=== PATIENT | male | born 1960 | race Caucasian/White ===

== ENCOUNTER 2017-11-29 18:41 | Emergency (ER) | payer MEDICARE ==
[2017-11-29] MEDS ORDERED: NS 0.9% 1000 ML* 1,000 ML IV ONE (19:18)
[2017-11-29] MEDS ORDERED: Morphine INJ* 4 MG/ML 1 ML CARPUJECT IV ONE (19:19)
[2017-11-29] MEDS ORDERED: Morphine INJ* 4 MG/ML 1 ML SYRINGE (NEW SYRINGE VERSION) IV ONE (19:19)
[2017-11-29 19:50] LABS: ABS Basophils 0 10^3/ul (0-0.2); ABS Eosinophils 0 10^3/ul (0-0.6); ABS Lymphocytes 1.4 10^3/ul (1.0-4.8); ABS Monocytes 0.6 10^3/ul (0-0.8); ABS Neutrophils 4.6 10^3/ul (1.5-7.7); ABS Nucleated RBC 0 10^3/ul; Eosinophil % 0.6 % (0-6); Hematocrit 37 % (42-52); Lymphocyte % 20.6 % (25-47); Mean Corpuscular HGB Conc 35 g/dl (31-36); Mean Corpuscular Hemoglobin 30 pg (27-31); Mean Corpuscular Volume 87 fL (80-94); Mean Platelet Volume 8 um3 (7.4-10.4); Nucleated Red Blood Cells % 0; Platelet Count 317 10^3/ul (150-450); Red Blood Count 4.32 10^6/ul (4.0-5.4); Red Cell Distribution Width 13 % (10.5-15); White Blood Count 6.7 10^3/ul (3.5-10.8)
[2017-11-29 20:05] LABS: EGFR Non-African American 68.5 (>60)
[2017-11-29] MEDS ORDERED: Iodixanol* (CONTRAST) 320 MG/ML 100 ML SDV IV ONE (20:12)
--- NOTE | 2017-11-29 20:47 | RAD ---
INDICATION: Chest and abdominal pain . History of DVT. Currently anticoagulated. COMPARISON: None TECHNIQUE: Axial source images were obtained from the thoracic inlet to the symphysis pubis following administration of intravenous contrast. CT angiography was utilized for the chest portion of the examination. 92 mL of Visipaque 320 was utilized. Lack of oral contrast decreases the ability to detect lymphadenopathy and limits evaluation of the bowel Coronal and sagittal reconstructed images were acquired. CHEST FINDINGS: Neck/thyroid: The visualized neck to include the thyroid appear normal. Chest wall: There are no acute abnormalities of the bony thorax or chest wall. There is no supraclavicular, infraclavicular, or axillary lymphadenopathy. Lungs : There are no pulmonary parenchymal masses or infiltrates. The pulmonary interstitium appears normal. There are no endobronchial lesions. Cardiomediastinal structures: The heart is normal in size. There is no pericardial effusion. There is no evidence of aortic aneurysm or dissection. The pulmonary vessels appear normal. There is no CT evidence of acute pulmonary embolic disease There is no mediastinal or hilar adenopathy. The esophagus appears normal. Pleura : There are no pleural-based masses or effusions. ABDOMINAL/PELVIC FINDINGS: Liver: The liver is normal in size. There are no worrisome masses. There is a 4 mm left hepatic lobe hypodensity which is likely an incidental cyst. There is no ductal dilatation. Gallbladder: There are no calcified gallstones. There is no evidence of wall thickening or pericholecystic fluid. Spleen: The spleen is normal in size. There are no masses. Pancreas: There is no evidence of pancreatic mass or ductal dilatation. Adrenal glands: There is no evidence of adrenal mass. Kidneys: The kidneys are normal in size and position. There are prompt nephrograms and there is prompt excretion bilaterally. There are no renal parenchymal masses. There is no evidence of nephrolithiasis. Adenopathy: There is no evidence of adenopathy by size criteria. Fluid collections: There are no free or localized fluid collections. Vessels:The aorta and IVC appear normal GI tract: There are no specific CT abnormalities the upper lower GI tract on noncontrast evaluation.. Pelvic organs: The prostate and seminal vesicles appear normal Bladder: There are no bladder masses. Abdominal and pelvic soft tissues: The extraperitoneal abdominal and pelvic soft tissues appear normal.. Osseous structures: There are no acute osseous findings. IMPRESSION: 1. No CT evidence of acute pulmonary embolic disease. Lungs clear. 2. No mass or inflammatory change in the abdomen or pelvis
[2017-11-29 21:06] LABS: Urine Appearance Clear; Urine Blood Negative (Negative); Urine Color Yellow; Urine Ketones Negative (Negative); Urine Protein Negative (Negative); Urine Specific Gravity 1.026 (1.010-1.030); Urine Urobilinogen Negative (Negative)
[2017-11-29 21:27] VITALS: BP 139/67
--- NOTE | 2017-11-30 03:56 | ED ---
Lane Griggs Jennifer, scribed for Daron Cuadra MD on 11/29/17 at 1916 . Syncope/Near Syncope - HPI Summary HPI Summary: The patient is a 57 year old male who presents to the ED with an episode of syncope tonight. The patient describes that he took one Trazadone before going to [facility] because he was feeling depressed. He reports that he began feeling shortness of breath before fainting. The patient additionally complains of throbbing pain in both legs rated at an 8/10 due to his history of DVT. He reports that he has experienced stomach pain for the last two months. The patient denies shortness of breath and chest pain in the ED. He explains that he was in [facility] for mental health one week ago due to his history of depression. He also requests an HIV test tonight. - History Of Current Complaint Chief Complaint: EDSyncope Time Seen by Provider: 11/29/17 19:05 Hx Obtained From: Patient Onset/Duration: Sudden Onset, Still Present Timing: Constant Activity At Onset: Other - Playing binCompany Associated Head Trauma: No Aggravating Factor(s): Nothing Alleviating Factor(s): Nothing Associated Signs And Symptoms: Other - shortness of breath, depression, leg pain , abdominal pain. NEGATIVE: chest pain - Allergies/Home Medications Allergies/Adverse Reactions: Allergies Allergy/AdvReac Type Severity Reaction Status Date / Time No Known Allergies Allergy Verified 02/21/15 04:27 Home Medications: Home Medications Apixaban* [Eliquis*] 5 mg PO BID 11/29/17 [History Confirmed 11/29/17] PMH/Surg Hx/FS Hx/Imm Hx Endocrine/Hematology History: Reports: Hx Anticoagulant Therapy, Hx Diabetes Cardiovascular History: Reports: Hx Deep Vein Thrombosis - 2010, 2011, and 2012 , Hx Embolism - 2010 Respiratory History: Reports: Hx Pulmonary Edema, Hx Pulmonary Embolism Sensory History: Reports: Hx Contacts or Glasses, Hx Hearing Problem - Inner ear tube placement Opthamlomology History: Reports: Hx Contacts or Glasses Psychiatric History: Reports: Hx Depression Denies: Hx Eating Disorder, Hx of Violent Episodes Against Others - Surgical History Surgery Procedure, Year, and Place: Hx Appendectomy and Inner Ear Tube Placement Infectious Disease History: No Infectious Disease History: Denies: Traveled Outside the [place] in Last 30 Days - Family History Known Family History: Positive: Diabetes - Father - Social History Alcohol Use: Occasionally Substance Use Type: Reports: None Smoking Status (MU): Never Smoked Tobacco Review of Systems Negative: Chest Pain Positive: Shortness Of Breath Positive: Abdominal Pain Positive: Myalgia - Leg pain Positive: Depressed All Other Systems Reviewed And Are Negative: Yes Physical Exam - Summary Physical Exam Summary: Appearance: Well appearing, no pain distress Skin: warm, dry, reflects adequate perfusion Head/face: normal Eyes: EOMI, HERMANN ENT: normal Neck: supple, non-tender Respiratory: CTA, breath sounds present Cardiovascular: RRR, pulses symmetrical Abdomen: non-tender, soft Bowel: present Musculoskeletal: normal, strength/ROM intact. Lower extremities 1-2 + bilateral non-pitting edema. No tenderness in legs. Neuro: normal, sensory motor intact, A&Ox3 Psych: Normal. Triage Information Reviewed: Yes Vital Signs On Initial Exam: Initial Vitals Temp Pulse Resp BP Pulse Ox 97.6 F 93 19 122/80 100 11/29/17 18:45 11/29/17 18:45 11/29/17 18:45 11/29/17 18:45 11/29/17 18:45 Vital Signs Reviewed: Yes Diagnostics - Vital Signs Vital Signs Temp Pulse Resp BP Pulse Ox 11/29/17 18:45 97.6 F 93 19 122/80 100 - Laboratory Lab Results: Lab Results 11/29/17 11/29/17 11/29/17 Range/Units 19:30 19:30 19:30 WBC 6.7 (3.5-10.8) 10^3/ul RBC 4.32 (4.0-5.4) 10^6/ul Hgb 13.0 L (14.0-18.0) g/dl Hct 37 L (42-52) % MCV 87 (80-94) fL MCH 30 (27-31) pg MCHC 35 (31-36) g/dl RDW 13 (10.5-15) % Plt Count 317 (150-450) 10^3/ul MPV 8 (7.4-10.4) um3 Neut % (Auto) 69.0 (38-83) % Lymph % (Auto) 20.6 L (25-47) % [place] % (Auto) 9.4 H (1-9) % Eos % (Auto) 0.6 (0-6) % Baso % (Auto) 0.4 (0-2) % Absolute Neuts (auto) 4.6 (1.5-7.7) 10^3/ul Absolute Lymphs (auto) 1.4 (1.0-4.8) 10^3/ul Absolute Monos (auto) 0.6 (0-0.8) 10^3/ul Absolute Eos (auto) 0 (0-0.6) 10^3/ul Absolute Basos (auto) 0 (0-0.2) 10^3/ul Absolute Nucleated RBC 0 10^3/ul Nucleated RBC % 0 Sodium 132 L (133-145) mmol/L Potassium 4.2 (3.5-5.0) mmol/L Chloride 98 L (101-111) mmol/L Carbon Dioxide 28 (22-32) mmol/L Anion Gap 6 (2-11) mmol/L BUN 26 H (6-24) mg/dL Creatinine 1.11 (0.67-1.17) mg/dL Est GFR ( Amer) 88.1 (>60) Est GFR (Non-Af Amer) 68.5 (>60) BUN/Creatinine Ratio 23.4 H (8-20) Glucose 323 H (70-100) mg/dL POC Glucose (mg/dL) (70-100) mg/dL Lactic Acid 1.5 (0.5-2.0) mmol/L Calcium 8.9 (8.6-10.3) mg/dL Magnesium 1.4 L (1.9-2.7) mg/dL Total Bilirubin 0.50 (0.2-1.0) mg/dL AST 8 L (13-39) U/L ALT 7 (7-52) U/L Alkaline Phosphatase 46 (34-104) U/L Troponin I 0.00 (<0.04) ng/mL Total Protein 6.8 (6.4-8.9) g/dL Albumin 3.6 (3.2-5.2) g/dL Globulin 3.2 (2-4) g/dL Albumin/Globulin Ratio 1.1 (1-3) TSH 6.58 H (0.34-5.60) mcIU/mL Urine Color Urine Appearance Urine pH (5-9) Ur Specific [place] (1.010-1.030) Urine Protein (Negative) Urine Ketones (Negative) Urine Blood (Negative) Urine Nitrate (Negative) Urine Bilirubin (Negative) Urine Urobilinogen (Negative) Ur Leukocyte Esterase (Negative) Urine Glucose (Negative) 11/29/17 11/29/17 Range/Units 20:50 21:16 WBC (3.5-10.8) 10^3/ul RBC (4.0-5.4) 10^6/ul Hgb (14.0-18.0) g/dl Hct (42-52) % MCV (80-94) fL MCH (27-31) pg MCHC (31-36) g/dl RDW (10.5-15) % Plt Count (150-450) 10^3/ul MPV (7.4-10.4) um3 Neut % (Auto) (38-83) % Lymph % (Auto) (25-47) % [place] % (Auto) (1-9) % Eos % (Auto) (0-6) % Baso % (Auto) (0-2) % Absolute Neuts (auto) (1.5-7.7) 10^3/ul Absolute Lymphs (auto) (1.0-4.8) 10^3/ul Absolute Monos (auto) (0-0.8) 10^3/ul Absolute Eos (auto) (0-0.6) 10^3/ul Absolute Basos (auto) (0-0.2) 10^3/ul Absolute Nucleated RBC 10^3/ul Nucleated RBC % Sodium (133-145) mmol/L Potassium (3.5-5.0) mmol/L Chloride (101-111) mmol/L Carbon Dioxide (22-32) mmol/L Anion Gap (2-11) mmol/L BUN (6-24) mg/dL Creatinine (0.67-1.17) mg/dL Est GFR ( Amer) (>60) Est GFR (Non-Af Amer) (>60) BUN/Creatinine Ratio (8-20) Glucose (70-100) mg/dL POC Glucose (mg/dL) 324 H (70-100) mg/dL Lactic Acid (0.5-2.0) mmol/L Calcium (8.6-10.3) mg/dL Magnesium (1.9-2.7) mg/dL Total Bilirubin (0.2-1.0) mg/dL AST (13-39) U/L ALT (7-52) U/L Alkaline Phosphatase (34-104) U/L Troponin I (<0.04) ng/mL Total Protein (6.4-8.9) g/dL Albumin (3.2-5.2) g/dL Globulin (2-4) g/dL Albumin/Globulin Ratio (1-3) TSH (0.34-5.60) mcIU/mL Urine Color Yellow Urine Appearance Clear Urine pH 5.0 (5-9) Ur Specific [place] 1.026 (1.010-1.030) Urine Protein Negative (Negative) Urine Ketones Negative (Negative) Urine Blood Negative (Negative) Urine Nitrate Negative (Negative) Urine Bilirubin Negative (Negative) Urine Urobilinogen Negative (Negative) Ur Leukocyte Esterase Negative (Negative) Urine Glucose 3+(>=500 mg/dl) H (Negative) Result Diagrams: 11/29/17 19:30 11/29/17 19:30 Lab Statement: Any lab studies that have been ordered have been reviewed, and results considered in the medical decision making process. - CT Chest/Abd/Pel CTA CT Interpretation: No Acute Changes - 1. No CT evidence of acute pulmonary embolic disease. Lungs clear. 2. No mass or inflammatory change in the abdomen or pelvis. Dr. Cuadra has reviewed this report. CT Interpretation Completed By: Radiologist - EKG 19:26 Cardiac Rate: NL EKG Rhythm: Sinus Rhythm - [address] Segment: Normal EKG Interpretation: Normal axis, Poor R wave progression Course/Dx Course Of Treatment: Pt with extensive hx to include DVT now and PE in the past. On NOAC. Took trazadone prior to sx. CTA chest/abd all neg. Pt stablized here. Up and walking without sx. Had been concerned for wt loss. TSH actually high, his doctor to adjust. No cause found for wt loss. Syncope appears related to vagal event after trying to stay awake after med. - Diagnoses Provider Diagnoses: Vasovagal syncope, Medication side effect, Diabetes mellitus with hyperglycemia , Hypothyroidism Discharge - Discharge Plan Condition: Good Disposition: HOME Patient Education Materials: Syncope (ED), Diabetic Hyperglycemia (ED) Referrals: Niyah Tidwell MD [Medical Doctor] - Additional Instructions: Call your doctor first thing in the morning for follow up. Have them look at changes in your diabetic management, evaluation and treatment of your thyroid. Do not take your sleeping medication and then try to stay up. This can make you feel poorly. Stay well hydrated. Return if worse, new symptoms or other concerns as discussed. The documentation as recorded by the Lane crawford Jennifer accurately reflects the service I personally performed and the decisions made by me, Daron Cuadra MD.
== END 2017-11-29 21:41 | disposition home or self-care (01) ==
LOC: ED 18:41
DX: T43.215A Adverse effect of selective serotonin and norepinephrine reuptake inhibitors, initial encounter (principal); E11.65 Type 2 diabetes mellitus with hyperglycemia; E03.9 Hypothyroidism, unspecified; R06.02 Shortness of breath; R10.9 Unspecified abdominal pain; R55 Syncope and collapse; Y92.9 Unspecified place or not applicable
CPT/HCPCS: 36415; 71275; 74177; 80053; 81003; 83605; 83735; 84443; 84484; 85025; 86703; 93005; 96374; 96375; 99283; J2270; Q9967

== ENCOUNTER → 2018-03-30 21:01 | Emergency (ER) | payer MEDICARE ==
[2018-03-30 21:17] VITALS: BP 124/78
== END | disposition left against medical advice (07) ==
LOC: ED 21:01
DX: R10.9 Unspecified abdominal pain (principal); Z53.21 Procedure and treatment not carried out due to patient leaving prior to being seen by health care provider

== ENCOUNTER 2018-03-31 19:29 | Emergency (ER) | payer MEDICARE ==
[2018-03-31] MEDS ORDERED: Ketorolac INJ* 60 MG/2 ML VIAL IM ONE (20:25)
[2018-03-31 20:38] LABS: Urine Appearance Clear; Urine Blood Negative (Negative); Urine Color Yellow; Urine Ketones Negative (Negative); Urine Protein Negative (Negative); Urine Specific Gravity 1.016 (1.010-1.030); Urine Urobilinogen Negative (Negative)
[2018-03-31 20:43] LABS: ABS Basophils 0 10^3/ul (0-0.2); ABS Eosinophils 0.1 10^3/ul (0-0.6); ABS Lymphocytes 1.5 10^3/ul (1.0-4.8); ABS Monocytes 0.5 10^3/ul (0-0.8); ABS Neutrophils 2.9 10^3/ul (1.5-7.7); ABS Nucleated RBC 0 10^3/ul; Eosinophil % 1.7 % (0-6); Hematocrit 29 % (42-52); Hemoglobin 10.3 g/dl (14.0-18.0); Lymphocyte % 29.6 % (25-47); Mean Corpuscular HGB Conc 35 g/dl (31-36); Mean Corpuscular Hemoglobin 31 pg (27-31); Mean Corpuscular Volume 88 fL (80-94); Mean Platelet Volume 7.1 um3 (7.4-10.4); Nucleated Red Blood Cells % 0; Platelet Count 284 10^3/ul (150-450); Red Blood Count 3.31 10^6/ul (4.00-5.40); Red Cell Distribution Width 13 % (10.5-15)
--- NOTE | 2018-03-31 21:15 | RAD ---
INDICATION: Right upper quadrant pain. COMPARISON: None TECHNIQUE: Longitudinal and transverse scans of the right upper quadrant were obtained. Doppler interrogation of the hepatic and portal venous system was performed. FINDINGS: Liver: The liver is mildly generous in size measuring 18.9 cm. The echogenicity is normal. There are no focal masses. Vessels: There is normal hepatic and portal venous flow. Bile ducts: There is no evidence of intrahepatic or extrahepatic ductal dilatation. The common duct is not seen due to bowel gas. Gallbladder: There are several small gallstones and there are additional gallbladder polyps. There is no evidence of cholelithiasis, thickening of the gallbladder wall, or pericholecystic fluid. Pancreas: The visualized pancreas is not seen due to interfering bowel gas Right kidney: The right kidney is normal in size and echogenicity. There are no masses or calculi. There is no evidence of hydronephrosis. The right kidney measures 10.6 x 5.4 x 5.9 cm. IVC and aorta: The aorta and superior vena cava appear normal. Fluid: There is no ascites. Other: None. IMPRESSION: SMALL GALLSTONES WITHOUT THICKENED GALLBLADDER WALL OR PERICHOLECYSTIC FLUID. INCIDENTAL GALLBLADDER POLYPS.
[2018-03-31 22:43] VITALS: BP 127/67
--- NOTE | 2018-04-01 03:25 | ED ---
Yee Griggs SooYoung, scribed for Monserrat Gutierrez MD on 03/31/18 at 1949 . Abdominal Pain/Male - HPI Summary HPI Summary: A 57 y/o M presents to ED with c/o acute RUQ pain onset [employer]ER. Pain is described as aching and sharp, and is rated 10 out of 10. Associated sx: nausea, vomiting for one week. Pt states he has a known gallstone. He was seen at [facility] approximately two weeks ago, imaging showed gallstones. Pt was admitted for MHE at [facility] for gambling addiction. PMHx: bipolar , manic depression -- states he is medication compliant. Denies HI. Pt states he came to [facility] last night but was not seen by a provider because he left. Non- smoker. Denies drug use. NKA. - History of Current Complaint Chief Complaint: EDAbdPain Stated Complaint: ABD PAIN Time Seen by Provider: 03/31/18 19:41 Hx Obtained From: Patient Onset/Duration: Still Present Severity Currently: Severe - Pt lying comfortably in stretcher Pain Intensity: 10 Pain Scale Used: 0-10 Numeric Location: Umbilical Character: Sharp, Other: - Aching Associated Signs And Symptoms: Positive: Nausea, Vomiting, Other - syncope due to pain - Allergies/Home Medications Allergies/Adverse Reactions: Allergies Allergy/AdvReac Type Severity Reaction Status Date / Time No Known Allergies Allergy Verified 03/31/18 19:40 PMH/Surg Hx/FS Hx/Imm Hx Previously Healthy: No Endocrine/Hematology History: Reports: Hx Anticoagulant Therapy, Hx Diabetes Cardiovascular History: Reports: Hx Deep Vein Thrombosis - 2010, 2011, and 2012 , Hx Embolism - 2010 Respiratory History: Reports: Hx Pulmonary Edema, Hx Pulmonary Embolism Sensory History: Reports: Hx Contacts or Glasses, Hx Hearing Problem - Inner ear tube placement Opthamlomology History: Reports: Hx Contacts or Glasses Psychiatric History: Reports: Hx Depression Denies: Hx Eating Disorder, Hx of Violent Episodes Against Others - Surgical History Surgery Procedure, Year, and Place: Hx Appendectomy and Inner Ear Tube Placement Infectious Disease History: No Infectious Disease History: Denies: Traveled Outside the [place] in Last 30 Days - Family History Known Family History: Positive: Diabetes - Father - Social History Occupation: Disabled Lives: With Family - girlfriend Alcohol Use: Occasionally Hx Substance Use: No Substance Use Type: Reports: None Hx Tobacco Use: No Smoking Status (MU): Never Smoked Tobacco Review of Systems Positive: Abdominal Pain, Vomiting, Nausea Positive: Syncope - due to pain Positive: Other - neg: HI All Other Systems Reviewed And Are Negative: Yes Physical Exam - Summary Physical Exam Summary: GENERAL: Patient is a well-developed and nourished M who is lying comfortable in the stretcher. Patient is not in any acute respiratory distress. HEAD AND FACE: Normocephalic EYES: PERRLA, EOMI x 2. EARS: Hearing grossly intact. MOUTH: Oropharynx within normal limits. NECK: Supple, trachea is midline, no adenopathy, no JVD, no carotid bruit. CHEST: Symmetric, no tenderness at palpation LUNGS: Clear to auscultation bilaterally. No wheezing or crackles. CVS: Regular rate and rhythm, S1 and S2 present, no murmurs or gallops appreciated. ABDOMEN: Soft. Bowel sounds are normal. No abdominal abnormal pulsations. Tender to palpation of RUQ EXTREMITIES: Full ROM in all major joints, no edema, no cyanosis or clubbing. NEURO: Alert and oriented x 3. No acute neurological deficits. Speech is normal and follows commands. SKIN: Dry and warm Triage Information Reviewed: Yes Vital Signs On Initial Exam: Initial Vitals Temp Pulse Resp BP Pulse Ox 98.3 F 81 16 167/94 98 03/31/18 19:37 03/31/18 19:37 03/31/18 19:37 03/31/18 19:37 03/31/18 19:37 Vital Signs Reviewed: Yes Diagnostics - Vital Signs Vital Signs Temp Pulse Resp BP Pulse Ox 03/31/18 19:37 98.3 F 81 16 167/94 98 - Laboratory Lab Results: Lab Results 03/31/18 03/31/18 03/31/18 Range/Units 20:28 20:28 20:28 WBC 5.0 (3.5-10.8) 10^3/ul RBC 3.31 L (4.00-5.40) 10^6/ul Hgb 10.3 L (14.0-18.0) g/dl Hct 29 L (42-52) % MCV 88 (80-94) fL MCH 31 (27-31) pg MCHC 35 (31-36) g/dl RDW 13 (10.5-15) % Plt Count 284 (150-450) 10^3/ul MPV 7.1 L (7.4-10.4) um3 Neut % (Auto) 58.5 (38-83) % Lymph % (Auto) 29.6 (25-47) % [place] % (Auto) 9.6 H (0-7) % Eos % (Auto) 1.7 (0-6) % Baso % (Auto) 0.6 (0-2) % Absolute Neuts (auto) 2.9 (1.5-7.7) 10^3/ul Absolute Lymphs (auto) 1.5 (1.0-4.8) 10^3/ul Absolute Monos (auto) 0.5 (0-0.8) 10^3/ul Absolute Eos (auto) 0.1 (0-0.6) 10^3/ul Absolute Basos (auto) 0 (0-0.2) 10^3/ul Absolute Nucleated RBC 0 10^3/ul Nucleated RBC % 0 Sodium 135 (135-145) mmol/L Potassium 4.0 (3.5-5.0) mmol/L Chloride 102 (101-111) mmol/L Carbon Dioxide 28 (22-32) mmol/L Anion Gap 5 (2-11) mmol/L BUN 22 (6-24) mg/dL Creatinine 0.94 (0.67-1.17) mg/dL Est GFR ( Amer) 100.5 (>60) Est GFR (Non-Af Amer) 83.0 (>60) BUN/Creatinine Ratio 23.4 H (8-20) Glucose 205 H (70-100) mg/dL Lactic Acid (0.5-2.0) mmol/L Calcium 8.7 (8.6-10.3) mg/dL Total Bilirubin 0.30 (0.2-1.0) mg/dL AST 8 L (13-39) U/L ALT 6 L (7-52) U/L Alkaline Phosphatase 32 L (34-104) U/L Ammonia (16-53) mcmol/L C-Reactive Protein 1.37 (<8.01) mg/L Total Protein 5.9 L (6.4-8.9) g/dL Albumin 3.2 (3.2-5.2) g/dL Globulin 2.7 (2-4) g/dL Albumin/Globulin Ratio 1.2 (1-3) Lipase 30 (11.0-82.0) U/L Urine Color Yellow Urine Appearance Clear Urine pH 6.0 (5-9) Ur Specific [place] 1.016 (1.010-1.030) Urine Protein Negative (Negative) Urine Ketones Negative (Negative) Urine Blood Negative (Negative) Urine Nitrate Negative (Negative) Urine Bilirubin Negative (Negative) Urine Urobilinogen Negative (Negative) Ur Leukocyte Esterase Negative (Negative) Urine Glucose 3+(>=500 mg/dl) A (Negative) 03/31/18 03/31/18 Range/Units 20:28 20:28 WBC (3.5-10.8) 10^3/ul RBC (4.00-5.40) 10^6/ul Hgb (14.0-18.0) g/dl Hct (42-52) % MCV (80-94) fL MCH (27-31) pg MCHC (31-36) g/dl RDW (10.5-15) % Plt Count (150-450) 10^3/ul MPV (7.4-10.4) um3 Neut % (Auto) (38-83) % Lymph % (Auto) (25-47) % [place] % (Auto) (0-7) % Eos % (Auto) (0-6) % Baso % (Auto) (0-2) % Absolute Neuts (auto) (1.5-7.7) 10^3/ul Absolute Lymphs (auto) (1.0-4.8) 10^3/ul Absolute Monos (auto) (0-0.8) 10^3/ul Absolute Eos (auto) (0-0.6) 10^3/ul Absolute Basos (auto) (0-0.2) 10^3/ul Absolute Nucleated RBC 10^3/ul Nucleated RBC % Sodium (135-145) mmol/L Potassium (3.5-5.0) mmol/L Chloride (101-111) mmol/L Carbon Dioxide (22-32) mmol/L Anion Gap (2-11) mmol/L BUN (6-24) mg/dL Creatinine (0.67-1.17) mg/dL Est GFR ( Amer) (>60) Est GFR (Non-Af Amer) (>60) BUN/Creatinine Ratio (8-20) Glucose (70-100) mg/dL Lactic Acid 0.9 (0.5-2.0) mmol/L Calcium (8.6-10.3) mg/dL Total Bilirubin (0.2-1.0) mg/dL AST (13-39) U/L ALT (7-52) U/L Alkaline Phosphatase (34-104) U/L Ammonia 39 (16-53) mcmol/L C-Reactive Protein (<8.01) mg/L Total Protein (6.4-8.9) g/dL Albumin (3.2-5.2) g/dL Globulin (2-4) g/dL Albumin/Globulin Ratio (1-3) Lipase (11.0-82.0) U/L Urine Color Urine Appearance Urine pH (5-9) Ur Specific [place] (1.010-1.030) Urine Protein (Negative) Urine Ketones (Negative) Urine Blood (Negative) Urine Nitrate (Negative) Urine Bilirubin (Negative) Urine Urobilinogen (Negative) Ur Leukocyte Esterase (Negative) Urine Glucose (Negative) Result Diagrams: 03/31/18 20:28 03/31/18 20:28 Lab Statement: Any lab studies that have been ordered have been reviewed, and results considered in the medical decision making process. - Ultrasound No standard instances Ultrasound Interpretation: Positive (See Comments) - GALLBLADDER U/S: IMPRESSION : SMALL GALLSTONES WITHOUT THICKENED GALLBLADDER WALL OR PERICHOLECYSTIC FLUID. INCIDENTAL GALLBLADDER POLYPS. ED Physician has reviewed this report and agrees. Ultrasound Interpretation Completed By: Radiologist Re-Evaluation - Re-Evaluation 1 Re-Evaluation Time: 22:17 Change: Improved Comment: Discussing results with pt. Pt states feeling better, would like to go home. Abdominal Pain Fem Course/Dx - Course Course Of Treatment: A 57 y/o M presents to ED with c/o acute RUQ pain onset [employer]. Pain is described as aching and sharp, and is rated 10 out of 10. Associated sx: nausea, vomiting for one week. Pt states he has a known gallstone. He was seen at [facility] approximately two weeks ago, imaging showed gallstones. Pt was admitted for MHE at [facility] for gambling addiction. PMHx: bipolar, manic depression -- states he is medication compliant. Denies HI. Pt states he came to [facility] last night but was not seen by a provider because he left. Non-smoker. Denies drug use. NKA. Workup is unremarkable, hemoglobin 10.3. U/S confirms gallstones without any evidence of acute cholecystitis. Discussed results with pt in great detail, believe pain is secondary to biliary colic. Pt reports improvement, is hemodynamically stable, and safe for discharge. Return precautions given. Otherwise pt will follow up with general surgery. - Diagnoses Provider Diagnoses: Biliary colic Discharge - Sign-Out/Discharge Documenting (check all that apply): Discharge/Admit/Transfer - discharge - Discharge Plan Condition: Stable Disposition: HOME Patient Education Materials: Biliary Colic (ED) Referrals: Brian Abdi MD [Medical Doctor] - As Soon As Possible Additional Instructions: Follow up with Dr. Abdi, surgery, as soon as possible. Please return to the ED if you experience new or worsening symptoms. - Billing Disposition and Condition Condition: STABLE Disposition: Home The documentation as recorded by the Yee crawford SooYoung accurately reflects the service I personally performed and the decisions made by me, Monserrat Gutierrez MD.
== END 2018-03-31 22:43 | disposition home or self-care (01) ==
LOC: ED 19:29
DX: K80.50 Calculus of bile duct without cholangitis or cholecystitis without obstruction (principal); R11.2 Nausea with vomiting, unspecified; R55 Syncope and collapse; E11.9 Type 2 diabetes mellitus without complications; Z86.718 Personal history of other venous thrombosis and embolism; Z86.711 Personal history of pulmonary embolism; Z79.01 Long term (current) use of anticoagulants; F32.9 Major depressive disorder, single episode, unspecified; Z83.3 Family history of diabetes mellitus
CPT/HCPCS: 36415; 76705; 80053; 81003; 82140; 83605; 83690; 85025; 86140; 96372; 99283; J1885

== ENCOUNTER 2018-04-08 18:11 | Emergency (ER) | payer MEDICARE ==
[2018-04-08] MEDS ORDERED: Famotidine TAB* 20 MG PO ONE (18:22)
[2018-04-08 18:45] LABS: ABS Basophils 0 10^3/ul (0-0.2); ABS Eosinophils 0.1 10^3/ul (0-0.6); ABS Lymphocytes 1.3 10^3/ul (1.0-4.8); ABS Monocytes 0.5 10^3/ul (0-0.8); ABS Neutrophils 3.5 10^3/ul (1.5-7.7); ABS Nucleated RBC 0 10^3/ul; Eosinophil % 1.6 % (0-6); Hematocrit 34 % (42-52); Hemoglobin 11.5 g/dl (14.0-18.0); Lymphocyte % 23.5 % (25-47); Mean Corpuscular HGB Conc 34 g/dl (31-36); Mean Corpuscular Hemoglobin 30 pg (27-31); Mean Corpuscular Volume 89 fL (80-94); Mean Platelet Volume 6.9 um3 (7.4-10.4); Nucleated Red Blood Cells % 0; Platelet Count 324 10^3/ul (150-450); Red Blood Count 3.79 10^6/ul (4.00-5.40); Red Cell Distribution Width 13 % (10.5-15); White Blood Count 5.4 10^3/ul (3.5-10.8)
[2018-04-08 18:52] LABS: INR 1.09 (0.77-1.02)
[2018-04-08 18:56] LABS: Urine Appearance Clear; Urine Blood Negative (Negative); Urine Color Straw; Urine Ketones Negative (Negative); Urine Protein Negative (Negative); Urine Specific Gravity 1.005 (1.010-1.030); Urine Urobilinogen Negative (Negative)
--- NOTE | 2018-04-08 21:44 | ED ---
Keshawn Griggs Natalie, scribed for Daron Cuadra MD on 04/08/18 at 1834 . Psychiatric Complaint - HPI Summary HPI Summary: The patient is a 57 y/o M presenting to [facility] c/o abd pain from hx of gallbladder issues starting a month ago. He currently rates the intermittent pain as 8/10 in severity. He additionally c/o diarrhea and blurred vision. He was brought in by EMS for SI with a plan to cut his wrists and overdose on Coumadin because he "can't take the pain anymore." He also reports that the SI is worsened by his gambling addition. 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 He has been to [facility] before for mental health. He last drank EToH three years ago. - History Of Current Complaint Chief Complaint: EDMentalHealth Time Seen by Provider: 04/08/18 18:13 Hx Obtained From: Patient Onset/Duration: Gradual Onset, Lasting Days, Still Present Timing: Days Severity Initially: Mild Severity Currently: Moderate Character: Depressed Aggravating Factor(s): Other - increasing health problems, gambling addiction Alleviating Factor(s): Nothing Related History: Positive For: Prior Psychiatric Issues Has Suicidal: Reports: Thoughts, With A Plan - cut wrists and overdose on medication - Allergies/Home Medications Allergies/Adverse Reactions: Allergies Allergy/AdvReac Type Severity Reaction Status Date / Time No Known Allergies Allergy Verified 03/31/18 19:40 Home Medications: Home Medications Escitalopram Oxalate [Lexapro 10 mg] 10 mg PO DAILY 04/08/18 [History Confirmed 04/08/18] PMH/Surg Hx/FS Hx/Imm Hx Endocrine/Hematology History: Reports: Hx Anticoagulant Therapy, Hx Diabetes Cardiovascular History: Reports: Hx Deep Vein Thrombosis - 2010, 2011, and 2012 , Hx Embolism - 2010 Respiratory History: Reports: Hx Pulmonary Edema, Hx Pulmonary Embolism Sensory History: Reports: Hx Contacts or Glasses, Hx Hearing Problem - Inner ear tube placement Opthamlomology History: Reports: Hx Contacts or Glasses Psychiatric History: Reports: Hx Depression Denies: Hx Eating Disorder, Hx of Violent Episodes Against Others - Surgical History Surgery Procedure, Year, and Place: Hx Appendectomy and Inner Ear Tube Placement Infectious Disease History: No Infectious Disease History: Denies: Traveled Outside the [place] in Last 30 Days - Family History Known Family History: Positive: Diabetes - Father - Social History Alcohol Use: None Hx Substance Use: No Substance Use Type: Reports: None Hx Tobacco Use: No Smoking Status (MU): Never Smoked Tobacco Review of Systems Positive: Blurred Vision Positive: Abdominal Pain, Diarrhea Psychological: Other - SI All Other Systems Reviewed And Are Negative: Yes Physical Exam - Summary Physical Exam Summary: Appearance: Well appearing, no pain distress Skin: warm, dry, reflects adequate perfusion Head/face: normal Eyes: EOMI, HERMANN ENT: normal Neck: supple, non-tender Respiratory: CTA, breath sounds present Cardiovascular: RRR, pulses symmetrical Abdomen: non-tender, soft Bowel Sounds: present Musculoskeletal: normal, strength/ROM intact Neuro: normal, sensory motor intact, A&Ox3 Pysch: suicidal ideation Triage Information Reviewed: Yes Vital Signs On Initial Exam: Initial Vitals Temp Pulse Resp BP Pulse Ox 98.4 F 75 18 166/90 98 04/08/18 18:11 04/08/18 18:11 04/08/18 18:11 04/08/18 18:11 04/08/18 18:11 Vital Signs Reviewed: Yes Diagnostics - Vital Signs Vital Signs Temp Pulse Resp BP Pulse Ox 04/08/18 18:11 98.4 F 75 18 166/90 98 - Laboratory Lab Results: Lab Results 04/08/18 04/08/18 04/08/18 Range/Units 18:36 18:36 18:36 WBC 5.4 (3.5-10.8) 10^3/ul RBC 3.79 L (4.00-5.40) 10^6/ul Hgb 11.5 L (14.0-18.0) g/dl Hct 34 L (42-52) % MCV 89 (80-94) fL MCH 30 (27-31) pg MCHC 34 (31-36) g/dl RDW 13 (10.5-15) % Plt Count 324 (150-450) 10^3/ul MPV 6.9 L (7.4-10.4) um3 Neut % (Auto) 64.0 (38-83) % Lymph % (Auto) 23.5 L (25-47) % Burke % (Auto) 10.1 H (0-7) % Eos % (Auto) 1.6 (0-6) % Baso % (Auto) 0.8 (0-2) % Absolute Neuts (auto) 3.5 (1.5-7.7) 10^3/ul Absolute Lymphs (auto) 1.3 (1.0-4.8) 10^3/ul Absolute Monos (auto) 0.5 (0-0.8) 10^3/ul Absolute Eos (auto) 0.1 (0-0.6) 10^3/ul Absolute Basos (auto) 0 (0-0.2) 10^3/ul Absolute Nucleated RBC 0 10^3/ul Nucleated RBC % 0 INR (Anticoag Therapy) 1.09 H (0.77-1.02) Sodium 133 L (135-145) mmol/L Potassium 4.2 (3.5-5.0) mmol/L Chloride 99 L (101-111) mmol/L Carbon Dioxide 28 (22-32) mmol/L Anion Gap 6 (2-11) mmol/L BUN 15 (6-24) mg/dL Creatinine 0.94 (0.67-1.17) mg/dL Est GFR ( Amer) 100.5 (>60) Est GFR (Non-Af Amer) 83.0 (>60) BUN/Creatinine Ratio 16.0 (8-20) Glucose 202 H (70-100) mg/dL Calcium 8.8 (8.6-10.3) mg/dL Total Bilirubin 0.50 (0.2-1.0) mg/dL AST 8 L (13-39) U/L ALT 8 (7-52) U/L Alkaline Phosphatase 31 L (34-104) U/L Total Protein 6.3 L (6.4-8.9) g/dL Albumin 3.5 (3.2-5.2) g/dL Globulin 2.8 (2-4) g/dL Albumin/Globulin Ratio 1.3 (1-3) Lipase 18 (11.0-82.0) U/L TSH 4.95 (0.34-5.60) mcIU/mL Urine Color Urine Appearance Urine pH (5-9) Ur Specific [place] (1.010-1.030) Urine Protein (Negative) Urine Ketones (Negative) Urine Blood (Negative) Urine Nitrate (Negative) Urine Bilirubin (Negative) Urine Urobilinogen (Negative) Ur Leukocyte Esterase (Negative) Urine Glucose (Negative) Salicylates < 2.50 (<30) mg/dL Urine Opiates Screen (None Detect) Acetaminophen < 15 mcg/mL Ur Barbiturates Screen (None Detect) Ur Phencyclidine Scrn (None Detect) Ur Amphetamines Screen (None Detect) U Benzodiazepines Scrn (None Detect) Urine Cocaine Screen (None Detect) U Cannabinoids Screen (None Detect) Serum Alcohol < 10 (<10) mg/dL 04/08/18 04/08/18 Range/Units 18:42 18:42 WBC (3.5-10.8) 10^3/ul RBC (4.00-5.40) 10^6/ul Hgb (14.0-18.0) g/dl Hct (42-52) % MCV (80-94) fL MCH (27-31) pg MCHC (31-36) g/dl RDW (10.5-15) % Plt Count (150-450) 10^3/ul MPV (7.4-10.4) um3 Neut % (Auto) (38-83) % Lymph % (Auto) (25-47) % Burke % (Auto) (0-7) % Eos % (Auto) (0-6) % Baso % (Auto) (0-2) % Absolute Neuts (auto) (1.5-7.7) 10^3/ul Absolute Lymphs (auto) (1.0-4.8) 10^3/ul Absolute Monos (auto) (0-0.8) 10^3/ul Absolute Eos (auto) (0-0.6) 10^3/ul Absolute Basos (auto) (0-0.2) 10^3/ul Absolute Nucleated RBC 10^3/ul Nucleated RBC % INR (Anticoag Therapy) (0.77-1.02) Sodium (135-145) mmol/L Potassium (3.5-5.0) mmol/L Chloride (101-111) mmol/L Carbon Dioxide (22-32) mmol/L Anion Gap (2-11) mmol/L BUN (6-24) mg/dL Creatinine (0.67-1.17) mg/dL Est GFR ( Amer) (>60) Est GFR (Non-Af Amer) (>60) BUN/Creatinine Ratio (8-20) Glucose (70-100) mg/dL Calcium (8.6-10.3) mg/dL Total Bilirubin (0.2-1.0) mg/dL AST (13-39) U/L ALT (7-52) U/L Alkaline Phosphatase (34-104) U/L Total Protein (6.4-8.9) g/dL Albumin (3.2-5.2) g/dL Globulin (2-4) g/dL Albumin/Globulin Ratio (1-3) Lipase (11.0-82.0) U/L TSH (0.34-5.60) mcIU/mL Urine Color Straw Urine Appearance Clear Urine pH 7.0 (5-9) Ur Specific [place] 1.005 L (1.010-1.030) Urine Protein Negative (Negative) Urine Ketones Negative (Negative) Urine Blood Negative (Negative) Urine Nitrate Negative (Negative) Urine Bilirubin Negative (Negative) Urine Urobilinogen Negative (Negative) Ur Leukocyte Esterase Negative (Negative) Urine Glucose 1+(50 mg/dl) A (Negative) Salicylates (<30) mg/dL Urine Opiates Screen None detected (None Detect) Acetaminophen mcg/mL Ur Barbiturates Screen None detected (None Detect) Ur Phencyclidine Scrn None detected (None Detect) Ur Amphetamines Screen None detected (None Detect) U Benzodiazepines Scrn None detected (None Detect) Urine Cocaine Screen None detected (None Detect) U Cannabinoids Screen None detected (None Detect) Serum Alcohol (<10) mg/dL Result Diagrams: 04/08/18 18:36 04/08/18 18:36 Lab Statement: Any lab studies that have been ordered have been reviewed, and results considered in the medical decision making process. - EKG 18:28 Cardiac Rate: NL - 72 BPM EKG Rhythm: Sinus Rhythm EKG Interpretation: Nml axis. Nml interval. No ST changes. Course/Dx - Course Course Of Treatment: Patient with no abdominal tenderness here. Recent ultrasound shows gallstones only. No pain in the right upper quadrant now. His complaint really is for more epigastric discomfort. LFTs, lipase normal. Mental health evaluation performed here. He is currently undergoing this crisis evaluation will be signed out to the oncoming provider pending disposition. - Differential Dx/Clinical Impression Provider Diagnosis: Gastric pain, Mood disorder Discharge - Sign-Out/Discharge Documenting (check all that apply): Sign-Out Patient Signing out patient TO: Samir Foster - The pt will be a sign-out to Dr. Foster at shift change, pending MHE. - Discharge Plan Condition: Stable Referrals: Krunal Josue MD [Primary Care Provider] - - Billing Disposition and Condition Condition: STABLE The documentation as recorded by the Keshawn crawford Natalie accurately reflects the service I personally performed and the decisions made by me, Daron Cuadra MD.
[2018-04-08] MEDS ORDERED: glipiZIDE TAB* 5 MG PO ONE (22:02)
[2018-04-08] MEDS ORDERED: metFORMIN* 500 MG TAB PO ONE (22:03)
[2018-04-08] MEDS: traZODone TAB* 50 MG TAB PO ONE ×2 (22:42→22:43)
--- NOTE | 2018-04-09 06:45 | ED ---
Deondre Griggs Gabriel, scribed for Samir Foster MD on 04/09/18 at 0626 . Progress - Progress Note Progress Note: This pt was signed out from Dr. Cuadra awaiting dispo. After MHE the barrel rib matting machine operator has decided to transfer the patient. The patient will be signed out to Dr. Holt awaiting transfer. - Consult/PCP Time Called: 19:10 Course/Dx - Diagnoses Provider Diagnoses: Mood disorder Discharge - Sign-Out/Discharge Documenting (check all that apply): Discharge/Admit/Transfer, Sign-Out Patient, Receiving Sign-Out Signing out patient TO: Eugene Holt Receiving patient FROM: Daron Cuadra - Discharge Plan Condition: Stable Disposition: PSYCHIATRIC FACILITY-OTHER Referrals: Krunal Josue MD [Primary Care Provider] - - Billing Disposition and Condition Condition: STABLE Disposition: Psychiatric Facility Other The documentation as recorded by the Deondre crawford Gabriel accurately reflects the service I personally performed and the decisions made by , Samir Foster MD.
[2018-04-09] MEDS ORDERED: Ibuprofen TAB* 400 MG PO ONE (08:22)
[2018-04-09] MEDS ORDERED: metFORMIN* 500 MG TAB PO ONE (08:30)
[2018-04-09] MEDS ORDERED: glipiZIDE TAB* 5 MG PO ONE (08:31)
[2018-04-09] MEDS ORDERED: Escitalopram (NF) 10 MG TAB PO SCH (09:00)
[2018-04-09] MEDS ORDERED: Apixaban* 5 MG TAB PO ONE (09:00)
[2018-04-09 14:42] VITALS: BP 122/68
--- NOTE | 2018-04-09 17:42 | ED ---
IKareen Tenzin, scribed for Daron Cuadra MD on 04/09/18 at 1035 . Progress - Progress Note Progress Note: Pt observed thru night by Dr Foster -- elected for transfer as no beds available here. Pt was transferred to another psych facility after full evaluation by crisis here. Stable until transfer. - Consult/PCP Time Called: 19:10 Course/Dx - Course Course Of Treatment: Patient with no abdominal tenderness here. Recent ultrasound shows gallstones only. No pain in the right upper quadrant now. His complaint really is for more epigastric discomfort. LFTs, lipase normal. Mental health evaluation performed here. He is currently undergoing this crisis evaluation will be signed out to the oncoming provider pending disposition. - Diagnoses Provider Diagnoses: Mood disorder Discharge - Sign-Out/Discharge Documenting (check all that apply): Receiving Sign-Out Receiving patient FROM: Samir Foster - Pt is a sign out from Dr. Foster. - Discharge Plan Condition: Stable Disposition: PSYCHIATRIC FACILITY-OTHER Referrals: Krunal Josue MD [Primary Care Provider] - - Billing Disposition and Condition Condition: STABLE Disposition: Psychiatric Facility Other The documentation as recorded by the Kareen crawford Tenzin accurately reflects the service I personally performed and the decisions made by , Daron Cuadra MD.
== END 2018-04-09 15:35 ==
LOC: ED 18:11
DX: F39 Unspecified mood [affective] disorder (principal); R10.11 Right upper quadrant pain; Z72.6 Gambling and betting; Z86.711 Personal history of pulmonary embolism; Z79.01 Long term (current) use of anticoagulants
CPT/HCPCS: 36415; 80053; 80307; 80320; 80329; 81003; 83690; 84443; 85025; 85610; 93005; 99285; A9270-GY; G0480

== ENCOUNTER 2019-09-22 07:27 | Inpatient (IN) | payer MEDICARE ==
[2019-09-22] MEDS ORDERED: NS 0.9% 1000 ML** 1,000 ML IV ONE ×2 (07:59→08:31)
[2019-09-22] MEDS ORDERED: cefTRIAXone(*) 1 GM in NS 0.9% 50 ML* 50 ML IVPB ONE (07:59)
[2019-09-22 08:04] LABS: ABS Basophils 0.1 10^3/ul (0-0.2); ABS Eosinophils 0.1 10^3/ul (0-0.6); ABS Lymphocytes 1.2 10^3/ul (1.0-4.8); ABS Monocytes 0.8 10^3/ul (0-0.8); ABS Neutrophils 11.5 10^3/ul (1.5-7.7); Eosinophil % 0.9 %; Hematocrit 32 % (42-52); Lymphocyte % 8.5 %; Mean Corpuscular HGB Conc 34 g/dL (31-36); Mean Corpuscular Hemoglobin 29 pg (27-31); Mean Corpuscular Volume 85 fL (80-94); Mean Platelet Volume 7.7 fL (7.4-10.4); Nucleated Red Blood Cells % 0.1; Platelet Count 473 10^3/uL (150-450); Red Blood Count 3.78 10^6 /uL (4.18-5.48); Red Cell Distribution Width 13 % (10-15); White Blood Count 13.6 10^3/uL (3.5-10.8)
[2019-09-22 08:21] LABS: Albumin 3.4 g/dL (3.2-5.2); Albumin/Globulin Ratio 0.7 (1-3); BUN/Creatinine Ratio 21.8 (8-20); Calcium 9.3 mg/dL (8.6-10.3); EGFR African American 66.8 (>60); EGFR Non-African American 55.2 (>60); Globulin 4.6 g/dL (2-4); Total Bilirubin 0.4 mg/dL (0.2-1.0)
[2019-09-22 08:24] LABS: Potassium 5.1 mmol/L (3.5-5.0)
[2019-09-22] MEDS ORDERED: Insulin REGULAR(*) 1 UNITS UNIT SUBCUT ONE (08:43)
[2019-09-22 08:58] LABS: TSH (Thyroid Stimulating Horm) 3.26 mcIU/mL (0.34-5.60)
[2019-09-22 10:29] LABS: Urine Appearance Clear; Urine Bilirubin Negative (Negative); Urine Blood Negative (Negative); Urine Color Straw; Urine Glucose 3+(>=500 mg/dL) (Negative); Urine Ketones 1+ (Negative); Urine Nitrite Negative (Negative); Urine Protein Negative (Negative); Urine Specific Gravity 1.024 (1.010-1.030); Urine Urobilinogen Negative (Negative)
[2019-09-22] MEDS ORDERED: Dextrose 50% VIAL 50 ml IV PUSH PRN (10:55)
--- NOTE | 2019-09-22 10:56 | ED ---
HPI Diabetic - HPI Summary HPI Summary: This patient is a 59yo uncontrolled diabetic presenting to the ED with multiple complaints. He states he has not been taking his diabetes medications as he doesnt care anymore. Since then, he has developed diabetic foot neuropathy with ulcers to the dorsum of the feet with yellowish discharge. States this has been present x 2 weeks and worsening. Also, has not been taking his insulin , metformin or blood thinners. He was told to stop taking his blood thinners by surgery to have a cholecystectomy but d/t his health; he is unable to have the surgery at this time. Continues to c/o RUQ pain. Eating and drinking OK. Denies any urinary symptoms or back pain. Denies any fevers, but endorsing sweats and chills. Endorses SOB, but this is his baseline. Denies CP. Does have a history of bilateral DVTs , depressive disorder, type 2 diabetes and dyspnea. He does not have a primary care, however did f/u briefly with Dr. Brothers d/t his diabetes. States he did not return. He has no medications stating he is out. Never followed up and states not sure why. Originally stating he was suicidal, but denies this currently. States he has a blood clot to the L leg as he has not been taking his blood thinners. However, there is a large abscess to the L lateral portion of the leg just below the knee. No other evidence of DVT. No CP, SOB. No AARON. No fevers. - History Of Current Complaint Chief Complaint: EDGeneral Time Seen by Provider: 09/22/19 07:37 Hx Obtained From: Patient Onset/Duration: Sudden Onset Timing: Constant Severity Initially: Moderate Severity Currently: Moderate Aggravating: Medication Change - non compliant Alleviating: Nothing Related History: DM II, Other - unconctorlled - Risk Factors Cardiac Risk Factors: Diabetes CVA Risk Factor: Diabetes - Allergies/Home Medications Allergies/Adverse Reactions: Allergies Allergy/AdvReac Type Severity Reaction Status Date / Time No Known Allergies Allergy Verified 09/22/19 07:34 Home Medications: Home Medications Insulin NPH Hum/Reg Insulin Hm [Novolin 70-30 Flexpen] 15 units SUBCUT QPM 09/22 [History Confirmed 09/22/19] Insulin NPH Hum/Reg Insulin Hm [Novolin 70-30 Flexpen] 20 units SUBCUT QAM 09/22 [History Confirmed 09/22/19] Metformin ER (NF) [Glucophage ER 750 MG TAB (NF)] 1,500 mg PO BEDTIME 09/22/19 [ History Confirmed 09/22/19] PMH/Surg Hx/FS Hx/Imm Hx Previously Healthy: No Endocrine/Hematology History: Reports: Hx Anticoagulant Therapy, Hx Diabetes Cardiovascular History: Reports: Hx Deep Vein Thrombosis - 2010, 2011, and 2012 , Hx Embolism - 2010 Respiratory History: Reports: Hx Pulmonary Edema, Hx Pulmonary Embolism Sensory History: Reports: Hx Contacts or Glasses, Hx Hearing Problem - Inner ear tube placement Opthamlomology History: Reports: Hx Contacts or Glasses Psychiatric History: Reports: Hx Depression Denies: Hx Eating Disorder, Hx of Violent Episodes Against Others - Surgical History Surgery Procedure, Year, and Place: Hx Appendectomy and Inner Ear Tube Placement - Immunization History Hx Pertussis Vaccination: No Immunizations Up to Date: Yes Infectious Disease History: No Infectious Disease History: Denies: Traveled Outside the [place] in Last 30 Days - Family History Known Family History: Positive: Diabetes - Father - Social History Occupation: Unemployed Lives: Alone Alcohol Use: None Hx Substance Use: No Substance Use Type: Reports: None Hx Tobacco Use: No Smoking Status (MU): Never Smoked Tobacco Review of Systems Negative: Fever, Chills, Fatigue, Skin Diaphoresis Negative: Palpitations, Chest Pain Negative: Shortness Of Breath, Cough Negative: Abdominal Pain, Vomiting, Diarrhea, Nausea Genitourinary: Negative Positive: no symptoms reported, see HPI. Negative: dysuria, discharge, incontinence, pain, urgency Negative: Arthralgia, Myalgia Positive: Other - diabetic wound ulcers to the dorsum of the bilateral feet - L 3cm abscess to the L leg - just BTK Neurological: Negative All Other Systems Reviewed And Are Negative: Yes Physical Exam Triage Information Reviewed: Yes Vital Signs On Initial Exam: Initial Vitals Temp Pulse Resp BP Pulse Ox 98.0 F 90 16 143/98 99 09/22/19 07:29 09/22/19 07:29 09/22/19 07:29 09/22/19 07:29 09/22/19 07:29 Vital Signs Reviewed: Yes Appearance: Positive: No Pain Distress Skin: Positive: Other - 3cm - l lower ext abscess BTK - lateral side. dorsal feet erythema and weeping wounds Head/Face: Positive: Normal Head/Face Inspection Eyes: Positive: EOMI, Conjunctiva Clear Neck: Positive: Supple, No Lymphadenopathy Respiratory/Lung Sounds: Positive: Clear to Auscultation, Breath Sounds Present Cardiovascular: Positive: RRR, Pulses are Symmetrical in both Upper and Lower Extremities Musculoskeletal: Positive: Strength/ROM Intact Neurological: Positive: Speech Normal Psychiatric: Positive: Affect/Mood Appropriate - denies SI/HI at this time AVPU Assessment: Verbal (Reponds To) Diagnostics - Vital Signs Vital Signs Temp Pulse Resp BP Pulse Ox 09/22/19 09:26 89 15 164/92 97 09/22/19 09:00 89 20 96 09/22/19 08:56 91 12 178/141 99 09/22/19 08:26 88 14 175/94 96 09/22/19 08:00 86 17 98 09/22/19 07:56 89 12 155/87 99 09/22/19 07:51 87 97 09/22/19 07:29 98.0 F 90 16 143/98 99 - Laboratory Lab Results: Lab Results 09/22/19 09/22/19 09/22/19 Range/Units 07:45 07:49 07:49 WBC 13.6 H (3.5-10.8) 10^3/uL RBC 3.78 L (4.18-5.48) 10^6 /uL Hgb 11.0 L (14.0-18.0) g/dL Hct 32 L (42-52) % MCV 85 (80-94) fL MCH 29 (27-31) pg MCHC 34 (31-36) g/dL RDW 13 (10-15) % Plt Count 473 H (150-450) 10^3/uL MPV 7.7 (7.4-10.4) fL Neut % (Auto) 84.2 % Lymph % (Auto) 8.5 % [place] % (Auto) 6.0 % Eos % (Auto) 0.9 % Baso % (Auto) 0.4 % Absolute Neuts (auto) 11.5 H (1.5-7.7) 10^3/ul Absolute Lymphs (auto) 1.2 (1.0-4.8) 10^3/ul Absolute Monos (auto) 0.8 (0-0.8) 10^3/ul Absolute Eos (auto) 0.1 (0-0.6) 10^3/ul Absolute Basos (auto) 0.1 (0-0.2) 10^3/ul Absolute Nucleated RBC 0.0 10^3/ul Nucleated RBC % 0.1 Sodium 127 L (135-145) mmol/L Potassium 5.1 H (3.5-5.0) mmol/L Chloride 89 L (101-111) mmol/L Carbon Dioxide 28 (22-32) mmol/L Anion Gap 10 (2-11) mmol/L BUN 29 H (6-24) mg/dL Creatinine 1.33 H (0.67-1.17) mg/dL Est GFR ( Amer) 66.8 (>60) Est GFR (Non-Af Amer) 55.2 (>60) BUN/Creatinine Ratio 21.8 H (8-20) Glucose 657 H* (70-100) mg/dL Lactic Acid 1.0 (0.5-2.0) mmol/L Calcium 9.3 (8.6-10.3) mg/dL Total Bilirubin 0.40 (0.2-1.0) mg/dL AST 7 L (13-39) U/L ALT 5 L (7-52) U/L Alkaline Phosphatase 115 H (34-104) U/L Total Protein 8.0 (6.4-8.9) g/dL Albumin 3.4 (3.2-5.2) g/dL Globulin 4.6 H (2-4) g/dL Albumin/Globulin Ratio 0.7 L (1-3) Lipase 55 (11.0-82.0) U/L TSH 3.26 (0.34-5.60) mcIU/mL Urine Color Urine Appearance Urine pH (5-9) Ur Specific [place] (1.010-1.030) Urine Protein (Negative) Urine Ketones (Negative) Urine Blood (Negative) Urine Nitrate (Negative) Urine Bilirubin (Negative) Urine Urobilinogen (Negative) Ur Leukocyte Esterase (Negative) Urine Glucose (Negative) 09/22/19 Range/Units 10:02 WBC (3.5-10.8) 10^3/uL RBC (4.18-5.48) 10^6 /uL Hgb (14.0-18.0) g/dL Hct (42-52) % MCV (80-94) fL MCH (27-31) pg MCHC (31-36) g/dL RDW (10-15) % Plt Count (150-450) 10^3/uL MPV (7.4-10.4) fL Neut % (Auto) % Lymph % (Auto) % [place] % (Auto) % Eos % (Auto) % Baso % (Auto) % Absolute Neuts (auto) (1.5-7.7) 10^3/ul Absolute Lymphs (auto) (1.0-4.8) 10^3/ul Absolute Monos (auto) (0-0.8) 10^3/ul Absolute Eos (auto) (0-0.6) 10^3/ul Absolute Basos (auto) (0-0.2) 10^3/ul Absolute Nucleated RBC 10^3/ul Nucleated RBC % Sodium (135-145) mmol/L Potassium (3.5-5.0) mmol/L Chloride (101-111) mmol/L Carbon Dioxide (22-32) mmol/L Anion Gap (2-11) mmol/L BUN (6-24) mg/dL Creatinine (0.67-1.17) mg/dL Est GFR ( Amer) (>60) Est GFR (Non-Af Amer) (>60) BUN/Creatinine Ratio (8-20) Glucose (70-100) mg/dL Lactic Acid (0.5-2.0) mmol/L Calcium (8.6-10.3) mg/dL Total Bilirubin (0.2-1.0) mg/dL AST (13-39) U/L ALT (7-52) U/L Alkaline Phosphatase (34-104) U/L Total Protein (6.4-8.9) g/dL Albumin (3.2-5.2) g/dL Globulin (2-4) g/dL Albumin/Globulin Ratio (1-3) Lipase (11.0-82.0) U/L TSH (0.34-5.60) mcIU/mL Urine Color Straw Urine Appearance Clear Urine pH 7.0 (5-9) Ur Specific [place] 1.024 (1.010-1.030) Urine Protein Negative (Negative) Urine Ketones 1+ A (Negative) Urine Blood Negative (Negative) Urine Nitrate Negative (Negative) Urine Bilirubin Negative (Negative) Urine Urobilinogen Negative (Negative) Ur Leukocyte Esterase Negative (Negative) Urine Glucose 3+(>=500 mg/dl) A (Negative) Result Diagrams: 09/22/19 07:49 09/22/19 07:49 Lab Statement: Any lab studies that have been ordered have been reviewed, and results considered in the medical decision making process. Diabetic Course/Dx - Course Course Of Treatment: On physical examination, patient has diabetic foot ulcers to the dorsum of the feet with yellowish purulent malodorous drainage. Probing between the great and second toe reveals shallow depth with little evidence of osteomyelitis. Bilateral foot x-rays obtained which showed no evidence of osteomyelitis versus late osteo. Patient appears confused on his past medical history and his medications. He is unsure of what he has been taking, but is adamant he has not taken his medications for over 2 weeks. This is when his symptoms began. He does endorse some shortness of breath, however states this is at his baseline hitting denies any recent shortness of breath over the past 2 weeks. Denies history of PE, but patient does have a history of bilateral DVTs spontaneously. Blood cultures obtained. Labs obtained which show hyponatremia with hyperkalemia. Elevated white count of 13,000, glucose 657, urinalysis shows 3+ urine glucose. Left leg abscess I and D culture sent. 1ml lidocaine without epi used as a local anesthetic. Simple linear incision with a #11 scalpel blade made to most superior portion of the abscess. Copious amounts of purulent drainage from the area. Using a hemostat, the abscess cavity was probed to break up any loculations and ensure proper drainage. Irrigated abscess copiously with isotonic saline using jet irrigation with filter straw. No evidence of purulent material left in cavity. No indication for suture closure. Packing with iododorm dressing - 1.5cm. Pt will need repeat wound check and dressing changed within 2 days. Likely MRSA based on growth x 24 hours - awaiting culture results. Bandage applied. Insulin regular 10 units and 2L NS given IV. Patient will be admitted to hospitalist service for diabetic wound ulcers and management of diabetes mellitus complications. - Diagnoses Differential Dx: Hyperglycemia, Hyperosmolar State, Other - osteomyelitis, cellulitis, abscess, complications of diabetes Provider Diagnoses: Multiple complications of type 2 diabetes mellitus - Physician Notifications Discussed Care Of Patient With: Estrella Rosen Admit/Transition Orders Completed By ED Provider: No Discharge ED - Sign-Out/Discharge Documenting (check all that apply): Patient Departure - Discharge Plan Condition: Fair Disposition: ADMITTED TO [facility] - Billing Disposition and Condition Condition: FAIR Disposition: Admitted to [facility] - Attestation Statements Provider Attestation: I was available for consult. This patient was seen by the [facility]. The patient was not presented to, seen by, or examined by me. Jamir Melton MD
[2019-09-22] MEDS ORDERED: Vancomycin per Pharmacy* NOTE FOLLOW UP SCH (11:00)
[2019-09-22] MEDS ORDERED: Vancomycin(*) 1,250 MG in NS 0.9% 250 ML* 250 ML IVPB ONE ×2 (11:00→14:30)
[2019-09-22] MEDS ORDERED: NS 0.9% 1000 ML** 1,000 ML IV SCH (11:00)
[2019-09-22 11:03] LABS: Urine Benzodiazepine Screen None Detected (None Detect); Urine Opiates Screen None Detected (None Detect)
[2019-09-22] MEDS ORDERED: Ondansetron ODT TAB* 4 MG SL PRN (11:04)
[2019-09-22] MEDS ORDERED: NS 0.9% 250 ML* 250 ML ONE (11:38)
[2019-09-22] MEDS: Insulin LISPRO* 1 UNITS UNIT SUBCUT SCH ×2 (11:42→17:20)
[2019-09-22] MEDS: metroNIDAZOLE IV 500 MG/100ML* 500 MG/100 ML BAG IVPB SCH ×2 (12:50→21:53)
--- NOTE | 2019-09-22 13:12 | HP ---
CC: Dr. Brothers; Dr. Mcdermott; Dr. Armin Mcnair * HOSPITAL MEDICINE HISTORY AND PHYSICAL: DATE OF ADMISSION: 09/22/19 PRIMARY CARE PHYSICIAN: Dr. Brothers. SURGEON: Dr. Mcdermott. TRAILER SECTIONS ASSEMBLER: Dr. Armin Mcnair. ATTENDING PHYSICIAN: Dr. Estrella Bond * (dictation provided by Yareli Brown NP ). CHIEF COMPLAINT: Left upper leg bulging. HISTORY OF PRESENT ILLNESS: Mr. Perez is a 59-year-old male with a past medical history of uncontrolled type 2 diabetes, hx of DVT on eliquis, complaint of right upper quadrant pain with concern for cholelithiasis and consideration of surgery by Dr Mcdermott as well as bipolar disorder and multiple suicide attempts who presents today to the hospital with concern for bulging in his left upper thigh. Mr. Perez states that he had been following with a provider at [facility], but was discharged from the practice as he was not returning for visits and followups. He therefore started following with Dr. Nick Brothers in the summer of this year. The patient has been noted to have uncontrolled type 2 diabetes. Mr. Perez has had diabetes since 2014, but was only recently started on insulin. His hemoglobin A1c on 04/25/19 was 17.7%. He has been following with Dr. Armin Mcnair for this and is now on a Novolin 70/30 FlexPen. Mr. Perez has been unable to tolerate multiple other medication regimens and has been described as having very brittle diabetes that has been difficult to manage. In the setting of this, the patient has been complaining of right upper quadrant pain and has been evaluated by Dr. Brothers and Dr. Mcdermott with consideration for possible biliary colic/chronic cholecystitis and possible surgery; however, his uncontrolled diabetes has not made any surgical intervention possible. The patient seems to have understood that Dr. Mcdermott wanted him to discontinue Eliquis in preparation for surgery; however, Dr. Mcdermott has not scheduled the surgery and Mr. Perez does agree that that has not happened and it appears that there was some confusion about the medication plan. He also has stopped insulin. It appears from Mr. Perez's description that he believed that perhaps the insulin was causing him troubles including causing him bilateral foot wounds. Mr. Perez describes oozing from bilateral feet for over a month. He endorses decreased sensation in bilateral feet, has no recent trauma to the feet. In the setting of this, a few days ago, he developed left posterior thigh swelling and bulging which he thought was perhaps related to DVT, which he does have a history of in the past. Mr. Perez denies any other complaints. He has had no chest pain, shortness of breath, nausea, vomiting, diarrhea, abdominal pain. In the emergency room, Mr. Perez had labs, which showed that his blood sugar was uncontrolled at 600. IHe also has hyponatremia with a sodium of 127 and potassium of 5.1. His BUN and creatinine are slightly elevated at 29 and 1.33, respectively. He has a slight leukocytosis with a white blood cell count of 13.6. He is afebrile. His vitals are stable. His blood pressure has been running 140s to 160 systolically. He had a foot x-ray, which showed no abnormality. The provider in the ED did perform an I & D to his left thigh due to presence of swelling, fluctuance, and erythema. ED provider described purulent drainage. PAST MEDICAL HISTORY: 1. History of DVT and PE, on Eliquis. 2. History of uncontrolled diabetes with hemoglobin A1c 17.7%, followed by Dr. Armin Mcnair, newly on insulin regimen. 3. Bipolar disorder with multiple suicide attempts in the past. 4. Chronic right upper quadrant pain with consideration of symptomatic biliary colic. MEDICATIONS: Review of [facility] and Dr. Mcnair's notes as well as Dr. Brothers's note indicate that the patient is on: 1. Metformin ER 1500 mg p.o. at bedtime. 2. Novolin insulin 20 units in the morning, 15 units in p.m. 3. Apixaban 5 mg p.o. b.i.d. ALLERGIES: No known drug allergies. FAMILY HISTORY: The patient reports his father is alive and has diabetes. His mother in a car crash. SOCIAL HISTORY: The patient states he is a never smoker. He drinks 1 beer occasionally. No report of drug use. He lives alone in [place]. He states that his sister, Mikaela, will be the healthcare proxy. REVIEW OF SYSTEMS: A 14-point review of systems was completed with Mr. Perez and all those not mentioned above were negative. PHYSICAL EXAMINATION GENERAL: Mr. Perez is sitting up in the bed. He is in no acute distress. VITAL SIGNS: Temperature 98.0, pulse rate 91, respiratory rate 12, O2 saturation 99% on room air, blood pressure 178/141. LUNGS: Clear to auscultation bilaterally with no accessory muscle use and good aeration. HEART: S1, S2. No murmur, rub, or gallop and regular. ABDOMEN: Soft and nontender with bowel sounds positive x4. EXTREMITIES: The patient has shallow-based ulcerations to bilateral feet, right greater than left. He has poor sensation to bilateral great toes and the anterior portion of both feet. There is no drainage. No significant erythema. No tracking. He also has a left posterior thigh near the popliteal region abscess that was drained per the ED physician and is now covered with a dressing that is clean, dry, and intact. There is no lower extremity swelling. There is no calf redness or swelling. No pain with palpation. NEURO: He is alert. He is oriented x3. He moves all extremities equally. There is no facial asymmetry or focal weakness. Extraocular movements are intact. DIAGNOSTIC STUDIES/LAB DATA: Data: Sodium 127, potassium 5.1, chloride 89, serum bicarbonate 28, BUN 29, creatinine 1.33, glucose 657. WBC 13.6, hemoglobin 11.0, hematocrit 32, platelet count 473. Urine shows no evidence of infection. Foot x-ray is as follows: "Osteoarthritis, peripheral arterial disease. No appreciable erosion or periosteal reaction. Plain radiograph findings of osteomyelitis are relatively late findings. If there is persistent clinical concern for osteomyelitis, recommend correlation with followup imaging, three- phase bone scanning, white blood cell scan and/or MRI of the affected region." ASSESSMENT AND PLAN: Mr. Perez is a 59-year-old male who presents today to the hospital with concern for left thigh bulging, found to have a left thigh abscess, multiple bilateral likely diabetic foot ulcers in the setting of peripheral vascular disease, uncontrolled diabetes. Our plans are for inpatient admission as I expect his length of stay to be greater than 2 days for the followin. Left thigh abscess. Based on the description of abscess with pus, I suspect he has methicillin-resistant Staphylococcus aureus and we will treat with vancomycin. He will have local wound care. 2. Bilateral foot ulcerations. I suspect this is due to his uncontrolled type 2 diabetes and his peripheral vascular disease. Plan for local wound care now. He will have a wound care consult and he will have antibiotic coverage with vancomycin, ceftriaxone, and Flagyl. There is not any overt evidence of osteomyelitis and at least at this point the wounds appear to be superficial. We can follow up with additional imaging beyond the foot x-ray that was obtained in the ED as needed. The patient has no evidence of sepsis. Blood cultures have been sent. 3. Uncontrolled type 2 diabetes. Plan to initiate Novolin 15 units b.i.d. with lispro sliding scale. We will watch closely and adjust that regimen as needed. He will have a consistent carbohydrate diet. He will need to follow up closely with Dr. Armin Mcnair again at discharge. 4. History of right upper quadrant pain with question of biliary colic. Recommend that any consideration for surgery be placed on hold until the patient 's blood sugar can be adequately controlled. 5. History of deep venous thrombosis. Plan to resume Eliquis. 6. History of bipolar disorder. There was some suspicion for possible suicidal ideation in the ED, but the patient has clearly denied that he has suicidal ideation. Certainly, given his history, I would recommend that the patient would be able to follow up with outpatient therapy and counseling. 7. Hyponatremia. The patient has some mild hyponatremia. I suspect this is due to dehydration. He will receive intravenous fluids and we will recheck in the a.m. 8. Hyperkalemia. Again, I suspect this is due to his elevated blood sugar and dehydration and we will monitor closely. Plan to treat with IV fluids. 9. DVT prophylaxis. With Eliquis. 10. Code status. Full code. 11. Disposition. To the medical floor. TIME SPENT: Approximately 60 minutes were spent on the admission of this patient, more than half the time was spent with the patient at the bedside reviewing the events leading up to this hospitalization, performing the physical examination, and reviewing my plan of care. YARELI BROWN NP [id number]/CPS #: [id number] CD
[2019-09-22] MEDS: Nystatin TOP POWDER* 15 GM BTL TOPICAL SCH ×2 (15:11→23:33)
[2019-09-22] MEDS: Insulin ISOPH/REG 70/30 (*) 1 UNITS UNIT SUBCUT SCH (17:20)
[2019-09-22] MEDS: Apixaban* 5 MG TAB PO SCH (21:54)
[2019-09-22] MEDS ORDERED: Benzonatate CAP* 100 MG PO PRN (22:08)
[2019-09-23] MEDS: Vancomycin(*) 1,250 MG in NS 0.9% 250 ML* 250 ML IVPB SCH ×2 (02:41→15:04)
[2019-09-23] MEDS: metroNIDAZOLE IV 500 MG/100ML* 500 MG/100 ML BAG IVPB SCH (05:07)
[2019-09-23] MEDS: Acetaminophen TAB* 325 MG PO PRN ×2 (05:10→20:17)
[2019-09-23 07:02] LABS: ABS Basophils 0.1 10^3/ul (0-0.2); ABS Eosinophils 0.2 10^3/ul (0-0.6); ABS Lymphocytes 1.7 10^3/ul (1.0-4.8); ABS Monocytes 0.8 10^3/ul (0-0.8); ABS Neutrophils 8.6 10^3/ul (1.5-7.7); Eosinophil % 1.8 %; Hematocrit 25 % (42-52); Hemoglobin 8.2 g/dL (14.0-18.0); Lymphocyte % 15.2 %; Mean Corpuscular HGB Conc 34 g/dL (31-36); Mean Corpuscular Hemoglobin 28 pg (27-31); Mean Corpuscular Volume 85 fL (80-94); Mean Platelet Volume 6.9 fL (7.4-10.4); Platelet Count 390 10^3/uL (150-450); Red Cell Distribution Width 13 % (10-15); White Blood Count 11.4 10^3/uL (3.5-10.8)
[2019-09-23 07:17] LABS: Anion Gap 6 mmol/L (2-11); BUN/Creatinine Ratio 20.4 (8-20); Blood Urea Nitrogen 19 mg/dL (6-24); CO2 Carbon Dioxide 25 mmol/L (22-32); Calcium 7.9 mg/dL (8.6-10.3); Chloride 103 mmol/L (101-111); EGFR Non-African American 83.5 (>60); Glucose 229 mg/dL (70-100); Potassium 3.9 mmol/L (3.5-5.0); Sodium 134 mmol/L (135-145)
[2019-09-23] MEDS ORDERED: cefTRIAXone(*) 1 GM in NS 0.9% 50 ML* 50 ML IVPB SCH (08:00)
[2019-09-23] MEDS: Insulin ISOPH/REG 70/30 (*) 1 UNITS UNIT SUBCUT SCH ×2 (08:22→17:40)
[2019-09-23] MEDS: Insulin LISPRO* 1 UNITS UNIT SUBCUT SCH ×3 (08:22→17:40)
[2019-09-23] MEDS: Apixaban* 5 MG TAB PO SCH ×2 (08:22→20:16)
[2019-09-23] MEDS: Nystatin TOP POWDER* 15 GM BTL TOPICAL SCH ×2 (08:22→21:00)
[2019-09-23 08:52] LABS: % Iron Saturation 13 % (15-55); Iron 21 ug/dL (50-212); Total Iron Binding Capacity 157 mcg/dL (250-450); Transferrin 112 mg/dL (203-362)
--- NOTE | 2019-09-23 12:21 | PN ---
Subjective Date of Service: 09/23/19 Interval History: Patient asks why he developed the wound on his leg, discussed. Patient states he overall feels well. He is looking forward to future home visits from [facility] Diabetic Nurse. He denies pains at site of LE wounds and notes his neuropathy up to about mid-shins bilaterally. Denies fever/chills, chest pain, difficulty breathing. He reports his chronic RUQ pain today which is unchanged from baseline. Denies nausea. Objective Active Medications: Acetaminophen (Tylenol Tab*) 650 mg PO Q6H PRN PRN Reason: PAIN - MILD Last Admin: 09/23/19 05:10 Dose: 650 mg Apixaban (Eliquis*) 5 mg PO BID [facility] Last Admin: 09/23/19 08:22 Dose: 5 mg Benzonatate (Tessalon Cap*) 200 mg PO TID PRN PRN Reason: COUGH Last Admin: 09/22/19 23:02 Dose: 200 mg Collagenase (Santyl 250 Units/Gm Oint*) 1 applic TOPICAL DAILY [facility] Dextrose (Dextrose 50% Vial 50 Ml*) 25 ml IV PUSH .FOR FS < 60 - SS PRN PRN Reason: FS < 60 Metronidazole/Sodium Chloride (Flagyl 500 Mg Ivpb*) 500 mg in 100 mls @ 100 mls /hr IVPB Q8H [facility] Last Admin: 09/23/19 05:07 Dose: 100 mls/hr Ceftriaxone Sodium 1 gm/ (Sodium Chloride) 50 mls @ 100 mls/hr IVPB Q24H [facility] Last Admin: 09/23/19 08:22 Dose: 100 mls/hr Vancomycin HCl 1,250 mg/ (Sodium Chloride) 250 mls @ 166.667 mls/hr IVPB Q12H [facility] Last Admin: 09/23/19 02:41 Dose: 166.667 mls/hr Insulin Human Isoph/Insulin Regular (Humulin 70/30 (*)) 15 units SUBCUT 0800, 1700 [facility] Last Admin: 09/23/19 08:22 Dose: 15 units Insulin Human Lispro (Humalog*) 0 units SUBCUT AC [facility]; Protocol Last Admin: 09/23/19 08:22 Dose: 6 unit Nystatin (Nystatin Top Powder*) 1 applic TOPICAL BID [facility] Last Admin: 09/23/19 08:22 Dose: 1 applic Ondansetron HCl (Zofran Odt Tab*) 4 mg SL Q6H PRN PRN Reason: NAUSEA/VOMITING Pharmacy Consult (Vancomycin Per Pharmacy*) 1 note FOLLOW UP .VANC PER PHARMACY DANIEL; Protocol Pharmacy Profile Note (Vancomycin Trough Check) 1 note FOLLOW UP .ENTER TIME AND DATE ONE Stop: 09/24/19 14:31 Vital Signs - 8 hr 09/23/19 09/23/19 09/23/19 08:00 08:15 11:25 Temperature 97.6 F 97.5 F Pulse Rate 76 84 Respiratory 17 15 14 Rate Blood Pressure 151/69 154/86 (mmHg) O2 Sat by Pulse 100 100 Oximetry Oxygen Devices in Use Now: None Appearance: Thin, white male, laying upright in hospital bed, appearing comfortable and in NAD Eyes: No Scleral Icterus, - - PERRL Ears/Nose/Mouth/Throat: Mucous Membranes Moist Neck: Trachea Midline Respiratory: Symmetrical Chest Expansion and Respiratory Effort, Clear to Auscultation Cardiovascular: NL Sounds; No Murmurs; No JVD, RRR Abdominal: NL Sounds; No Tenderness; No Distention Extremities: No Edema, No Clubbing, Cyanosis Skin: - - telfa bandage soaked with serosanguinous fluid on left thigh wound, with packing intact but no purulent drainage; multiple coalesced patches of wounds on dorsal aspect of right foot with clean base; two 1-2 cm diameter wounds to toes on both feet that are malodorous, there is what appears to be discharge but is also consistent with Santyl ointment which was applied Neurological: Alert and Oriented x 3, NL Muscle Strength and Tone Result Diagrams: 09/23/19 06:49 09/23/19 06:48 Additional Lab and Data: Lab Results 09/22/19 09/22/19 09/22/19 Range/Units 07:45 07:49 07:49 WBC 13.6 H (3.5-10.8) 10^3/uL RBC 3.78 L (4.18-5.48) 10^6 /uL Hgb 11.0 L (14.0-18.0) g/dL Hct 32 L (42-52) % MCV 85 (80-94) fL MCH 29 (27-31) pg MCHC 34 (31-36) g/dL RDW 13 (10-15) % Plt Count 473 H (150-450) 10^3/uL MPV 7.7 (7.4-10.4) fL Neut % (Auto) 84.2 % Lymph % (Auto) 8.5 % [place] % (Auto) 6.0 % Eos % (Auto) 0.9 % Baso % (Auto) 0.4 % Absolute Neuts (auto) 11.5 H (1.5-7.7) 10^3/ul Absolute Lymphs (auto) 1.2 (1.0-4.8) 10^3/ul Absolute Monos (auto) 0.8 (0-0.8) 10^3/ul Absolute Eos (auto) 0.1 (0-0.6) 10^3/ul Absolute Basos (auto) 0.1 (0-0.2) 10^3/ul Absolute Nucleated RBC 0.0 10^3/ul Nucleated RBC % 0.1 Sodium 127 L (135-145) mmol/L Potassium 5.1 H (3.5-5.0) mmol/L Chloride 89 L (101-111) mmol/L Carbon Dioxide 28 (22-32) mmol/L Anion Gap 10 (2-11) mmol/L BUN 29 H (6-24) mg/dL Creatinine 1.33 H (0.67-1.17) mg/dL Est GFR ( Amer) 66.8 (>60) Est GFR (Non-Af Amer) 55.2 (>60) BUN/Creatinine Ratio 21.8 H (8-20) Glucose 657 H* (70-100) mg/dL Lactic Acid 1.0 (0.5-2.0) mmol/L Calcium 9.3 (8.6-10.3) mg/dL Total Bilirubin 0.40 (0.2-1.0) mg/dL AST 7 L (13-39) U/L ALT 5 L (7-52) U/L Alkaline Phosphatase 115 H (34-104) U/L Total Protein 8.0 (6.4-8.9) g/dL Albumin 3.4 (3.2-5.2) g/dL Globulin 4.6 H (2-4) g/dL Albumin/Globulin Ratio 0.7 L (1-3) Lipase 55 (11.0-82.0) U/L TSH 3.26 (0.34-5.60) mcIU/mL Urine Color Urine Appearance Urine pH (5-9) Ur Specific [place] (1.010-1.030) Urine Protein (Negative) Urine Ketones (Negative) Urine Blood (Negative) Urine Nitrate (Negative) Urine Bilirubin (Negative) Urine Urobilinogen (Negative) Ur Leukocyte Esterase (Negative) Urine Glucose (Negative) 09/22/19 Range/Units 10:02 WBC (3.5-10.8) 10^3/uL RBC (4.18-5.48) 10^6 /uL Hgb (14.0-18.0) g/dL Hct (42-52) % MCV (80-94) fL MCH (27-31) pg MCHC (31-36) g/dL RDW (10-15) % Plt Count (150-450) 10^3/uL MPV (7.4-10.4) fL Neut % (Auto) % Lymph % (Auto) % [place] % (Auto) % Eos % (Auto) % Baso % (Auto) % Absolute Neuts (auto) (1.5-7.7) 10^3/ul Absolute Lymphs (auto) (1.0-4.8) 10^3/ul Absolute Monos (auto) (0-0.8) 10^3/ul Absolute Eos (auto) (0-0.6) 10^3/ul Absolute Basos (auto) (0-0.2) 10^3/ul Absolute Nucleated RBC 10^3/ul Nucleated RBC % Sodium (135-145) mmol/L Potassium (3.5-5.0) mmol/L Chloride (101-111) mmol/L Carbon Dioxide (22-32) mmol/L Anion Gap (2-11) mmol/L BUN (6-24) mg/dL Creatinine (0.67-1.17) mg/dL Est GFR ( Amer) (>60) Est GFR (Non-Af Amer) (>60) BUN/Creatinine Ratio (8-20) Glucose (70-100) mg/dL Lactic Acid (0.5-2.0) mmol/L Calcium (8.6-10.3) mg/dL Total Bilirubin (0.2-1.0) mg/dL AST (13-39) U/L ALT (7-52) U/L Alkaline Phosphatase (34-104) U/L Total Protein (6.4-8.9) g/dL Albumin (3.2-5.2) g/dL Globulin (2-4) g/dL Albumin/Globulin Ratio (1-3) Lipase (11.0-82.0) U/L TSH (0.34-5.60) mcIU/mL Urine Color Straw Urine Appearance Clear Urine pH 7.0 (5-9) Ur Specific [place] 1.024 (1.010-1.030) Urine Protein Negative (Negative) Urine Ketones 1+ A (Negative) Urine Blood Negative (Negative) Urine Nitrate Negative (Negative) Urine Bilirubin Negative (Negative) Urine Urobilinogen Negative (Negative) Ur Leukocyte Esterase Negative (Negative) Urine Glucose 3+(>=500 mg/dl) A (Negative) Microbiology and Other Data: Microbiology 09/22/19 13:05 Skin and Soft Tissue MRSA/MSSA (PCR - Final Foot Right Mrsa Positive S.aureus Positive Gram Stain - Final Wound Culture - Preliminary Staphylococcus Aureus Strep Agalactiae - (Group B) 09/22/19 13:05 Skin and Soft Tissue MRSA/MSSA (PCR - Final Leg Left Mrsa Positive S.aureus Positive Gram Stain - Final Wound Culture - Preliminary Staphylococcus Aureus 09/22/19 08:05 Aerobic Blood Culture - Preliminary Blood Venous No Growth Day 1 Anaerobic Blood Culture - Preliminary No Growth Day 1 09/22/19 07:55 Aerobic Blood Culture - Preliminary Blood Venous No Growth Day 1 Anaerobic Blood Culture - Preliminary No Growth Day 1 Assess/Plan/Problems-Billing Assessment: 59 yo male with PMHx uncontrolled DMT2, hx of DVT (on AC), bipolar disorder, and chronic abdominal pain presents with left thigh abscess. - Patient Problems (1) Abscess of lower extremity Current Visit: Yes Status: Acute Code(s): L02.419 - CUTANEOUS ABSCESS OF LIMB, UNSPECIFIED SNOMED Code(s): 575899853 Comment: -left thigh abscess I&D performed in the ED prior to admission, culture growing MRSA -continue vancomycin -awaiting sensitivities -packing and dressing changes daily -Wound consult much appreciated, patient will be seen by team tomorrow; will need outpatient wound clinic follow up and pt needs initial wound care instructions before discharge (2) Diabetic ulcer of lower extremity Current Visit: Yes Status: Acute Code(s): E11.622 - TYPE 2 DIABETES MELLITUS WITH OTHER SKIN ULCER; L97.909 - NON-PRS CHRONIC ULC UNSP PRT OF UNSP LOW LEG W UNSP SEVERITY SNOMED Code(s): 428374059 Comment: -though not overtly infected-appearing at admission, wound culture is demonstrating MRS and GBS. Today it is questionable if there is purulent discharge vs Santyl in wound bases. Given that the wounds were dry yesterday I do not believe these wounds are infected, though they are malodorous -vancomycin given for abscess as above and covers GBS, will d/c flagyl and ceftriaxone -wound on right foot dorsum concerning for arterial ulcer, ordering ABIs (3) Diabetes mellitus type 2 in nonobese Current Visit: Yes Status: Acute Code(s): E11.9 - TYPE 2 DIABETES MELLITUS WITHOUT COMPLICATIONS SNOMED Code(s): 982519331 Comment: -patient discontinued his insulin at home without medical advice -A1c = 14% -seen by [facility] diabetic nurse and she will follow patient outpatient; should f/u with endocrinology as well -continue humulin and lispro, adjust as needed -diabetic diet discussed, declines equip maint eng consult (4) Anemia Current Visit: Yes Status: Acute Code(s): D64.9 - ANEMIA, UNSPECIFIED SNOMED Code(s): 508720944 Comment: -iron deficiency anemia confirmed with low transferrin. Starting ferrous sulfate -likely also has a component of anemia of chronic disease due to poorly controlled DMT2 (5) Hx of deep venous thrombosis Current Visit: No Status: Chronic Priority: Low Code(s): Z86.718 - PERSONAL HISTORY OF OTHER VENOUS THROMBOSIS AND EMBOLISM SNOMED Code(s): 919554687 Comment: -on Eliquis, continue (6) Bipolar disorder Current Visit: Yes Status: Acute Code(s): F31.9 - BIPOLAR DISORDER, UNSPECIFIED SNOMED Code(s): 58501425 Comment: -does not appear to be on a mood stablizer -was prescribed depakote in 2014 on discharge from [facility] -should have outpatient psych follow up (7) DVT prophylaxis Current Visit: Yes Status: Acute Code(s): Z29.9 - ENCOUNTER FOR PROPHYLACTIC MEASURES, UNSPECIFIED SNOMED Code(s): 389446197 Comment: -Eliquis (8) Full code status Current Visit: Yes Status: Acute Code(s): Z78.9 - OTHER SPECIFIED HEALTH STATUS SNOMED Code(s): 243598562 Status and Disposition: anticipate d/c home when medically stable
[2019-09-23] MEDS: Ferrous Sulfate TAB* 325 MG PO SCH ×2 (14:00→20:17)
[2019-09-23] MEDS: Collagenase 250 UNITS/GM OINT* 1 APPLIC OINT TOPICAL SCH (15:04)
[2019-09-24] MEDS: Vancomycin(*) 1,250 MG in NS 0.9% 250 ML* 250 ML IVPB SCH ×2 (02:21→15:28)
[2019-09-24] MEDS: Acetaminophen TAB* 325 MG PO PRN (05:28)
[2019-09-24 06:56] LABS: ABS Basophils 0.1 10^3/ul (0-0.2); ABS Eosinophils 0.3 10^3/ul (0-0.6); ABS Monocytes 0.7 10^3/ul (0-0.8); ABS Neutrophils 4.7 10^3/ul (1.5-7.7); Eosinophil % 4.1 %; Hematocrit 25 % (42-52); Hemoglobin 8.8 g/dL (14.0-18.0); Lymphocyte % 25.5 %; Mean Corpuscular HGB Conc 35 g/dL (31-36); Mean Corpuscular Hemoglobin 30 pg (27-31); Mean Corpuscular Volume 85 fL (80-94); Mean Platelet Volume 7.3 fL (7.4-10.4); Platelet Count 395 10^3/uL (150-450); Red Blood Count 2.99 10^6 /uL (4.18-5.48); Red Cell Distribution Width 13 % (10-15); White Blood Count 7.8 10^3/uL (3.5-10.8)
[2019-09-24] MEDS: Insulin LISPRO* 1 UNITS UNIT SUBCUT SCH ×3 (09:12→16:52)
[2019-09-24] MEDS: Insulin ISOPH/REG 70/30 (*) 1 UNITS UNIT SUBCUT SCH ×2 (09:15→16:51)
[2019-09-24] MEDS: Ferrous Sulfate TAB* 325 MG PO SCH ×3 (09:16→19:24)
[2019-09-24] MEDS: Collagenase 250 UNITS/GM OINT* 1 APPLIC OINT TOPICAL SCH ×2 (09:16→22:28)
[2019-09-24] MEDS: Apixaban* 5 MG TAB PO SCH ×2 (09:16→19:24)
[2019-09-24] MEDS: Nystatin TOP POWDER* 15 GM BTL TOPICAL SCH ×2 (09:17→19:27)
--- NOTE | 2019-09-24 09:26 | PN ---
Subjective Date of Service: 09/24/19 Interval History: Patient tells me he has diminished left eye vision due to diabetic retinopathy. He is expressing understanding how if his diabetes continues to be poorly controlled, he could have worsened health systemically. His chronic abdominal pain is at baseline today. He has no LE pain due to neuropathy. Denies fever/ chills, chest pain, difficulty breathing, nausea. Past Medical History: Findings - diabetic retinopathy Objective Active Medications: Acetaminophen (Tylenol Tab*) 650 mg PO Q6H PRN PRN Reason: PAIN - MILD Last Admin: 09/24/19 05:28 Dose: 650 mg Apixaban (Eliquis*) 5 mg PO BID [facility] Last Admin: 09/24/19 09:16 Dose: 5 mg Benzonatate (Tessalon Cap*) 200 mg PO TID PRN PRN Reason: COUGH Last Admin: 09/22/19 23:02 Dose: 200 mg Collagenase (Santyl 250 Units/Gm Oint*) 1 applic TOPICAL DAILY [facility] Last Admin: 09/24/19 09:16 Dose: 1 applic Dextrose (Dextrose 50% Vial 50 Ml*) 25 ml IV PUSH .FOR FS < 60 - SS PRN PRN Reason: FS < 60 Ferrous Sulfate (Ferrous Sulfate Tab*) 325 mg PO TID [facility] Last Admin: 09/24/19 09:16 Dose: 325 mg Vancomycin HCl 1,250 mg/ (Sodium Chloride) 250 mls @ 166.667 mls/hr IVPB Q12H [facility] Last Admin: 09/24/19 02:21 Dose: 166.667 mls/hr Insulin Human Isoph/Insulin Regular (Humulin 70/30 (*)) 15 units SUBCUT 0800, 1700 [facility] Last Admin: 09/24/19 09:15 Dose: 15 units Insulin Human Lispro (Humalog*) 0 units SUBCUT AC [facility]; Protocol Last Admin: 09/24/19 09:12 Dose: Not Given Nystatin (Nystatin Top Powder*) 1 applic TOPICAL BID [facility] Last Admin: 09/24/19 09:17 Dose: 1 applic Ondansetron HCl (Zofran Odt Tab*) 4 mg SL Q6H PRN PRN Reason: NAUSEA/VOMITING Pharmacy Consult (Vancomycin Per Pharmacy*) 1 note FOLLOW UP .VANC PER PHARMACY [facility]; Protocol Pharmacy Profile Note (Vancomycin Trough Check) 1 note FOLLOW UP .ENTER TIME AND DATE ONE Stop: 09/24/19 14:31 Vital Signs - 8 hr 09/24/19 09/24/19 09/24/19 02:59 07:15 08:00 Temperature 97.9 F 97.9 F Pulse Rate 78 75 Respiratory 16 16 16 Rate Blood Pressure 137/76 151/68 (mmHg) O2 Sat by Pulse 100 100 Oximetry Oxygen Devices in Use Now: None Appearance: Thin, white male, laying upright in bed, in NAD Eyes: No Scleral Icterus, - - PERRL Ears/Nose/Mouth/Throat: Mucous Membranes Moist Neck: Trachea Midline Respiratory: Symmetrical Chest Expansion and Respiratory Effort, Clear to Auscultation Cardiovascular: NL Sounds; No Murmurs; No JVD, RRR, - - thready PT pulses bilaterally; 4/4 DP pulse on left, unable to palpate DP pulse on right Abdominal: - - abd soft, nontender, nondistended Extremities: No Edema, No Clubbing, Cyanosis Skin: - - dressing soaked in serosanguinous fluid on right thigh at site of drained abscess; L toe wounds with surrounding blanchable erythema; RLE wounds with clean/dry/intact dressings Neurological: Alert and Oriented x 3, NL Muscle Strength and Tone Result Diagrams: 09/24/19 06:38 09/23/19 06:48 Additional Lab and Data: Lab Results 09/22/19 09/22/19 09/22/19 Range/Units 07:45 07:49 07:49 WBC 13.6 H (3.5-10.8) 10^3/uL RBC 3.78 L (4.18-5.48) 10^6 /uL Hgb 11.0 L (14.0-18.0) g/dL Hct 32 L (42-52) % MCV 85 (80-94) fL MCH 29 (27-31) pg MCHC 34 (31-36) g/dL RDW 13 (10-15) % Plt Count 473 H (150-450) 10^3/uL MPV 7.7 (7.4-10.4) fL Neut % (Auto) 84.2 % Lymph % (Auto) 8.5 % O'Brien % (Auto) 6.0 % Eos % (Auto) 0.9 % Baso % (Auto) 0.4 % Absolute Neuts (auto) 11.5 H (1.5-7.7) 10^3/ul Absolute Lymphs (auto) 1.2 (1.0-4.8) 10^3/ul Absolute Monos (auto) 0.8 (0-0.8) 10^3/ul Absolute Eos (auto) 0.1 (0-0.6) 10^3/ul Absolute Basos (auto) 0.1 (0-0.2) 10^3/ul Absolute Nucleated RBC 0.0 10^3/ul Nucleated RBC % 0.1 Sodium 127 L (135-145) mmol/L Potassium 5.1 H (3.5-5.0) mmol/L Chloride 89 L (101-111) mmol/L Carbon Dioxide 28 (22-32) mmol/L Anion Gap 10 (2-11) mmol/L BUN 29 H (6-24) mg/dL Creatinine 1.33 H (0.67-1.17) mg/dL Est GFR ( Amer) 66.8 (>60) Est GFR (Non-Af Amer) 55.2 (>60) BUN/Creatinine Ratio 21.8 H (8-20) Glucose 657 H* (70-100) mg/dL Lactic Acid 1.0 (0.5-2.0) mmol/L Calcium 9.3 (8.6-10.3) mg/dL Total Bilirubin 0.40 (0.2-1.0) mg/dL AST 7 L (13-39) U/L ALT 5 L (7-52) U/L Alkaline Phosphatase 115 H (34-104) U/L Total Protein 8.0 (6.4-8.9) g/dL Albumin 3.4 (3.2-5.2) g/dL Globulin 4.6 H (2-4) g/dL Albumin/Globulin Ratio 0.7 L (1-3) Lipase 55 (11.0-82.0) U/L TSH 3.26 (0.34-5.60) mcIU/mL Urine Color Urine Appearance Urine pH (5-9) Ur Specific [place] (1.010-1.030) Urine Protein (Negative) Urine Ketones (Negative) Urine Blood (Negative) Urine Nitrate (Negative) Urine Bilirubin (Negative) Urine Urobilinogen (Negative) Ur Leukocyte Esterase (Negative) Urine Glucose (Negative) 09/22/19 Range/Units 10:02 WBC (3.5-10.8) 10^3/uL RBC (4.18-5.48) 10^6 /uL Hgb (14.0-18.0) g/dL Hct (42-52) % MCV (80-94) fL MCH (27-31) pg MCHC (31-36) g/dL RDW (10-15) % Plt Count (150-450) 10^3/uL MPV (7.4-10.4) fL Neut % (Auto) % Lymph % (Auto) % O'Brien % (Auto) % Eos % (Auto) % Baso % (Auto) % Absolute Neuts (auto) (1.5-7.7) 10^3/ul Absolute Lymphs (auto) (1.0-4.8) 10^3/ul Absolute Monos (auto) (0-0.8) 10^3/ul Absolute Eos (auto) (0-0.6) 10^3/ul Absolute Basos (auto) (0-0.2) 10^3/ul Absolute Nucleated RBC 10^3/ul Nucleated RBC % Sodium (135-145) mmol/L Potassium (3.5-5.0) mmol/L Chloride (101-111) mmol/L Carbon Dioxide (22-32) mmol/L Anion Gap (2-11) mmol/L BUN (6-24) mg/dL Creatinine (0.67-1.17) mg/dL Est GFR ( Amer) (>60) Est GFR (Non-Af Amer) (>60) BUN/Creatinine Ratio (8-20) Glucose (70-100) mg/dL Lactic Acid (0.5-2.0) mmol/L Calcium (8.6-10.3) mg/dL Total Bilirubin (0.2-1.0) mg/dL AST (13-39) U/L ALT (7-52) U/L Alkaline Phosphatase (34-104) U/L Total Protein (6.4-8.9) g/dL Albumin (3.2-5.2) g/dL Globulin (2-4) g/dL Albumin/Globulin Ratio (1-3) Lipase (11.0-82.0) U/L TSH (0.34-5.60) mcIU/mL Urine Color Straw Urine Appearance Clear Urine pH 7.0 (5-9) Ur Specific [place] 1.024 (1.010-1.030) Urine Protein Negative (Negative) Urine Ketones 1+ A (Negative) Urine Blood Negative (Negative) Urine Nitrate Negative (Negative) Urine Bilirubin Negative (Negative) Urine Urobilinogen Negative (Negative) Ur Leukocyte Esterase Negative (Negative) Urine Glucose 3+(>=500 mg/dl) A (Negative) Microbiology and Other Data: Microbiology 09/22/19 13:05 Skin and Soft Tissue MRSA/MSSA (PCR - Final Foot Right Mrsa Positive S.aureus Positive Gram Stain - Final Wound Culture - Preliminary Staphylococcus Aureus Strep Agalactiae - (Group B) 09/22/19 13:05 Skin and Soft Tissue MRSA/MSSA (PCR - Final Leg Left Mrsa Positive S.aureus Positive Gram Stain - Final Wound Culture - Preliminary Staphylococcus Aureus 09/22/19 08:05 Aerobic Blood Culture - Preliminary Blood Venous No Growth Day 1 Anaerobic Blood Culture - Preliminary No Growth Day 1 09/22/19 07:55 Aerobic Blood Culture - Preliminary Blood Venous No Growth Day 1 Anaerobic Blood Culture - Preliminary No Growth Day 1 Assess/Plan/Problems-Billing Assessment: 59 yo male with PMHx uncontrolled DMT2, hx of DVT (on AC), bipolar disorder, and chronic abdominal pain presents with left thigh abscess. - Patient Problems (1) Abscess of lower extremity Current Visit: Yes Status: Acute Code(s): L02.419 - CUTANEOUS ABSCESS OF LIMB, UNSPECIFIED SNOMED Code(s): 033722211 Comment: -left thigh abscess I&D performed in the ED prior to admission, culture growing MRSA -continue vancomycin -awaiting sensitivities -blood cultures no growth to date -packing and dressing changes daily -Wound consult much appreciated; will need outpatient wound clinic follow up and pt needs initial wound care instructions before discharge (2) Diabetic ulcer of lower extremity Current Visit: Yes Status: Acute Code(s): E11.622 - TYPE 2 DIABETES MELLITUS WITH OTHER SKIN ULCER; L97.909 - NON-PRS CHRONIC ULC UNSP PRT OF UNSP LOW LEG W UNSP SEVERITY SNOMED Code(s): 312135277 Comment: -wound culture is demonstrating MRS and GBS. I do have concern for surrounding cellulitis around left toe wounds -vancomycin given for abscess as above and covers GBS, will continue -wound on right foot dorsum concerning for arterial ulcer. ABIs are noncompressible, concerning for advanced PAD. Consulting Dr. Torres (3) Diabetes mellitus type 2 in nonobese Current Visit: Yes Status: Acute Code(s): E11.9 - TYPE 2 DIABETES MELLITUS WITHOUT COMPLICATIONS SNOMED Code(s): 608268826 Comment: -patient discontinued his insulin at home without medical advice -A1c = 14% -seen by [facility] diabetic nurse and she will follow patient outpatient; should f/u with endocrinology as well -continue humulin and lispro, adjust as needed -diabetic diet discussed, declines boat driver consult -BGs good range (4) Anemia Current Visit: Yes Status: Acute Code(s): D64.9 - ANEMIA, UNSPECIFIED SNOMED Code(s): 158453668 Comment: -iron deficiency anemia confirmed with low transferrin. Starting ferrous sulfate -likely also has a component of anemia of chronic disease due to poorly controlled DMT2 (5) Hx of deep venous thrombosis Current Visit: No Status: Chronic Priority: Low Code(s): Z86.718 - PERSONAL HISTORY OF OTHER VENOUS THROMBOSIS AND EMBOLISM SNOMED Code(s): 104209463 Comment: -on Eliquis, continue (6) Bipolar disorder Current Visit: Yes Status: Acute Code(s): F31.9 - BIPOLAR DISORDER, UNSPECIFIED SNOMED Code(s): 54048621 Comment: -does not appear to be on a mood stablizer -was prescribed depakote in 2015 on discharge from [facility] -should have outpatient psych follow up (7) DVT prophylaxis Current Visit: Yes Status: Acute Code(s): Z29.9 - ENCOUNTER FOR PROPHYLACTIC MEASURES, UNSPECIFIED SNOMED Code(s): 603601267 Comment: -Eliquis (8) Full code status Current Visit: Yes Status: Acute Code(s): Z78.9 - OTHER SPECIFIED HEALTH STATUS SNOMED Code(s): 310465513 Status and Disposition: anticipate d/c home when medically stable
[2019-09-24] MEDS ORDERED: Vancomycin Trough Check NOTE FOLLOW UP ONE (14:30)
--- NOTE | 2019-09-24 15:45 | CONSULT ---
Consult Consult: Date of Service: 09/24/19 Reason for Consultation: Nonhealing bialteral foot wounds in a diabetic. Consulting Service: Hospitalist (Trisha HAYES) DATE OF ADMISSION: 09/22/19 PRIMARY CARE PHYSICIAN: Dr. Brothers DIRECTOR INFORMATICS: Dr. Armin Mcnair (Focused) HISTORY OF PRESENT ILLNESS: Mr. Perez is a 59-year-old male with a past medical history of type 2 diabetes, hx of DVT on eliquis and recent complaint of right upper quadrant pain with concern for cholelithiasis. Mr. Perez reports difficulty managing his DM2 and most recently has been under the care of Dr. Mcnair. His hemoglobin A1c on 04/25/19 was 17.7%. Mr. Perez has been unable to tolerate multiple other medication regimens and has been described as having very brittle diabetes that has been difficult to manage. Mr. Perez reports that he believed that perhaps the insulin was causing him troubles including causing him bilateral foot wounds. Mr. Perez describes oozing from bilateral feet for over a month. He endorses decreased sensation in bilateral feet, has no recent trauma to the feet. More recently, he developed left posterior thigh swelling and bulging which he thought was perhaps related to DVT, which he does have a history of in the past. For about one month the patient reports painless wounds in his feet with "oozing ". He denies trauma. Prior to this he reports claudication like pain after walking <2 blocks in both of his calves and ankles. He denies night time rest pain. Overall he states his left leg hurts more. Mr. Perez denies any other complaints. He has had no chest pain, shortness of breath, nausea, vomiting, diarrhea, abdominal pain. PAST MEDICAL HISTORY: 1. History of DVT and PE, on Eliquis. 2. History of uncontrolled diabetes with hemoglobin A1c 17.7%, followed by Dr. Armin Mcnair, newly on insulin regimen. 3. Bipolar disorder with multiple suicide attempts in the past. 4. Chronic right upper quadrant pain with consideration of symptomatic biliary colic. MEDICATIONS: (At the time of admission) 1. Metformin ER 1500 mg p.o. at bedtime. 2. Novolin insulin 20 units in the morning, 15 units in p.m. 3. Apixaban 5 mg p.o. b.i.d. ALLERGIES: No known drug allergies FAMILY HISTORY: The patient reports his father is alive and has diabetes. His mother in a car crash. SOCIAL HISTORY: The patient states he is a never smoker. He drinks 1 beer occasionally. No report of drug use. He lives alone in [place]. He states that his sister, Mikaela, will be the healthcare proxy. REVIEW OF SYSTEMS: A 14-point review of systems was completed with Mr. Perez and all those not mentioned above were negative. PHYSICAL EXAMINATION Selected Entries 09/24/19 11:51 Temperature 97.9 F Temperature Oral Source Pulse Rate 75 Respiratory 16 Rate Blood Pressure 141/69 (mmHg) Blood Pressure 93 Mean O2 Sat by Pulse 96 Oximetry Patient on Room Yes Air NAD, AAO x 3 RRR CTAB Abd is soft, nontender 2+ pulses at the BL radial and brachial arteries 2+ pulsews at the BL [employer] 1+ pulse at right popliteal Left popliteal artery and bilateral pedal arteries are not palpable Left lateral distal thigh wound and erythema Feet are wrapped in sterile gauze RELEVANT IMAGING: Patient Name: COTY PEREZ Medical Record#: [id number] Ordering Physician: ABIGAIL Howard Acct.#: [id number] : 1960 Age: 59 Sex: M Location: [address] [place] [address] - MEDICAL Exam Date: 09/24/191401 ADM Status: ADM IN Order Information: VL ANK/ BRACHIAL INDICES Accession Number: [id number] CPT: 92742 INDICATION: Bilateral feet wounds in a diabetic patient with a history of claudication. COMPARISON: CTA chest abdomen pelvis that demonstrates calcified atherosclerosis of the distal iliac and visualized proximal femoral arteries. TECHNIQUE: Ankle-brachial indices and Doppler tracings were obtained of the lower extremities bilaterally. Volume pulse recordings were acquired at the bilateral ankles. REPORT: Ankle-brachial indices: Right: Value (SBP) Index Brachial: 167 Posterior tibialis: Noncompressible Dorsalis pedis: Noncompressible Left: Value (SBP) Index Brachial: 167 Posterior tibialis: Noncompressible Dorsalis pedis: Noncompressible Doppler waveforms (acquired at rest): In the interrogated lower extremity arteries, Doppler waveforms are triphasic in all distributions. Volume pulse recordings (acquired at rest): Volume pulse recordings, measured at the bilateral ankles, are symmetric. IMPRESSION: Noncompressibility of the bilateral pedal arteries is consistent with advanced calcified atherosclerosis preventing acquisition of reliable ABIs. According to the patient's clinical history and in the presence of bilateral feet wounds further vascular imaging is likely appropriate. <Electronically signed by Petros Torres MD in OV> 09/24/19 0900 Dictated By: Petros Torres MD Dictated Date/Time: 09/24/19 0855 RELEVANT LABS: Laboratory Tests 09/22/19 09/23/19 09/23/19 07:49 06:48 06:49 WBC 13.6 H 11.4 H Hgb 11.0 L 8.2 L Hct 32 L 25 L Plt Count BUN 19 Creatinine 0.93 Est GFR ( Amer) 101.0 Est GFR (Non-Af Amer) 83.5 09/24/19 06:38 WBC 7.8 Hgb 8.8 L Hct 25 L Plt Count 395 BUN Creatinine Est GFR ( Amer) Est GFR (Non-Af Amer) SUMMARY: 59 year old inadequately controlled diabetic male with calcified vasculopathy, claudication symptoms and 1 month of poorly healing feet wounds. Patient also has history of DVT & PE raising suspicion for "mixed vessel" disease exacerbating his wounds and leg pain. RECOMMENDATIONS / PLAN: 1. CTA aorta w/ runoff to include venous phase imaging to evaluate both the arterial and venous system. 2. Possible catheter arteriography to better characterize infrapopliteal arteries (heavy calcification limits CTA imaging utility in small vessels) and for revascularization if indicated. 3. Continue antibiotic therapy and wound care. 4. Do not stop Eliquis from endovascular IR perspective.
[2019-09-24] MEDS: Vancomycin(*) 1,000 MG in NS 0.9% 250 ML* 250 ML IVPB SCH (15:52)
[2019-09-24] MEDS ORDERED: Iodixanol* (CONTRAST) 320 MG/ML 100 ML SDV IV ONE (17:44)
--- NOTE | 2019-09-24 19:23 | CONSULT ---
Subjective Date of Service: 09/24/19 Interval History: Mr. Perez is a 59 yo male with PMH significant for DM2, hx of DVT on eliquis , bipolar disorder, and recent complaint of right upper quadrant pain with concern for cholelithiasis; who presented to the hospital with complaints of left thigh swelling and was found to have a left thigh abscess. He was admitted for left thigh abscess, bilateral foot ulcers, and uncontrolled diabetes. He states that about a month ago, he developed sudden onset of wounds to bilateral feet. With drainage from both feet. He has decreased sensation in both feet. Denies any recent trauma to the feet. Recently, he developed left posterior thigh swelling and bulging which he thought was perhaps related to a DVT, which he has a history of in the past. He also reports claudication like pain after walking <2 blocks in both of his calves and ankles. Patient was seen and examined at bedside. Verbal consent was obtained for wound evaluation and photographs. Family History: Unchanged from Admission Social History: Unchanged from Admission Past Medical History: Unchanged from Admission Review of Systems - Measurements Intake and Output: Intake and Output Last 24 Hours 09/22/19 09/23/19 09/24/19 09/25/19 06:59 06:59 06:59 06:59 Intake Total 2558 1895 1100 Output Total 2 610 Balance 2558 1893 490 Weight 163 lb 163 lb Intake: IV Fluids 1408 145 ABX - VANCOMYCIN 85 NS (0.9%) 273 145 IVPB 910 630 ABX - CEFTRIAXONE 55 ABX - FLAGYL 105 ABX - VANCOMYCIN 805 575 Oral 240 1120 1100 Output: Urine 2 610 Other: Estimated Void Medium Medium Date of Last Bowel t 09/24/19 Movement # Bowel Movements 1 0 1 Estimated Stool Amount Medium Medium Medium # Voids 1 - Review of Systems Constitutional Symptoms: Negative: Fever, Other - Chills Dermatology: Positive: Other - Wounds to bilateral feet Endocrinology: Positive: Diabetes Mellitus - Reports glucose 140-300's Objective Active Medications: Acetaminophen (Tylenol Tab*) 650 mg PO Q6H PRN Reason: PAIN - MILD Apixaban (Eliquis*) 5 mg PO BID [facility] Benzonatate (Tessalon Cap*) 200 mg PO TID PRN Reason: COUGH Collagenase (Santyl 250 Units/Gm Oint*) 1 applic TOPICAL DAILY [facility] Dextrose (Dextrose 50% Vial 50 Ml*) 25 ml IV PUSH PRN Reason: FS < 60 Ferrous Sulfate (Ferrous Sulfate Tab*) 325 mg PO TID [facility] Vancomycin HCl 1,000 mg/ (Sodium Chloride) 250 mls @ 166.667 mls/hr IVPB Q12HR@ 0400,1600 [facility] Insulin Human Isoph/Insulin Regular (Humulin 70/30 (*)) 15 units SUBCUT 0800, 1700 [facility] Insulin Human Lispro (Humalog*) 0 units SUBCUT AC [facility]; Protocol Nystatin (Nystatin Top Powder*) 1 applic TOPICAL BID [facility] Ondansetron HCl (Zofran Odt Tab*) 4 mg SL Q6H PRN Reason: NAUSEA/VOMITING Pharmacy Consult (Vancomycin Per Pharmacy*) 1 note FOLLOW UP .VANC PER PHARMACY [facility]; Protocol Pharmacy Profile Note (Vancomycin Trough Check) 1 note FOLLOW UP ONCE ONE Stop: 09/26/19 03:31 Vital Signs - 8 hr 09/24/19 09/24/19 11:51 15:15 Temperature 97.9 F 97.0 F Pulse Rate 75 81 Respiratory 16 16 Rate Blood Pressure 141/69 161/73 (mmHg) O2 Sat by Pulse 96 100 Oximetry Oxygen Devices in Use Now: None Appearance: NAD, laying in bed Ears/Nose/Mouth/Throat: Mucous Membranes Moist Respiratory: Symmetrical Chest Expansion and Respiratory Effort Extremities: - - Trace bilateral LE edema. Unable to palpate right DP or PT pulses. Left DP pulse 2+. Skin: - - See skin note below Neurological: Alert and Oriented x 3 Nutrition: Taking PO's Result Diagrams: 09/24/19 06:38 09/23/19 06:48 Microbiology and Other Data: Microbiology 09/22/19 13:05 Skin and Soft Tissue MRSA/MSSA (PCR - Final Foot Right Mrsa Positive S.aureus Positive Gram Stain - Final Wound Culture - Preliminary Staphylococcus Aureus Strep Agalactiae - (Group B) 09/22/19 13:05 Skin and Soft Tissue MRSA/MSSA (PCR - Final Leg Left Mrsa Positive S.aureus Positive Gram Stain - Final Wound Culture - Preliminary Staphylococcus Aureus 09/22/19 08:05 Aerobic Blood Culture - Preliminary Blood Venous No Growth Day 1 Anaerobic Blood Culture - Preliminary No Growth Day 1 09/22/19 07:55 Aerobic Blood Culture - Preliminary Blood Venous No Growth Day 1 Anaerobic Blood Culture - Preliminary No Growth Day 1 Diagnostic Imagin. Exam Date: 09/24/19 1402 - VL ANK/BRACHIAL INDICES Right: Value (SBP) Index Brachial: 167 Posterior tibialis: Noncompressible Dorsalis pedis: Noncompressible Left: Value (SBP) Index Brachial: 167 Posterior tibialis: Noncompressible Dorsalis pedis: Noncompressible Doppler waveforms (acquired at rest): In the interrogated lower extremity arteries, Doppler waveforms are triphasic in all distributions. Volume pulse recordings (acquired at rest): Volume pulse recordings, measured at the bilateral ankles, are symmetric. IMPRESSION: Noncompressibility of the bilateral pedal arteries is consistent with advanced calcified atherosclerosis preventing acquisition of reliable ABIs. According to the patient's clinical history and in the presence of bilateral feet wounds further vascular imaging is likely appropriate. 2. 09/22/19 0753 - FEET BILATERAL IMPRESSION: OSTEOARTHRITIS. PERIPHERAL ARTERIAL DISEASE. NO APPRECIABLE EROSION OR PERIOSTEAL REACTION. PLAIN RADIOGRAPH FINDINGS OF OSTEOMYELITIS ARE RELATIVELY LATE FINDINGS. IF THERE IS PERSISTENT CLINICAL CONCERN FOR OSTEOMYELITIS, RECOMMEND CORRELATION WITH FOLLOWUP IMAGING, THREE-PHASE BONE SCANNING, WHITE BLOOD CELL SCAN, AND/OR MRI OF THE AFFECTED REGION. Skin Deviation Note - Skin Deviation Findings Right dorsal foot - There are multiple superficial open areas to the dorsal aspect of the foot. The total area of wounds measures 17 cm x 11 cm x 0.1 cm. The wound bases are 60% red granulation tissue and 40% dry eschar. There is scant drainage. The surrounding skin is a dark erythema. There is no odor. Left dorsal foot - There are superficial open areas to the toes. The area on the 1st toe measures 5 cm x 5.5 cm x 0.1 cm. The wound base is 90% dry red epithelial tissue and 10 % dry eschar. The 2nd toe area measures 3.5 cm x 1 cm x 0.1 cm. The wound base is 100% dark dry necrotic tissue. The 3rd toe area measures 4.5 cm x 1.2 cm x 0.1 cm. The wound base is 90% dry red epithelial tissue and 10% dry dark eschar . The surrounding skin is intact. There is no drainage. There is no odor. Wound Problem/Plan Assessment: Mr. Perez is a 59 yo male with PMH significant for DM2, hx of DVT on eliquis , bipolar disorder, and recent complaint of right upper quadrant pain with concern for cholelithiasis; who presented to the hospital with complaints of left thigh swelling and was found to have a left thigh abscess. He was admitted for a left thigh abscess, bilateral foot wounds, and uncontrolled diabetes. He presented to the hospital with wounds to bilateral feet. 1. Bilateral LE wounds, suspect this represent arterial wounds. There may also be a component of diabetic ulcers. ABIs with noncompressable vessels in the legs. Dr. Torres consult pending at this time. Wound cultures with MRSA on the left and MRSA and group B strep on the right. He is currently receiving IV Vancomycin. Recommend washing the wounds with soap and water. Apply Santyl to the areas of slough, followed by telfa, and rolled gauze; change daily or as needed for drainage. 2. DM2 with peripheral neuropathy and retinopathy. HgA1C was on 04/25/19 was 17.7%. Maintain good glycemic control to allow for wound healing. 3. Left thigh abscess. S/P I+D in the ED. (This was not evaluated today). Recommend gently packing the wound with packing daily, cover with ABD pad and change as needed for drainage. 4. Diet. Consistent Carbohydrate diet. 5. Code Status. Full Code Status. 6. Disposition. Inpatient, disposition per primary medicine team. TIME SPENT: Time for this wound consultation was 25 minutes and 15 minutes was spent with the patient discussing past medical history; assessing, measuring, and photographing the wounds. Is Patient a Wound Clinic Patient: No Attending: Crista Petty
[2019-09-25] MEDS: Acetaminophen TAB* 325 MG PO PRN (02:58)
[2019-09-25] MEDS: Vancomycin(*) 1,000 MG in NS 0.9% 250 ML* 250 ML IVPB SCH ×2 (04:50→18:08)
[2019-09-25] MEDS: Insulin LISPRO* 1 UNITS UNIT SUBCUT SCH ×3 (09:02→18:09)
[2019-09-25] MEDS: Nystatin TOP POWDER* 15 GM BTL TOPICAL SCH ×2 (09:02→20:22)
[2019-09-25] MEDS: Apixaban* 5 MG TAB PO SCH ×2 (09:10→20:22)
[2019-09-25] MEDS: Insulin ISOPH/REG 70/30 (*) 1 UNITS UNIT SUBCUT SCH ×2 (09:10→18:16)
[2019-09-25] MEDS: Ferrous Sulfate TAB* 325 MG PO SCH ×3 (09:12→20:22)
[2019-09-25] MEDS ORDERED: LORazepam TAB(*) 1 MG ONE (14:02)
[2019-09-25] MEDS ORDERED: Lidocaine 1% INJ* 10 MG/ML 30 ML SDV ONE (14:27)
[2019-09-25] MEDS ORDERED: Iodixanol 320 (CONTRAST) 100 ML SDV ONE (14:27)
[2019-09-25] MEDS ORDERED: Iohexol 350 (CONTRAST) 200 ML MDV IV ONE (14:27)
[2019-09-25] MEDS ORDERED: Heparin 2 UNITS/ML IVPREMIX* 2,000 ML IV ONE (14:28)
[2019-09-25] MEDS ORDERED: fentaNYL* 50 MCG/ML 5 ML VIAL (250 MCG VIAL) ONE (14:32)
[2019-09-25] MEDS ORDERED: Heparin(*) 1000 UNIT/ML 10 ML VIAL CATH LAB IV ONE (14:33)
[2019-09-25] MEDS ORDERED: Midazolam* 1 MG/ML 5 ML VIAL (5 MG) ONE (14:33)
--- NOTE | 2019-09-25 18:44 | PN ---
Subjective Date of Service: 09/25/19 Interval History: Patient evaluated on the floor after returning from OR with Dr. Torres. Patient has no complaints. He is feeling optimistic. He denies fever/chills, abd pain, chest pain, difficulty breathing, or pain in his extremities. Family History: Unchanged from Admission Social History: Unchanged from Admission Past Medical History: Unchanged from Admission Objective Active Medications: Acetaminophen (Tylenol Tab*) 650 mg PO Q6H PRN PRN Reason: PAIN - MILD Last Admin: 09/25/19 02:58 Dose: 650 mg Apixaban (Eliquis*) 5 mg PO BID [facility] Last Admin: 09/25/19 09:10 Dose: 5 mg Benzonatate (Tessalon Cap*) 200 mg PO TID PRN PRN Reason: COUGH Last Admin: 09/22/19 23:02 Dose: 200 mg Collagenase (Santyl 250 Units/Gm Oint*) 1 applic TOPICAL 2100 [facility] Last Admin: 09/24/19 22:28 Dose: Not Given Dextrose (Dextrose 50% Vial 50 Ml*) 25 ml IV PUSH .FOR FS < 60 - SS PRN PRN Reason: FS < 60 Ferrous Sulfate (Ferrous Sulfate Tab*) 325 mg PO TID [facility] Last Admin: 09/25/19 12:23 Dose: Not Given Vancomycin HCl 1,000 mg/ (Sodium Chloride) 250 mls @ 166.667 mls/hr IVPB Q12HR@ 0400,1600 [facility] Last Admin: 09/25/19 18:08 Dose: 166.667 mls/hr Insulin Human Isoph/Insulin Regular (Humulin 70/30 (*)) 17 units SUBCUT 0800, 1700 [facility] Last Admin: 09/25/19 18:16 Dose: 17 units Insulin Human Lispro (Humalog*) 0 units SUBCUT AC [facility]; Protocol Last Admin: 09/25/19 18:09 Dose: Not Given Nystatin (Nystatin Top Powder*) 1 applic TOPICAL BID [facility] Last Admin: 09/25/19 09:02 Dose: 1 applic Ondansetron HCl (Zofran Odt Tab*) 4 mg SL Q6H PRN PRN Reason: NAUSEA/VOMITING Pharmacy Consult (Vancomycin Per Pharmacy*) 1 note FOLLOW UP .VANC PER PHARMACY [facility]; Protocol Pharmacy Profile Note (Vancomycin Trough Check) 1 note FOLLOW UP ONCE ONE Stop: 09/26/19 03:31 Vital Signs - 8 hr 09/25/19 09/25/19 09/25/19 11:15 12:26 12:27 Temperature 98.4 F Pulse Rate 75 77 Respiratory 16 13 12 Rate Blood Pressure 132/61 134/87 (mmHg) O2 Sat by Pulse 99 100 Oximetry 09/25/19 09/25/19 09/25/19 16:34 16:35 16:45 Temperature Pulse Rate 77 Respiratory 14 12 21 Rate Blood Pressure 142/92 160/87 162/89 (mmHg) O2 Sat by Pulse 99 Oximetry 09/25/19 09/25/19 09/25/19 17:00 17:15 17:30 Temperature Pulse Rate 74 75 76 Respiratory 8 15 15 Rate Blood Pressure 150/88 162/88 159/85 (mmHg) O2 Sat by Pulse 97 98 98 Oximetry 09/25/19 09/25/19 17:45 18:05 Temperature 98.2 F Pulse Rate 79 68 Respiratory 34 16 Rate Blood Pressure 162/78 129/62 (mmHg) O2 Sat by Pulse 99 97 Oximetry Oxygen Devices in Use Now: None Appearance: Thin, white male, laying in bed, appearing comfortable and in NAD Eyes: No Scleral Icterus, - - PERRL Ears/Nose/Mouth/Throat: Mucous Membranes Moist Neck: Trachea Midline Respiratory: Symmetrical Chest Expansion and Respiratory Effort, Clear to Auscultation Cardiovascular: NL Sounds; No Murmurs; No JVD, RRR Abdominal: - - abd soft, nontender, nondistended Extremities: - - dressings on bilateral LEs are clean/dry/intact; left thigh I& D site without purulent drainage, fluctuance, or surrounding erythema Skin: No Rash or Ulcers Neurological: Alert and Oriented x 3, NL Muscle Strength and Tone Result Diagrams: 09/24/19 06:38 09/23/19 06:48 Additional Lab and Data: Lab Results 09/22/19 09/22/19 09/22/19 Range/Units 07:45 07:49 07:49 WBC 13.6 H (3.5-10.8) 10^3/uL RBC 3.78 L (4.18-5.48) 10^6 /uL Hgb 11.0 L (14.0-18.0) g/dL Hct 32 L (42-52) % MCV 85 (80-94) fL MCH 29 (27-31) pg MCHC 34 (31-36) g/dL RDW 13 (10-15) % Plt Count 473 H (150-450) 10^3/uL MPV 7.7 (7.4-10.4) fL Neut % (Auto) 84.2 % Lymph % (Auto) 8.5 % Lares % (Auto) 6.0 % Eos % (Auto) 0.9 % Baso % (Auto) 0.4 % Absolute Neuts (auto) 11.5 H (1.5-7.7) 10^3/ul Absolute Lymphs (auto) 1.2 (1.0-4.8) 10^3/ul Absolute Monos (auto) 0.8 (0-0.8) 10^3/ul Absolute Eos (auto) 0.1 (0-0.6) 10^3/ul Absolute Basos (auto) 0.1 (0-0.2) 10^3/ul Absolute Nucleated RBC 0.0 10^3/ul Nucleated RBC % 0.1 Sodium 127 L (135-145) mmol/L Potassium 5.1 H (3.5-5.0) mmol/L Chloride 89 L (101-111) mmol/L Carbon Dioxide 28 (22-32) mmol/L Anion Gap 10 (2-11) mmol/L BUN 29 H (6-24) mg/dL Creatinine 1.33 H (0.67-1.17) mg/dL Est GFR ( Amer) 66.8 (>60) Est GFR (Non-Af Amer) 55.2 (>60) BUN/Creatinine Ratio 21.8 H (8-20) Glucose 657 H* (70-100) mg/dL Lactic Acid 1.0 (0.5-2.0) mmol/L Calcium 9.3 (8.6-10.3) mg/dL Total Bilirubin 0.40 (0.2-1.0) mg/dL AST 7 L (13-39) U/L ALT 5 L (7-52) U/L Alkaline Phosphatase 115 H (34-104) U/L Total Protein 8.0 (6.4-8.9) g/dL Albumin 3.4 (3.2-5.2) g/dL Globulin 4.6 H (2-4) g/dL Albumin/Globulin Ratio 0.7 L (1-3) Lipase 55 (11.0-82.0) U/L TSH 3.26 (0.34-5.60) mcIU/mL Urine Color Urine Appearance Urine pH (5-9) Ur Specific Central (1.010-1.030) Urine Protein (Negative) Urine Ketones (Negative) Urine Blood (Negative) Urine Nitrate (Negative) Urine Bilirubin (Negative) Urine Urobilinogen (Negative) Ur Leukocyte Esterase (Negative) Urine Glucose (Negative) 09/22/19 Range/Units 10:02 WBC (3.5-10.8) 10^3/uL RBC (4.18-5.48) 10^6 /uL Hgb (14.0-18.0) g/dL Hct (42-52) % MCV (80-94) fL MCH (27-31) pg MCHC (31-36) g/dL RDW (10-15) % Plt Count (150-450) 10^3/uL MPV (7.4-10.4) fL Neut % (Auto) % Lymph % (Auto) % Lares % (Auto) % Eos % (Auto) % Baso % (Auto) % Absolute Neuts (auto) (1.5-7.7) 10^3/ul Absolute Lymphs (auto) (1.0-4.8) 10^3/ul Absolute Monos (auto) (0-0.8) 10^3/ul Absolute Eos (auto) (0-0.6) 10^3/ul Absolute Basos (auto) (0-0.2) 10^3/ul Absolute Nucleated RBC 10^3/ul Nucleated RBC % Sodium (135-145) mmol/L Potassium (3.5-5.0) mmol/L Chloride (101-111) mmol/L Carbon Dioxide (22-32) mmol/L Anion Gap (2-11) mmol/L BUN (6-24) mg/dL Creatinine (0.67-1.17) mg/dL Est GFR ( Amer) (>60) Est GFR (Non-Af Amer) (>60) BUN/Creatinine Ratio (8-20) Glucose (70-100) mg/dL Lactic Acid (0.5-2.0) mmol/L Calcium (8.6-10.3) mg/dL Total Bilirubin (0.2-1.0) mg/dL AST (13-39) U/L ALT (7-52) U/L Alkaline Phosphatase (34-104) U/L Total Protein (6.4-8.9) g/dL Albumin (3.2-5.2) g/dL Globulin (2-4) g/dL Albumin/Globulin Ratio (1-3) Lipase (11.0-82.0) U/L TSH (0.34-5.60) mcIU/mL Urine Color Straw Urine Appearance Clear Urine pH 7.0 (5-9) Ur Specific Central 1.024 (1.010-1.030) Urine Protein Negative (Negative) Urine Ketones 1+ A (Negative) Urine Blood Negative (Negative) Urine Nitrate Negative (Negative) Urine Bilirubin Negative (Negative) Urine Urobilinogen Negative (Negative) Ur Leukocyte Esterase Negative (Negative) Urine Glucose 3+(>=500 mg/dl) A (Negative) Microbiology and Other Data: Microbiology 09/22/19 13:05 Skin and Soft Tissue MRSA/MSSA (PCR - Final Foot Right Mrsa Positive S.aureus Positive Gram Stain - Final Wound Culture - Preliminary Staphylococcus Aureus Strep Agalactiae - (Group B) 09/22/19 13:05 Skin and Soft Tissue MRSA/MSSA (PCR - Final Leg Left Mrsa Positive S.aureus Positive Gram Stain - Final Wound Culture - Preliminary Staphylococcus Aureus 09/22/19 08:05 Aerobic Blood Culture - Preliminary Blood Venous No Growth Day 1 Anaerobic Blood Culture - Preliminary No Growth Day 1 09/22/19 07:55 Aerobic Blood Culture - Preliminary Blood Venous No Growth Day 1 Anaerobic Blood Culture - Preliminary No Growth Day 1 Diagnostic Imaging: Exam Date: 09/24/19 1402 - VL ANK/BRACHIAL INDICES Right: Value (SBP) Index Brachial: 167 Posterior tibialis: Noncompressible Dorsalis pedis: Noncompressible Left: Value (SBP) Index Brachial: 167 Posterior tibialis: Noncompressible Dorsalis pedis: Noncompressible Doppler waveforms (acquired at rest): In the interrogated lower extremity arteries, Doppler waveforms are triphasic in all distributions. Volume pulse recordings (acquired at rest): Volume pulse recordings, measured at the bilateral ankles, are symmetric. IMPRESSION: Noncompressibility of the bilateral pedal arteries is consistent with advanced calcified atherosclerosis preventing acquisition of reliable ABIs. According to the patient's clinical history and in the presence of bilateral feet wounds further vascular imaging is likely appropriate. Assess/Plan/Problems-Billing Assessment: 59 yo male with PMHx uncontrolled DMT2, hx of DVT (on AC), bipolar disorder, and chronic abdominal pain presents with left thigh abscess. - Patient Problems (1) Abscess of lower extremity Current Visit: Yes Status: Acute Code(s): L02.419 - CUTANEOUS ABSCESS OF LIMB, UNSPECIFIED SNOMED Code(s): 223003410 Comment: -left thigh abscess I&D performed in the ED prior to admission, culture growing MRSA -switching vancomycin to doxycycline -blood cultures no growth to date -packing and dressing changes daily -Wound consult much appreciated; will need outpatient wound clinic follow up at d/c (2) Diabetic ulcer of lower extremity Current Visit: Yes Status: Acute Code(s): E11.622 - TYPE 2 DIABETES MELLITUS WITH OTHER SKIN ULCER; L97.909 - NON-PRS CHRONIC ULC UNSP PRT OF UNSP LOW LEG W UNSP SEVERITY SNOMED Code(s): 477182366 Comment: -wound culture is demonstrating MRS and GBS. I do have concern for surrounding cellulitis around left toe wounds -changing to doxy, also covers GBS -wound on right foot dorsum concerning for arterial ulcer. ABIs were noncompressible and Dr. Torres performed angioplasty today, report and further recommendations are pending (3) Diabetes mellitus type 2 in nonobese Current Visit: Yes Status: Acute Code(s): E11.9 - TYPE 2 DIABETES MELLITUS WITHOUT COMPLICATIONS SNOMED Code(s): 894459055 Comment: -patient discontinued his insulin at home without medical advice -A1c = 14% -seen by [facility] diabetic nurse and she will follow patient outpatient; should f/u with endocrinology as well -continue lispro SS -increased humulin -diabetic diet discussed, declines dural mechanic consult -BGs good range (4) Peripheral arterial disease Current Visit: Yes Status: Acute Code(s): I73.9 - PERIPHERAL VASCULAR DISEASE, UNSPECIFIED SNOMED Code(s): 573966734 Comment: -CTA aorta runoff demonstrates diminished flow in bilateral peroneal arteries -s/p angioplasty with Dr. Torres today as previously mentioned, awaiting further recommendations (5) Anemia Current Visit: Yes Status: Acute Code(s): D64.9 - ANEMIA, UNSPECIFIED SNOMED Code(s): 963429472 Comment: -iron deficiency anemia confirmed with low transferrin. Starting ferrous sulfate -likely also has a component of anemia of chronic disease due to poorly controlled DMT2 (6) Hx of deep venous thrombosis Current Visit: No Status: Chronic Priority: Low Code(s): Z86.718 - PERSONAL HISTORY OF OTHER VENOUS THROMBOSIS AND EMBOLISM SNOMED Code(s): 307708236 Comment: -on Eliquis, continue (7) Bipolar disorder Current Visit: Yes Status: Acute Code(s): F31.9 - BIPOLAR DISORDER, UNSPECIFIED SNOMED Code(s): 99350514 Comment: -does not appear to be on a mood stablizer -was prescribed depakote in 2014 on discharge from [facility] -should have outpatient psych follow up (8) DVT prophylaxis Current Visit: Yes Status: Acute Code(s): Z29.9 - ENCOUNTER FOR PROPHYLACTIC MEASURES, UNSPECIFIED SNOMED Code(s): 449176816 Comment: -Eliquis (9) Full code status Current Visit: Yes Status: Acute Code(s): Z78.9 - OTHER SPECIFIED HEALTH STATUS SNOMED Code(s): 011913616 Status and Disposition: anticipate d/c home when medically stable
[2019-09-25] MEDS: NS 0.9% 1000 ML** 1,000 ML IV SCH (19:00)
[2019-09-25] MEDS: Collagenase 250 UNITS/GM OINT* 1 APPLIC OINT TOPICAL SCH (20:24)
[2019-09-25] MEDS: DOXYcycline CAP(*) 100 MG PO SCH (22:30)
[2019-09-26] MEDS ORDERED: Vancomycin Trough Check NOTE FOLLOW UP ONE (03:30)
[2019-09-26] MEDS: NS 0.9% 1000 ML** 1,000 ML IV SCH (03:33)
[2019-09-26] MEDS: Acetaminophen TAB* 325 MG PO PRN (06:06)
[2019-09-26] MEDS: Apixaban* 5 MG TAB PO SCH (08:58)
[2019-09-26] MEDS: Ferrous Sulfate TAB* 325 MG PO SCH ×2 (08:59→12:35)
[2019-09-26] MEDS: Insulin LISPRO* 1 UNITS UNIT SUBCUT SCH ×2 (09:00→12:35)
[2019-09-26] MEDS: Insulin ISOPH/REG 70/30 (*) 1 UNITS UNIT SUBCUT SCH (09:00)
[2019-09-26] MEDS: DOXYcycline CAP(*) 100 MG PO SCH (12:35)
[2019-09-26] MEDS: Nystatin TOP POWDER* 15 GM BTL TOPICAL SCH (12:36)
[2019-09-26 14:29] VITALS: BP 167/77
--- NOTE | 2019-09-26 21:38 | DS ---
CC: Dr. Brothers; Dr. Mcdermott; Dr. Armin Mcnair; Dr. Trores; Beckie Doe NP * DISCHARGE SUMMARY: DATE OF ADMISSION: 09/22/19 DATE OF DISCHARGE: 09/26/19 PRIMARY CARE PROVIDER: Dr. Brothers. DISCHARGE DIAGNOSES: 1. Left posterior thigh abscess, methicillin-resistant Staphylococcus aureus positive, status post incision and drainage in the emergency department. 2. Bilateral lower extremity superficial wounds, methicillin-resistant Staphylococcus aureus positive. 3. Markedly uncontrolled diabetes due to medical noncompliance. 4. Iron-deficiency anemia with no evidence of acute bleeding. 5. Peripheral arterial disease, status post angioplasty performed by Dr. Torres on 09/25/19 of the left superficial femoral artery and popliteal artery. SECONDARY DIAGNOSES: 1. Diabetes type 2, insulin dependent. 2. History of deep venous thrombosis and pulmonary embolism, on Eliquis. 3. History of bipolar disease. 4. History of chronic right upper quadrant pain, question symptomatic biliary colic. MEDICATIONS AT DISCHARGE: Include: 1. Apixaban 5 mg b.i.d. 2. Insulin Novolin 70/30, 20 units q.a.m., 15 units q.p.m. 3. Glucophage ER 1500 mg at bedtime. 4. Santyl ointment apply to bilateral foot wounds, change daily, cover with non - adhesive dressing and bandages. 5. Doxycycline 100 mg b.i.d. for a total of 7 days. 6. Ferrous sulfate 325 mg b.i.d. LABORATORY DATA AND STUDIES PERFORMED DURING THE HOSPITAL STAY: Included on : sodium 134, potassium 3.9, chloride 103, carbon dioxide 25, BUN 19, creatinine 0.93. Liver function tests were obtained at admission and were unremarkable apart from slight elevation of alkaline phosphatase of 115. TSH at admission was 3.26. The patient's iron studies obtained on 09/23/19 showed iron 21, TIBC 157, percent iron saturation 13, transferrin 112. Microbiology tests showed MRSA and Strep agalactiae group B positive on the right foot and MRSA positive on the left foot. Blood cultures were negative growth. CT angiogram of the aorta with runoff obtained on 09/24/19, impression: "The aortoiliac arteries appeared to be widely patent with in line flow to the proximal superficial femoral arteries bilaterally. On the right, there is a mid 33-degree narrowing of the superficial femoral artery as it passes through the Caleb's canal. More distally, there is at least 50% stenosis of the right popliteal artery due to mostly noncalcified atheroma. On the left, there is more severe stenosis measuring at least 66% at the distal most left superficial femoral artery extending to the P1 segment of the popliteal artery. Bilaterally , the peroneal arteries do not exhibit any filling beyond the proximal one- third of the lower legs and bilaterally there is incomplete filling of the distal posterior tibial arteries with what appears to be discontinuous flow to the plantar arteries. The anterior tibial arteries bilaterally appeared to provide single-vessel runoff to the foot and as anticipated also provide retrograde collateralized filling of the plantar arteries. Due to the calcified atherosclerosis of the infrapopliteal arteries, the CTA images are of limited diagnostic utility. Catheter-directed arteriography is necessary for more precise evaluation. Bilaterally, there are lower leg varicose veins and perforators at the medial lower legs bilaterally. Superior characterization of the superficial vein can be made with venous reflux sonography if clinically indicated. Subcutaneous infiltration and thickening of the dermis corresponding to the superficial wound on the posterolateral left thigh." CONSULTATIONS DURING THE HOSPITAL STAY: Included Beckie Doe NP, for wound care and Dr. Torres, Interventional Radiology. PROCEDURE PERFORMED: Included angioplasty of the left superficial femoral artery and popliteal artery performed by Dr. Torres on 09/25/19. HOSPITALIZATION COURSE: Mr. Perez is a 59-year-old male with history of insulin- dependent diabetes, who presented to the hospital complaining of vague abdominal concerns, which had been ongoing chronic issues due to his gallbladder colic. His LFTs were not markedly abnormal at this point, but the attention was brought to his left thigh when the patient was noted to have an area of an abscess that was I and D'd in the ED. Cultures of the abscess were positive for MRSA. The patient also was noted to have unkempt bilateral feet wounds that also needed attention. The patient was admitted to our hospital, treated initially with vancomycin and then when cultures came back switched to doxycycline p.o. His left posterior thigh ulcer stopped draining by the time of discharge and appears to be slowly resolving. Due to the patient's peripheral wounds, a CTA of the aorta with runoff was obtained and Dr. Torres was involved in the patient's care. Dr. Torres noted that the patient has vascular compromise in the left leg that would not be amenable for intervention. On 09/25/19, an arteriography was performed and balloon angioplasty to the left SFA as well as popliteal artery with good results. Postoperatively, the patient felt well. When the patient presented to the hospital, his glucose level was 600. The patient admitted to medical noncompliance and not to take his insulin prior to the admission. He also was noted to have pseudohyponatremia due to the marked glucose elevation. From the review of medical records, the patient received at least 7 L of intravenous hydration during his hospital stay. He also had acute kidney injury with creatinine of 1.33 that resolved during his hospital stay. After the initial hydration of nearly 7 L of intravenous fluids, the patient's hemoglobin dropped from 11 to 8.2, but it continued to be stable and actually increased a day later. The patient's iron studies showed iron-deficiency anemia. The patient denied any bright red blood per rectum or melena. He is on Eliquis chronically and it would be worthwhile in the future to have it investigated further, although during his hospital stay, it did not appear to be an acute problem. It appears that the patient's anemia was mostly dilutional after receiving very generous intravenous hydration at admission. The patient was started on iron supplement and is recommended to follow up with his primary care provider. For his MRSA positive wounds and left thigh abscess, the patient is going to be provided with additional 7 days of doxycycline p.o. For his wound care, the patient is suggested as above to continue collagenase dressings to be changed daily. The patient is set up with visiting nurse association as well as wound care center for further followup. In regards to followup, the patient is also recommended to follow up with his primary care provider, Dr. Brothers, in approximately 4 to 7 days. PHYSICAL EXAMINATION: At the time of discharge, blood pressure of 150/68, heart rate of 87 and regular, respiratory rate 16, oxygen saturation 100% on room air, temperature 98.1. General: The patient is a very pleasant 59-year- old male, who is in no acute distress. Alert, awake, and oriented x3. HEENT: Head: Atraumatic, normocephalic. Eyes: Pupils are equal, reactive to light and accommodation. Oropharynx is clear. Mucosa moist. Neck: Supple. No JVD. No bruits bilaterally. Cardiovascular: Regular rate and rhythm. No murmur. Respiratory: Clear to auscultation bilaterally. Abdomen: Soft, nontender. Bowel sounds are present in all 4 quadrants. Extremities: There is bilateral trace ankle edema. Pulses are +1 bilaterally. There is no clubbing or cyanosis. On evaluation of the patient's skin, the patient's left posterior thigh abscess is currently not actively draining. The area of the orifice is approximately 1 cm in diameter. The palpable area of induration is approximately 4 cm of the soft tissue that can be palpated. There is no evidence of cellulitis. On evaluation of bilateral feet, the patient has chronic bilateral dorsum of the feet wounds that are present distally over the areas of the patient's toes and distal metatarsal area. They are superficial covered with slough. There is no cellulitis noted. The areas of the wounds of both feet, each of them is approximately 10 cm x 3 cm. On neuro evaluation, cranial nerves II through XII grossly intact. Motor strength is 5/5 bilaterally. DISCHARGE INSTRUCTIONS: At discharge, the patient is recommended to follow up with Dr. Brothers as mentioned above. The patient is also being set up by our case therapist to follow up with wound care center. For the time being, he is also going to be utilizing visiting nurse services for wound dressing changes. DISPOSITION AT DISCHARGE: Home. CONDITION ON DISCHARGE: Stable. Please note that this is a short summary of the patient's hospital stay. Please refer to further medical records for details. TIME SPENT: Approximately 40 minutes was spent on the patient's discharge. [id number]/[facility] #: [id number] DC
[2019-09-28] MEDS ORDERED: Clopidogrel TAB* 75 MG PO SCH (09:00)
== END 2019-09-26 17:30 | disposition home health service (06) | DRG 253 ==
LOC: ED 07:27 → MED 10:53
PROVIDERS: ADMIT Internal Medicine; ATTEND Internal Medicine
PROC: 0Y9D0ZZ Drainage of Left Upper Leg, Open Approach (ICD-10-PCS; 2019-09-22)
PROC: 047N3ZZ Dilation of Left Popliteal Artery, Percutaneous Approach (ICD-10-PCS; 2019-09-25)
PROC: B41G1ZZ Fluoroscopy of Left Lower Extremity Arteries using Low Osmolar Contrast (ICD-10-PCS; 2019-09-25)
PROC: 047L3ZZ Dilation of Left Femoral Artery, Percutaneous Approach (ICD-10-PCS; principal; 2019-09-25 13:00)
DX: E11.51 Type 2 diabetes mellitus with diabetic peripheral angiopathy without gangrene (principal); E87.1 Hypo-osmolality and hyponatremia; L02.416 Cutaneous abscess of left lower limb; N17.9 Acute kidney failure, unspecified; E11.621 Type 2 diabetes mellitus with foot ulcer; E87.5 Hyperkalemia; L97.519 Non-pressure chronic ulcer of other part of right foot with unspecified severity; L97.529 Non-pressure chronic ulcer of other part of left foot with unspecified severity; E11.42 Type 2 diabetes mellitus with diabetic polyneuropathy; E11.319 Type 2 diabetes mellitus with unspecified diabetic retinopathy without macular edema; G89.29 Other chronic pain; H91.90 Unspecified hearing loss, unspecified ear; B95.1 Streptococcus, group B, as the cause of diseases classified elsewhere; D50.9 Iron deficiency anemia, unspecified; K80.50 Calculus of bile duct without cholangitis or cholecystitis without obstruction; I70.212 Atherosclerosis of native arteries of extremities with intermittent claudication, left leg; B95.62 Methicillin resistant Staphylococcus aureus infection as the cause of diseases classified elsewhere; F31.9 Bipolar disorder, unspecified; E11.65 Type 2 diabetes mellitus with hyperglycemia; Z91.14 Patient's other noncompliance with medication regimen; Z86.718 Personal history of other venous thrombosis and embolism; Z86.711 Personal history of pulmonary embolism; Z91.5 Personal history of self-harm; Z79.01 Long term (current) use of anticoagulants; Z79.4 Long term (current) use of insulin
CPT/HCPCS: 36415; 75635; 76937; 80048; 80053; 80202; 80307; 81003; 82728; 83036; 83540; 83550; 83605; 83690; 84443; 85025; 85347; 87040; 87070; 87077; 87184; 87186; 87205; 87640; 87641; 93005; 93922; 96361; 96374; 99156; 99157; 99284; A9270-GY; C1725; C1760; C1769; C1887; C1894; J0696; J1644; J2250; J3010; J3370; Q9967

== ENCOUNTER 2019-12-24 18:50 | Inpatient (IN) | payer MEDICARE ==
--- NOTE | 2019-12-24 19:14 | ED ---
GI/ HPI - HPI Summary HPI Summary: 59 year old M presenting to [facility] via EMS with a chief complaint of nausea, vomiting, and "gallbladder" problems since 2 months ago, worse since today. The patient rates the pain 0/10 in severity. Symptoms aggravated by nothing. Symptoms alleviated by nothing. Patient reports a history of infections. Patient denies any hematochezia or having any alcohol today. Medication list reviewed. Allergy list reviewed. Home Medications Medication Instructions Recorded Confirmed Type Apixaban* [Eliquis*] 5 mg PO BID 11/29/17 09/22/19 History Insulin NPH Hum/Reg Insulin Hm 15 units SUBCUT QPM 09/22/19 09/22/19 History [Novolin 70-30 Flexpen 3 ml x 5 Pens] Insulin NPH Hum/Reg Insulin Hm 20 units SUBCUT QAM 09/22/19 09/22/19 History [Novolin 70-30 Flexpen 3 ml x 5 Pens] Metformin ER (NF) [Glucophage ER 1,500 mg PO BEDTIME 09/22/19 09/22/19 History 750 MG TAB (NF)] Collagenase 250 UNITS/GM OINT* 1 applic TOPICAL 2100 #1 tube 09/26/19 Rx [Santyl 250 UNITS/GM Oint*] DOXYcycline CAP(*) [DOXYcycline 100 mg PO BID@1100,2300 #14 cap 09/26/19 Rx 100MG CAP(*)] Ferrous Sulfate TAB* 325 mg PO BID #60 tab 09/26/19 Rx - History of Current Complaint Time Seen by Provider: 12/24/19 19:07 Stated Complaint: GENERAL ILLNESS PER EMS Hx Obtained From: Patient Onset/Duration: Started Weeks Ago Timing: Constant Current Severity: None Pain Intensity: 0 Associated Signs and Symptoms: Positive: Negative - Hematochezia, Nausea, Vomiting - Additional Pertinent History Primary Care Physician: JAYSHREE - Allergy/Home Medications Allergies/Adverse Reactions: Allergies Allergy/AdvReac Type Severity Reaction Status Date / Time No Known Allergies Allergy Verified 09/22/19 07:34 Home Medications: Home Medications Metformin ER (NF) [Glucophage ER 750 MG TAB (NF)] 1,500 mg PO BEDTIME 09/22/19 [ History Confirmed 12/24/19] Ferrous Sulfate TAB* 325 mg PO DAILY 12/24/19 [History Confirmed 12/24/19] glipiZIDE TAB* [Glucotrol TAB*] 10 mg PO DAILY 12/24/19 [History Confirmed 12/23] PMH/Surg Hx/FS Hx/Imm Hx Endocrine/Hematology History: Reports: Hx Anticoagulant Therapy, Hx Diabetes - Reports glucose 140-300's Cardiovascular History: Reports: Hx Deep Vein Thrombosis - 2010, 2011, and 2012 , Hx Embolism - 2010, Hx Peripheral Vascular Disease - arterial Denies: Hx Hypertension Respiratory History: Reports: Hx Pulmonary Edema, Hx Pulmonary Embolism Denies: Hx Asthma History: Denies: Hx Renal Disease Musculoskeletal History: Reports: Other Musculoskeletal History - DM neuropathy Sensory History: Reports: Hx Contacts or Glasses, Hx Hearing Problem - Inner ear tube placement Denies: Hx Hearing Aid Opthamlomology History: Reports: Hx Contacts or Glasses Psychiatric History: Reports: Hx Depression, Hx Bipolar Disorder, Hx Suicide Attempt Denies: Hx Eating Disorder, Hx of Violent Episodes Against Others - Surgical History Surgery Procedure, Year, and Place: Hx Appendectomy and Inner Ear Tube Placement Infectious Disease History: Reports: Hx 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 (-) Distressed Skin: Warm, Dry HENT: Normocephalic; Atraumatic Eyes: Conjunctiva normal Neck: Musculoskeletal ROM normal neck. (-) JVD, (-) Stridor, (-) Tracheal deviation Cardio: Rhythm regular, rate normal, Heart sounds normal; Intact distal pulses; Radial pulses are 2+ and symmetric. (-) Murmur Pulmonary/Chest wall: Effort normal. (-) Respiratory distress, (-) Wheezes, (-) Rales Abd: Soft, (-) tenderness, (-) Distension, (-) Guarding, (-) Rebound, coffee ground-looking emesis on his shoulder. Musculoskeletal: (-) Edema Lymph: (-) Cervical adenopathy Neuro: Alert, patient is alert to place but not time. Psych: Mood and affect Normal Triage Information Reviewed: Yes Vital Signs Reviewed: Yes Procedures - Sedation Patient Received Moderate/Deep Sedation with Procedure: No Diagnostics - Laboratory Result Diagrams: 12/24/19 19:41 12/24/19 19:41 Lab Statement: Any lab studies that have been ordered have been reviewed, and results considered in the medical decision making process. - EKG 19:49 Cardiac Rate: Tachycardia - 100 BPM EKG Rhythm: Sinus Tachycardia Summary of EKG Findings: Lots of baseline artifact, no obvious peaked T-Waves, QTC does look prolonged. ED physician has reviewed and interpreted this EKG. GIGU Course/Dx - Course Course Of Treatment: Patient is here with hyperglycemia, altered mental status, and coffee-ground emesis. Patient is a known poorly controlled diabetic and does not take his medications. Patient had coffee-ground emesis on his shirt. Patient was given Protonix and Rocephin empirically. Patient had a glucose in the 800s. Patient was found to be in DKA and started on an insulin drip. The patient received 2 L of IV fluids. Patient was admitted to the hospital - Diagnoses Provider Diagnoses: DKA (diabetic ketoacidoses), Anemia, Coffee ground emesis, Encephalopathy - Physician Notifications Discussed Care Of Patient With: Maria Victoria Penn Time Discussed With Above Provider: 21:09 Instructed by Provider To: Other - Discussed with Dr. Penn who will admit the patient to the ICU. - Critical Care Time Critical Care Time: 30-74 min - 60 minutes Discharge ED - Sign-Out/Discharge Documenting (check all that apply): Patient Departure - Discharge Plan Condition: Stable Disposition: ADMITTED TO [facility] Referrals: Nick Brothers MD [Primary Care Provider] - - Billing Disposition and Condition Condition: STABLE Disposition: Admitted to [facility] - Attestation Statements Document Initiated by Scribe: Yes Documenting Scribe: Yu Trejo Provider For Whom Scribe is Documenting (Include Credential): Jamir Melton MD Scribe Attestation: Yu Griggs, kevined for Jamir Melton MD on 12/24/19 at 2137. Scribe Documentation Reviewed: Yes Provider Attestation: The documentation as recorded by the Yu crawford accurately reflects the service I personally performed and the decisions made by me, Jamir Melton MD Status of Scribe Document: Viewed
[2019-12-24] MEDS ORDERED: Famotidine IV* 10 MG/ML 2 ML (20 mg) IV SLOW PU ONE (19:15)
[2019-12-24] MEDS ORDERED: NS 0.9% 1000 ML** 1,000 ML IV ONE ×4 (19:15→22:00)
[2019-12-24] MEDS ORDERED: cefTRIAXone(*) 1 GM in NS 0.9% 50 ML* 50 ML IVPB ONE (19:17)
[2019-12-24] MEDS ORDERED: Pantoprazole IV* 40 MG IV ONE (19:17)
[2019-12-24 19:51] LABS: Hematocrit 31 % (42-52); Hemoglobin 9.8 g/dL (14.0-18.0); Mean Corpuscular HGB Conc 31 g/dL (31-36); Mean Corpuscular Hemoglobin 29 pg (27-31); Mean Corpuscular Volume 91 fL (80-94); Mean Platelet Volume 8.1 fL (7.4-10.4); Platelet Count 525 10^3/uL (150-450); Red Blood Count 3.44 10^6 /uL (4.18-5.48); Red Cell Distribution Width 15 % (10-15); White Blood Count 30.7 10^3/uL (3.5-10.8)
[2019-12-24 19:55] LABS: ABS Basophils 0.4 10^3/ul (0-0.2); ABS Lymphocytes 0.8 10^3/ul (1.0-4.8); ABS Monocytes 1.6 10^3/ul (0-0.8); ABS Neutrophils 27.9 10^3/ul (1.5-7.7); Lymphocyte % 2.6 %
[2019-12-24 19:57] LABS: INR 1.03 (0.82-1.09)
[2019-12-24 20:10] LABS: ALT 5 U/L (7-52); AST 5 U/L (13-39); Albumin 2.8 g/dL (3.2-5.2); Albumin/Globulin Ratio 0.6 (1-3); Alkaline Phosphatase 134 U/L (34-104); BUN/Creatinine Ratio 30.3 (8-20); Blood Urea Nitrogen 56 mg/dL (6-24); Chloride 84 mmol/L (101-111); EGFR African American 45.7 (>60); EGFR Non-African American 37.7 (>60); Globulin 4.5 g/dL (2-4); Sodium 127 mmol/L (135-145); Total Protein 7.3 g/dL (6.4-8.9)
[2019-12-24 20:13] LABS: Potassium 5.8 mmol/L (3.5-5.0)
[2019-12-24 20:15] LABS: Troponin I 0.03 ng/mL (<0.03)
[2019-12-24 20:16] LABS: Acetaminophen < 15 mcg/mL; Alcohol < 10 mg/dL (<10); Salicylate < 2.50 mg/dL (<30)
[2019-12-24 20:20] LABS: CO2 Carbon Dioxide < 7 mmol/L (22-32)
[2019-12-24 20:32] LABS: TSH (Thyroid Stimulating Horm) 2.83 mcIU/mL (0.34-5.60)
[2019-12-24 20:34] LABS: Free T4 0.91 ng/dL (0.61-1.12)
[2019-12-24 20:40] LABS: Glucose 857 mg/dL (70-100)
[2019-12-24] MEDS ORDERED: Insulin Infusion 100unit/100mL 100 UNIT/100 ML BAG IV ONE (21:00)
[2019-12-24 21:07] LABS: Urine Appearance Clear; Urine Bilirubin Negative (Negative); Urine Blood 2+ (Negative); Urine Color Straw; Urine Glucose 3+(>=500 mg/dL) (Negative); Urine Ketones 2+ (Negative); Urine Nitrite Negative (Negative); Urine Protein Negative (Negative); Urine Specific Gravity 1.021 (1.010-1.030); Urine Urobilinogen Negative (Negative)
[2019-12-24 21:10] LABS: Urine Bacteria Absent (Absent); Urine Red Blood Cell 1+(3-5/hpf) (Absent); Urine White Blood Cell Trace(0-5/hpf) (Absent)
[2019-12-24] MEDS ORDERED: Metoclopramide IV* 5 MG/ML 2 ML VIAL IV ONE (21:31)
[2019-12-24] MEDS ORDERED: Metoclopramide IV* 5 MG/ML 2 ML VIAL ONE (21:33)
[2019-12-24] MEDS ORDERED: Insulin Infusion 100unit/100mL 100 UNIT/100 ML BAG IV SCH (22:00)
[2019-12-24] MEDS ORDERED: Acetaminophen TAB* 325 MG PO PRN (22:00)
[2019-12-24] MEDS ORDERED: Vancomycin per Pharmacy* NOTE FOLLOW UP SCH (22:00)
[2019-12-24] MEDS ORDERED: Heparin DRIP 25,000 UNITS(*) 25,000 UNITS/500 ML BAG IV SCH (22:00)
[2019-12-24] MEDS ORDERED: NS 0.9% 1000 ML** 1,000 ML IV SCH (22:00)
[2019-12-24] MEDS ORDERED: Ondansetron INJ* 2 MG/ML VIAL IV PRN (22:00)
[2019-12-24] MEDS ORDERED: Vancomycin(*) 1,000 MG in NS 0.9% 250 ML* 250 ML IVPB ONE (22:00)
[2019-12-24 22:29] LABS: C Reactive Protein 317.75 mg/L (<8.01); Magnesium 2.3 mg/dL (1.9-2.7)
[2019-12-24 22:49] LABS: Troponin I 0.01 ng/mL (<0.03)
[2019-12-24] MEDS ORDERED: Vancomycin(*) 1,500 MG in NS 0.9% 250 ML* 250 ML IVPB ONE (23:00)
[2019-12-24] MEDS: Pantoprazole* 80 mg IN NS 80 MG/250 ML BAG IV SCH (23:08)
--- NOTE | 2019-12-24 23:12 | HP ---
HISTORY AND PHYSICAL: ADDENDUM: ASSESSMENT AND PLAN: Elevated white count, elements of sepsis. My suspect is that he may have an underlying infection in the feet from the diabetic foot ulcers. I have ordered cefepime and vancomycin. Blood cultures were sent and lactic was stable. He is receiving fluids. Blood pressure is stable and we will continue antibiotics and await blood cultures and continue to follow. PIO GRECO, MERARI [id number]/[facility] #: [id number] ELMIRA PSYCHIATRIC CENTERIgnacio
[2019-12-24 23:20] LABS: Erythrocyte Sed Rate > 120 mm/Hr (0-19)
[2019-12-24] MEDS: Cefepime 2 GM in Dextrose(*) 2 GM/50 ML BAG IV SCH (23:28)
[2019-12-24 23:45] LABS: Urine Creatinine Concentration 20.61 mg/dL; Urine Sodium Concentration < 18 mmol/L
[2019-12-25 00:34] LABS: Hematocrit 25 % (42-52); Hemoglobin 7.8 g/dL (14.0-18.0)
[2019-12-25 01:15] LABS: BUN/Creatinine Ratio 31.9 (8-20); Calcium 7.7 mg/dL (8.6-10.3); EGFR Non-African American 44.6 (>60)
[2019-12-25] MEDS ORDERED: D5W NS 0.9% 20Meq KCL 1000 ML* 1,000 ML IV SCH (04:00)
[2019-12-25 04:23] LABS: Hematocrit 24 % (42-52)
--- NOTE | 2019-12-25 04:30 | HP ---
CC: Dr. Brothers* HISTORY AND PHYSICAL: DATE OF ADMISSION: 12/24/19 PRIMARY CARE PROVIDER: Dr. Brothers. ATTENDING PHYSICIAN WHILE IN THE HOSPITAL: Dr. Maria Victoria Penn* (report being dictated by Ramon Duvall NP). CHIEF COMPLAINTS: 1. Not feeling well. 2. Vomiting. 3. Weakness. HISTORY OF PRESENT ILLNESS: Mr. Perez is a 59-year-old male patient [facility] complaints of elevated blood sugar and wounds to his feet. He says that he has not been taking his medicines including his Eliquis, which he takes for DVT and also has not been taking his diabetic medications for about a month because he was feeling depressed. He states that he has been feeling fatigued, has been feeling tired, weak. He was concerned because he was having wounds in his lower extremities to the feet that were just not getting any better. He denies any abdominal discomfort. He says his feet just starts burning. He was concerned and he has a history of noncompliance in the past with his diabetic medications. He came in. It was found that he clearly appeared to be in diabetic ketoacidosis. His bicarb was less than 7, his glucose was 857. He again was tachypneic. He appeared to have bilateral lower extremity wounds, and because of this, we were asked to evaluate. He did admit to having some chills and fever. He did admit to having some vomiting, but no abdominal discomfort, he says it just aches all over. Because of these findings, we were asked to evaluate for admission. He says that he has also been having nausea and vomiting. In addition to this, it was noted in the ER he was having some coffee ground type emesis. He was started on an insulin drip and given fluids. PAST MEDICAL HISTORY: Significant for: 1. DVT and history of PE 2. Diabetes, last A1c was 17.7. 3. Bipolar. 4. Chronic right upper quadrant pain. 5. History of left thigh abscess, status post I and D in September 2019. 6. Peripheral arterial disease, status post angioplasty to the left lower extremity in September 2019. PAST SURGICAL HISTORY: He has had an angioplasty of the left lower extremity. HOME MEDICATIONS: 1. He was to be taking Eliquis 1 tab twice a day, but he has not taken that. 2. He is on glipizide 10 mg daily. 3. He is on metformin, he is taking extended release 1500 mg at bedtime. 4. He was to be taking insulin, it looks like he was on Novolin N 12 units twice a day, but he has not taken that in well over a month. ALLERGIES TO MEDICATIONS: No known drug allergies. FAMILY HISTORY: Mother in a car crash. Father is diabetic. SOCIAL HISTORY: He does not smoke. He does drink, he says, 1 beer occasionally. Denies recreational drug abuse. Surrogate decision maker is his sister Isacc. REVIEW OF SYSTEMS: There is no documented fever. He did admit to having chills. No significant weight change. No double vision. No ear discharge. He denies having any rhinorrhea. No sore throat. No thyroid enlargement. Denies having any chest pain. There is no orthopnea and there is no nocturnal dyspnea. There is no abdominal pain. There is nausea and vomiting. No dysuria , no frequency, no seizure, no loss of consciousness, no pruritus, and there are skin ulcers to his lower feet. Review of 14 systems completed, all others negative. PHYSICAL EXAMINATION GENERAL: At this time, Mr. Perez is a 59-year-old male patient. He is chronically ill appearing. He appears to be older than stated age. VITAL SIGNS: Blood pressure 129/69, pulse of 100, respirations noted to be 26, O2 sat 100%, temperature 98.6. HEENT: Head: Atraumatic and normocephalic. Eyes: EOMs intact. Sclerae anicteric, not pale. Throat: Oral mucosa appeared to be dry. No oropharyngeal erythema. NECK: Supple. LUNGS: Clear. No wheezes, rales, or rhonchi. HEART: Heart sounds S1, S2. He is tachycardic. No murmurs, rubs, or gallops. ABDOMEN: Soft, flat, nontender. Bowel sounds present. EXTREMITIES: Pulses were 2+. I did use the Doppler, he had dopplerable pedal pulses bilaterally. He had 5/5 strength throughout. NEUROLOGIC: He is drowsy, but he will awaken to his name. He is alert to person, time, and place, but is drowsy. No gross focal deficits. He is moving all 4 extremities. Tongue is midline. No facial drooping was noted. SKIN: He has several wounds to bilateral feet and area of necrosis noted to the right great toe. LABORATORY DATA: Labs today are revealing a WBC of 30.7, RBC of 3.44, hemoglobin of 9.8, hematocrit of 31, platelet count of 525. His INR 1.03. Blood gas, which is VBG, pH 7.17, pCO2 of 18, bicarb 8.9. Sodium was 127, potassium 5.8, chloride of 89, his bicarb was less than 7. BUN 56. Creatinine 1.86, his baseline is actually right around 1. Glucose 857, lactic 0.9, calcium 9, total bili 0.2, AST 5, ALT 5, alk phos 134, ammonia 40, troponin 0.03 , albumin 2.8. TSH 2.83, free T4 of 0.91. Urine showed 2+ ketones, 2+ blood, 1 + rbc, 3+ glucose. Toxicology screen negative. Chest x-ray today, I did review this, it appears that he may have a developing infiltrate in the right lower lobe, but no effusions were noted, no pulmonary edema, normal cardiac silhouette. He had an EKG obtained today as well, which showed sinus tachycardia, rate of 100, no ST elevations or T wave inversions. We reviewed his previous EKG, appeared to be similar. Old medical records reviewed. ASSESSMENT AND PLAN: Mr. Perez is a 59-year-old male patient with multiple medical problems and history of medical noncompliance, coming into the ED today with complaints of nausea, vomiting, elevated blood sugar, and bilateral wounds. He will be admitted under inpatient status to ICU for: 1. Diabetic ketoacidosis. At this point, I am getting an ABG. I am going to give him a fourth liter of saline and normal saline at 150 an hour. He will be n.p.o. He will be placed on an insulin drip. I will check BMPs every 4 hours. His corrected sodium is 140. His potassium I do know is 5.8, but he has been started on insulin drip. I am hopeful that this will trend down with the drip, will continue to follow this closely. He had no peak T waves. I will check this in 1 hour from now and see where it is headed. We will again hydrate him aggressively. Once his sugars fall below 250, we will do D5 half normal with 20 of K depending on his potassium and we will continue the drip until his gap closes. He will be placed in the ICU. 2. Bilateral foot ulcers. These do appear to be infected. He has an area of necrosis. They appear to be dry gangrene. He has dopplerable pulses to the pedal area bilaterally. We will get a wound care consult. We will continue to follow. 3. Bipolar. Continue meds as prescribed. 4. History of peripheral arterial disease. Continue his current medical regimen. 5. History of deep vein thrombosis and pulmonary embolism. He has been off his Eliquis, but he was Hemoccult positive, so I am not going to start him on any blood thinners at this point. 6. Coffee ground emesis. Again, at this point, we will certainly get in touch with GI. I will go ahead and put him on a PPI drip. I will check serial H and H's. We will have 2 peripheral IVs. I will also get a type and screen and I will continue to monitor this. 7. DVT prophylaxis: He will be placed on SCDs. 8. Code status: Full code. 9. Fluids, electrolytes and nutrition: NPO. TIME SPENT: Time spent on the admission, which is critical care time, 60 minutes. Greater than half the time was spent [id number] with the patient, the other half time was spent going over the plan of care with the patient. I discussed the plan of care with my attending, Dr. Penn; she is in agreement. ADDENDUM TO HISTORY AND PHYSICAL: ASSESSMENT AND PLAN: Elevated white count, elements of sepsis. I suspect is that he may have an underlying infection in the feet from the diabetic foot ulcers. I have ordered cefepime and vancomycin. Blood cultures were sent and lactic was stable. He is receiving fluids. Blood pressure is stable and we will continue antibiotics and await blood cultures and continue to follow. RAMON DUVALL NP [id number]/[facility] #: [id number]/[facility] #: [id number] [facility]
[2019-12-25 04:42] LABS: BUN/Creatinine Ratio 32.9 (8-20); Calcium 7.3 mg/dL (8.6-10.3); EGFR African American 61.5 (>60); EGFR Non-African American 50.8 (>60)
[2019-12-25] MEDS ORDERED: Dextrose 50% Syringe 50 ML* 25 GM/50 ML SYRINGE IV PUSH PRN ×2 (06:59→13:04)
[2019-12-25] MEDS ORDERED: Thiamine INJ* 100 MG/ML 2 ML VIAL IM ONE (08:21)
[2019-12-25] MEDS ORDERED: chlordiazePOXIDE CAP* 5 MG PO SCH (09:00)
[2019-12-25] MEDS ORDERED: LORazepam INJ* 2 MG/ML 1 ML VIAL IV PUSH SCH (09:00)
[2019-12-25 09:17] LABS: BUN/Creatinine Ratio 34.4 (8-20); Calcium 7.4 mg/dL (8.6-10.3); EGFR Non-African American 56.2 (>60); Magnesium 1.7 mg/dL (1.9-2.7); Phosphorus 2.2 mg/dL (2.5-5.0); Potassium 3.9 mmol/L (3.5-5.0)
[2019-12-25] MEDS: Pantoprazole* 80 mg IN NS 80 MG/250 ML BAG IV SCH ×2 (09:19→20:29)
[2019-12-25] MEDS: Thiamine TAB* 100 MG TAB PO SCH (10:41)
[2019-12-25] MEDS: Multivitamins/Minerals TAB PO SCH (10:41)
[2019-12-25] MEDS: Cefepime 2 GM in Dextrose(*) 2 GM/50 ML BAG IV SCH ×2 (10:42→22:17)
[2019-12-25] MEDS ORDERED: Thiamine INJ* 100 MG/ML 2 ML VIAL IV ONE (10:48)
[2019-12-25] MEDS ORDERED: Thiamine IV 100 MG in NS 0.9% 50 ML Q24H IV ONE (11:00)
[2019-12-25] MEDS ORDERED: D5W 1/2 NS KCl 20 Meq 1000 ML* 1,000 ML IV SCH ×2 (11:00→13:54)
[2019-12-25] MEDS ORDERED: Magnesium Sulf 4 GM/100 ML IV* 4,000 MG/100 ML BAG IVPB ONE (11:00)
[2019-12-25] MEDS ORDERED: Potassium Phosphate IV* 10 MMOLE in NS 0.9% 250 ML* 250 ML IVPB ONE (12:00)
[2019-12-25 12:35] LABS: Hematocrit 26 % (42-52); Mean Corpuscular HGB Conc 34 g/dL (31-36); Mean Corpuscular Hemoglobin 29 pg (27-31); Mean Corpuscular Volume 86 fL (80-94); Mean Platelet Volume 6.7 fL (7.4-10.4); Platelet Count 469 10^3/uL (150-450); Red Blood Count 3.06 10^6 /uL (4.18-5.48); Red Cell Distribution Width 14 % (10-15); White Blood Count 23.2 10^3/uL (3.5-10.8)
[2019-12-25 12:38] LABS: INR 0.98 (0.82-1.09)
[2019-12-25 12:52] LABS: BUN/Creatinine Ratio 31.6 (8-20); EGFR African American 65.1 (>60); EGFR Non-African American 53.8 (>60); Potassium 4.1 mmol/L (3.5-5.0)
[2019-12-25 13:02] LABS: ABS Basophils 0.1 10^3/ul (0-0.2); ABS Lymphocytes 1.1 10^3/ul (1.0-4.8); ABS Monocytes 1.4 10^3/ul (0-0.8); ABS Neutrophils 20.6 10^3/ul (1.5-7.7); Lymphocyte % 4.8 %
--- NOTE | 2019-12-25 13:03 | PN ---
<Thelma Barragan - Last Filed: 12/25/19 14:08> Date of Service: 12/25/19 Critical Care Services: 24 hours event, Overnight, patient was doing okie, total 4L IV NS, as well as a slow D5NS running . Gap closed at 1200. Glucose down to 115 this morning 1200 Patient was inconsistent in providing history. He said he was not taking medication for 4 months as he felt depressed. He was drinking 1 bottle of liquor at home usually. He admitted suicidal ideation, and stated he tried to jump in front of cars to kill himself weeks ago. But he stated he didn't want to kill himself in the hospital. He stated persistent right abdominal pain for long time, and was supposed to take gallbladder out. Vital Signs: Temp Pulse Resp BP SpO2 FiO2 98.6 F 93 19 158/75 100 12/25/19 11:27 12/25/19 11:00 12/25/19 12:00 12/25/19 11:00 12/25/19 11:00 Physical Exam: Constitutional: drowsy, but able to answer questions appropriately, not in distress Head: normocephalic, atraumatic Eyes: no pallor, no icterus ENT: moist mucous membranes Neck: soft, supple, no jvd, no stridor CVS: normal rate, regular, no murmur Chest/Resp: clear on auscultation, no rales, no wheeze, no rhonchi, no acc muscle use Abdomen/GI: soft, nontender, nondistended, BS+ Ext/Msk: Bilateral foot wounds with excoriations, right big toe dry gangrene, pulse not palpable, but was dopplerable according to aviation survival technician yesterday Skin: intact, warm Neuro: awake, alert, orientedx 3, moving all extremities, no gross focal deficit Psych: normal affect Fluid Balance (Past 24 Hours): I= 2425 O= 275 Net= 2150 Intake & Output 12/23/19 12/24/19 12/25/19 12/26/19 06:59 06:59 06:59 06:59 Intake Total 2425 Output Total 275 50 Balance 2150 -50 Weight 69.989 kg Intake: IV Fluids 2033 [id number] 331 NS 1529 Protonix 173 IVPB 336 ABX 336 Medicated IV 56 Insulin 56 Output: Urine 275 50 Labs: Laboratory Results - last 24 hr 12/24/19 12/24/19 12/24/19 19:40 19:40 19:41 WBC 30.7 H RBC 3.44 L Hgb 9.8 L Hct 31 L MCV 91 MCH 29 MCHC 31 RDW 15 Plt Count 525 H MPV 8.1 Neut % (Auto) 91.0 Lymph % (Auto) 2.6 [place] % (Auto) 5.1 Eos % (Auto) 0.0 Baso % (Auto) 1.3 Absolute Neuts (auto) 27.9 H Absolute Lymphs (auto) 0.8 L Absolute Monos (auto) 1.6 H Absolute Eos (auto) 0.0 Absolute Basos (auto) 0.4 H Absolute Nucleated RBC 0.0 Immature Gran % 6.0 Neutrophils % 88.0 Band Neutrophils % 5.0 Lymphocytes % 1.0 Monocytes % 5.0 Myelocytes % 1.0 Nucleated RBC % 0.0 Normal RBC Morphology Normal ESR > 120 H INR (Anticoag Therapy) ABG pH ABG pCO2 ABG pO2 ABG HCO3 ABG O2 Saturation ABG Base Excess VBG pH VBG pCO2 VBG pO2 VBG HCO3 VBG O2 Saturation VBG Base Excess Sodium Potassium Chloride Carbon Dioxide Anion Gap BUN Creatinine Est GFR ( Amer) Est GFR (Non-Af Amer) BUN/Creatinine Ratio Glucose POC Glucose (mg/dL) Glucose Meter Confirm Hemoglobin A1c Lactic Acid 0.9 Calcium Phosphorus Magnesium Total Bilirubin AST ALT Alkaline Phosphatase Ammonia Troponin I C-Reactive Protein Total Protein Albumin Globulin Albumin/Globulin Ratio TSH Free T4 Urine Color Urine Appearance Urine pH Ur Specific [place] Urine Protein Urine Ketones Urine Blood Urine Nitrate Urine Bilirubin Urine Urobilinogen Ur Leukocyte Esterase Urine WBC (Auto) Urine RBC (Auto) Urine Bacteria Ur Creatinine Concen U Sodium Concentration Urine Glucose Salicylates Acetaminophen Serum Alcohol Blood Type B Positive Antibody Screen Negative 12/24/19 12/24/19 12/24/19 19:41 19:41 19:41 WBC RBC Hgb Hct MCV MCH MCHC RDW Plt Count MPV Neut % (Auto) Lymph % (Auto) [place] % (Auto) Eos % (Auto) Baso % (Auto) Absolute Neuts (auto) Absolute Lymphs (auto) Absolute Monos (auto) Absolute Eos (auto) Absolute Basos (auto) Absolute Nucleated RBC Immature Gran % Neutrophils % Band Neutrophils % Lymphocytes % Monocytes % Myelocytes % Nucleated RBC % Normal RBC Morphology ESR INR (Anticoag Therapy) ABG pH ABG pCO2 ABG pO2 ABG HCO3 ABG O2 Saturation ABG Base Excess VBG pH 7.17 L VBG pCO2 18 L VBG pO2 48.0 H VBG HCO3 8.9 L VBG O2 Saturation 79.2 VBG Base Excess -19.8 L Sodium 127 L Potassium 5.8 H Chloride 84 L Carbon Dioxide < 7 L* Anion Gap Not Reportable BUN 56 H Creatinine 1.85 H Est GFR ( Amer) 45.7 Est GFR (Non-Af Amer) 37.7 BUN/Creatinine Ratio 30.3 H Glucose 857 H* POC Glucose (mg/dL) Glucose Meter Confirm Hemoglobin A1c Lactic Acid Calcium 9.0 Phosphorus Magnesium 2.3 Total Bilirubin 0.20 AST 5 L ALT 5 L Alkaline Phosphatase 134 H Ammonia 40 Troponin I 0.03 H* C-Reactive Protein 317.75 H Total Protein 7.3 Albumin 2.8 L Globulin 4.5 H Albumin/Globulin Ratio 0.6 L TSH 2.83 Free T4 0.91 Urine Color Urine Appearance Urine pH Ur Specific [place] Urine Protein Urine Ketones Urine Blood Urine Nitrate Urine Bilirubin Urine Urobilinogen Ur Leukocyte Esterase Urine WBC (Auto) Urine RBC (Auto) Urine Bacteria Ur Creatinine Concen U Sodium Concentration Urine Glucose Salicylates < 2.50 Acetaminophen < 15 Serum Alcohol < 10 Blood Type Antibody Screen 12/24/19 12/24/19 12/24/19 19:41 20:55 22:19 WBC RBC Hgb Hct MCV MCH MCHC RDW Plt Count MPV Neut % (Auto) Lymph % (Auto) [place] % (Auto) Eos % (Auto) Baso % (Auto) Absolute Neuts (auto) Absolute Lymphs (auto) Absolute Monos (auto) Absolute Eos (auto) Absolute Basos (auto) Absolute Nucleated RBC Immature Gran % Neutrophils % Band Neutrophils % Lymphocytes % Monocytes % Myelocytes % Nucleated RBC % Normal RBC Morphology ESR INR (Anticoag Therapy) 1.03 ABG pH ABG pCO2 ABG pO2 ABG HCO3 ABG O2 Saturation ABG Base Excess VBG pH VBG pCO2 VBG pO2 VBG HCO3 VBG O2 Saturation VBG Base Excess Sodium Potassium Chloride Carbon Dioxide Anion Gap BUN Creatinine Est GFR ( Amer) Est GFR (Non-Af Amer) BUN/Creatinine Ratio Glucose POC Glucose (mg/dL) Glucose Meter Confirm 725 H* Hemoglobin A1c Lactic Acid Calcium Phosphorus Magnesium Total Bilirubin AST ALT Alkaline Phosphatase Ammonia Troponin I 0.01 C-Reactive Protein Total Protein Albumin Globulin Albumin/Globulin Ratio TSH Free T4 Urine Color Straw Urine Appearance Clear Urine pH 5.0 Ur Specific [place] 1.021 Urine Protein Negative Urine Ketones 2+ A Urine Blood 2+ A Urine Nitrate Negative Urine Bilirubin Negative Urine Urobilinogen Negative Ur Leukocyte Esterase Negative Urine WBC (Auto) Trace(0-5/hpf) Urine RBC (Auto) 1+(3-5/hpf) A Urine Bacteria Absent Ur Creatinine Concen U Sodium Concentration Urine Glucose 3+(>=500 mg/dl) A Salicylates Acetaminophen Serum Alcohol Blood Type Antibody Screen 12/24/19 12/24/19 12/24/19 22:36 23:00 23:17 WBC RBC Hgb Hct MCV MCH MCHC RDW Plt Count MPV Neut % (Auto) Lymph % (Auto) [place] % (Auto) Eos % (Auto) Baso % (Auto) Absolute Neuts (auto) Absolute Lymphs (auto) Absolute Monos (auto) Absolute Eos (auto) Absolute Basos (auto) Absolute Nucleated RBC Immature Gran % Neutrophils % Band Neutrophils % Lymphocytes % Monocytes % Myelocytes % Nucleated RBC % Normal RBC Morphology ESR INR (Anticoag Therapy) ABG pH 7.21 L ABG pCO2 12 L* ABG pO2 149 H ABG HCO3 9.0 L* ABG O2 Saturation 99.4 H ABG Base Excess -20.4 L VBG pH VBG pCO2 VBG pO2 VBG HCO3 VBG O2 Saturation VBG Base Excess Sodium Potassium Chloride Carbon Dioxide Anion Gap BUN Creatinine Est GFR ( Amer) Est GFR (Non-Af Amer) BUN/Creatinine Ratio Glucose POC Glucose (mg/dL) Glucose Meter Confirm 644 H* Hemoglobin A1c Lactic Acid Calcium Phosphorus Magnesium Total Bilirubin AST ALT Alkaline Phosphatase Ammonia Troponin I C-Reactive Protein Total Protein Albumin Globulin Albumin/Globulin Ratio TSH Free T4 Urine Color Urine Appearance Urine pH Ur Specific [place] Urine Protein Urine Ketones Urine Blood Urine Nitrate Urine Bilirubin Urine Urobilinogen Ur Leukocyte Esterase Urine WBC (Auto) Urine RBC (Auto) Urine Bacteria Ur Creatinine Concen 20.61 U Sodium Concentration < 18 Urine Glucose Salicylates Acetaminophen Serum Alcohol Blood Type Antibody Screen 12/25/19 12/25/19 12/25/19 00:20 00:20 00:20 WBC RBC Hgb 7.8 L Hct 25 L MCV MCH MCHC RDW Plt Count MPV Neut % (Auto) Lymph % (Auto) [place] % (Auto) Eos % (Auto) Baso % (Auto) Absolute Neuts (auto) Absolute Lymphs (auto) Absolute Monos (auto) Absolute Eos (auto) Absolute Basos (auto) Absolute Nucleated RBC Immature Gran % Neutrophils % Band Neutrophils % Lymphocytes % Monocytes % Myelocytes % Nucleated RBC % Normal RBC Morphology ESR INR (Anticoag Therapy) ABG pH ABG pCO2 ABG pO2 ABG HCO3 ABG O2 Saturation ABG Base Excess VBG pH VBG pCO2 VBG pO2 VBG HCO3 VBG O2 Saturation VBG Base Excess Sodium 136 D Potassium 4.0 D Chloride 101 Carbon Dioxide 9 L* Anion Gap 26 H BUN 51 H Creatinine 1.60 H Est GFR ( Amer) 54.0 Est GFR (Non-Af Amer) 44.6 BUN/Creatinine Ratio 31.9 H Glucose 465 H POC Glucose (mg/dL) Glucose Meter Confirm Hemoglobin A1c 17.8 H Lactic Acid Calcium 7.7 L Phosphorus Magnesium Total Bilirubin AST ALT Alkaline Phosphatase Ammonia Troponin I C-Reactive Protein Total Protein Albumin Globulin Albumin/Globulin Ratio TSH Free T4 Urine Color Urine Appearance Urine pH Ur Specific [place] Urine Protein Urine Ketones Urine Blood Urine Nitrate Urine Bilirubin Urine Urobilinogen Ur Leukocyte Esterase Urine WBC (Auto) Urine RBC (Auto) Urine Bacteria Ur Creatinine Concen U Sodium Concentration Urine Glucose Salicylates Acetaminophen Serum Alcohol Blood Type Antibody Screen 12/25/19 12/25/19 12/25/19 01:10 01:57 02:59 WBC RBC Hgb Hct MCV MCH MCHC RDW Plt Count MPV Neut % (Auto) Lymph % (Auto) [place] % (Auto) Eos % (Auto) Baso % (Auto) Absolute Neuts (auto) Absolute Lymphs (auto) Absolute Monos (auto) Absolute Eos (auto) Absolute Basos (auto) Absolute Nucleated RBC Immature Gran % Neutrophils % Band Neutrophils % Lymphocytes % Monocytes % Myelocytes % Nucleated RBC % Normal RBC Morphology ESR INR (Anticoag Therapy) ABG pH ABG pCO2 ABG pO2 ABG HCO3 ABG O2 Saturation ABG Base Excess VBG pH VBG pCO2 VBG pO2 VBG HCO3 VBG O2 Saturation VBG Base Excess Sodium Potassium Chloride Carbon Dioxide Anion Gap BUN Creatinine Est GFR ( Amer) Est GFR (Non-Af Amer) BUN/Creatinine Ratio Glucose POC Glucose (mg/dL) 342 H 234 H Glucose Meter Confirm 300 H Hemoglobin A1c Lactic Acid Calcium Phosphorus Magnesium Total Bilirubin AST ALT Alkaline Phosphatase Ammonia Troponin I C-Reactive Protein Total Protein Albumin Globulin Albumin/Globulin Ratio TSH Free T4 Urine Color Urine Appearance Urine pH Ur Specific [place] Urine Protein Urine Ketones Urine Blood Urine Nitrate Urine Bilirubin Urine Urobilinogen Ur Leukocyte Esterase Urine WBC (Auto) Urine RBC (Auto) Urine Bacteria Ur Creatinine Concen U Sodium Concentration Urine Glucose Salicylates Acetaminophen Serum Alcohol Blood Type Antibody Screen 12/25/19 12/25/19 12/25/19 04:00 04:00 04:09 WBC RBC Hgb 8.0 L Hct 24 L MCV MCH MCHC RDW Plt Count MPV Neut % (Auto) Lymph % (Auto) [place] % (Auto) Eos % (Auto) Baso % (Auto) Absolute Neuts (auto) Absolute Lymphs (auto) Absolute Monos (auto) Absolute Eos (auto) Absolute Basos (auto) Absolute Nucleated RBC Immature Gran % Neutrophils % Band Neutrophils % Lymphocytes % Monocytes % Myelocytes % Nucleated RBC % Normal RBC Morphology ESR INR (Anticoag Therapy) ABG pH ABG pCO2 ABG pO2 ABG HCO3 ABG O2 Saturation ABG Base Excess VBG pH VBG pCO2 VBG pO2 VBG HCO3 VBG O2 Saturation VBG Base Excess Sodium 140 Potassium 5.0 Chloride 109 Carbon Dioxide 15 L Anion Gap 16 H BUN 47 H Creatinine 1.43 H Est GFR ( Amer) 61.5 Est GFR (Non-Af Amer) 50.8 BUN/Creatinine Ratio 32.9 H Glucose 393 H POC Glucose (mg/dL) 433 H* Glucose Meter Confirm Hemoglobin A1c Lactic Acid Calcium 7.3 L Phosphorus Magnesium Total Bilirubin AST ALT Alkaline Phosphatase Ammonia Troponin I C-Reactive Protein Total Protein Albumin Globulin Albumin/Globulin Ratio TSH Free T4 Urine Color Urine Appearance Urine pH Ur Specific [place] Urine Protein Urine Ketones Urine Blood Urine Nitrate Urine Bilirubin Urine Urobilinogen Ur Leukocyte Esterase Urine WBC (Auto) Urine RBC (Auto) Urine Bacteria Ur Creatinine Concen U Sodium Concentration Urine Glucose Salicylates Acetaminophen Serum Alcohol Blood Type Antibody Screen 12/25/19 12/25/19 12/25/19 05:06 06:08 06:55 WBC RBC Hgb Hct MCV MCH MCHC RDW Plt Count MPV Neut % (Auto) Lymph % (Auto) [place] % (Auto) Eos % (Auto) Baso % (Auto) Absolute Neuts (auto) Absolute Lymphs (auto) Absolute Monos (auto) Absolute Eos (auto) Absolute Basos (auto) Absolute Nucleated RBC Immature Gran % Neutrophils % Band Neutrophils % Lymphocytes % Monocytes % Myelocytes % Nucleated RBC % Normal RBC Morphology ESR INR (Anticoag Therapy) ABG pH ABG pCO2 ABG pO2 ABG HCO3 ABG O2 Saturation ABG Base Excess VBG pH VBG pCO2 VBG pO2 VBG HCO3 VBG O2 Saturation VBG Base Excess Sodium Potassium Chloride Carbon Dioxide Anion Gap BUN Creatinine Est GFR ( Amer) Est GFR (Non-Af Amer) BUN/Creatinine Ratio Glucose POC Glucose (mg/dL) 107 H 93 97 Glucose Meter Confirm Hemoglobin A1c Lactic Acid Calcium Phosphorus Magnesium Total Bilirubin AST ALT Alkaline Phosphatase Ammonia Troponin I C-Reactive Protein Total Protein Albumin Globulin Albumin/Globulin Ratio TSH Free T4 Urine Color Urine Appearance Urine pH Ur Specific [place] Urine Protein Urine Ketones Urine Blood Urine Nitrate Urine Bilirubin Urine Urobilinogen Ur Leukocyte Esterase Urine WBC (Auto) Urine RBC (Auto) Urine Bacteria Ur Creatinine Concen U Sodium Concentration Urine Glucose Salicylates Acetaminophen Serum Alcohol Blood Type Antibody Screen 12/25/19 12/25/19 12/25/19 07:59 08:45 08:49 WBC RBC Hgb Hct MCV MCH MCHC RDW Plt Count MPV Neut % (Auto) Lymph % (Auto) [place] % (Auto) Eos % (Auto) Baso % (Auto) Absolute Neuts (auto) Absolute Lymphs (auto) Absolute Monos (auto) Absolute Eos (auto) Absolute Basos (auto) Absolute Nucleated RBC Immature Gran % Neutrophils % Band Neutrophils % Lymphocytes % Monocytes % Myelocytes % Nucleated RBC % Normal RBC Morphology ESR INR (Anticoag Therapy) ABG pH ABG pCO2 ABG pO2 ABG HCO3 ABG O2 Saturation ABG Base Excess VBG pH VBG pCO2 VBG pO2 VBG HCO3 VBG O2 Saturation VBG Base Excess Sodium 139 Potassium 3.9 Chloride 107 Carbon Dioxide 13 L* Anion Gap 19 H BUN 45 H Creatinine 1.31 H Est GFR ( Amer) 68.0 Est GFR (Non-Af Amer) 56.2 BUN/Creatinine Ratio 34.4 H Glucose 155 H POC Glucose (mg/dL) 163 H 178 H Glucose Meter Confirm Hemoglobin A1c Lactic Acid Calcium 7.4 L Phosphorus 2.2 L Magnesium 1.7 L Total Bilirubin AST ALT Alkaline Phosphatase Ammonia Troponin I C-Reactive Protein Total Protein Albumin Globulin Albumin/Globulin Ratio TSH Free T4 Urine Color Urine Appearance Urine pH Ur Specific [place] Urine Protein Urine Ketones Urine Blood Urine Nitrate Urine Bilirubin Urine Urobilinogen Ur Leukocyte Esterase Urine WBC (Auto) Urine RBC (Auto) Urine Bacteria Ur Creatinine Concen U Sodium Concentration Urine Glucose Salicylates Acetaminophen Serum Alcohol Blood Type Antibody Screen 12/25/19 12/25/19 12/25/19 10:08 10:54 12:18 WBC 23.2 H RBC 3.06 L Hgb 9.0 L Hct 26 L MCV 86 MCH 29 MCHC 34 RDW 14 Plt Count 469 H D MPV 6.7 L Neut % (Auto) Lymph % (Auto) [place] % (Auto) Eos % (Auto) Baso % (Auto) Absolute Neuts (auto) Absolute Lymphs (auto) Absolute Monos (auto) Absolute Eos (auto) Absolute Basos (auto) Absolute Nucleated RBC Immature Gran % Neutrophils % Band Neutrophils % Lymphocytes % Monocytes % Myelocytes % Nucleated RBC % Normal RBC Morphology ESR INR (Anticoag Therapy) ABG pH ABG pCO2 ABG pO2 ABG HCO3 ABG O2 Saturation ABG Base Excess VBG pH VBG pCO2 VBG pO2 VBG HCO3 VBG O2 Saturation VBG Base Excess Sodium Potassium Chloride Carbon Dioxide Anion Gap BUN Creatinine Est GFR ( Amer) Est GFR (Non-Af Amer) BUN/Creatinine Ratio Glucose POC Glucose (mg/dL) 196 H 167 H Glucose Meter Confirm Hemoglobin A1c Lactic Acid Calcium Phosphorus Magnesium Total Bilirubin AST ALT Alkaline Phosphatase Ammonia Troponin I C-Reactive Protein Total Protein Albumin Globulin Albumin/Globulin Ratio TSH Free T4 Urine Color Urine Appearance Urine pH Ur Specific [place] Urine Protein Urine Ketones Urine Blood Urine Nitrate Urine Bilirubin Urine Urobilinogen Ur Leukocyte Esterase Urine WBC (Auto) Urine RBC (Auto) Urine Bacteria Ur Creatinine Concen U Sodium Concentration Urine Glucose Salicylates Acetaminophen Serum Alcohol Blood Type Antibody Screen 12/25/19 12/25/19 12:18 12:18 WBC RBC Hgb Hct MCV MCH MCHC RDW Plt Count MPV Neut % (Auto) Lymph % (Auto) [place] % (Auto) Eos % (Auto) Baso % (Auto) Absolute Neuts (auto) Absolute Lymphs (auto) Absolute Monos (auto) Absolute Eos (auto) Absolute Basos (auto) Absolute Nucleated RBC Immature Gran % Neutrophils % Band Neutrophils % Lymphocytes % Monocytes % Myelocytes % Nucleated RBC % Normal RBC Morphology ESR INR (Anticoag Therapy) 0.98 ABG pH ABG pCO2 ABG pO2 ABG HCO3 ABG O2 Saturation ABG Base Excess VBG pH VBG pCO2 VBG pO2 VBG HCO3 VBG O2 Saturation VBG Base Excess Sodium 140 Potassium 4.1 Chloride 107 Carbon Dioxide 22 Anion Gap 11 BUN 43 H Creatinine 1.36 H Est GFR ( Amer) 65.1 Est GFR (Non-Af Amer) 53.8 BUN/Creatinine Ratio 31.6 H Glucose 115 H POC Glucose (mg/dL) Glucose Meter Confirm Hemoglobin A1c Lactic Acid Calcium 8.0 L Phosphorus Magnesium Total Bilirubin AST ALT Alkaline Phosphatase Ammonia Troponin I C-Reactive Protein Total Protein Albumin Globulin Albumin/Globulin Ratio TSH Free T4 Urine Color Urine Appearance Urine pH Ur Specific [place] Urine Protein Urine Ketones Urine Blood Urine Nitrate Urine Bilirubin Urine Urobilinogen Ur Leukocyte Esterase Urine WBC (Auto) Urine RBC (Auto) Urine Bacteria Ur Creatinine Concen U Sodium Concentration Urine Glucose Salicylates Acetaminophen Serum Alcohol Blood Type Antibody Screen Nutrition: Open diet once gap closes and patient is able to tolerate diet Impression: 59 y/o male with history of DVT, PE on eliquis, DM, Bipolar, PAD s/p angioplasty , presented with nausea, vomiting with coffee ground emesis after not taking medication for 4 months, found to have DKA with glucose 800+ and A1c 17.7%, Anemia with positive stool OB, bilateral foot infection with right toe gangrene. 1. DKA due to medication noncompliance in the setting of depression 2. DM foot infection with right toe gangrene 3. Anemia with positive stool ob- UBGIT likely, ? castelan christiano tear ?PUD 4. Suicidal ideation- no suicidal plan for now 5. Bipolar, depression mainly, poorly controlled 6. DVT, PE history on Eliquis Plan: Neuro- Put on WA protocol, start Librium for DT prophylaxis - currently score 0, oriented, but drowsy and depressed - iv thiamine -Delirium prec; avoid BDZ CVS-no active issues Resp- -CXR no acute illness, no active issues ID-bilateral DM foot infection with right toe gangrene - continue iv cefepime and vancomycin - orthopedic consult today, wound care GI- -Nutrition: open diet after gap closes, consistent carbonhydrate diet -GI bleeding: Hb drop with positive stool OB, will continue IV PPI -currently no overt bleeding, will recheck Hb noon time. Renal- BMP every 4 hours -strict I/O, replete to keep K>4, Mg>2 - replace Mg and P Heme- continue to trend Hb - history of DVT, PE, will start sc lovenox therapeutic does while off anticoag Endo- - BMP every 4 hours today - D51/2NS drip for DKA - off insulin, start sc insulin lispro - add on sc lantus tomorrow - Maintain BG<200, insulin protocol as needed Musculsk- pressure ulcer prophylaxis. Bedrest. Wounds- bilateral foot wound, ortho will followup Nutrition- Open diet when his gap closely Psy- patient had suicidal ideation, but no plan to kill himself in hospital. Thus he doesn't need 1 on 1 monitoring for suicidal precaution. He needs further manaement for his bipolar, psy consult will be needed when patient is improving and more alert. DVT prophylaxis: sc lovenox GI prophylaxis: iv ppi continuously Central Line: no Arterial Line: no Alexis Catheter:no Disposition: Patient requires Critical Care/ICU for DKA, possible GI bleeding Patient clinical status: Improving Code Status: Full code Total Critical Care time is 45minutes, excluding procedures/teaching <Imani Hernandez - Last Filed: 12/25/19 16:53> Plan: This service has been performed by a resident under the direction of a teaching physician. I, Imani Hernandez, performed the service, or was physically present during the critical, or levine portions of the service, furnished by the resident. I participated in the management of the patient. 59M admitted with DKA and diabetic foot wounds after stopping all his medications. DKA, h/o type 2 DM Bilateral necrotic foot wounds likely due to diabetes PAD H/o DVT and PE Upper GI bleed Bipolar disorder Patient complains of right upper quadrant abdominal pain which is chronic. He does not have sensation in his feet. He thinks the foot wounds have been there for a couple of months. On exam, he is oriented to person, place, time. However , he seems to perseverate on certain topics. The right great toe is cold and appears necrotic. There are necrotic wounds of the left great toe. Mild surrounding erythema but no fluctuance. Patient reported that he has been a heavy drinker in the past, although not clear how long ago or how much. Will order WAM protocol. The patient has had suicidal ideation in the past and suggested that he stopped taking medications in order to cause self-harm. I asked the patient multiple times about current suicidal ideation and he denied each time that he is thinking about self-harm during this hospitalization. Patient will stay on insulin gtt until anion gap closes. Once anion gap is normal, will switch to Lantus 14 units (likely will need to titrate up) and sliding scale lispro ACHS. Will change diet to consistent carb after he is off the gtt, but will keep NPO after midnight for possible foot debridement and/or great toe amputation tomorrow. Continue D5-1/2NS-K while NPO. BMP q4h until insulin gtt off. Sepsis due to diabetic foot wounds. Ortho consulted for debridement and/or toe amputation. Possible procedure tomorrow, MRI and ABIs pending. No further episodes of coffee ground emesis and hgb has been stable during the day. Will continue protonix gtt. Plan to switch to Protonix BID tomorrow. If there is evidence of continued upper GI bleeding, will consult GI. SCDs only for DVT ppx. After procedure tomorrow, plan to restart anticoagulation for h/o DVT/PE (home Eliquis vs Lovenox) Imani Hernandez MD
[2019-12-25] MEDS: Vancomycin(*) 750 MG in NS 0.9% 250 ML* 250 ML IVPB SCH ×2 (14:40→23:57)
[2019-12-25 16:10] LABS: C Reactive Protein 256.09 mg/L (<8.01)
[2019-12-25] MEDS: Insulin LISPRO* 1 UNITS UNIT SUBCUT SCH ×5 (16:18→22:18)
[2019-12-25 16:30] LABS: BUN/Creatinine Ratio 31.2 (8-20); Calcium 7.8 mg/dL (8.6-10.3); EGFR African American 71.8 (>60); EGFR Non-African American 59.3 (>60); Potassium 4.1 mmol/L (3.5-5.0)
--- NOTE | 2019-12-25 16:44 | CONS ---
CONSULTATION REPORT: DATE OF CONSULT: 12/25/19 PRIMARY CARE PROVIDER: Dr. Brothers. ATTENDING ORTHOPEDIC PROVIDER: Dr. Clyde Lemons. CHIEF COMPLAINT: Bilateral foot wounds. HISTORY OF PRESENT ILLNESS: The patient is a 59-year-old male who presented to [facility] Emergency Room with a chief complaint of elevated blood sugar and wounds to his feet. He has not been taking his diabetic medication nor the remainder of his medications for that matter for at least a month because he was feeling depressed. He is being treated for diabetic ketoacidosis in the ICU, which is improving, though he still remains on an insulin drip. He has no pain in bilateral feet, though he densely neuropathic from the knee down. He is unsure how long wounds have been present, though potentially for up to a month on both feet. He is not sure how he obtained these wounds, he is concerned that they are not getting better. He does have a history of angioplasty in the left lower extremity in September [address] Petros Torres. He has had no vascular work done on the right side. PAST MEDICAL HISTORY: Significant for DVT and PE, the patient is prescribed Eliquis, though he has not been taking this for at least a month; diabetes, last A1c on 12/25/19 is 17.8; bipolar; chronic right upper quadrant pain; history of thigh abscess, status post I and D in September 2019; peripheral arterial disease, status post angioplasty to the left lower extremity in September 2019. PAST SURGICAL HISTORY: Angioplasty, left lower extremity, tolerated anesthesia well. ALLERGIES TO MEDICATIONS: No known drug allergies. FAMILY HISTORY: Mother in a car accident. Father is diabetic. SOCIAL HISTORY: The patient does not smoke. He drinks 1 beer occasionally. Denies recreational drug use. Surrogate decision maker is his sister, Isacc. REVIEW OF SYSTEMS: No documented or subjective fever. He did admit to having chills. HEENT: No headache. No vision change. Cardiac: No chest pain. No history of heart attack. Respiratory: No shortness of breath. GI: No abdominal pain, nausea, vomiting, diarrhea. : No dysuria. Musculoskeletal: Positive for bilateral lower extremity wounds without any pain. Neuro: Densely neuropathic from knees distally. Hematology: Positive for history of DVT bilateral lower extremities and PE. The patient is prescribed Eliquis, but he is not taking it. PHYSICAL EXAM: Vital Signs: Temperature 99 and he has been afebrile since admission, heart rate 94, respiratory rate 26, oxygen saturation 100%, blood pressure 140/69. HEENT: Normocephalic, atraumatic. Extraocular movements are intact. Lungs: Normal rate and effort of breathing. Abdomen: Soft, nondistended, nontender. Extremities: Bilateral upper extremities with skin envelope intact. Nontender to palpation. Able to flex and extend all joints without pain. Lower extremities: Right lower extremity: There is superficial abrasion to the distal rebollar measuring roughly 7 x 4 as well as several similar abrasions throughout the foot. The right great toe is edematous, erythematous. The distal tip is necrotic. There is purulence at the webspace as well as at the medial aspect of the MTP. The toe itself is fluctuant. There is purulence draining from the medial MTP. Left lower extremity: There is again a superficial abrasion over the dorsum of the left great toe. He no longer has a nail. There is no exposure of deep structures. This is a dry wound without any significant surrounding erythema. There is no discharge. He is able to flex and extend all joints without pain. Able to flex and extend at the ankle without pain. Bilateral lower extremities: DP pulse is 2+. Neuro: Densely neuropathic from the knees down. The patient carries on appropriate conversion, though he is a very poor historian. LABORATORY DATA: White blood cell count 23.2, hemoglobin 9.0, hematocrit 26, platelet count 469. INR 0.98. Sodium 140, potassium 4.1, creatinine 1.36. A1c 17.8 on 12/25/19. Blood cultures were ordered, results not yet available. ASSESSMENT: The patient has bilateral lower extremity abrasions. There is infection of the right great toe. PLAN: The patient should remain on IV antibiotics. He is currently on vanco and cefepime, which is appropriate. All open lesions should be covered with a dry sterile dressing. Any areas that have purulent drainage should be dressed with Betadine and then a dry sterile dressing. He can be heel weightbearing as tolerated on bilateral lower extremities. He needs to have ABIs bilaterally, MRI of feet bilaterally with specific focus on the right great toe which is my greatest concern. I have consulted both Infectious Disease as well as Dr. Petros Torres, Vascular. I have added the patient onto the operating room schedule for 12/26/[address] Clyde Lemons to perform a right first ray amputation. Once MRI is back and vascular studies have been completed, we will have a more definitive approach. ABIGAIL SPENCE [id number]/[facility] #: [id number] DC
[2019-12-25] MEDS ORDERED: Magnesium Oxide TAB* 400 MG PO ONE (16:56)
--- NOTE | 2019-12-25 18:53 | CONSULT ---
Consult Consult: Date of Service: 12/25/19 Reason for consultation: Right foot wounds in a known vasculopath Requesting service: Yasmin HAYES, foot and ankle orthopedic surgery PRIMARY CARE PROVIDER: Dr. Brothers. HISTORY OF PRESENT ILLNESS: The patient is a 59-year-old male who presented to [facility] Emergency Room with a chief complaint of elevated blood sugar and wounds to his feet. He has not been taking his any of his medications for at least a month because he was feeling depressed. He has been treated for diabetic ketoacidosis , which is improving, though he still remains on an insulin drip. He has no pain in bilateral feet as he is neuropathic from the knee down. He is unsure how long wounds have been present, though potentially for up to a month on both feet. He is not sure how he obtained these wounds, though he is concerned that they are not getting better. I first met Mr. Perez during inpatient consultation September 2019 and the patient subsequently underwent left leg arteriography with balloon angioplasty of the left SFA and popliteal artery on 09/25/2019. He has had no vascular work done on the right side. PAST MEDICAL HISTORY: DVT and PE diabetes, last A1c on 12/25/19 is 17.8 bipolar chronic right upper quadrant pain history of thigh abscess, status post I and D in September 2019 peripheral arterial disease PAST SURGICAL HISTORY: Angioplasty, left lower extremity, tolerated anesthesia well. ALLERGIES TO MEDICATIONS: No known drug allergies. FAMILY HISTORY: Mother in a car accident. Father is diabetic. SOCIAL HISTORY: The patient does not smoke. He drinks 1 beer occasionally. Denies recreational drug use. Surrogate decision maker is his sister, Isacc. REVIEW OF SYSTEMS: No documented or subjective fever. He did admit to having chills. HEENT: No headache. No vision change. Cardiac: No chest pain. No history of heart attack. Respiratory: No shortness of breath. GI: No abdominal pain, nausea, vomiting, diarrhea. : No dysuria. Musculoskeletal: Positive for bilateral lower extremity wounds without any pain. Neuro: Densely neuropathic from knees distally. Hematology: Positive for history of DVT bilateral lower extremities and PE. The patient is prescribed Eliquis, but he is not taking it. PHYSICAL EXAM: Selected Entries 12/25/19 12/25/19 16:10 18:00 Temperature 99.6 F Heart Rate 90 Respiratory 16 Rate Blood Pressure 141/79 (mmHg) Blood Pressure 94 Mean HEENT: Normocephalic, atraumatic. Extraocular movements are intact. Lungs: Normal rate and effort of breathing. Abdomen: Soft, nondistended, nontender. Extremities: Bilateral upper extremities with skin intact. Nontender to palpation. Able to flex and extend all joints without pain. Lower extremities: Wounds at dorasl right ankle and forefeet bilaterally. Right great toe is dusky and gangrenous. Vascular exam: 2+ pulses at [employer] WEIGHT LOSS PHYSICIAN, pop and DPA 1+ pulses t [employer] TE[employer]ER Neuro: Loss of light touch sensation at feet and ankles RELEVANT IMAGING: ADRIAN 12/25/2019 Noncompressibility is consistent with calcified atherosclerosis of the infrapopliteal arteries. Arterial waveforms are adequate and symmetric, though the ABIs at the great toes are just below the threshold for arterial insufficiency. LABORATORY DATA: Laboratory Tests 12/25/19 12/25/19 12/25/19 12:18 12:18 14:04 WBC 23.2 H RBC 3.06 L Hgb 9.0 L Hct 26 L Plt Count 469 H D INR (Anticoag Therapy) 0.98 BUN Creatinine Est GFR (Non-Af Amer) POC Glucose (mg/dL) 115 H 12/25/19 12/25/19 12/25/19 15:08 16:05 16:05 WBC RBC Hgb Hct Plt Count INR (Anticoag Therapy) BUN 39 H Creatinine 1.25 H Est GFR (Non-Af Amer) 59.3 POC Glucose (mg/dL) 153 H 200 H 12/25/19 17:37 WBC RBC Hgb Hct Plt Count INR (Anticoag Therapy) BUN Creatinine Est GFR (Non-Af Amer) POC Glucose (mg/dL) 176 H ASSESSMENT: The patient has bilateral lower extremity abrasions. There is infection of the right great toe. Vascular exam and prior vascular imaging indicate adequate arterial flow at least to the mid feet. Latest A1c is 17.8. PLAN/RECOMMENDATIONS: 1. There is no indication for arteriography or revascularization at this time. 2. Recommend diabetes control and wound care.
[2019-12-25] MEDS: Insulin GLARGINE(*) 1 UNITS UNIT SUBCUT SCH (22:17)
[2019-12-26] MEDS ORDERED: Vancomycin(*) 1,500 MG in NS 0.9% 250 ML* 250 ML IVPB SCH ×2
[2019-12-26 04:59] LABS: Hematocrit 25 % (42-52); Hemoglobin 8.1 g/dL (14.0-18.0); Mean Corpuscular HGB Conc 33 g/dL (31-36); Mean Corpuscular Hemoglobin 28 pg (27-31); Mean Corpuscular Volume 86 fL (80-94); Mean Platelet Volume 7.2 fL (7.4-10.4); Platelet Count 423 10^3/uL (150-450); Red Blood Count 2.87 10^6 /uL (4.18-5.48); Red Cell Distribution Width 14 % (10-15); White Blood Count 16.4 10^3/uL (3.5-10.8)
[2019-12-26 05:09] LABS: BUN/Creatinine Ratio 26.8 (8-20); Calcium 7.5 mg/dL (8.6-10.3); EGFR African American 81.5 (>60); EGFR Non-African American 67.3 (>60); Magnesium 2.6 mg/dL (1.9-2.7); Phosphorus 1.8 mg/dL (2.5-5.0)
[2019-12-26 05:27] LABS: ABS Lymphocytes 1.2 10^3/ul (1.0-4.8); ABS Monocytes 1.2 10^3/ul (0-0.8); ABS Neutrophils 13.9 10^3/ul (1.5-7.7); Lymphocyte % 7.6 %
[2019-12-26] MEDS: Pantoprazole* 80 mg IN NS 80 MG/250 ML BAG IV SCH (07:54)
[2019-12-26] MEDS: Insulin LISPRO* 1 UNITS UNIT SUBCUT SCH ×4 (08:38→21:23)
[2019-12-26] MEDS: Multivitamins/Minerals TAB PO SCH (08:39)
[2019-12-26] MEDS: Thiamine TAB* 100 MG TAB PO SCH (08:39)
[2019-12-26] MEDS: Cefepime 2 GM in Dextrose(*) 2 GM/50 ML BAG IV SCH ×2 (10:11→21:31)
[2019-12-26] MEDS: Pantoprazole IV* 40 MG IV SCH ×2 (10:11→21:23)
[2019-12-26] MEDS ORDERED: Vancomycin Trough Check NOTE FOLLOW UP ONE (11:30)
--- NOTE | 2019-12-26 14:52 | PN ---
<Thelma Barragan - Last Filed: 12/26/19 16:27> Date of Service: 12/26/19 Critical Care Services: Overnight events, Patient was afebrile overnight. Not scoring in WAM this morning. Feeling SOB this morning, though sat good, was put on InO2. Patient stated that "I am having pulmonary embolism again", and asked for scan. A few minutes later , he stated "I need a surgery", and "I need a whole body scan". Not sure whether this is his personality or this is part of his withdrawal symptoms. Otherwise, he denied chest pain, palpitation, no cough, tolerated diet after opening diet. Tele: NSR, HR 90 O2: InO2 2L Vital Signs: Temp Pulse Resp BP SpO2 FiO2 98.2 F 81 6 151/75 99 12/26/19 11:57 12/26/19 13:00 12/26/19 13:00 12/26/19 13:00 12/26/19 13:00 Physical Exam: Constitutional: alert, answers questions appropriately. NAD Head: normocephalic, atraumatic Eyes: no pallor, no icterus ENT: moist mucous membranes Neck: soft, supple, no jvd, no stridor CVS: normal rate, regular, no murmur Chest/Resp: clear on auscultation, no rales, no wheeze, no rhonchi, no acc muscle use Abdomen/GI: soft, nontender, nondistended, BS+ Ext/Msk: bilateral foot wrapped, distal phalanx exposed, right big toe gangrene seen. Neuro: awake, alert, oriented x 3, moving all extremities, no gross focal deficit Psych: depressed, but no suicidal ideation currently Fluid Balance (Past 24 Hours): Intake & Output 12/24/19 12/25/19 12/26/19 12/27/19 06:59 06:59 06:59 06:59 Intake Total 2425 3436.1 Output Total 275 1000 400 Balance 2150 2436.1 -400 Weight 69.989 kg 71.101 kg Intake: IV Fluids 2032 1993.1 ABX 288 [id number] 331 1312 Magnesium 58.4 NS 1529 40 Protonix 173 237 Thiamine 58.7 IVPB 336 352 ABX 336 ABX - CEFEPIME 65 ABX - VANCOMYCIN 287 Medicated IV 56 30 Insulin 56 30 Oral 1060 Output: Urine 275 1000 400 Other: Estimated Void Large # Voids 1 Labs: Laboratory Results - last 24 hr 12/24/19 12/25/19 12/25/19 22:13 12:18 15:08 WBC RBC Hgb Hct MCV MCH MCHC RDW Plt Count MPV Neut % (Auto) Lymph % (Auto) [place] % (Auto) Eos % (Auto) Baso % (Auto) Absolute Neuts (auto) Absolute Lymphs (auto) Absolute Monos (auto) Absolute Eos (auto) Absolute Basos (auto) Absolute Nucleated RBC Immature Gran % Neutrophils % Band Neutrophils % Lymphocytes % Reactive Lymphs % Monocytes % Eosinophils % Myelocytes % Nucleated RBC % Normal RBC Morphology Sodium 140 Potassium 4.1 Chloride 107 Carbon Dioxide 22 Anion Gap 11 BUN 43 H Creatinine 1.36 H Est GFR ( Amer) 65.1 Est GFR (Non-Af Amer) 53.8 BUN/Creatinine Ratio 31.6 H Glucose 115 H POC Glucose (mg/dL) > 444 H* 153 H Calcium 8.0 L Phosphorus Magnesium C-Reactive Protein 256.09 H Vancomycin Trough 12/25/19 12/25/19 12/25/19 16:05 16:05 17:37 WBC RBC Hgb Hct MCV MCH MCHC RDW Plt Count MPV Neut % (Auto) Lymph % (Auto) [place] % (Auto) Eos % (Auto) Baso % (Auto) Absolute Neuts (auto) Absolute Lymphs (auto) Absolute Monos (auto) Absolute Eos (auto) Absolute Basos (auto) Absolute Nucleated RBC Immature Gran % Neutrophils % Band Neutrophils % Lymphocytes % Reactive Lymphs % Monocytes % Eosinophils % Myelocytes % Nucleated RBC % Normal RBC Morphology Sodium 139 Potassium 4.1 Chloride 109 Carbon Dioxide 21 L Anion Gap 9 BUN 39 H Creatinine 1.25 H Est GFR ( Amer) 71.8 Est GFR (Non-Af Amer) 59.3 BUN/Creatinine Ratio 31.2 H Glucose 179 H POC Glucose (mg/dL) 200 H 176 H Calcium 7.8 L Phosphorus Magnesium C-Reactive Protein Vancomycin Trough 12/25/19 12/26/19 12/26/19 20:49 04:28 04:28 WBC 16.4 H RBC 2.87 L Hgb 8.1 L Hct 25 L MCV 86 MCH 28 MCHC 33 RDW 14 Plt Count 423 MPV 7.2 L Neut % (Auto) 84.9 Lymph % (Auto) 7.6 [place] % (Auto) 7.2 Eos % (Auto) 0.0 Baso % (Auto) 0.3 Absolute Neuts (auto) 13.9 H Absolute Lymphs (auto) 1.2 Absolute Monos (auto) 1.2 H Absolute Eos (auto) 0.0 Absolute Basos (auto) 0.0 Absolute Nucleated RBC 0.0 Immature Gran % 2.0 Neutrophils % 81.0 Band Neutrophils % 1.0 Lymphocytes % 10.0 Reactive Lymphs % 2.0 Monocytes % 4.0 Eosinophils % 1.0 Myelocytes % 1.0 Nucleated RBC % 0.0 Normal RBC Morphology Normal Sodium 136 Potassium 4.0 Chloride 107 Carbon Dioxide 17 L Anion Gap 12 H BUN 30 H Creatinine 1.12 Est GFR ( Amer) 81.5 Est GFR (Non-Af Amer) 67.3 BUN/Creatinine Ratio 26.8 H Glucose 219 H POC Glucose (mg/dL) 218 H Calcium 7.5 L Phosphorus 1.8 L Magnesium 2.6 C-Reactive Protein Vancomycin Trough 12/26/19 12/26/19 12/26/19 08:02 11:40 12:30 WBC RBC Hgb Hct MCV MCH MCHC RDW Plt Count MPV Neut % (Auto) Lymph % (Auto) [place] % (Auto) Eos % (Auto) Baso % (Auto) Absolute Neuts (auto) Absolute Lymphs (auto) Absolute Monos (auto) Absolute Eos (auto) Absolute Basos (auto) Absolute Nucleated RBC Immature Gran % Neutrophils % Band Neutrophils % Lymphocytes % Reactive Lymphs % Monocytes % Eosinophils % Myelocytes % Nucleated RBC % Normal RBC Morphology Sodium Potassium Chloride Carbon Dioxide Anion Gap BUN Creatinine Est GFR ( Amer) Est GFR (Non-Af Amer) BUN/Creatinine Ratio Glucose POC Glucose (mg/dL) 228 H 160 H Calcium Phosphorus Magnesium C-Reactive Protein Vancomycin Trough 15.2 Studies: MRI lower extremity: edema is noted in distal phalanx of the great toe and irregular bone marrow replacement consistent with osteomyelitis. Nutrition: Consistent carbohydrate diet Impression: 59 y/o male with history of DVT, PE on eliquis, DM, Bipolar, PAD s/p angioplasty , presented with nausea, vomiting with coffee ground emesis after not taking medication for 4 months, found to have DKA with glucose 800+ and A1c 17.7%, Anemia with positive stool OB, bilateral foot infection with right toe gangrene. 1. DKA due to medication noncompliance in the setting of depression 2. Diabetic foot infection with right big toe osteomyelitis, plan for ray amputation 3. Anemia with positive stool ob-, Hb baseline around 8, no active bleed ? Becker Leslie tear ?PUD 4. Suicidal ideation- no suicidal plan for now 5. Bipolar, depression mainly currently, poorly controlled 6. 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 bilateral PVD s/p angioplasty of right, currently no indication for another angioplasgty Plan: Neuro- continue WAM protocol, continue Librium for DT prophylaxis - currently score 0 - oral thiamine and multivitamin CVS-no active issues Resp-subjective SOB this morning, put on O2 for comfort -CXR no acute illness -Clinically not likely PE as normal vital signs with only subjective SOB - Eliquis was held off due to his low Hb, will need to restart post op ID-bilateral DM foot infection with right toe osteomyelitis confirmed in MRI - continue iv cefepime and vancomycin - Ray Amputation today - staph aureus UTI, not sure whether it's contamination, anyway, it's covered GI- -Nutrition: consistent carbohydrate diet -Iron def Anemia with coffee ground emesis: Hb stablized, baseline around 8, will convert to iv ppi bid -need outpatient workup for his anemia Renal- Anion Gap closes yesterday, and opens a bit after opening diet - will continue to monitor Heme- continue to trend Hb - history of recurrent DVT, PE, anticoagulation was held off due to low Hb and operation - will need to restart lovenox post op when surgical team feels comfortable Endo-continue Lantus 14, and lispro sliding scale for today due to npo for op, dose need to be uptitrated further likely - continue D51/2NS drip for now - Maintain BG<200 Musculsk- pressure ulcer prophylaxis. Bedrest. Wounds- ortho followup Nutrition- npo for now for operation, diet as per surgery post op Psy- patient had suicidal ideation, but no plan to kill himself in hospital. Thus he doesn't need 1 on 1 monitoring for suicidal precaution. He needs further manaement for his bipolar, psy consult will be needed when patient is improving and more alert. DVT prophylaxis: hold off for now, need to restart anticoagulation post op when surgeon is comfortable GI prophylaxis: iv ppi bid Central Line: no Arterial Line: no Alexis Catheter:no Disposition: Patient will be transferred to general [place] post op Patient clinical status: Improving Code Status: Full code <Imani Hernandez - Last Filed: 12/26/19 18:11> Plan: This service has been performed by a resident under the direction of a teaching physician. I, Imani Hernandez, performed the service, or was physically present during the critical, or levine portions of the service, furnished by the resident. I participated in the management of the patient. 59M admitted with DKA and diabetic foot wounds after stopping all his medications. DKA, h/o type 2 DM Bilateral necrotic foot wounds likely due to diabetes PAD H/o DVT and PE Upper GI bleed Bipolar disorder No complaints this morning except for shortness of breath. He is asking for nasal cannula although O2 sat is 99% and no increased work of breathing. On exam , breathing comfortably on room air. Mild tenderness to palpation in RUQ, no rebound or guarding. He is awake and alert. No change in necrotic wounds of both great toes. Glucose well controlled with SQ insulin and Lantus. He has been NPO today, so will not make changes to Lantus dose today. Plan for MRI today and OR this afternoon for right toe. Ortho following. Continue antibiotics for necrotic foot wounds. Switch to protonix BID. SCDs for DVT ppx. Will need to restart anticoagulation for h/o DVT/ PE Dispo: Transfer to floor Status: Fair, improving
[2019-12-26] MEDS: Vancomycin(*) 750 MG in NS 0.9% 250 ML* 250 ML IVPB SCH ×2 (15:41→23:56)
[2019-12-26] MEDS: D5W 1/2 NS KCl 20 Meq 1000 ML* 1,000 ML IV SCH (15:42)
[2019-12-26] MEDS ORDERED: Midazolam* 1 MG/ML 10 ML VIAL (10 MG) ONE (18:35)
[2019-12-26] MEDS ORDERED: KETAMINE HCL* 50 MG/ML 10 ML VIAL ONE (18:35)
[2019-12-26] MEDS ORDERED: fentaNYL* 50 MCG/ML 2 ML VIAL (100 MCG VIAL) ONE (18:35)
--- NOTE | 2019-12-26 18:50 | PN ---
Progress Note - Progress Note Date of Service: 12/26/19 Note: I saw and examined and Wlimar. Please see Yasmin Kenny's consult note for full history and physical details. He has a necrotic and infected right hallux. Dr. Torres of vascular did not feel any vascular intervention was warranted. He is a very poorly controlled diabetic with neuropathy. I did discuss treatment options with Wilmar at length. We discussed both nonoperative and operative treatment options. Given the necrotic and infected toe, I do think an amputation of the toe is warranted. I do think I will likely need to remove part of the first metatarsal as well to get soft tissue closure. His MRI does not show any osteomyelitis through the metatarsals and rest of the foot. He would like to move forward with surgery. All his questions were answered. We did review the risks of surgery at length. Plan will be for a right partial first ray amputation. Clyde Lemons MD
[2019-12-26] MEDS ORDERED: Bupivacaine 0.5%* 50 ML MDV VIAL ONE (19:27)
[2019-12-26] MEDS ORDERED: Propofol* 10 MG/ML 20 ML BTL ONE (20:10)
--- NOTE | 2019-12-26 20:22 | OP ---
Operative Report - Blank - Operative Report Date of Operation: 12/26/19 Note: PATIENT: Wilmar Perez DATE OF : 1960 DATE OF SURGERY: 12/26/2019 SURGEON: Clyde Lemons MD REVERSAL PRINT INSPECTOR: None ANESTHESIOLOGIST: Dr. Ghosh PREOPERATIVE DIAGNOSIS: Right great toe infected gangrene in the setting of poorly controlled diabetic neuropathy POSTOPERATIVE DIAGNOSIS: Right great toe infected gangrene in the setting of poorly controlled diabetic neuropathy OPERATION: Right partial first ray amputation ANESTHESIA: MAC IMPLANTS: none TOURNIQUET TIME: Less than 30 minutes with an ankle Esmarch tourniquet. SPECIMENS: Toe to pathology. Culture swabs to microbiology. ESTIMATED BLOOD LOSS: minimal COMPLICATIONS: none STATUS: Stable from the operating room to the recovery room. INDICATIONS FOR PROCEDURE: Wilmar is a very poorly controlled diabetic with dense neuropathy. He has developed a gangrenous right hallux with infection and cellulitis. Both operative and non operative treatment alternatives were reviewed. Further, the nature and risks of surgery were reviewed in careful detail. Our discussions regarding the risks of surgery included, but were not limited to, wound infection, wound problems, failure to heal, nerve injury, neuroma, RSD, persistent symptoms, blood clot, failure of the surgery, need for further amputation, and even the remote chance of catastrophic complication, including loss of limb. DESCRIPTION OF PROCEDURE: The patient was seen in the preoperative holding unit and informed written consent was obtained. The appropriate extremity was marked. The patient was then brought to the operating room and carefully positioned on the operating room table. Anesthesia was induced. All bony prominences were padded with great care. A chlorhexidine based pre-scrub was performed followed by a chloraprep prep and drape in standard sterile fashion. A surgical safety pause was then conducted in which we confirmed the appropriate patient, extremity, planned procedure, availability of equipment, indication and administration of antibiotics, and DVT prophylaxis in the form of a compression boot on the non- surgical extremity. I began with application of an ankle Esmarch tourniquet. Care was taken not to compress the toe. I then made an incision to remove the toe. I maintained as much healthy soft-tissue length as was possible. The phalanges were dissected out and the toe was amputated at the level of the MTP joint. Chris pus was encountered at the MTP joint. This was cultured and sent Abdulaziz biology. The toe was then sent to pathology. I then used an oscillating saw blade to osteotomize approximately the distal half of the first metatarsal. This was beveled so that there would be no prominence plantarly or medially. The edges were smoothed with a rongeur. I then irrigated the wound copiously. I closed with #1 Vicryl, 3-0 monocryl and then 2-0 Prolene and 3-0 nylon for the skin. I was unable to close the most distal aspect of the wound, as there was not enough soft tissue. This was covered with a Betadine wet-to-dry dressing. The patient was then awakened from anesthesia and transferred to the recovery room in stable condition. There were no complications. All needle and sponge counts were correct at the end of the case. ATTESTATION: I attest I was present and scrubbed and performed the critical portions of the procedure myself. POSTOPERATIVE PLAN: The patient may be heel weight-bearing in a post-operative shoe and will follow up will be in two weeks for a wound check, but we will likely leave the sutures in for 3-4 weeks. Antibiotics per infectious disease.
[2019-12-26] MEDS: Insulin GLARGINE(*) 1 UNITS UNIT SUBCUT SCH (21:23)
[2019-12-27] MEDS: D5W 1/2 NS KCl 20 Meq 1000 ML* 1,000 ML IV SCH (01:56)
[2019-12-27 05:53] LABS: Hematocrit 25 % (42-52); Hemoglobin 8.5 g/dL (14.0-18.0); Mean Corpuscular HGB Conc 34 g/dL (31-36); Mean Corpuscular Hemoglobin 29 pg (27-31); Mean Corpuscular Volume 85 fL (80-94); Mean Platelet Volume 6.6 fL (7.4-10.4); Platelet Count 402 10^3/uL (150-450); Red Blood Count 2.95 10^6 /uL (4.18-5.48); Red Cell Distribution Width 14 % (10-15); White Blood Count 14.8 10^3/uL (3.5-10.8)
[2019-12-27 06:12] LABS: Calcium 7.2 mg/dL (8.6-10.3); EGFR African American 106.2 (>60); EGFR Non-African American 87.8 (>60); Potassium 3.7 mmol/L (3.5-5.0)
[2019-12-27 06:51] LABS: ABS Basophils 0.1 10^3/ul (0-0.2); ABS Eosinophils 0.1 10^3/ul (0-0.6); ABS Lymphocytes 1.1 10^3/ul (1.0-4.8); ABS Monocytes 1.1 10^3/ul (0-0.8); ABS Neutrophils 12.6 10^3/ul (1.5-7.7); Eosinophil % 0.4 %; Lymphocyte % 7.1 %
[2019-12-27] MEDS: Multivitamins/Minerals TAB PO SCH (08:36)
[2019-12-27] MEDS: Pantoprazole IV* 40 MG IV SCH ×2 (08:36→21:01)
[2019-12-27] MEDS: Insulin LISPRO* 1 UNITS UNIT SUBCUT SCH ×4 (08:37→21:19)
[2019-12-27] MEDS: Thiamine TAB* 100 MG TAB PO SCH (08:37)
--- NOTE | 2019-12-27 08:44 | PN ---
Subjective Date of Service: 12/27/19 Interval History: Mr. Perez is feeling better today. He was able to talk to his sister on the phone this morning and that has helped his mood. Otherwise, just feeling hungry. Denies CP, SOB. Right LE still feeling a little numb and achy, but no significant pain. He is able to wiggle his toes. He does endorse a cough, but this is baseline for him since his PE. No concerns from nursing. Family History: Unchanged from Admission Social History: Unchanged from Admission Past Medical History: Unchanged from Admission Objective Active Medications: Acetaminophen (Tylenol Tab*) 650 mg PO Q4H PRN PAIN - MILD Dextrose (D50w Syringe 50 Ml*) 12.5 gm IV PUSH .FOR FS < 60 - SS PRN FS < 60 Cefepime HCl (Maxipime 2 Gm In Dextrose Duplex (*)) 2 gm in 50 mls @ 100 mls/ hr IV Q12H [facility] Vancomycin HCl 750 mg/ Sodium (Chloride) 250 mls @ 166.667 mls/hr IVPB Q12H [facility] Potassium Chloride/Dextrose (D5w 1/2 Ns Kcl 20 Meq 1000 Ml*) 1,000 mls @ 125 mls/hr IV PER RATE [facility] Insulin Glargine (Lantus(*)) 14 units SUBCUT Q24H [facility] Insulin Human Lispro (Humalog*) 0 units SUBCUT FS ACHS ICU [facility]; Protocol Lorazepam (Ativan Inj*) 0 - 3 mg IV PUSH .PER [facility] PROTOCOL [facility]; Protocol Multivitamins/Minerals (Theragran/Minerals Tab*) 1 tab PO DAILY [facility] Ondansetron HCl (Zofran Inj*) 4 mg IV Q6H PRN NAUSEA Pantoprazole Sodium (Protonix Iv*) 40 mg IV BID [facility] Thiamine HCl (Vitamin B-1 Tab*) 100 mg PO DAILY [facility] Vital Signs - 8 hr 12/27/19 12/27/19 12/27/19 02:00 03:09 04:12 Temperature 98.6 F 98.3 F Pulse Rate 94 96 Respiratory 16 18 17 Rate Blood Pressure 155/68 163/78 (mmHg) O2 Sat by Pulse 98 98 Oximetry 12/27/19 07:54 Temperature 98.3 F Pulse Rate 90 Respiratory 18 Rate Blood Pressure 142/62 (mmHg) O2 Sat by Pulse 98 Oximetry Oxygen Devices in Use Now: None Appearance: Middle-aged male lying in bed in NAD Ears/Nose/Mouth/Throat: Mucous Membranes Moist Neck: NL Appearance and Movements; NL JVP, Trachea Midline Respiratory: Symmetrical Chest Expansion and Respiratory Effort, Clear to Auscultation Cardiovascular: NL Sounds; No Murmurs; No JVD, RRR Abdominal: NL Sounds; No Tenderness; No Distention Extremities: - - +1 pitting RLE Skin: - - Dressings intact to bilat feet Neurological: Alert and Oriented x 3 Lines/Tubes/Other Access: Clean, Dry and Intact Peripheral IV Nutrition: Taking PO's Result Diagrams: 12/27/19 05:39 12/27/19 05:39 Assess/Plan/Problems-Billing Assessment: Mr. Perez is a 59 yo M with PMH of DVT/PE, uncontrolled DM2, bipolar, PAD, alcohol abuse; presented to the ED with c/o emesis and weakness and was found to be in DKA, have bilat foot ulcers, and anemic, requiring admission to ICU. Transferred to floor 12/26/19. - Patient Problems (1) DKA (diabetic ketoacidoses) Code(s): E11.10 - TYPE 2 DIABETES MELLITUS WITH KETOACIDOSIS WITHOUT COMA Comment: - Longstanding history of uncontrolled DM with A1c 17.8 - Patient admits to not taking medications at home d/t depression - BG improved, but remains elevated - Continue Lispro SS; increase Lantus (2) Osteomyelitis of great toe of right foot Code(s): M86.9 - OSTEOMYELITIS, UNSPECIFIED Comment: - S/p ray amputation, POD #1 - Ortho following - Appreciate ID consult; recommends 6 weeks BID vanco - Continue vanco (3) Anemia Code(s): D64.9 - ANEMIA, UNSPECIFIED Comment: - Asymptomatic - H&H remains stable - Stool occult positive, but no BRBPR or emesis - Suspect PUD - Continue pantoprazole BID (4) Diabetic ulcer of lower extremity Code(s): E11.622 - TYPE 2 DIABETES MELLITUS WITH OTHER SKIN ULCER; L97.909 - NON -PRS CHRONIC ULC UNSP PRT OF UNSP LOW LEG W UNSP SEVERITY Comment: - LLE - Continue vanco (5) Sepsis Comment: - Resolved - Present on admission with leukocytosis, tachycardia, tachypnea; source is bilat diabetic foot wounds (6) Hx pulmonary embolism Code(s): Z86.711 - PERSONAL HISTORY OF PULMONARY EMBOLISM Comment: - 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 Anticipate d/c home vs [facility] when medically stable and cleared by Ortho and ID. Will need long-term abx. Attending: Ira Foreman
[2019-12-27] MEDS ORDERED: Enoxaparin(*) 40 MG/0.4 ML SYR SUBCUT SCH (09:00)
[2019-12-27] MEDS: Cefepime 2 GM in Dextrose(*) 2 GM/50 ML BAG IV SCH (10:53)
--- NOTE | 2019-12-27 11:03 | PN ---
Progress Note - Progress Note Date of Service: 12/27/19 SOAP: Subjective: POD #1 Right 1st ray partial amputation. Pt also with left great toe wound. Doing well. Denies pain but grossly neuropathic to b/l feet. Denies CP/SOB, f/c. Objective: Vital Signs: Temp Pulse Resp BP Pulse Ox 98.3 F 90 18 142/62 98 12/27/19 07:54 12/27/19 07:54 12/27/19 07:54 12/27/19 07:54 12/27/19 07:54 Gen: A&Ox3, NAD at rest sitting in chair RLE: Dressing C/D/I. +f/e at remaining toes, brisk cap refill. No sensation to toes but at baseline. Calf soft, NT LLE: Great toe with superficial wound, measuring about 2 cm x 4 cm round. + purulent drainage and mild surrounding erythema. No deep structures exposed. Labs: Laboratory Results - last 24 hr 12/26/19 12/26/19 12/26/19 11:40 12:30 16:55 WBC RBC Hgb Hct MCV MCH MCHC RDW Plt Count MPV Neut % (Auto) Lymph % (Auto) [place] % (Auto) Eos % (Auto) Baso % (Auto) Absolute Neuts (auto) Absolute Lymphs (auto) Absolute Monos (auto) Absolute Eos (auto) Absolute Basos (auto) Absolute Nucleated RBC Nucleated RBC % Hypochromasia Sodium Potassium Chloride Carbon Dioxide Anion Gap BUN Creatinine Est GFR ( Amer) Est GFR (Non-Af Amer) BUN/Creatinine Ratio Glucose POC Glucose (mg/dL) 160 H 152 H Calcium Vancomycin Trough 15.2 12/26/19 12/27/19 12/27/19 21:07 05:39 05:39 WBC 14.8 H RBC 2.95 L Hgb 8.5 L Hct 25 L MCV 85 MCH 29 MCHC 34 RDW 14 Plt Count 402 MPV 6.6 L Neut % (Auto) 84.9 Lymph % (Auto) 7.1 [place] % (Auto) 7.2 Eos % (Auto) 0.4 Baso % (Auto) 0.4 Absolute Neuts (auto) 12.6 H Absolute Lymphs (auto) 1.1 Absolute Monos (auto) 1.1 H Absolute Eos (auto) 0.1 Absolute Basos (auto) 0.1 Absolute Nucleated RBC 0.0 Nucleated RBC % 0.0 Hypochromasia 2+ Sodium 136 Potassium 3.7 Chloride 107 Carbon Dioxide 22 Anion Gap 7 BUN 16 Creatinine 0.89 Est GFR ( Amer) 106.2 Est GFR (Non-Af Amer) 87.8 BUN/Creatinine Ratio 18.0 Glucose 226 H POC Glucose (mg/dL) 145 H Calcium 7.2 L Vancomycin Trough 12/27/19 07:17 WBC RBC Hgb Hct MCV MCH MCHC RDW Plt Count MPV Neut % (Auto) Lymph % (Auto) [place] % (Auto) Eos % (Auto) Baso % (Auto) Absolute Neuts (auto) Absolute Lymphs (auto) Absolute Monos (auto) Absolute Eos (auto) Absolute Basos (auto) Absolute Nucleated RBC Nucleated RBC % Hypochromasia Sodium Potassium Chloride Carbon Dioxide Anion Gap BUN Creatinine Est GFR ( Amer) Est GFR (Non-Af Amer) BUN/Creatinine Ratio Glucose POC Glucose (mg/dL) 243 H Calcium Vancomycin Trough Microbiology 12/26/19 19:34 Wound Anaerobic Culture - Preliminary 12/26/19 19:34 Foot Right Skin and Soft Tissue MRSA/MSSA (PCR - Final Mrsa Positive S.aureus Positive 12/26/19 19:34 Foot Right Gram Stain - Final 12/24/19 20:55 Urine Urine Culture - Final MRSA Normal Ruby 12/24/19 19:41 Blood Venous Aerobic Blood Culture - Preliminary No Growth Day 2 12/24/19 19:41 Blood Venous Anaerobic Blood Culture - Preliminary No Growth Day 2 12/24/19 19:41 Blood Venous Aerobic Blood Culture - Preliminary No Growth Day 2 12/24/19 19:41 Blood Venous Anaerobic Blood Culture - Preliminary No Growth Day 2 12/24/19 19:13 Stool Stool Occult Blood ([place]) - Final Assessment: POD #1 Right foot 1st ray partial amputation, left foot wound Plan: Betadine wet to dry dressing to left great toe, to be changed twice daily Surgical bandage intact to right foot, will leave in place Heel WBAT RLE with post op shoe, consider switching to Darco boot or cam walker if continued non-compliance Abx per ID F/u with Dr. Lemons in 1 week post op Ok to d/c when medically stable
[2019-12-27] MEDS: Vancomycin(*) 750 MG in NS 0.9% 250 ML* 250 ML IVPB SCH ×2 (12:46→23:57)
[2019-12-27] MEDS: Insulin GLARGINE(*) 1 UNITS UNIT SUBCUT SCH (21:00)
[2019-12-27] MEDS ORDERED: Benzonatate CAP* 100 MG PO ONE (21:39)
--- NOTE | 2019-12-27 22:04 | CONS ---
CONSULTATION REPORT: DATE OF CONSULTATION: 12/27/19 PRIMARY CARE PROVIDER: Dr. Nick Brothers. PROVIDER REQUESTING CONSULTATION: Vicky Wood NP CONSULTING SERVICE: Infectious Diseases. PROVIDER: Huang Wilson NP ATTENDING PROVIDER: Dr. Leno Natarajan.* (DICTATED BY HUANG WILSON NP) REASON FOR CONSULTATION: Right first toe osteomyelitis. IMPRESSION: 1. Right first toe osteomyelitis. The patient initially noted to have some superficial ulcers to the right dorsal aspect of the foot back in September. At that time, wound cultures with MRSA and group B strep. The patient now with an MRI showing edema in the distal phalanx of the great toe and a regular bone marrow replacement consistent with osteomyelitis, soft tissue edema noted. Plantar aspect of the foot revealed degenerative change of the right first metatarsophalangeal joint noted. Noted to have leukocytosis, but is improving. Additionally, significantly elevated CRP on admission, now trending down. Culture is showing methicillin-resistant Staphylococcus aureus PCR positive and group B strep. Blood cultures with no growth. He was taken to the operating room on 12/26/[address] Lemons for a right partial first ray amputation in the setting of gangrene. 2. Chronic left first toe wound. The patient again, when he presented back in September, was noted to have ulceration over the left first toe. At that time, the culture had methicillin-resistant Staphylococcus aureus. No culture of the wound on this admission. He had an MRI showing "appears to be bone marrow edema in the distal phalanx of the great toe suggestive of osteomyelitis. Plantar muscular edema and subcutaneous edema noted." 3. Diabetes mellitus type 2. Last hemoglobin A1c was 17.7. 4. Peripheral arterial disease, status post angioplasty of the left lower extremity in September 2019. RECOMMENDATIONS/PLAN: Recommend if the patient is to go home, Dalvance 1500 mg IV once followed by a repeat dose 7 days later. He is to go to a rehabilitation center, will continue vancomycin with trough goals of 15 to 20 to complete a 6- week course. Today would be day 2 of IV antibiotics. He will need weekly labs. CBC, CMP, CRP, vanco trough that he was discharged on vancomycin. He should be referred to the wound center to have a local wound care for the left first toe. Followup with ID outpatient. HISTORY OF PRESENT ILLNESS: Mr. Perez is a 59-year-old male with past medical history significant for diabetes mellitus, bilateral lower extremity wounds, peripheral vascular disease, bipolar disorder, chronic abdominal pain, history of a left thigh abscess in September 2019, status post I and D. He has had known wounds to bilateral lower extremities for 3 months. He was previously seen by Dr. Torres in September of 2019, underwent angioplasty of the left lower extremity. The patient had taken himself off of Eliquis and his diabetic medications because he was feeling depressed, he has been feeling fatigued and weak. His wounds on his lower extremities were not improving, reported burning in his feet, and was concerned about their appearance. He decided to present to the emergency room for further evaluation with complaints of not feeling well, vomiting, and weakness. . While in the emergency room, he had labs showing significant leukocytosis with a white blood cell count of 30.7, ESR greater than 120, CRP 317.75. He had blood cultures drawn. He had urinalysis showing 2+ blood, negative nitrites, negative leukocyte esterase, absent bacteria. He had a chest x-ray showing no active cardiopulmonary disease. He was referred to the hospitalist for admission. While in the hospital, the patient has been on cefepime and vanco. His leukocytosis is improving. Previous thrombocytosis has resolved. He was seen in consultation by Orthopedic Surgery, who took him to the OR for a right partial first ray amputation in the setting of right first toe osteomyelitis seen on MRI. Culture from the OR with MRSA, PCR positive, and group B strep. Additionally, his urine culture with MRSA 25 to 50,000. Blood cultures with no growth on day 2. Additionally, he had a left lower extremity MRI showing findings of possible left first toe osteomyelitis. He was seen in consultation by Dr. Torres with vascular exam and prior vascular imaging showing adequate arterial flow to at least the mid foot. Dr. Torres felt that there was no indication for arteriography or revascularization at that time and recommended diabetes control and wound care. He denies any fevers, chills, nausea, vomiting or diarrhea. He has a peripheral neuropathy in bilateral lower extremities. Denies any urinary symptoms. No joint pain, muscle pain, back pain. PAST MEDICAL HISTORY: 1. History of DVT and PE. 2. Diabetes mellitus, last hemoglobin A1c 17.7. 3. Bipolar disorder. 4. Chronic right upper quadrant abdominal pain. 5. History of left thigh abscess, September 2019. 6. Peripheral arterial disease. PAST SURGICAL HISTORY: 1. Status post left lower extremity angioplasty in September 2019. 2. Status post I and D of the left thigh abscess. HOSPITAL MEDICATIONS: 1. Acetaminophen 650 mg by mouth every 4 hours as needed for pain. 2. Dextrose 12.5 g IV for glucose less than 60 as needed. 3. Lovenox 40 mg subcutaneous daily. 4. Ferrous sulfate 325 mg by mouth daily. 5. Lantus insulin 18 units subcutaneous daily at bedtime. 6. Humalog insulin sliding scale with meals and at bedtime. 7. Ativan 0 to 3 mg IV push per [facility] protocol. 8. Multivitamin 1 tablet by mouth daily. 9. Zofran 4 mg IV every 4 hours as needed for nausea. 10. Protonix 40 mg IV twice daily. 11. Thiamine 100 mg by mouth daily. 12. Vancomycin 750 mg IV every 12 hours. ALLERGIES: No known drug allergies. FAMILY HISTORY: Denies family history of recurrent or resistant infections, heart disease or cancer. Father with a history of diabetes. Mother passed secondary to an accident. SOCIAL HISTORY: He drinks 1 beer daily. Denies alcohol or recreational drug use. REVIEW OF SYSTEMS: I performed a 10-point review of systems. All the pertinent positives and negatives are mentioned in the history of present illness. The remaining review of systems are negative. He denies any recent travels. PHYSICAL EXAM: Vital Signs: Temperature 98.3, heart rate 90, respiratory rate 18, O2 sat 98% on room air, blood pressure 142/62. General Appearance: Alert, appears to be in no acute distress. Head: Normocephalic, atraumatic. EENT: Extraocular movements are intact. No subconjunctival hemorrhage. Moist mucous membranes. Neck: Supple. No lymphadenopathy. Neurological: Alert and oriented. Cranial nerves II through are grossly intact. Moves all extremities. Cardiovascular: Regular rate and rhythm. S1 and S2 present. No murmurs, rubs or gallops heard. Respiratory: No accessory muscle use. Lungs are clear to auscultation bilaterally. Abdomen: Bowel sounds are present. Abdomen is soft, nontender, nondistended. Extremities: No lower extremity edema. Musculoskeletal: No clubbing or cyanosis noted. Exhibits good strength in all extremities. Psychological: Calm and cooperative. Skin: No rashes seen on the exposed skin. The right lower extremity is dressed in a surgical dressing. It was clean, dry, and intact. The left foot additionally has a dry dressing in place with left first toe on the dorsal aspect with ulcers that measures approximately 2 cm x 4 cm with what appears to be moist necrotic tissue and mild surrounding erythema. DIAGNOSTIC STUDIES/LAB DATA: Sodium 136, potassium 3.7, chloride 107, CO2 of 22 , BUN 16, creatinine 0.89, glucose 226. White blood cell count 14.8, hemoglobin 8.5, hematocrit 25, platelet count 402. CRP on 12/25/19 was 256. Please see impression and recommendations outlined above, recommendations have been discussed with ABIGAIL Castellanos, and Vicky Wood NP. Thank you for asking us to see Mr. Perez in consultation. The case has been discussed with my attending Dr. Leno Natarajan, who agrees with the plan of care. Reviewed by ADWOA MULLER 01/04/20 1642 [id number]/[facility] #: [id number] MTDIgnacio
[2019-12-28 05:04] LABS: Hematocrit 24 % (42-52); Hemoglobin 8.1 g/dL (14.0-18.0); Mean Corpuscular HGB Conc 34 g/dL (31-36); Mean Corpuscular Hemoglobin 29 pg (27-31); Mean Corpuscular Volume 84 fL (80-94); Mean Platelet Volume 6.5 fL (7.4-10.4); Platelet Count 352 10^3/uL (150-450); Red Blood Count 2.83 10^6 /uL (4.18-5.48); Red Cell Distribution Width 14 % (10-15); White Blood Count 11.8 10^3/uL (3.5-10.8)
[2019-12-28 05:22] LABS: BUN/Creatinine Ratio 17.8 (8-20); Calcium 7.6 mg/dL (8.6-10.3); EGFR African American 133.5 (>60); EGFR Non-African American 110.4 (>60); Potassium 3.9 mmol/L (3.5-5.0)
[2019-12-28 05:37] LABS: ABS Basophils 0.1 10^3/ul (0-0.2); ABS Eosinophils 0.1 10^3/ul (0-0.6); ABS Lymphocytes 1.6 10^3/ul (1.0-4.8); Eosinophil % 1.1 %; Lymphocyte % 13.9 %
[2019-12-28] MEDS: Insulin LISPRO* 1 UNITS UNIT SUBCUT SCH ×4 (07:37→21:13)
[2019-12-28] MEDS: Apixaban* 5 MG TAB PO SCH ×2 (08:39→21:11)
[2019-12-28] MEDS: Thiamine TAB* 100 MG TAB PO SCH (08:39)
[2019-12-28] MEDS: Ferrous Sulfate TAB* 325 MG PO SCH (08:39)
[2019-12-28] MEDS: Pantoprazole IV* 40 MG IV SCH ×2 (08:39→21:14)
[2019-12-28] MEDS: Multivitamins/Minerals TAB PO SCH (08:39)
--- NOTE | 2019-12-28 09:48 | PN ---
Subjective Date of Service: 12/28/19 Interval History: Mr. Perez is feeling better today. He offers no complaints. He was feeling SOB overnight, but that has resolved. Denies any CP or cough. He does think his LE are more edematous than usual. No concerns from nursing. Family History: Unchanged from Admission Social History: Unchanged from Admission Past Medical History: Unchanged from Admission Objective Active Medications: Acetaminophen (Tylenol Tab*) 650 mg PO Q4H PRN PAIN - MILD Apixaban (Eliquis*) 5 mg PO BID [facility] Dextrose (D50w Syringe 50 Ml*) 12.5 gm IV PUSH .FOR FS < 60 - SS PRN FS < 60 Ferrous Sulfate (Ferrous Sulfate Tab*) 325 mg PO DAILY [facility] Vancomycin HCl 750 mg/ Sodium (Chloride) 250 mls @ 166.667 mls/hr IVPB Q12H [facility] Insulin Glargine (Lantus(*)) 18 units SUBCUT BEDTIME [facility] Insulin Human Lispro (Humalog*) 0 units SUBCUT FS ACHS ICU [facility]; Protocol Lorazepam (Ativan Inj*) 0 - 3 mg IV PUSH .PER [facility] PROTOCOL [facility]; Protocol Multivitamins/Minerals (Theragran/Minerals Tab*) 1 tab PO DAILY [facility] Ondansetron HCl (Zofran Inj*) 4 mg IV Q6H PRN NAUSEA Pantoprazole Sodium (Protonix Iv*) 40 mg IV BID [facility] Thiamine HCl (Vitamin B-1 Tab*) 100 mg PO DAILY [facility] Vital Signs - 8 hr 12/28/19 12/28/19 03:45 07:44 Temperature 97.9 F 98.1 F Pulse Rate 84 84 Respiratory 17 17 Rate Blood Pressure 153/72 165/75 (mmHg) O2 Sat by Pulse 100 98 Oximetry Oxygen Devices in Use Now: None Appearance: Middle-aged male sitting in chair in NAD Ears/Nose/Mouth/Throat: Mucous Membranes Moist Neck: NL Appearance and Movements; NL JVP, Trachea Midline Respiratory: Symmetrical Chest Expansion and Respiratory Effort, Clear to Auscultation Cardiovascular: NL Sounds; No Murmurs; No JVD, RRR Abdominal: NL Sounds; No Tenderness; No Distention Extremities: - - Moderate nonpitting LLE, unable to assess LLE Skin: - - Dressings intact to BLE Neurological: Alert and Oriented x 3 Lines/Tubes/Other Access: Clean, Dry and Intact Peripheral IV Nutrition: Taking PO's Result Diagrams: 12/28/19 04:57 12/28/19 04:57 Assess/Plan/Problems-Billing Assessment: Mr. Perez is a 59 yo M with PMH of DVT/PE, uncontrolled DM2, bipolar, PAD, alcohol abuse; presented to the ED with c/o emesis and weakness and was found to be in DKA, have bilat foot ulcers, and anemic, requiring admission to ICU. Transferred to floor 12/26/19. - Patient Problems (1) Osteomyelitis of great toe of right foot Code(s): M86.9 - OSTEOMYELITIS, UNSPECIFIED Comment: - S/p ray amputation, POD #2 - Ortho following - Appreciate ID consult; recommends 6 weeks BID vanco - Needs PICC line placement - Continue vanco (day ) (2) DKA (diabetic ketoacidoses) Code(s): E11.10 - TYPE 2 DIABETES MELLITUS WITH KETOACIDOSIS WITHOUT COMA Comment: - Longstanding history of uncontrolled DM with A1c 17.8 - Patient admits to not taking medications at home d/t depression - BG improving - Continue Lispro SS, Lantus (3) Anemia Code(s): D64.9 - ANEMIA, UNSPECIFIED Comment: - Asymptomatic - Previously iron deficient; suspect also some component of AOCD - Stool occult positive, but no BRBPR or emesis; possible PUD - H&H remains stable even on DVT prophylaxis - H&H consistent with results in September 2019, so at this point the risk of significant acute blood loss seems low - Continue pantoprazole BID (4) Diabetic ulcer of lower extremity Code(s): E11.622 - TYPE 2 DIABETES MELLITUS WITH OTHER SKIN ULCER; L97.909 - NON -PRS CHRONIC ULC UNSP PRT OF UNSP LOW LEG W UNSP SEVERITY Comment: - LLE - Will need referral to [facility]ound [facility] Center at discharge - Continue vanco (5) Sepsis Comment: - Resolved - Present on admission with leukocytosis, tachycardia, tachypnea; source is bilat diabetic foot wounds (6) Hx pulmonary embolism Code(s): Z86.711 - PERSONAL HISTORY OF PULMONARY EMBOLISM Comment: - 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 - Resume Eliquis; will watch H&H closely (7) Hypertension Code(s): I10 - ESSENTIAL (PRIMARY) HYPERTENSION Comment: - Intermittent HTN - Start lisinopril (8) History of alcohol use Code(s): Z87.898 - PERSONAL HISTORY OF OTHER SPECIFIED CONDITIONS Comment: - [place] protocol (9) Peripheral arterial disease Code(s): I73.9 - PERIPHERAL VASCULAR DISEASE, UNSPECIFIED Comment: - Appreciate IR consult - No indication for revascularization or arteriography at this time (10) Bipolar disorder Code(s): F31.9 - BIPOLAR DISORDER, UNSPECIFIED Comment: - Not on a mood stablizer - Psych consult, likely Monday (11) DVT prophylaxis Code(s): Z29.9 - ENCOUNTER FOR PROPHYLACTIC MEASURES, UNSPECIFIED Comment: - Eliqius (12) Full code status Code(s): Z78.9 - OTHER SPECIFIED HEALTH STATUS Comment: Status and Disposition: Inpatient. Cleared for d/c by Ortho and ID. Anticipate d/c to [facility] on IV abx. Still awaiting PICC line placement. Attending: Johanna Simpson
[2019-12-28] MEDS: Lisinopril TAB* 5 MG PO SCH (10:27)
[2019-12-28] MEDS ORDERED: Vancomycin Trough Check NOTE FOLLOW UP ONE ×2 (11:30→23:00)
[2019-12-28] MEDS: Vancomycin(*) 750 MG in NS 0.9% 250 ML* 250 ML IVPB SCH ×2 (12:48→23:52)
--- NOTE | 2019-12-28 13:08 | PN ---
Progress Note - Progress Note Date of Service: 12/28/19 SOAP: Subjective: POD #2 Right 1st ray partial amputation. Pt also with left great toe wound. Doing well. Denies pain but grossly neuropathic to b/l feet. Denies CP/SOB, f/c. Objective: Vital Signs: Vital Signs Temp Pulse Resp BP Pulse Ox 97.9 F 79 16 169/75 96 12/28/19 11:21 12/28/19 11:21 12/28/19 11:21 12/28/19 11:21 12/28/19 11:21 Gen: A&Ox3, NAD at rest sitting in chair RLE: Dressing changed today. Incision C/D/I, distal aspect not close but no drainage/bleeding. +f/e at remaining toes, brisk cap refill. No sensation to toes but at baseline. Calf soft, NT LLE: Great toe with superficial wound, measuring about 2 cm x 4 cm round. + purulent drainage and mild surrounding erythema. No deep structures exposed. Labs: Laboratory Last Values WBC 11.8 10^3/uL (3.5-10.8) H 12/28/19 04:57 RBC 2.83 10^6 /uL (4.18-5.48) L 12/28/19 04:57 Hgb 8.1 g/dL (14.0-18.0) L 12/28/19 04:57 Hct 24 % (42-52) L 12/28/19 04:57 MCV 84 fL (80-94) 12/28/19 04:57 MCH 29 pg (27-31) 12/28/19 04:57 MCHC 34 g/dL (31-36) 12/28/19 04:57 RDW 14 % (10-15) 12/28/19 04:57 Plt Count 352 10^3/uL (150-450) 12/28/19 04:57 MPV 6.5 fL (7.4-10.4) L 12/28/19 04:57 Neut % (Auto) 76.0 % 12/28/19 04:57 Lymph % (Auto) 13.9 % 12/28/19 04:57 [place] % (Auto) 8.4 % 12/28/19 04:57 Eos % (Auto) 1.1 % 12/28/19 04:57 Baso % (Auto) 0.6 % 12/28/19 04:57 Absolute Neuts (auto) 9.0 10^3/ul (1.5-7.7) H 12/28/19 04:57 Absolute Lymphs (auto) 1.6 10^3/ul (1.0-4.8) 12/28/19 04:57 Absolute Monos (auto) 1.0 10^3/ul (0-0.8) H 12/28/19 04:57 Absolute Eos (auto) 0.1 10^3/ul (0-0.6) 12/28/19 04:57 Absolute Basos (auto) 0.1 10^3/ul (0-0.2) 12/28/19 04:57 Absolute Nucleated RBC 0.0 10^3/ul 12/28/19 04:57 Immature Gran % 2.0 % (0-9) 12/26/19 04:28 Neutrophils % 81.0 % 12/26/19 04:28 Band Neutrophils % 1.0 % (0-8) 12/26/19 04:28 Lymphocytes % 10.0 % 12/26/19 04:28 Reactive Lymphs % 2.0 % (0-6) 12/26/19 04:28 Monocytes % 4.0 % 12/26/19 04:28 Eosinophils % 1.0 % 12/26/19 04:28 Metamyelocytes % 1.0 % (0-2) 12/25/19 12:18 Myelocytes % 1.0 % (0-1) 12/26/19 04:28 Nucleated RBC % 0.0 12/28/19 04:57 Normal RBC Morphology Normal (Normal) 12/26/19 04:28 Hypochromasia 2+ 12/27/19 05:39 ESR > 120 mm/Hr (0-19) H 12/24/19 19:41 INR (Anticoag Therapy) 0.98 (0.82-1.09) 12/25/19 12:18 ABG pH 7.21 (7.35-7.45) L 12/24/19 22:36 ABG pCO2 12 mmHg (35-45) L* 12/24/19 22:36 ABG pO2 149 mmHg (80-100) H 12/24/19 22:36 ABG HCO3 9.0 mmol/L (19-31) L* 12/24/19 22:36 ABG O2 Saturation 99.4 % (94.0-98.0) H 12/24/19 22:36 ABG Base Excess -20.4 mmol/L (-2.0-2.0) L 12/24/19 22:36 VBG pH 7.17 (7.32-7.43) L 12/24/19 19:41 VBG pCO2 18 mmHg (41-51) L 12/24/19 19:41 VBG pO2 48.0 mmHg (35-45) H 12/24/19 19:41 VBG HCO3 8.9 mmol/L (24-28) L 12/24/19 19:41 VBG O2 Saturation 79.2 % (70-80) 12/24/19 19:41 VBG Base Excess -19.8 mmol/L (0.0-4.0) L 12/24/19 19:41 Sodium 134 mmol/L (135-145) L 12/28/19 04:57 Potassium 3.9 mmol/L (3.5-5.0) 12/28/19 04:57 Chloride 106 mmol/L (101-111) 12/28/19 04:57 Carbon Dioxide 24 mmol/L (22-32) 12/28/19 04:57 Anion Gap 4 mmol/L (2-11) 12/28/19 04:57 BUN 13 mg/dL (6-24) 12/28/19 04:57 Creatinine 0.73 mg/dL (0.67-1.17) 12/28/19 04:57 Est GFR ( Amer) 133.5 (>60) 12/28/19 04:57 Est GFR (Non-Af Amer) 110.4 (>60) 12/28/19 04:57 BUN/Creatinine Ratio 17.8 (8-20) 12/28/19 04:57 Glucose 86 mg/dL (70-100) 12/28/19 04:57 POC Glucose (mg/dL) 213 mg/dL (70-100) H 12/28/19 11:34 Glucose Meter Confirm 300 mg/dL (70-100) H 12/25/19 01:10 Hemoglobin A1c 17.8 % (4.0-5.6) H 12/25/19 00:20 Lactic Acid 0.9 mmol/L (0.5-2.0) 12/24/19 19:40 Calcium 7.6 mg/dL (8.6-10.3) L 12/28/19 04:57 Phosphorus 1.8 mg/dL (2.5-5.0) L 12/26/19 04:28 Magnesium 2.6 mg/dL (1.9-2.7) 12/26/19 04:28 Total Bilirubin 0.20 mg/dL (0.2-1.0) 12/24/19 19:41 AST 5 U/L (13-39) L 12/24/19 19:41 ALT 5 U/L (7-52) L 12/24/19 19:41 Alkaline Phosphatase 134 U/L (34-104) H 12/24/19 19:41 Ammonia 40 mcmol/L (16-53) 12/24/19 19:41 Troponin I 0.01 ng/mL (<0.03) 12/24/19 22:19 C-Reactive Protein 256.09 mg/L (<8.01) H 12/25/19 12:18 Total Protein 7.3 g/dL (6.4-8.9) 12/24/19 19:41 Albumin 2.8 g/dL (3.2-5.2) L 12/24/19 19:41 Globulin 4.5 g/dL (2-4) H 12/24/19 19:41 Albumin/Globulin Ratio 0.6 (1-3) L 12/24/19 19:41 TSH 2.83 mcIU/mL (0.34-5.60) 12/24/19 19:41 Free T4 0.91 ng/dL (0.61-1.12) 12/24/19 19:41 Urine Color Straw 12/24/19 20:55 Urine Appearance Clear 12/24/19 20:55 Urine pH 5.0 (5-9) 12/24/19 20:55 Ur Specific [place] 1.021 (1.010-1.030) 12/24/19 20:55 Urine Protein Negative (Negative) 12/24/19 20:55 Urine Ketones 2+ (Negative) A 12/24/19 20:55 Urine Blood 2+ (Negative) A 12/24/19 20:55 Urine Nitrate Negative (Negative) 12/24/19 20:55 Urine Bilirubin Negative (Negative) 12/24/19 20:55 Urine Urobilinogen Negative (Negative) 12/24/19 20:55 Ur Leukocyte Esterase Negative (Negative) 12/24/19 20:55 Urine WBC (Auto) Trace(0-5/hpf) (Absent) 12/24/19 20:55 Urine RBC (Auto) 1+(3-5/hpf) (Absent) A 12/24/19 20:55 Urine Bacteria Absent (Absent) 12/24/19 20:55 Ur Creatinine Concen 20.61 mg/dL 12/24/19 23:17 U Sodium Concentration < 18 mmol/L 12/24/19 23:17 Urine Glucose 3+(>=500 mg/dl) (Negative) A 12/24/19 20:55 Vancomycin Trough 18.0 mcg/mL 12/28/19 11:19 Salicylates < 2.50 mg/dL (<30) 12/24/19 19:41 Acetaminophen < 15 mcg/mL 12/24/19 19:41 Serum Alcohol < 10 mg/dL (<10) 12/24/19 19:41 Blood Type B Positive 12/24/19 19:40 Antibody Screen Negative 12/24/19 19:40 Microbiology 12/26/19 19:34 Wound Anaerobic Culture - Preliminary 12/26/19 19:34 Foot Right Skin and Soft Tissue MRSA/MSSA (PCR - Final Mrsa Positive S.aureus Positive 12/26/19 19:34 Foot Right Gram Stain - Final 12/26/19 19:34 Foot Right Wound Culture - Preliminary Strep Agalactiae - (Group B) 12/24/19 19:41 Blood Venous Aerobic Blood Culture - Preliminary No Growth Day 3 12/24/19 19:41 Blood Venous Anaerobic Blood Culture - Preliminary No Growth Day 3 12/24/19 19:41 Blood Venous Aerobic Blood Culture - Preliminary No Growth Day 3 12/24/19 19:41 Blood Venous Anaerobic Blood Culture - Preliminary No Growth Day 3 Assessment: POD #2 Right foot 1st ray partial amputation, left foot wound Plan: Betadine wet to dry dressing to left great toe, to be changed twice daily Surgical bandage intact to right foot changed today, will leave in place Heel WBAT RLE with post op shoe, consider switching to Darco boot or cam walker if continued non-compliance Abx per ID F/u with Dr. Lemons in 1 week post op Ok to d/c when medically stable
[2019-12-28] MEDS: Insulin GLARGINE(*) 1 UNITS UNIT SUBCUT SCH (21:13)
[2019-12-29 06:16] LABS: Hematocrit 21 % (42-52); Hemoglobin 7.3 g/dL (14.0-18.0); Mean Corpuscular HGB Conc 35 g/dL (31-36); Mean Corpuscular Hemoglobin 29 pg (27-31); Mean Corpuscular Volume 85 fL (80-94); Mean Platelet Volume 6.8 fL (7.4-10.4); Platelet Count 334 10^3/uL (150-450); Red Blood Count 2.47 10^6 /uL (4.18-5.48); Red Cell Distribution Width 14 % (10-15); White Blood Count 9.4 10^3/uL (3.5-10.8)
[2019-12-29 06:33] LABS: ABS Eosinophils 0.1 10^3/ul (0-0.6); ABS Lymphocytes 1.5 10^3/ul (1.0-4.8); ABS Monocytes 0.8 10^3/ul (0-0.8); ABS Neutrophils 6.9 10^3/ul (1.5-7.7); Eosinophil % 1.5 %; Lymphocyte % 15.7 %
[2019-12-29] MEDS: Insulin LISPRO* 1 UNITS UNIT SUBCUT SCH ×4 (08:31→20:48)
[2019-12-29] MEDS: Lisinopril TAB* 5 MG PO SCH (08:39)
[2019-12-29] MEDS: Multivitamins/Minerals TAB PO SCH (08:39)
[2019-12-29] MEDS: Ferrous Sulfate TAB* 325 MG PO SCH (08:39)
[2019-12-29] MEDS: Thiamine TAB* 100 MG TAB PO SCH (08:39)
[2019-12-29] MEDS: Apixaban* 5 MG TAB PO SCH (08:39)
[2019-12-29] MEDS: Pantoprazole IV* 40 MG IV SCH (08:40)
--- NOTE | 2019-12-29 10:10 | PN ---
Progress Note - Progress Note Date of Service: 12/29/19 SOAP: Subjective: POD #3 Right 1st ray partial amputation. Pt also with left great toe wound. Doing well. Denies pain but grossly neuropathic to b/l feet. Denies CP/SOB, f/c. Objective: Vital Signs: Vital Signs Temp Pulse Resp BP Pulse Ox 96.5 F 87 18 128/78 99 12/29/19 07:52 12/29/19 07:52 12/29/19 08:56 12/29/19 07:52 12/29/19 07:52 Gen: A&Ox3, NAD at rest sitting in chair RLE: Dressing changed today. Incision C/D/I, distal aspect not close but no drainage/bleeding. +f/e at remaining toes, brisk cap refill. No sensation to toes but at baseline. Calf soft, NT LLE: Great toe with superficial wound, measuring about 2 cm x 4 cm round. No purulent drainage, mild surrounding erythema. Improved from yesterday. No deep structures exposed. Labs: Laboratory Last Values WBC 9.4 10^3/uL (3.5-10.8) 12/29/19 05:54 RBC 2.47 10^6 /uL (4.18-5.48) L 12/29/19 05:54 Hgb 7.3 g/dL (14.0-18.0) L 12/29/19 05:54 Hct 21 % (42-52) L 12/29/19 05:54 MCV 85 fL (80-94) 12/29/19 05:54 MCH 29 pg (27-31) 12/29/19 05:54 MCHC 35 g/dL (31-36) 12/29/19 05:54 RDW 14 % (10-15) 12/29/19 05:54 Plt Count 334 10^3/uL (150-450) 12/29/19 05:54 MPV 6.8 fL (7.4-10.4) L 12/29/19 05:54 Neut % (Auto) 73.3 % 12/29/19 05:54 Lymph % (Auto) 15.7 % 12/29/19 05:54 [place] % (Auto) 9.0 % 12/29/19 05:54 Eos % (Auto) 1.5 % 12/29/19 05:54 Baso % (Auto) 0.5 % 12/29/19 05:54 Absolute Neuts (auto) 6.9 10^3/ul (1.5-7.7) 12/29/19 05:54 Absolute Lymphs (auto) 1.5 10^3/ul (1.0-4.8) 12/29/19 05:54 Absolute Monos (auto) 0.8 10^3/ul (0-0.8) 12/29/19 05:54 Absolute Eos (auto) 0.1 10^3/ul (0-0.6) 12/29/19 05:54 Absolute Basos (auto) 0.0 10^3/ul (0-0.2) 12/29/19 05:54 Absolute Nucleated RBC 0.0 10^3/ul 12/29/19 05:54 Immature Gran % 2.0 % (0-9) 12/26/19 04:28 Neutrophils % 81.0 % 12/26/19 04:28 Band Neutrophils % 1.0 % (0-8) 12/26/19 04:28 Lymphocytes % 10.0 % 12/26/19 04:28 Reactive Lymphs % 2.0 % (0-6) 12/26/19 04:28 Monocytes % 4.0 % 12/26/19 04:28 Eosinophils % 1.0 % 12/26/19 04:28 Metamyelocytes % 1.0 % (0-2) 12/25/19 12:18 Myelocytes % 1.0 % (0-1) 12/26/19 04:28 Nucleated RBC % 0.0 12/29/19 05:54 Normal RBC Morphology Normal (Normal) 12/26/19 04:28 Hypochromasia 2+ 12/27/19 05:39 ESR > 120 mm/Hr (0-19) H 12/24/19 19:41 INR (Anticoag Therapy) 0.98 (0.82-1.09) 12/25/19 12:18 ABG pH 7.21 (7.35-7.45) L 12/24/19 22:36 ABG pCO2 12 mmHg (35-45) L* 12/24/19 22:36 ABG pO2 149 mmHg (80-100) H 12/24/19 22:36 ABG HCO3 9.0 mmol/L (19-31) L* 12/24/19 22:36 ABG O2 Saturation 99.4 % (94.0-98.0) H 12/24/19 22:36 ABG Base Excess -20.4 mmol/L (-2.0-2.0) L 12/24/19 22:36 VBG pH 7.17 (7.32-7.43) L 12/24/19 19:41 VBG pCO2 18 mmHg (41-51) L 12/24/19 19:41 VBG pO2 48.0 mmHg (35-45) H 12/24/19 19:41 VBG HCO3 8.9 mmol/L (24-28) L 12/24/19 19:41 VBG O2 Saturation 79.2 % (70-80) 12/24/19 19:41 VBG Base Excess -19.8 mmol/L (0.0-4.0) L 12/24/19 19:41 Sodium 134 mmol/L (135-145) L 12/28/19 04:57 Potassium 3.9 mmol/L (3.5-5.0) 12/28/19 04:57 Chloride 106 mmol/L (101-111) 12/28/19 04:57 Carbon Dioxide 24 mmol/L (22-32) 12/28/19 04:57 Anion Gap 4 mmol/L (2-11) 12/28/19 04:57 BUN 13 mg/dL (6-24) 12/28/19 04:57 Creatinine 0.73 mg/dL (0.67-1.17) 12/28/19 04:57 Est GFR ( Amer) 133.5 (>60) 12/28/19 04:57 Est GFR (Non-Af Amer) 110.4 (>60) 12/28/19 04:57 BUN/Creatinine Ratio 17.8 (8-20) 12/28/19 04:57 Glucose 86 mg/dL (70-100) 12/28/19 04:57 POC Glucose (mg/dL) 251 mg/dL (70-100) H 12/28/19 20:45 Glucose Meter Confirm 300 mg/dL (70-100) H 12/25/19 01:10 Hemoglobin A1c 17.8 % (4.0-5.6) H 12/25/19 00:20 Lactic Acid 0.9 mmol/L (0.5-2.0) 12/24/19 19:40 Calcium 7.6 mg/dL (8.6-10.3) L 12/28/19 04:57 Phosphorus 1.8 mg/dL (2.5-5.0) L 12/26/19 04:28 Magnesium 2.6 mg/dL (1.9-2.7) 12/26/19 04:28 Total Bilirubin 0.20 mg/dL (0.2-1.0) 12/24/19 19:41 AST 5 U/L (13-39) L 12/24/19 19:41 ALT 5 U/L (7-52) L 12/24/19 19:41 Alkaline Phosphatase 134 U/L (34-104) H 12/24/19 19:41 Ammonia 40 mcmol/L (16-53) 12/24/19 19:41 Troponin I 0.01 ng/mL (<0.03) 12/24/19 22:19 C-Reactive Protein 256.09 mg/L (<8.01) H 12/25/19 12:18 Total Protein 7.3 g/dL (6.4-8.9) 12/24/19 19:41 Albumin 2.8 g/dL (3.2-5.2) L 12/24/19 19:41 Globulin 4.5 g/dL (2-4) H 12/24/19 19:41 Albumin/Globulin Ratio 0.6 (1-3) L 12/24/19 19:41 TSH 2.83 mcIU/mL (0.34-5.60) 12/24/19 19:41 Free T4 0.91 ng/dL (0.61-1.12) 12/24/19 19:41 Urine Color Straw 12/24/19 20:55 Urine Appearance Clear 12/24/19 20:55 Urine pH 5.0 (5-9) 12/24/19 20:55 Ur Specific [place] 1.021 (1.010-1.030) 12/24/19 20:55 Urine Protein Negative (Negative) 12/24/19 20:55 Urine Ketones 2+ (Negative) A 12/24/19 20:55 Urine Blood 2+ (Negative) A 12/24/19 20:55 Urine Nitrate Negative (Negative) 12/24/19 20:55 Urine Bilirubin Negative (Negative) 12/24/19 20:55 Urine Urobilinogen Negative (Negative) 12/24/19 20:55 Ur Leukocyte Esterase Negative (Negative) 12/24/19 20:55 Urine WBC (Auto) Trace(0-5/hpf) (Absent) 12/24/19 20:55 Urine RBC (Auto) 1+(3-5/hpf) (Absent) A 12/24/19 20:55 Urine Bacteria Absent (Absent) 12/24/19 20:55 Ur Creatinine Concen 20.61 mg/dL 12/24/19 23:17 U Sodium Concentration < 18 mmol/L 12/24/19 23:17 Urine Glucose 3+(>=500 mg/dl) (Negative) A 12/24/19 20:55 Vancomycin Trough 18.0 mcg/mL 12/28/19 11:19 Salicylates < 2.50 mg/dL (<30) 12/24/19 19:41 Acetaminophen < 15 mcg/mL 12/24/19 19:41 Serum Alcohol < 10 mg/dL (<10) 12/24/19 19:41 Blood Type B Positive 12/24/19 19:40 Antibody Screen Negative 12/24/19 19:40 Microbiology 12/24/19 19:41 Aerobic Blood Culture - Preliminary Blood Venous No Growth Day 4 Anaerobic Blood Culture - Preliminary No Growth Day 4 12/24/19 19:41 Aerobic Blood Culture - Preliminary Blood Venous No Growth Day 4 Anaerobic Blood Culture - Preliminary No Growth Day 4 12/26/19 19:34 Anaerobic Culture - Preliminary Wound 12/26/19 19:34 Skin and Soft Tissue MRSA/MSSA (PCR - Final Foot Right Mrsa Positive S.aureus Positive Gram Stain - Final Wound Culture - Preliminary Strep Agalactiae - (Group B) Assessment: POD #3 Right foot 1st ray partial amputation, left foot wound Plan: Betadine wet to dry dressing to left great toe, to be changed twice daily Surgical bandage intact to right foot, will leave in place Heel WBAT RLE with post op shoe, in Darco boot for non-compliance Abx per ID Hosp following H&H, pt currently asx F/u with Dr. Lemons in 1 week post op Ok to d/c when medically stable
[2019-12-29] MEDS: Enoxaparin(*) 40 MG/0.4 ML SYR SUBCUT SCH (12:19)
[2019-12-29] MEDS: Vancomycin(*) 750 MG in NS 0.9% 250 ML* 250 ML IVPB SCH ×2 (12:20→23:50)
--- NOTE | 2019-12-29 14:41 | PN ---
Subjective Date of Service: 12/29/19 Interval History: Mr. Perez feels well this morning. He offers no complaints. Pain has been well managed. He is interested in having more pain meds because he likes to feel "doped up" but admits he does not actually need additional pain management right now. Denies CP, SOB, dizziness, cough, N/V/D. No concerns from nursing. Family History: Unchanged from Admission Social History: Unchanged from Admission Past Medical History: Unchanged from Admission Objective Active Medications: Acetaminophen (Tylenol Tab*) 650 mg PO Q4H PRN PAIN - MILD Dextrose (D50w Syringe 50 Ml*) 12.5 gm IV PUSH .FOR FS < 60 - SS PRN FS < 60 Enoxaparin Sodium (Lovenox(*)) 40 mg SUBCUT Q24H [facility] Ferrous Sulfate (Ferrous Sulfate Tab*) 325 mg PO DAILY [facility] Vancomycin HCl 750 mg/ Sodium (Chloride) 250 mls @ 166.667 mls/hr IVPB Q12H [facility] Insulin Glargine (Lantus(*)) 18 units SUBCUT BEDTIME [facility] Insulin Human Lispro (Humalog*) 0 units SUBCUT FS ACHS ICU DANIEL; Protocol Lisinopril (Prinivil Tab*) 5 mg PO DAILY [facility] Multivitamins/Minerals (Theragran/Minerals Tab*) 1 tab PO DAILY [facility] Ondansetron HCl (Zofran Inj*) 4 mg IV Q6H PRN NAUSEA Pantoprazole Sodium (Protonix Iv*) 40 mg IV BID [facility] Thiamine HCl (Vitamin B-1 Tab*) 100 mg PO DAILY [facility] Vital Signs - 8 hr 12/29/19 12/29/19 12/29/19 07:52 08:56 11:42 Temperature 96.5 F 96.8 F Pulse Rate 87 88 Respiratory 17 18 17 Rate Blood Pressure 128/78 138/76 (mmHg) O2 Sat by Pulse 99 98 Oximetry Oxygen Devices in Use Now: None Appearance: WDWN middle-aged male sitting in bed in NAD Ears/Nose/Mouth/Throat: Mucous Membranes Moist Neck: NL Appearance and Movements; NL JVP, Trachea Midline Respiratory: Symmetrical Chest Expansion and Respiratory Effort, Clear to Auscultation Cardiovascular: NL Sounds; No Murmurs; No JVD, RRR Abdominal: NL Sounds; No Tenderness; No Distention Neurological: Alert and Oriented x 3 Lines/Tubes/Other Access: Clean, Dry and Intact Peripheral IV Nutrition: Taking PO's Result Diagrams: 12/29/19 05:54 12/28/19 04:57 Assess/Plan/Problems-Billing Assessment: Mr. Perez is a 59 yo M with PMH of DVT/PE, uncontrolled DM2, bipolar, PAD, alcohol abuse; presented to the ED with c/o emesis and weakness and was found to be in DKA, have bilat foot ulcers, and anemic, requiring admission to ICU. Transferred to floor 12/26/19. - Patient Problems (1) Osteomyelitis of great toe of right foot Code(s): M86.9 - OSTEOMYELITIS, UNSPECIFIED Comment: - S/p ray amputation, POD #3 - Ortho following - Appreciate ID consult; recommends 6 weeks BID vanco - Needs PICC line placement - Continue vanco (day ) (2) DKA (diabetic ketoacidoses) Code(s): E11.10 - TYPE 2 DIABETES MELLITUS WITH KETOACIDOSIS WITHOUT COMA Comment: - Longstanding history of uncontrolled DM with A1c 17.8 - Patient admits to not taking medications at home d/t depression - BG improving - Continue Lispro SS, Lantus (3) Anemia Code(s): D64.9 - ANEMIA, UNSPECIFIED Comment: - Asymptomatic - Previously iron deficient and H&H is consistent with results from September; suspect also some component of AOCD - Stool occult positive (x2), but no BRBPR; ? PUD - H&H was stable on DVT prophylaxis, but dropped when restarted on Eliqius, so now back down to prophylactic Lovenox - Appreciate GI consut - Will transfuse for Hgb < 7 - Continue pantoprazole BID (4) Diabetic ulcer of lower extremity Code(s): E11.622 - TYPE 2 DIABETES MELLITUS WITH OTHER SKIN ULCER; L97.909 - NON -PRS CHRONIC ULC UNSP PRT OF UNSP LOW LEG W UNSP SEVERITY Comment: - LLE - Will need referral to [facility] at discharge - Continue vanco (5) Sepsis Comment: - Resolved - Present on admission with leukocytosis, tachycardia, tachypnea; source is bilat diabetic foot wounds (6) Hx pulmonary embolism Code(s): Z86.711 - PERSONAL HISTORY OF PULMONARY EMBOLISM Comment: - Recurrent DVT/PE, on lifelong anticoagulation - H&H dropped when restarted on Eliquis, so will back down to prophylactic Lovenox though this is certainly not ideal - Continue Lovenox (7) Hypertension Code(s): I10 - ESSENTIAL (PRIMARY) HYPERTENSION Comment: - Normotensive - Continue lisinopril (8) History of alcohol use Code(s): Z87.898 - PERSONAL HISTORY OF OTHER SPECIFIED CONDITIONS Comment: - WAM d/c'd (9) Peripheral arterial disease Code(s): I73.9 - PERIPHERAL VASCULAR DISEASE, UNSPECIFIED Comment: - Appreciate IR consult; no indication for revascularization or arteriography at this time (10) Bipolar disorder Code(s): F31.9 - BIPOLAR DISORDER, UNSPECIFIED Comment: - Not on a mood stablizer, but mood has been stable - Should have outpatient follow up with Psych (11) DVT prophylaxis Code(s): Z29.9 - ENCOUNTER FOR PROPHYLACTIC MEASURES, UNSPECIFIED Comment: - Lovenox (12) Full code status Code(s): Z78.9 - OTHER SPECIFIED HEALTH STATUS Comment: Status and Disposition: Inpatient. Cleared for d/c by Ortho and ID. Anticipate d/c to [facility] on IV abx. Still awaiting PICC line placement. Attending: Johanna Simpson
[2019-12-29] MEDS: Pantoprazole TAB * 40 MG TAB PO SCH (20:31)
[2019-12-29] MEDS: Insulin GLARGINE(*) 1 UNITS UNIT SUBCUT SCH (20:48)
[2019-12-30 04:56] LABS: Hematocrit 22 % (42-52); Hemoglobin 7.8 g/dL (14.0-18.0); Mean Corpuscular HGB Conc 36 g/dL (31-36); Mean Corpuscular Hemoglobin 30 pg (27-31); Mean Corpuscular Volume 85 fL (80-94); Mean Platelet Volume 6.6 fL (7.4-10.4); Platelet Count 394 10^3/uL (150-450); Red Blood Count 2.58 10^6 /uL (4.18-5.48); Red Cell Distribution Width 14 % (10-15); White Blood Count 8.6 10^3/uL (3.5-10.8)
[2019-12-30 05:13] LABS: ABS Eosinophils 0.2 10^3/ul (0-0.6); ABS Lymphocytes 1.7 10^3/ul (1.0-4.8); ABS Monocytes 1.1 10^3/ul (0-0.8); ABS Neutrophils 5.6 10^3/ul (1.5-7.7); Eosinophil % 2.3 %; Lymphocyte % 20.2 %
[2019-12-30] MEDS: Insulin LISPRO* 1 UNITS UNIT SUBCUT SCH ×4 (08:46→20:57)
[2019-12-30] MEDS ORDERED: Furosemide IV* 10 MG/ML 2 ML VIAL (20 MG) IV SLOW PU ONE (08:53)
[2019-12-30] MEDS ORDERED: Midazolam* 1 MG/ML 10 ML VIAL (10 MG) ONE (09:42)
[2019-12-30] MEDS ORDERED: fentaNYL* 50 MCG/ML 2 ML VIAL (100 MCG VIAL) ONE (09:42)
--- NOTE | 2019-12-30 10:04 | PN ---
Progress Note - Progress Note Date of Service: 12/30/19 SOAP: Subjective: []Patient seen and examined at bedside. He feels well without CP, SOB, dizziness or nausea. Objective: []Gen: NAD RLE: Right foot dressing CDI, no erythema proximally LLE: Great toe with superficial wound, granulation tissue at the base without slough or purulence, measuring about 2 cm x 4 cm. no surrounding erythema. No deep structures exposed. Insensate, cap refill less than two seconds distally. Assessment: []POD #4 Right foot 1st ray partial amputation, left foot wound Plan: Betadine wet to dry dressing to left great toe, to be changed twice daily Surgical bandage intact to right foot, will leave in place Heel WBAT RLE with post op shoe, in Darco boot for non-compliance Abx per ID Hosp following H&H, pt currently asx F/u with Dr. Lemons in 1 week post op Ok to d/c when medically stable Vital Signs Temp 97.8 F 12/30/19 08:27 Pulse 87 12/30/19 08:27 Resp 18 12/30/19 08:27 BP 147/80 12/30/19 08:27 Pulse Ox 97 12/30/19 08:27 Intake & Output 12/29/19 12/30/19 12/30/19 18:59 06:59 18:59 Intake Total 587 1155 Output Total 300 500 380 Balance 287 655 -380 Intake: IVPB 275 ABX - VANCOMYCIN 275 Oral 587 880 Output: Urine 300 500 380 Other: # Bowel Movements 1 Estimated Stool Amount Small # Voids 2 Laboratory Last Values WBC 8.6 10^3/uL (3.5-10.8) 12/30/19 04:21 RBC 2.58 10^6 /uL (4.18-5.48) L 12/30/19 04:21 Hgb 7.8 g/dL (14.0-18.0) L 12/30/19 04:21 Hct 22 % (42-52) L 12/30/19 04:21 MCV 85 fL (80-94) 12/30/19 04:21 MCH 30 pg (27-31) 12/30/19 04:21 MCHC 36 g/dL (31-36) 12/30/19 04:21 RDW 14 % (10-15) 12/30/19 04:21 Plt Count 394 10^3/uL (150-450) 12/30/19 04:21 MPV 6.6 fL (7.4-10.4) L 12/30/19 04:21 Neut % (Auto) 64.7 % 12/30/19 04:21 Lymph % (Auto) 20.2 % 12/30/19 04:21 [place] % (Auto) 12.5 % 12/30/19 04:21 Eos % (Auto) 2.3 % 12/30/19 04:21 Baso % (Auto) 0.3 % 12/30/19 04:21 Absolute Neuts (auto) 5.6 10^3/ul (1.5-7.7) 12/30/19 04:21 Absolute Lymphs (auto) 1.7 10^3/ul (1.0-4.8) 12/30/19 04:21 Absolute Monos (auto) 1.1 10^3/ul (0-0.8) H 12/30/19 04:21 Absolute Eos (auto) 0.2 10^3/ul (0-0.6) 12/30/19 04:21 Absolute Basos (auto) 0.0 10^3/ul (0-0.2) 12/30/19 04:21 Absolute Nucleated RBC 0.0 10^3/ul 12/30/19 04:21 Immature Gran % 2.0 % (0-9) 12/26/19 04:28 Neutrophils % 81.0 % 12/26/19 04:28 Band Neutrophils % 1.0 % (0-8) 12/26/19 04:28 Lymphocytes % 10.0 % 12/26/19 04:28 Reactive Lymphs % 2.0 % (0-6) 12/26/19 04:28 Monocytes % 4.0 % 12/26/19 04:28 Eosinophils % 1.0 % 12/26/19 04:28 Metamyelocytes % 1.0 % (0-2) 12/25/19 12:18 Myelocytes % 1.0 % (0-1) 12/26/19 04:28 Nucleated RBC % 0.0 12/30/19 04:21 Normal RBC Morphology Normal (Normal) 12/26/19 04:28 Hypochromasia 2+ 12/27/19 05:39 ESR > 120 mm/Hr (0-19) H 12/24/19 19:41 INR (Anticoag Therapy) 0.98 (0.82-1.09) 12/25/19 12:18 ABG pH 7.21 (7.35-7.45) L 12/24/19 22:36 ABG pCO2 12 mmHg (35-45) L* 12/24/19 22:36 ABG pO2 149 mmHg (80-100) H 12/24/19 22:36 ABG HCO3 9.0 mmol/L (19-31) L* 12/24/19 22:36 ABG O2 Saturation 99.4 % (94.0-98.0) H 12/24/19 22:36 ABG Base Excess -20.4 mmol/L (-2.0-2.0) L 12/24/19 22:36 VBG pH 7.17 (7.32-7.43) L 12/24/19 19:41 VBG pCO2 18 mmHg (41-51) L 12/24/19 19:41 VBG pO2 48.0 mmHg (35-45) H 12/24/19 19:41 VBG HCO3 8.9 mmol/L (24-28) L 12/24/19 19:41 VBG O2 Saturation 79.2 % (70-80) 12/24/19 19:41 VBG Base Excess -19.8 mmol/L (0.0-4.0) L 12/24/19 19:41 Sodium 134 mmol/L (135-145) L 12/28/19 04:57 Potassium 3.9 mmol/L (3.5-5.0) 12/28/19 04:57 Chloride 106 mmol/L (101-111) 12/28/19 04:57 Carbon Dioxide 24 mmol/L (22-32) 12/28/19 04:57 Anion Gap 4 mmol/L (2-11) 12/28/19 04:57 BUN 13 mg/dL (6-24) 12/28/19 04:57 Creatinine 0.73 mg/dL (0.67-1.17) 12/28/19 04:57 Est GFR ( Amer) 133.5 (>60) 12/28/19 04:57 Est GFR (Non-Af Amer) 110.4 (>60) 12/28/19 04:57 BUN/Creatinine Ratio 17.8 (8-20) 12/28/19 04:57 Glucose 86 mg/dL (70-100) 12/28/19 04:57 POC Glucose (mg/dL) 148 mg/dL (70-100) H 12/30/19 08:22 Glucose Meter Confirm 300 mg/dL (70-100) H 12/25/19 01:10 Hemoglobin A1c 17.8 % (4.0-5.6) H 12/25/19 00:20 Lactic Acid 0.9 mmol/L (0.5-2.0) 12/24/19 19:40 Calcium 7.6 mg/dL (8.6-10.3) L 12/28/19 04:57 Phosphorus 1.8 mg/dL (2.5-5.0) L 12/26/19 04:28 Magnesium 2.6 mg/dL (1.9-2.7) 12/26/19 04:28 Total Bilirubin 0.20 mg/dL (0.2-1.0) 12/24/19 19:41 AST 5 U/L (13-39) L 12/24/19 19:41 ALT 5 U/L (7-52) L 12/24/19 19:41 Alkaline Phosphatase 134 U/L (34-104) H 12/24/19 19:41 Ammonia 40 mcmol/L (16-53) 12/24/19 19:41 Troponin I 0.01 ng/mL (<0.03) 12/24/19 22:19 C-Reactive Protein 256.09 mg/L (<8.01) H 12/25/19 12:18 Total Protein 7.3 g/dL (6.4-8.9) 12/24/19 19:41 Albumin 2.8 g/dL (3.2-5.2) L 12/24/19 19:41 Globulin 4.5 g/dL (2-4) H 12/24/19 19:41 Albumin/Globulin Ratio 0.6 (1-3) L 12/24/19 19:41 TSH 2.83 mcIU/mL (0.34-5.60) 03/17/20 19:41 Free T4 0.91 ng/dL (0.61-1.12) 12/24/19 19:41 Urine Color Straw 12/24/19 20:55 Urine Appearance Clear 12/24/19 20:55 Urine pH 5.0 (5-9) 12/24/19 20:55 Ur Specific [place] 1.021 (1.010-1.030) 12/24/19 20:55 Urine Protein Negative (Negative) 12/24/19 20:55 Urine Ketones 2+ (Negative) A 12/24/19 20:55 Urine Blood 2+ (Negative) A 12/24/19 20:55 Urine Nitrate Negative (Negative) 12/24/19 20:55 Urine Bilirubin Negative (Negative) 12/24/19 20:55 Urine Urobilinogen Negative (Negative) 12/24/19 20:55 Ur Leukocyte Esterase Negative (Negative) 12/24/19 20:55 Urine WBC (Auto) Trace(0-5/hpf) (Absent) 12/24/19 20:55 Urine RBC (Auto) 1+(3-5/hpf) (Absent) A 12/24/19 20:55 Urine Bacteria Absent (Absent) 12/24/19 20:55 Ur Creatinine Concen 20.61 mg/dL 12/24/19 23:17 U Sodium Concentration < 18 mmol/L 12/24/19 23:17 Urine Glucose 3+(>=500 mg/dl) (Negative) A 12/24/19 20:55 Vancomycin Trough 18.0 mcg/mL 12/28/19 11:19 Salicylates < 2.50 mg/dL (<30) 12/24/19 19:41 Acetaminophen < 15 mcg/mL 12/24/19 19:41 Serum Alcohol < 10 mg/dL (<10) 12/24/19 19:41 Blood Type B Positive 12/24/19 19:40 Antibody Screen Negative 12/24/19 19:40
--- NOTE | 2019-12-30 10:20 | CONS ---
CC: Dr. Nick Brothers DATE OF CONSULTATION: 12/30/2019. REQUESTING PROVIDER: Ramon Duvall NP. PRIMARY CARE PHYSICIAN: Dr. Nick Brothers. INDICATION: Anemia. HISTORY OF PRESENT ILLNESS: Mr. Perez is a very pleasant, 59-year-old gentleman who was admitted on the for DKA and nonhealing lower extremity wounds. The patient initially presented with a gl ucose of 857 and has been seen by Orthopedic Services for his lower extremity wounds. With regards t o his GI tract, the patient states that he has been having issues with his gallbladder for many years . He states that the issues are right upper quadrant pain. He has seen a general surgeon who has re commended surgery, but would like him to get his diabetes under better control first. The patient st ates that he also vomits at least once her week. The vomitus is black and coffee ground. He states that he did throw up a couple of days ago, there were coffee grounds. He did throw up in the emergen cy room and it appeared to be coffee grounds. He does take a large amount of ibuprofen, two tablets every day for many months. He takes this because of his "gallbladder pain." He has never had GI ble eding in the past. No family history of gastrointestinal bleeding. Currently, he states that he alaniz s have mild abdominal discomfort. His stools are not black. He is hungry. He has been NPO since night. PAST MEDICAL HISTORY: Significant for bipolar, right upper quadrant pain, diabetes, history of DVT a nd PE, was supposed to be on Eliquis, however he does not take, peripheral artery disease. MEDICATIONS AT HOME: Metformin, Glipizide, Eliquis, insulin, however there is a fair amount of nonco mpliance. ALLERGIES: None. FAMILY HISTORY: Positive for diabetes in his father. No GI malignancies in the family. REVIEW OF SYSTEMS: Twelve systems were reviewed. Other than that mentioned in the HPI were unremark able. PHYSICAL EXAM: General: Chronically ill-appearing male, sitting upright in a chair. Alert, oriente d, pleasant, fluent. Vital Signs: Temperature is 97.8, blood pressure is 147/80, heart rate 87, res piratory rate 18, O2 sat is 97 percent. HEENT: Dentition is poor. Mucus membranes are moist without lesions, ulcers, or exudate. Neck: Supple. Trachea is midline. Heart: Regular rate and rhythm. No murmurs, rubs or gallops. Lungs: Clear to auscultation bilaterally. No wheezes, rales or rhonc hi. Good air movement. Abdomen: Positive bowel sounds, soft, mild epigastric and right upper quadr ant tenderness. No rebound, no guarding, no hepatosplenomegaly or masses. Flanks are not dull. Ski n: Warm and dry. I did not look at his lower extremity wounds as they are bandaged. No evidence of spider angiomata. Psych: Normal affect. Good insight. Good judgment. Neuro: No asterixis. Goo d upper extremity handgrip strength. Musculoskeletal: No CVA or spinal tenderness to palpation. DIAGNOSTIC STUDIES/LAB DATA: Labs of note: White count of 8.6, down from 23.2. Hemoglobin has gone from 9 to 8.1 to 8.5 to 8.1 to 7.3 to 7.8. Platelets of 394. INR is 0.98. BUN when last checked on the was 13. Creatinine was normal at 0.73. RADIOLOGY DATA: He does have a lower extremity MRI which revealed distal phalanx of the great toe ed natalie and irregular bone marrow replacement consistent with osteomyelitis. ASSESSMENT AND PLAN: This is a pleasant, 59-year-old gentleman admitted with diabetic ketoacidosis a nd treatment for osteomyelitis who also was found to have anemia and hematemesis. Possible etiologie s would include erosive esophagitis, peptic ulcer disease from his nonsteroidal use, gastritis. At t his point, I have recommended an upper endoscopy. He has already been started on a PPI. He is avoid ing NSAID's. I will make arrangements for an upper endoscopy to evaluate for the above, namely pepti c ulcer disease. We will also biopsy for H. pylori. We will continue to follow along. [id number]/[facility] #: [id number]
--- NOTE | 2019-12-30 10:32 | PN ---
Progress Note - Progress Note Date of Service: 12/30/19 Note: EGD procedure note: 50mcg IV fent, 6 mg IV versed E---->no EE G--->2 small nonbleeding ulcers in cardia, hpylori bx D--->bx for celiac Gastric ulcers, likely NSAID effect PPI, avoid NSAIDS, monitor hgb will follow, advance diet Rommel Ferrari MD [facility]
--- NOTE | 2019-12-30 11:12 | PN ---
Subjective Date of Service: 12/30/19 Interval History: Mr. Perez is feeling well today. He walked with PT this morning and was feeling good about that. No significant foot pain. Denies CP, SOB, cough, N/V, abdominal pain. He admits that he was not taking his AC for a few months because he thought his doctor told him he would need some sort of procedure. No concerns from nursing. Family History: Unchanged from Admission Social History: Unchanged from Admission Past Medical History: Unchanged from Admission Objective Active Medications: Acetaminophen (Tylenol Tab*) 650 mg PO Q4H PRN PAIN - MILD Dextrose (D50w Syringe 50 Ml*) 12.5 gm IV PUSH .FOR FS < 60 - SS PRN FS < 60 Enoxaparin Sodium (Lovenox(*)) 40 mg SUBCUT Q24H [facility] Ferrous Sulfate (Ferrous Sulfate Tab*) 325 mg PO DAILY [facility] Vancomycin HCl 750 mg/ Sodium (Chloride) 250 mls @ 166.667 mls/hr IVPB Q12H [facility] Insulin Glargine (Lantus(*)) 18 units SUBCUT BEDTIME [facility] Insulin Human Lispro (Humalog*) 0 units SUBCUT FS ACHS ICU [facility]; Protocol Lisinopril (Prinivil Tab*) 5 mg PO DAILY [facility] Multivitamins/Minerals (Theragran/Minerals Tab*) 1 tab PO DAILY [facility] Ondansetron HCl (Zofran Inj*) 4 mg IV Q6H PRN NAUSEA Pantoprazole Sodium (Protonix Tab*) 40 mg PO BID [facility] Thiamine HCl (Vitamin B-1 Tab*) 100 mg PO DAILY [facility] Vital Signs - 8 hr 12/30/19 12/30/19 03:20 08:27 Temperature 98.3 F 97.8 F Pulse Rate 86 87 Respiratory 16 18 Rate Blood Pressure 145/80 147/80 (mmHg) O2 Sat by Pulse 99 97 Oximetry Oxygen Devices in Use Now: None Appearance: Middle-aged male sitting in chair in NAD Ears/Nose/Mouth/Throat: Mucous Membranes Moist Neck: NL Appearance and Movements; NL JVP, Trachea Midline Respiratory: Symmetrical Chest Expansion and Respiratory Effort, Clear to Auscultation Cardiovascular: NL Sounds; No Murmurs; No JVD, RRR Abdominal: NL Sounds; No Tenderness; No Distention Extremities: - - +2 LLE, unable to completely assess RLE Neurological: Alert and Oriented x 3 Lines/Tubes/Other Access: Clean, Dry and Intact Peripheral IV Nutrition: Taking PO's Result Diagrams: 12/31/19 05:20 12/31/19 05:39 Assess/Plan/Problems-Billing Assessment: Mr. Perez is a 59 yo M with PMH of DVT/PE, uncontrolled DM2, bipolar, PAD, alcohol abuse; presented to the ED with c/o emesis and weakness and was found to be in DKA, have bilat foot ulcers, and anemic, requiring admission to ICU. Transferred to floor 12/26/19. - Patient Problems (1) Osteomyelitis of great toe of right foot Code(s): M86.9 - OSTEOMYELITIS, UNSPECIFIED Comment: - S/p ray amputation, POD #4 - Ortho following - Appreciate ID consult; recommends 6 weeks BID vanco - Awaiting PICC line placement, hopefully today - Continue vanco (day ) (2) DKA (diabetic ketoacidoses) Code(s): E11.10 - TYPE 2 DIABETES MELLITUS WITH KETOACIDOSIS WITHOUT COMA Comment: - Longstanding history of uncontrolled DM with A1c 17.8 - Patient admits to not taking medications at home d/t depression - BG improving - Continue Lispro SS, Lantus; resume glipizide (3) Anemia Code(s): D64.9 - ANEMIA, UNSPECIFIED Comment: - Asymptomatic - Previously iron deficient and H&H is consistent with results from September; suspect also some component of AOCD - Stool occult positive (x2), but no BRBPR; ? PUD - H&H was stable on DVT prophylaxis, but dropped when restarted on Eliqius - Appreciate GI consut - EGD today showing 2 small non-bleeding ulcers - Will transfuse for Hgb < 7 - No NSAIDS - Continue pantoprazole BID; restart Eliquis tonight as there is no active bleeding (4) Diabetic ulcer of lower extremity Code(s): E11.622 - TYPE 2 DIABETES MELLITUS WITH OTHER SKIN ULCER; L97.909 - NON -PRS CHRONIC ULC UNSP PRT OF UNSP LOW LEG W UNSP SEVERITY Comment: - LLE - Will need referral to [facility] at discharge - Continue vanco (5) Sepsis Comment: - Resolved - Present on admission with leukocytosis, tachycardia, tachypnea; source is bilat diabetic foot wounds (6) Hx pulmonary embolism Code(s): Z86.711 - PERSONAL HISTORY OF PULMONARY EMBOLISM Comment: - Recurrent DVT/PE, on lifelong anticoagulation - H&H dropped when restarted on Eliquis, so will back down to prophylactic Lovenox though this is certainly not ideal - Continue Lovenox; restart Eliqius tonight as there is no active bleeding (7) Hypertension Code(s): I10 - ESSENTIAL (PRIMARY) HYPERTENSION Comment: - Normotensive - Continue lisinopril (8) History of alcohol use Code(s): Z87.898 - PERSONAL HISTORY OF OTHER SPECIFIED CONDITIONS Comment: - WAM d/c'd (9) Peripheral arterial disease Code(s): I73.9 - PERIPHERAL VASCULAR DISEASE, UNSPECIFIED Comment: - Appreciate IR consult; no indication for revascularization or arteriography at this time (10) Bipolar disorder Code(s): F31.9 - BIPOLAR DISORDER, UNSPECIFIED Comment: - Not on a mood stablizer, but mood has been stable - Should have outpatient follow up with Psych (11) DVT prophylaxis Code(s): Z29.9 - ENCOUNTER FOR PROPHYLACTIC MEASURES, UNSPECIFIED Comment: - Lovenox (12) Full code status Code(s): Z78.9 - OTHER SPECIFIED HEALTH STATUS Comment: Status and Disposition: Inpatient. Cleared for d/c by Ortho and ID. Anticipate d/c to [facility] on IV abx once Hgb is stable. Still awaiting PICC line placement. Attending: Johanna Simpson
--- NOTE | 2019-12-30 11:33 | PN ---
Progress Note - Progress Note Date of Service: 12/30/19 SOAP: Subjective: CC: Right 1st toe osteomyelitis HPI: Mr. Perez is a 59 yo male with PMH significant for bilateral LE peripheral neuropathy, hx DVT/PE, uncontrolled DM2, Bipolar disorder, chronic ABD pain, PAD; who presented to the hospital with fatigue and weakness and was found to have bilateral foot wounds. Denies fever, chills, nausea, vomiting, or diarrhea. He reports some constipation. Has pain in bilateral feet. Objective: Vital Signs - 8 hr 12/30/19 08:27 Temperature 97.8 F Pulse Rate 87 Respiratory 18 Rate Blood Pressure 147/80 (mmHg) O2 Sat by Pulse 97 Oximetry Physical Exam: General: NAD, sitting up in a chair Neurological: Alert and Oriented HEENT: Moist MM Cardiovascular: Heart rate regular Respiratory: Lung sounds clear Abdominal: Bowel sounds present; ABD soft, non tender and non distended MSK: [place]. Bilateral LEs insensate Skin: No rash. Surgical DSG to right foot. Left 1st toe with large area of granulation tissue on the dorsal aspect, scant drainage and the surrounding skin is intact Laboratory Results - last 24 hr 12/29/19 12/30/19 12/30/19 20:31 04:21 08:22 WBC 8.6 RBC 2.58 L Hgb 7.8 L Hct 22 L MCV 85 MCH 30 MCHC 36 RDW 14 Plt Count 394 MPV 6.6 L Neut % (Auto) 64.7 Lymph % (Auto) 20.2 Lyon % (Auto) 12.5 Eos % (Auto) 2.3 Baso % (Auto) 0.3 Absolute Neuts (auto) 5.6 Absolute Lymphs (auto) 1.7 Absolute Monos (auto) 1.1 H Absolute Eos (auto) 0.2 Absolute Basos (auto) 0.0 Absolute Nucleated RBC 0.0 Nucleated RBC % 0.0 POC Glucose (mg/dL) 154 H 148 H Microbiology 12/26/19 19:34 Anaerobic Culture - Final Wound 12/26/19 19:34 Skin and Soft Tissue MRSA/MSSA (PCR - Final Foot Right Mrsa Positive S.aureus Positive Gram Stain - Final Wound Culture - Preliminary Strep Agalactiae - (Group B) Staphylococcus Aureus YEAST 12/24/19 19:41 Aerobic Blood Culture - Final Blood Venous No Growth Day 5 Anaerobic Blood Culture - Final No Growth Day 5 12/24/19 19:41 Aerobic Blood Culture - Final Blood Venous No Growth Day 5 Anaerobic Blood Culture - Final No Growth Day 5 12/29/19 12:10 Stool Occult Blood ([place]) - Final Stool 12/24/19 20:55 Urine Culture - Final Urine MRSA Normal Ruby 12/24/19 19:13 Stool Occult Blood ([place]) - Final Stool Assessment: 1. Right 1st toe chronic osteomyelitis. Wound has been present since September 2019. Previous cultures with MRSA and Group B strep. MRI with edema in the distal phalanx of the 1st toe. S/P right 1st ray amputation on 12/26/19. Surgical pathology pending at this time. Blood cultures with no growth to date. Wound culture with Group B strep, MRSA, and yeast. Afebrile and no leukocytosis. 2. Chronic left 1st toe wound, suspect chronic osteomyelitis. Wound has been present since September 2019. Previous wound culture with MRSA. MRI with " appears to be bone marrow edema in the distal phalanx of the great toe, suggestive of osteomyelitis. 3. Uncontrolled DM2. 4. PAD. S/P angioplasty left LE 09/2019. Plan: Continue Vancomycin, trough goal 15-20. Day . He will need to have a PICC line placed. Weekly labs while on IV ABX: CBC, CMP, CRP and vanco trough. Followup with ID outpatient 2 weeks.
[2019-12-30] MEDS: Enoxaparin(*) 40 MG/0.4 ML SYR SUBCUT SCH (11:37)
[2019-12-30] MEDS: glipiZIDE TAB* 5 MG PO SCH (11:38)
[2019-12-30] MEDS: Multivitamins/Minerals TAB PO SCH (11:39)
[2019-12-30] MEDS: Thiamine TAB* 100 MG TAB PO SCH (11:39)
[2019-12-30] MEDS: Pantoprazole TAB * 40 MG TAB PO SCH ×2 (11:39→20:08)
[2019-12-30] MEDS: Lisinopril TAB* 5 MG PO SCH (11:39)
[2019-12-30] MEDS: Ferrous Sulfate TAB* 325 MG PO SCH (11:39)
[2019-12-30] MEDS: Vancomycin(*) 750 MG in NS 0.9% 250 ML* 250 ML IVPB SCH ×2 (12:00→23:39)
[2019-12-30] MEDS: Insulin GLARGINE(*) 1 UNITS UNIT SUBCUT SCH (20:48)
[2019-12-30] MEDS ORDERED: Apixaban* 5 MG TAB PO SCH ×2 (21:00)
[2019-12-31 05:35] LABS: Hematocrit 20 % (42-52); Hemoglobin 6.9 g/dL (14.0-18.0); Mean Corpuscular HGB Conc 34 g/dL (31-36); Mean Corpuscular Hemoglobin 29 pg (27-31); Mean Corpuscular Volume 85 fL (80-94); Mean Platelet Volume 6.2 fL (7.4-10.4); Platelet Count 420 10^3/uL (150-450); Red Blood Count 2.36 10^6 /uL (4.18-5.48); Red Cell Distribution Width 14 % (10-15); White Blood Count 8.1 10^3/uL (3.5-10.8)
[2019-12-31 06:02] LABS: EGFR African American 92.9 (>60); EGFR Non-African American 76.7 (>60)
[2019-12-31 06:20] LABS: Vancomycin Trough 25.3 mcg/mL
[2019-12-31 07:31] LABS: ABS Eosinophils 0.2 10^3/ul (0-0.6); ABS Lymphocytes 1.3 10^3/ul (1.0-4.8); ABS Monocytes 1.3 10^3/ul (0-0.8); ABS Neutrophils 5.4 10^3/ul (1.5-7.7); Eosinophil % 2.2 %; Lymphocyte % 15.6 %
[2019-12-31] MEDS: Insulin LISPRO* 1 UNITS UNIT SUBCUT SCH ×4 (08:50→21:30)
[2019-12-31] MEDS: Pantoprazole TAB * 40 MG TAB PO SCH ×2 (08:50→21:31)
[2019-12-31] MEDS: Thiamine TAB* 100 MG TAB PO SCH (08:50)
[2019-12-31] MEDS: Enoxaparin(*) 40 MG/0.4 ML SYR SUBCUT SCH (08:50)
[2019-12-31] MEDS: Ferrous Sulfate TAB* 325 MG PO SCH (08:51)
[2019-12-31] MEDS: Lisinopril TAB* 5 MG PO SCH (08:51)
[2019-12-31] MEDS: glipiZIDE TAB* 5 MG PO SCH (08:51)
[2019-12-31] MEDS: Multivitamins/Minerals TAB PO SCH (08:51)
[2019-12-31] MEDS ORDERED: Apixaban* 5 MG TAB PO SCH (09:00)
--- NOTE | 2019-12-31 09:06 | PN ---
Subjective Date of Service: 12/31/19 Interval History: Mr. Perez is feeling poor today. He is frustrated that he is still in the hospital and it is difficult to have a rational conversation with him. He denies any foot pain. No CP, SOB, cough, dizziness. He is agreeable to a transfusion today, but he is concerned that he will need to be in the hospital for another week which makes him very unhappy. No concerns from nursing. Family History: Unchanged from Admission Social History: Unchanged from Admission Past Medical History: Unchanged from Admission Objective Active Medications: Acetaminophen (Tylenol Tab*) 650 mg PO Q4H PRN PAIN - MILD Dextrose (D50w Syringe 50 Ml*) 12.5 gm IV PUSH .FOR FS < 60 - SS PRN FS < 60 Enoxaparin Sodium (Lovenox(*)) 40 mg SUBCUT Q24H [facility] Ferrous Sulfate (Ferrous Sulfate Tab*) 325 mg PO DAILY [facility] Glipizide (Glucotrol Tab*) 10 mg PO DAILY [facility] Heparin Sodium (Porcine) (Heparin Flush Picc/Ml/Cvc(*)) 1 - 3 ml FLUSH 0600, 1800 [facility]; Protocol Vancomycin HCl 750 mg/ Sodium (Chloride) 250 mls @ 166.667 mls/hr IVPB Q12H [facility] Insulin Glargine (Lantus(*)) 18 units SUBCUT BEDTIME [facility] Insulin Human Lispro (Humalog*) 0 units SUBCUT FS ACHS ICU [facility]; Protocol Lisinopril (Prinivil Tab*) 5 mg PO DAILY [facility] Multivitamins/Minerals (Theragran/Minerals Tab*) 1 tab PO DAILY [facility] Ondansetron HCl (Zofran Inj*) 4 mg IV Q6H PRN NAUSEA Pantoprazole Sodium (Protonix Tab*) 40 mg PO BID [facility] Thiamine HCl (Vitamin B-1 Tab*) 100 mg PO DAILY [facility] Vital Signs - 8 hr 12/31/19 12/31/19 04:48 07:30 Temperature 98.3 F 98.5 F Pulse Rate 97 91 Respiratory 17 18 Rate Blood Pressure 140/58 130/58 (mmHg) O2 Sat by Pulse 96 98 Oximetry Oxygen Devices in Use Now: None Appearance: Middle-aged male sitting in chair in NAD Ears/Nose/Mouth/Throat: Mucous Membranes Moist Neck: NL Appearance and Movements; NL JVP, Trachea Midline Respiratory: Symmetrical Chest Expansion and Respiratory Effort, Clear to Auscultation Cardiovascular: NL Sounds; No Murmurs; No JVD, RRR Abdominal: NL Sounds; No Tenderness; No Distention Extremities: - - +1 pitting BLE Neurological: Alert and Oriented x 3 Lines/Tubes/Other Access: Clean, Dry and Intact PICC Line Nutrition: Taking PO's Result Diagrams: 12/31/19 05:20 12/31/19 05:39 Assess/Plan/Problems-Billing Assessment: Mr. Perez is a 59 yo M with PMH of DVT/PE, uncontrolled DM2, bipolar, PAD, alcohol abuse; presented to the ED with c/o emesis and weakness and was found to be in DKA, have bilat foot ulcers, and anemic, requiring admission to ICU. Transferred to floor 12/26/19. - Patient Problems (1) Osteomyelitis of great toe of right foot Code(s): M86.9 - OSTEOMYELITIS, UNSPECIFIED Comment: - S/p ray amputation, POD #5 - Ortho following - Appreciate ID consult; recommends 6 weeks BID vanco - PICC placed yesterday - Continue vanco (day ) (2) Anemia Code(s): D64.9 - ANEMIA, UNSPECIFIED Comment: - Asymptomatic - Previously iron deficient and H&H is consistent with results from September; suspect also some component of AOCD - Patient does admit to taking at least 6 ibuprofen daily but was not taking his Eliquis for at least a couple months - Stool occult positive (x2), but no BRBPR - Appreciate GI consut - EGD 12/29 showing 2 small non-bleeding ulcers - H&H was stable on DVT prophylaxis, but dropped again this morning when restarted on Eliqius; suspect this is old blood as there was no active bleeding on EGD - No NSAIDS - Trasfuse 1 unit PRBC today and stop Eliquis; the patient should remain off Eliquis for another 1-2 weeks to ensure resolution of bleeding but he will need to remain on DVT prophylaxis during that time - Continue pantoprazole BID (3) DKA (diabetic ketoacidoses) Code(s): E11.10 - TYPE 2 DIABETES MELLITUS WITH KETOACIDOSIS WITHOUT COMA Comment: - Longstanding history of uncontrolled DM with A1c 17.8 - Patient admits to not taking medications at home d/t depression - BG improving - Continue Lispro SS, Lantus, glipizide (4) Diabetic ulcer of lower extremity Code(s): E11.622 - TYPE 2 DIABETES MELLITUS WITH OTHER SKIN ULCER; L97.909 - NON -PRS CHRONIC ULC UNSP PRT OF UNSP LOW LEG W UNSP SEVERITY Comment: - LLE - Will need referral to [facility] Center at discharge - Continue vanco (5) Sepsis Comment: - Resolved - Present on admission with leukocytosis, tachycardia, tachypnea; source is bilat diabetic foot wounds (6) Hx pulmonary embolism Code(s): Z86.711 - PERSONAL HISTORY OF PULMONARY EMBOLISM Comment: - Recurrent DVT/PE, on lifelong anticoagulation - H&H dropped when restarted on Eliquis, so will back down to prophylactic Lovenox though this is certainly not ideal - Patient should remain off Eliquis for another 1-2 weeks to ensure resolution of bleeding but he will need to remain on DVT prophylaxis during that time as he is at very high risk of VTE - Change to Lovenox (7) Hypertension Code(s): I10 - ESSENTIAL (PRIMARY) HYPERTENSION Comment: - Normotensive - Continue lisinopril (8) History of alcohol use Code(s): Z87.898 - PERSONAL HISTORY OF OTHER SPECIFIED CONDITIONS Comment: - WAM d/c'd (9) Peripheral arterial disease Code(s): I73.9 - PERIPHERAL VASCULAR DISEASE, UNSPECIFIED Comment: - Appreciate IR consult; no indication for revascularization or arteriography at this time (10) Bipolar disorder Code(s): F31.9 - BIPOLAR DISORDER, UNSPECIFIED Comment: - Not on a mood stablizer, but mood has been stable - Should have outpatient follow up with Psych (11) DVT prophylaxis Code(s): Z29.9 - ENCOUNTER FOR PROPHYLACTIC MEASURES, UNSPECIFIED Comment: - Lovenox (12) Full code status Code(s): Z78.9 - OTHER SPECIFIED HEALTH STATUS Comment: Status and Disposition: Inpatient. Cleared for d/c by Ortho and ID. Anticipate d/c to [facility] tomorrow if H&H is stable. Attending: Nick Brothers
--- NOTE | 2019-12-31 09:52 | PN ---
Progress Note - Progress Note Date of Service: 12/31/19 SOAP: Subjective: Patient seen and examined at bedside. He feels well without CP, SOB, dizziness or nausea. He does state that he is a little tired. Would like to take a "cat nap" Objective: []Gen: NAD RLE: Right foot dressing CDI, no erythema proximally. Dressing changed. Sutures are in place with small open area distally. LLE: Great toe with superficial wound, granulation tissue at the base without slough or purulence, measuring about 2 cm x 4 cm. no surrounding erythema. No deep structures exposed. Insensate, cap refill less than two seconds distally. Vital Signs Temp 98.5 F 12/31/19 07:30 Pulse 91 12/31/19 07:30 Resp 18 12/31/19 07:30 BP 130/58 12/31/19 07:30 Pulse Ox 98 12/31/19 07:30 Intake & Output 12/30/19 12/31/19 12/31/19 18:59 06:59 18:59 Intake Total 1320 275 210 Output Total 1380 925 Balance -60 -650 210 Intake: IVPB 275 ABX - VANCOMYCIN 275 Oral 1320 0 210 Output: Urine 1380 925 Other: Estimated Void Medium # Bowel Movements 1 Estimated Stool Amount Small # Voids 2 Assessment: []POD #5 Right foot 1st ray partial amputation, left foot wound Plan: Betadine wet to dry dressing to left great toe, to be changed twice daily Heel WBAT RLE with post op shoe, in Darco boot for non-compliance Abx per ID Hosp following H&H, H&H dropped, 1 unit of PRBC today. F/u with Dr. Lemons in 1 week post op Ok to d/c when medically stable
[2019-12-31] MEDS ORDERED: Vancomycin Trough Check NOTE FOLLOW UP ONE (11:30)
[2019-12-31] MEDS: Vancomycin(*) 750 MG in NS 0.9% 250 ML* 250 ML IVPB SCH (13:02)
--- NOTE | 2019-12-31 16:52 | PN ---
Progress Note - Progress Note Date of Service: 12/31/19 Note: GI Follow up Note: Patient seen and examined. Eating breakfast. Reviewed endoscopy findings. He states he has not had a bm in last day and a half but feels the raisen bran will do it for him this morning. No pain. No dyspnea or lightheadedness. VS: 139/68, P-91, R16, T-97.6 98% RA Gen: alert, nad HEENT: at/nc, perrla, eomi CVS: RRR s1s2 Resp: cta b/l Abd: soft, nt, nd, bs+ Lab: Hgb 7.8->6.9 Impression: Acute blood loss anemia Gastric ulcerations NSAID abuse Rec: BID PPI x3 months. H/H did drop today, but no BM argues against active bleeding. Continue to monitor. Transfusion per primary service, recommend >7. Will need repeat EGD in 3 months to assess for healing in the cardia. Avoid NSAIDs. H Pylori test negative. Javier Riley DO 12/31/19 [id number]
[2019-12-31 16:56] LABS: ABS Eosinophils 0.1 10^3/ul (0-0.6); ABS Lymphocytes 1.2 10^3/ul (1.0-4.8); ABS Monocytes 1.4 10^3/ul (0-0.8); ABS Neutrophils 5.2 10^3/ul (1.5-7.7); Eosinophil % 1.5 %; Hematocrit 23 % (42-52); Hemoglobin 7.7 g/dL (14.0-18.0); Lymphocyte % 15.2 %; Mean Corpuscular HGB Conc 34 g/dL (31-36); Mean Corpuscular Hemoglobin 29 pg (27-31); Mean Corpuscular Volume 85 fL (80-94); Platelet Count 436 10^3/uL (150-450); Red Blood Count 2.67 10^6 /uL (4.18-5.48); Red Cell Distribution Width 14 % (10-15)
--- NOTE | 2019-12-31 19:37 | DS ---
CC: Dr. Nick Brothers; Dr. Clyde Lemons; Beckie Doe NP* DISCHARGE SUMMARY: DATE OF ADMISSION: 12/24/19 ANTICIPATED DATE OF DISCHARGE: 01/01/20 PRIMARY CARE PROVIDER: Dr. Nick Brothers. ORTHOPEDIC SURGEON: Dr. Clyde Lemons. INFECTIOUS DISEASE: Beckie Doe NP ATTENDING PHYSICIAN: Dr. Nick Brothers* (dictated by Vicky Wood NP). PRIMARY DIAGNOSES: 1. Right great toe osteomyelitis, status post ray amputation. 2. Anemia secondary to peptic ulcer disease. 3. Diabetic ketoacidosis. 4. Left lower extremity diabetic foot ulcer. 5. Sepsis. SECONDARY DIAGNOSES: 1. History of deep venous thrombosis/pulmonary embolism. 2. Hypertension. 3. Alcohol abuse. 4. Peripheral arterial disease. 5. Bipolar disorder. STUDIES WHILE IN THE HOSPITAL: 1. EKG on 12/24/19 shows sinus tachycardia with a rate of 100. There does not appear to be any ST changes, though there is significant artifact, so it is difficult to determine. 2. Chest x-ray on 12/24/19 reads as no active cardiopulmonary disease. 3. ABIs on 12/25/19 reads as moderate bilateral lower extremity peripheral vascular disease. 4. Left lower extremity MRI on 12/26/19 reads as there appears to be bone marrow edema in the distal phalanx of the great toe suggestive of osteomyelitis. Plantar muscular edema and subcutaneous edema is noted. Motion artifact severely degrades the images. 5. Right lower extremity MRI on 12/26/19 reads as edema is noted to be in the distal phalanx of the great toe and irregular bone marrow replacement consistent with osteomyelitis. Soft tissue edema is noted in the plantar aspect of the foot. Likely degenerative changes of the first metatarsophalangeal joint are noted. CONSULTATIONS WHILE IN THE HOSPITAL: 1. ABIGAIL Burns, with Orthopedics. 2. Dr. Torres with Interventional Radiology. 3. Dr. Lemons with Orthopedics. 4. Beckie Doe NP, with Infectious Disease. 5. Dr. Ferrari with Gastroenterology. 6. Dr. Riley with Gastroenterology. PROCEDURES WHILE IN THE HOSPITAL: 1. Right partial first ray amputation on 12/26/[address] Lemons. 2. EGD on 12/30/[address] Ferrari. HISTORY OF PRESENT ILLNESS AND HOSPITAL COURSE: Mr. Perez is a 59-year-old male with past medical history of DVT and PE, uncontrolled diabetes, bipolar disorder, and peripheral arterial disease, status post angioplasty to the left lower extremity in 2019, who presented to the emergency room on 12/24/19 with complaints of malaise, vomiting, and weakness. Please see the history and physical by Ramon Duvall NP, for a complete summary of the events leading up to this hospitalization. In short, the patient reported he had not been taking any of his medications including his Eliquis because of depression and he began feeling fatigued and weak. He did note bilateral lower extremity wounds that were not improving. In the emergency room, he was found to be in diabetic ketoacidosis with bicarb less than 7 and glucose over 800. Because of these findings, he was admitted to the intensive care unit. The patient was started on an insulin drip. Orthopedics was consulted because of the lower extremity wounds, and ultimately, the decision was made to proceed with right great toe amputation. Dr. Torres was consulted for evaluation of his peripheral arterial disease, though he indicated that there was no indication for arteriography or revascularization at this time. The patient was taken to the operating room on 12/26/19 for a right partial first ray amputation. There was minimal blood loss. The patient recovered well. At that point, the patient's blood glucose had improved and anion gap had closed. He was transferred out of ICU on 12/26/19. He was noted to be anemic, though this did appear consistent with his previous H and H on record from September, though he was noted to have a positive stool occult. He was started on DVT prophylaxis and H and H did not drop, so he was transitioned back to Eliquis, which he typically takes for anticoagulation, and at that point, hemoglobin did drop 1 point, so he was taken off Eliquis and placed back on DVT prophylaxis. There was no obvious bleeding, though because of these findings, I did consult Gastroenterology. The patient did have an EGD with Dr. Ferrari on 12/30/19. At that time, the patient was found to have 2 small nonbleeding ulcers in the cardia. The patient was restarted on Eliquis, and once again, hemoglobin dropped 1 point. On 12/30/19, his hemoglobin did drop as low as 6.9 and the patient was transfused 1 unit of packed red blood cells, which increased hemoglobin appropriately to 7.7. At this point, I think it is safest for the patient to remain on DVT prophylaxis with Lovenox only, though he should restart Eliquis as soon as possible. GI does not believe there is any active bleeding, though this does remain a concern. The patient was seen by Infectious Disease, and Beckie Doe NP, did recommend a total of 42 days of vanco as the right foot wound was noted to be MRSA positive. The patient has had a PICC line placed and at this point has been cleared for discharge by Orthopedics and Infectious Disease. As of the time of this dictation on 12/31/19, again the patient's H and H did recover appropriately with 1 unit of packed red blood cells and he was restarted on DVT prophylaxis dosing of Lovenox, though I have ordered a repeat CBC for tomorrow morning. As long as the patient does not drop his H and H again tomorrow, he can likely be discharged to [facility] for subacute rehab. Please see my progress note from 12/31/19 for physical exam. DISCHARGE MEDICATIONS: New: 1. Lovenox 40 mg subcu daily. 2. Heparin flush per protocol. 3. Glargine 18 units subcu at bedtime. 4. Lisinopril 5 mg p.o. daily. 5. Multivitamin 1 tab p.o. daily. 6. Pantoprazole 40 mg p.o. b.i.d. 7. Thiamine 100 mg p.o. daily. 8. Vancomycin 750 mg IV q.12 hours. Continued: 1. Ferrous sulfate 325 mg p.o. daily. 2. Glipizide 10 mg p.o. daily. 3. Metformin ER 1500 mg p.o. at bedtime. Hold: 1. Eliquis. DISCHARGE PLAN: Mr. Perez will be discharged to subacute rehab. Activity per Orthopedics will be heel weightbearing on the right lower extremity with a postop shoe in place. Diet will be consistent carb. Medications are noted above. The patient has been started on long-acting insulin while here in the hospital, which he will need to remain on due to his A1c of 17. Oral agents are simply not enough at this point, though he can resume his oral agents along with the insulin. Again, he should remain on DVT prophylaxis at this point. I would advise resuming Eliquis as soon as possible, hopefully within 1 week and then monitoring to ensure that the patient's H and H does not drop. CBC should be checked in 2 days. Lisinopril has been added for blood pressure control and renal protection for diabetes. The patient will need to remain on a PPI for 3 months. Again, he will need to be on vanco for a total of 42 days. At this point, the patient will require 36 additional days. There is a goal trough of 15 to 20. The patient will need a weekly CBC, CMP, CRP, and vanco trough. Those results can be forwarded to Dr. Natarajan and Beckie Doe NP. He will need to follow up with Beckie in 2 weeks likely via telemedicine. The patient should not take any further NSAIDs as this was the cause of his peptic ulcer disease. He will need to follow up with GI for a repeat EGD in 3 months to ensure the ulcers have healed. He will additionally need to follow up with Dr. Lemons in 1 week. He should return to the emergency room or nearest hospital for any worsening of symptoms, shortness of breath, lightheadedness, dizziness, chest discomfort, high fevers, chills, night sweats , loss of consciousness, or any other worrisome signs or symptoms. DISCHARGE CONDITION: Stable. DISCHARGE DISPOSITION: [facility] facility, [facility]. This is a summarized report of a complex medical history and hospital stay. For further details, please see the entire medical record. TIME SPENT: Approximately 45 minutes was spent on this discharge. VICKY WOOD NP [id number]/[facility] #: [id number] DC
[2019-12-31] MEDS: Insulin GLARGINE(*) 1 UNITS UNIT SUBCUT SCH (21:29)
[2020-01-01] MEDS: Vancomycin(*) 750 MG in NS 0.9% 250 ML* 250 ML IVPB SCH ×2 (00:47→11:42)
[2020-01-01 05:31] LABS: ABS Eosinophils 0.2 10^3/ul (0-0.6); ABS Lymphocytes 1.4 10^3/ul (1.0-4.8); ABS Monocytes 1.4 10^3/ul (0-0.8); ABS Neutrophils 5.1 10^3/ul (1.5-7.7); Eosinophil % 1.9 %; Hematocrit 22 % (42-52); Hemoglobin 7.5 g/dL (14.0-18.0); Lymphocyte % 17.5 %; Mean Corpuscular HGB Conc 35 g/dL (31-36); Mean Corpuscular Hemoglobin 29 pg (27-31); Mean Corpuscular Volume 85 fL (80-94); Mean Platelet Volume 5.8 fL (7.4-10.4); Platelet Count 435 10^3/uL (150-450); Red Blood Count 2.56 10^6 /uL (4.18-5.48); Red Cell Distribution Width 14 % (10-15); White Blood Count 8.2 10^3/uL (3.5-10.8)
[2020-01-01] MEDS: Insulin LISPRO* 1 UNITS UNIT SUBCUT SCH ×2 (07:44→12:20)
[2020-01-01 07:50] VITALS: BP 146/62
[2020-01-01] MEDS ORDERED: Magnesium Hydroxide LIQ* 30 ML UDC ONE (08:49)
[2020-01-01] MEDS: Enoxaparin(*) 40 MG/0.4 ML SYR SUBCUT SCH (08:52)
[2020-01-01] MEDS: Multivitamins/Minerals TAB PO SCH (08:52)
[2020-01-01] MEDS: Ferrous Sulfate TAB* 325 MG PO SCH (08:52)
[2020-01-01] MEDS: glipiZIDE TAB* 5 MG PO SCH (08:52)
[2020-01-01] MEDS: Pantoprazole TAB * 40 MG TAB PO SCH (08:52)
[2020-01-01] MEDS: Lisinopril TAB* 5 MG PO SCH (08:52)
[2020-01-01] MEDS: Thiamine TAB* 100 MG TAB PO SCH (08:52)
--- NOTE | 2020-01-01 09:04 | PN ---
Progress Note - Progress Note Date of Service: 01/01/20 SOAP: Subjective: POD #5 Right foot 1st ray partial amputation, also with diabetic wound to left great toe. Pt is doing well, no c/o of pain. Sensation increasing to feet. Denies CP/SOB, f/c, n/v. Objective: Vital Signs: Temp Pulse Resp BP Pulse Ox 97.9 F 62 16 146/62 98 01/01/20 07:49 01/01/20 07:49 01/01/20 07:49 01/01/20 07:49 01/01/20 07:49 Gen: A&O x3, NAD at rest sitting in chair RLE: Incision clean and dry, mild dehiscence to distal aspect with sloughing of skin to plantar aspect. No purulent d/c. No erythema. Small open wound to anterior ankle, also clean and dry. Sensation decreased to extremitiy, 1+ DP pulse LLE: Wound to great toe significantly improved. Clean and dry with granulation tissue to base. No erythema. Sensation decreased to extremitiy, 1+ DP pulse Labs: Laboratory Results - last 24 hr 12/31/19 12/31/19 12/31/19 05:20 11:18 11:23 WBC RBC Hgb Hct MCV MCH MCHC RDW Plt Count MPV Neut % (Auto) Lymph % (Auto) [place] % (Auto) Eos % (Auto) Baso % (Auto) Absolute Neuts (auto) Absolute Lymphs (auto) Absolute Monos (auto) Absolute Eos (auto) Absolute Basos (auto) Absolute Nucleated RBC Nucleated RBC % POC Glucose (mg/dL) 159 H Vancomycin Trough 18.1 Blood Type B Positive Antibody Screen Negative Crossmatch See Detail 12/31/19 12/31/19 12/31/19 16:15 16:43 21:07 WBC 8.0 RBC 2.67 L Hgb 7.7 L Hct 23 L MCV 85 MCH 29 MCHC 34 RDW 14 Plt Count 436 MPV 6.0 L Neut % (Auto) 65.0 Lymph % (Auto) 15.2 [place] % (Auto) 17.9 Eos % (Auto) 1.5 Baso % (Auto) 0.4 Absolute Neuts (auto) 5.2 Absolute Lymphs (auto) 1.2 Absolute Monos (auto) 1.4 H Absolute Eos (auto) 0.1 Absolute Basos (auto) 0.0 Absolute Nucleated RBC 0.0 Nucleated RBC % 0.0 POC Glucose (mg/dL) 213 H 131 H Vancomycin Trough Blood Type Antibody Screen Crossmatch 01/01/20 05:24 WBC 8.2 RBC 2.56 L Hgb 7.5 L Hct 22 L MCV 85 MCH 29 MCHC 35 RDW 14 Plt Count 435 MPV 5.8 L Neut % (Auto) 62.7 Lymph % (Auto) 17.5 [place] % (Auto) 17.4 Eos % (Auto) 1.9 Baso % (Auto) 0.5 Absolute Neuts (auto) 5.1 Absolute Lymphs (auto) 1.4 Absolute Monos (auto) 1.4 H Absolute Eos (auto) 0.2 Absolute Basos (auto) 0.0 Absolute Nucleated RBC 0.0 Nucleated RBC % 0.0 POC Glucose (mg/dL) Vancomycin Trough Blood Type Antibody Screen Crossmatch Assessment: POD #5 Right foot 1st ray partial amputation, left great toe wound Plan: Betadine wet to dry dressing change daily to incision on right foot, xeroform dressing daily to right anterior ankle wound and left great toe wound. Heel WB to RLE F/u with Dr. Lemons in 1 week or telemedicine visit if available through [facility]. Ok for d/c when medically stable, IV abx per ID
[2020-01-01] MEDS ORDERED: Furosemide TAB* 20 MG PO ONE (09:08)
--- NOTE | 2020-01-01 10:46 | PN ---
Progress Note - Progress Note Date of Service: 01/01/20 SOAP: Subjective: CC: Right 1st toe osteomyelitis HPI: Mr. Perez is a 59 yo male with PMH significant for bilateral LE peripheral neuropathy, hx DVT/PE, uncontrolled DM2, Bipolar disorder, chronic ABD pain, PAD; who presented to the hospital with fatigue and weakness and was found to have bilateral foot wounds. Denies fever, chills, nausea, vomiting, or diarrhea. He reports constipation. Denies pain in bilateral feet, feels like the feeling in his feet is returning. Objective: Vital Signs - 8 hr 01/01/20 01/01/20 01/01/20 03:53 07:49 09:43 Temperature 97.5 F 97.9 F Pulse Rate 95 62 Respiratory 18 16 18 Rate Blood Pressure 130/61 146/62 (mmHg) O2 Sat by Pulse 96 98 Oximetry Physical Exam: General: NAD, sitting up in a chair Neurological: Alert and Oriented HEENT: Moist MM Cardiovascular: Heart rate regular Respiratory: Lung sounds clear Abdominal: Bowel sounds present; ABD soft, non tender and non distended MSK: [place]. Bilateral LEs insensate Skin: No rash. Right foot with incision, there is wound dehiscence at the distal portion on the incision line, there is scant serous drainagae. Left 1st toe with large area of granulation tissue on the dorsal aspect, scant drainage and the surrounding skin is intact Laboratory Results - last 24 hr 12/31/19 12/31/19 12/31/19 16:15 16:43 21:07 WBC 8.0 RBC 2.67 L Hgb 7.7 L Hct 23 L MCV 85 MCH 29 MCHC 34 RDW 14 Plt Count 436 MPV 6.0 L Neut % (Auto) 65.0 Lymph % (Auto) 15.2 [place] % (Auto) 17.9 Eos % (Auto) 1.5 Baso % (Auto) 0.4 Absolute Neuts (auto) 5.2 Absolute Lymphs (auto) 1.2 Absolute Monos (auto) 1.4 H Absolute Eos (auto) 0.1 Absolute Basos (auto) 0.0 Absolute Nucleated RBC 0.0 Nucleated RBC % 0.0 POC Glucose (mg/dL) 213 H 131 H 01/01/20 05:24 WBC 8.2 RBC 2.56 L Hgb 7.5 L Hct 22 L MCV 85 MCH 29 MCHC 35 RDW 14 Plt Count 435 MPV 5.8 L Neut % (Auto) 62.7 Lymph % (Auto) 17.5 [place] % (Auto) 17.4 Eos % (Auto) 1.9 Baso % (Auto) 0.5 Absolute Neuts (auto) 5.1 Absolute Lymphs (auto) 1.4 Absolute Monos (auto) 1.4 H Absolute Eos (auto) 0.2 Absolute Basos (auto) 0.0 Absolute Nucleated RBC 0.0 Nucleated RBC % 0.0 Microbiology 12/30/19 10:36 CLOtest - Final Gastric Antrum 12/26/19 19:34 Skin and Soft Tissue MRSA/MSSA (PCR - Final Foot Right Mrsa Positive S.aureus Positive Gram Stain - Final Wound Culture - Final Strep Agalactiae - (Group B) MRSA Chary Albicans 12/26/19 19:34 Anaerobic Culture - Final Wound 12/24/19 19:41 Aerobic Blood Culture - Final Blood Venous No Growth Day 5 Anaerobic Blood Culture - Final No Growth Day 5 12/24/19 19:41 Aerobic Blood Culture - Final Blood Venous No Growth Day 5 Anaerobic Blood Culture - Final No Growth Day 5 12/29/19 12:10 Stool Occult Blood ([place]) - Final Stool 12/24/19 20:55 Urine Culture - Final Urine MRSA Normal Ruby 12/24/19 19:13 Stool Occult Blood ([place]) - Final Stool Assessment: 1. Right 1st toe chronic osteomyelitis. Wound has been present since September 2019. Previous cultures with MRSA and Group B strep. MRI with edema in the distal phalanx of the 1st toe. S/P right 1st ray amputation on 12/26/19. Surgical pathology with acute/chronic osteomyelitis. Blood cultures with no growth to date. Cultures from OR with Group B strep, MRSA, and yeast. Afebrile and no leukocytosis. 2. Chronic left 1st toe wound, suspect chronic osteomyelitis. Wound has been present since September 2019. Previous wound culture with MRSA. MRI with " appears to be bone marrow edema in the distal phalanx of the great toe, suggestive of osteomyelitis. 3. Uncontrolled DM2. 4. PAD. S/P angioplasty left LE 09/2019. Plan: Continue Vancomycin, trough goal 15-20. Day . PICC line has been placed. Weekly labs while on IV ABX: CBC, CMP, CRP and vanco trough. Followup with ID outpatient 2 weeks (Telemedicine if available at the facility). 25 minutes floor time: > 50% spent with the patient discussing long course of IV ABX, followup, and when to call the office for concerns (rash, diarrhea, fever).
== END 2020-01-01 13:00 | DRG 853 ==
LOC: ED 18:50 → ICU 21:55 → SSU 12-27 01:36
PROVIDERS: ADMIT Internal Medicine; ATTEND Internal Medicine
PROC: 0DD68ZX Extraction of Stomach, Via Natural or Artificial Opening Endoscopic, Diagnostic (ICD-10-PCS; 2019-12-26)
PROC: 0Y6M0Z9 Detachment at Right Foot, Partial 1st Ray, Open Approach (ICD-10-PCS; principal; 2019-12-26 15:15)
PROC: 0DD98ZX Extraction of Duodenum, Via Natural or Artificial Opening Endoscopic, Diagnostic (ICD-10-PCS; 2019-12-30)
PROC: 05HY33Z Insertion of Infusion Device into Upper Vein, Percutaneous Approach (ICD-10-PCS; 2019-12-30)
PROC: 30233N1 Transfusion of Nonautologous Red Blood Cells into Peripheral Vein, Percutaneous Approach (ICD-10-PCS; 2019-12-31)
DX: A41.9 Sepsis, unspecified organism (principal); E11.10 Type 2 diabetes mellitus with ketoacidosis without coma; K92.0 Hematemesis; E11.52 Type 2 diabetes mellitus with diabetic peripheral angiopathy with gangrene; R45.851 Suicidal ideations; D62 Acute posthemorrhagic anemia; M86.671 Other chronic osteomyelitis, right ankle and foot; L97.529 Non-pressure chronic ulcer of other part of left foot with unspecified severity; D63.8 Anemia in other chronic diseases classified elsewhere; E11.40 Type 2 diabetes mellitus with diabetic neuropathy, unspecified; E11.69 Type 2 diabetes mellitus with other specified complication; E11.621 Type 2 diabetes mellitus with foot ulcer; E11.622 Type 2 diabetes mellitus with other skin ulcer; E11.65 Type 2 diabetes mellitus with hyperglycemia; F31.9 Bipolar disorder, unspecified; R06.82 Tachypnea, not elsewhere classified; I10 Essential (primary) hypertension; G89.29 Other chronic pain; F10.10 Alcohol abuse, uncomplicated; Y90.0 Blood alcohol level of less than 20 mg/100 ml; K59.00 Constipation, unspecified; B95.62 Methicillin resistant Staphylococcus aureus infection as the cause of diseases classified elsewhere; R10.11 Right upper quadrant pain; K25.9 Gastric ulcer, unspecified as acute or chronic, without hemorrhage or perforation; T39.315A Adverse effect of propionic acid derivatives, initial encounter; Z98.62 Peripheral vascular angioplasty status; Z86.718 Personal history of other venous thrombosis and embolism; Z91.14 Patient's other noncompliance with medication regimen; Z86.711 Personal history of pulmonary embolism; Z79.01 Long term (current) use of anticoagulants; Z79.84 Long term (current) use of oral hypoglycemic drugs; Z79.4 Long term (current) use of insulin; Z79.899 Other long term (current) drug therapy; Z83.3 Family history of diabetes mellitus; Y92.9 Unspecified place or not applicable
CPT/HCPCS: 36415; 71045; 80048; 80053; 80202; 80320; 80329; 81003; 81015; 82140; 82272; 82565; 82570; 82803; 82947; 83036; 83605; 83735; 84100; 84300; 84439; 84443; 84484; 84520; 85014; 85018; 85025; 85610; 85652; 86140; 86850; 86900; 86901; 86922; 87040; 87070; 87073; 87077; 87086; 87106; 87184; 87186; 87205; 87640; 87641; 88305; 88311; 93005; 93922; 96365; 96375; 99156; 99285; A9270-GY; G0480; J0692; J0696; J1650; J1940; J2250; J2405; J2704; J2765; J3010; J3370; J3411; J3475; J3490; P9040

== ENCOUNTER 2021-05-02 07:43 | Inpatient (IN) ==
[2021-05-02 08:38] LABS: ABS Basophils 0.1 10^3/ul (0-0.2); ABS Eosinophils 0.1 10^3/ul (0-0.6); ABS Lymphocytes 0.8 10^3/ul (1.0-4.8); ABS Monocytes 0.7 10^3/ul (0-0.8); ABS Neutrophils 6.2 10^3/ul (1.5-7.7); Eosinophil % 1.5 %; Hematocrit 24 % (42-52); Lymphocyte % 9.8 %; Mean Corpuscular HGB Conc 33 g/dL (31-36); Mean Corpuscular Hemoglobin 27 pg (27-31); Mean Corpuscular Volume 83 fL (80-94); Mean Platelet Volume 6.5 fL (7.4-10.4); Platelet Count 516 10^3/uL (150-450); Red Blood Count 2.93 10^6 /uL (4.18-5.48); Red Cell Distribution Width 17 % (10-15); White Blood Count 7.9 10^3/uL (3.5-10.8)
[2021-05-02 09:03] LABS: Troponin I 0.04 ng/mL (<0.03)
[2021-05-02] MEDS ORDERED: Furosemide 40 mg/4 ml IV VIAL IV SLOW PU ONE (09:15)
[2021-05-02 09:43] LABS: Albumin 2.5 g/dL (3.2-5.2); Albumin/Globulin Ratio 0.6 (1-3); EGFR African American 41.6 (>60); EGFR Non-African American 34.4 (>60); Globulin 4.2 g/dL (2-4); Potassium 5.2 mmol/L (3.5-5.0); Total Bilirubin 0.3 mg/dL (0.2-1.0); Total Protein 6.7 g/dL (6.4-8.9)
[2021-05-02] MEDS ORDERED: Dextrose 50% Syringe 50 ml 25 GM/50 ML SYRINGE IV PUSH PRN (10:50)
[2021-05-02 11:00] LABS: Total Iron Binding Capacity 213 mcg/dL (250-450); Transferrin 152 mg/dL (203-362)
[2021-05-02 11:01] LABS: % Iron Saturation 9 % (15-55); Iron < 20 ug/dL (50-212); Unsaturated Iron Binding < 198 ug/dL
[2021-05-02 11:02] LABS: Magnesium 1.3 mg/dL (1.9-2.7)
[2021-05-02 11:17] LABS: TSH Ultra Thyroid Stim Horm 7.73 mcIU/mL (0.34-5.60)
[2021-05-02 11:26] LABS: Folate 6.13 ng/mL (5.90-24.80)
[2021-05-02 11:28] LABS: Vitamin B12 236 pg/mL (180-914)
[2021-05-02 16:10] LABS: Troponin I 0.04 ng/mL (<0.03)
[2021-05-02] MEDS ORDERED: Magnesium Sulfate IV 3 GM in NS 0.9% 100 ml BAG 100 ML IVPB ONE (16:52)
[2021-05-02] MEDS: Furosemide 40 mg/4 ml IV VIAL IV SCH ×2 (18:16→20:06)
[2021-05-02 20:11] LABS: Troponin I 0.03 ng/mL (<0.03)
[2021-05-03 01:46] LABS: Vitamin D Total 25(OH) < 7.0 ng/mL (20-50)
[2021-05-03 04:08] LABS: Urine Appearance Clear; Urine Bilirubin Negative (Negative); Urine Blood 2+ (Negative); Urine Color Straw; Urine Glucose 1+(50 mg/dL) (Negative); Urine Ketones Negative (Negative); Urine Nitrite Negative (Negative); Urine Protein 3+(>=500 mg/dL) (Negative); Urine Specific Gravity 1.008 (1.002-1.030); Urine Urobilinogen Negative (Negative)
[2021-05-03 04:10] LABS: Urine Bacteria Absent (Absent); Urine Red Blood Cell 1+(3-5/hpf) (Absent); Urine White Blood Cell Absent (Absent)
[2021-05-03 05:52] LABS: ABS Basophils 0.1 10^3/ul (0-0.2); ABS Eosinophils 0.1 10^3/ul (0-0.6); ABS Lymphocytes 0.8 10^3/ul (1.0-4.8); ABS Monocytes 0.4 10^3/ul (0-0.8); ABS Neutrophils 3.6 10^3/ul (1.5-7.7); Eosinophil % 2.8 %; Hematocrit 22 % (42-52); Hemoglobin 7.4 g/dL (14.0-18.0); Lymphocyte % 16.2 %; Mean Corpuscular HGB Conc 33 g/dL (31-36); Mean Corpuscular Hemoglobin 27 pg (27-31); Mean Corpuscular Volume 81 fL (80-94); Mean Platelet Volume 6.6 fL (7.4-10.4); Nucleated Red Blood Cells % 0.1; Platelet Count 467 10^3/uL (150-450); Red Blood Count 2.72 10^6 /uL (4.18-5.48); Red Cell Distribution Width 18 % (10-15)
[2021-05-03 06:03] LABS: Calcium 7.8 mg/dL (8.6-10.3); EGFR African American 40.6 (>60); EGFR Non-African American 33.6 (>60); HDL Cholesterol 42.2 mg/dL; Magnesium 1.8 mg/dL (1.9-2.7); Potassium 4.9 mmol/L (3.5-5.0)
[2021-05-03] MEDS ORDERED: Magnesium Sulfate 2 gm BAG 2 GM/50 ML BAG IVPB ONE (08:26)
[2021-05-03] MEDS ORDERED: Insulin GLARGINE 100 un/ml 10 ml VIAL SUBCUT SCH (09:00)
[2021-05-03] MEDS: Insulin GLARGINE 100 un/ml 10 ml VIAL SUBCUT SCH (09:18)
[2021-05-03] MEDS: Furosemide 40 mg/4 ml IV VIAL IV SCH ×2 (09:18→21:46)
[2021-05-03 10:24] LABS: Troponin I 0.03 ng/mL (<0.03)
[2021-05-04 04:27] LABS: ABS Basophils 0.1 10^3/ul (0-0.2); ABS Eosinophils 0.3 10^3/ul (0-0.6); ABS Lymphocytes 1.2 10^3/ul (1.0-4.8); ABS Monocytes 0.5 10^3/ul (0-0.8); ABS Neutrophils 3.7 10^3/ul (1.5-7.7); Eosinophil % 5.3 %; Hematocrit 24 % (42-52); Hemoglobin 7.6 g/dL (14.0-18.0); Mean Corpuscular HGB Conc 32 g/dL (31-36); Mean Corpuscular Hemoglobin 27 pg (27-31); Mean Corpuscular Volume 83 fL (80-94); Mean Platelet Volume 6.5 fL (7.4-10.4); Nucleated Red Blood Cells % 0.1; Platelet Count 457 10^3/uL (150-450); Red Blood Count 2.83 10^6 /uL (4.18-5.48); Red Cell Distribution Width 17 % (10-15); White Blood Count 5.8 10^3/uL (3.5-10.8)
[2021-05-04 04:41] LABS: Calcium 7.5 mg/dL (8.6-10.3); EGFR African American 40.9 (>60); EGFR Non-African American 33.8 (>60); Potassium 4.8 mmol/L (3.5-5.0)
[2021-05-04] MEDS: Insulin GLARGINE 100 un/ml 10 ml VIAL SUBCUT SCH (10:41)
[2021-05-04] MEDS: Furosemide 40 mg/4 ml IV VIAL IV SCH (11:06)
[2021-05-04] MEDS ORDERED: Ferric Gluconate IV 125 MG in NS 0.9% 100 ml BAG 100 ML IVPB ONE (11:30)
[2021-05-04 16:35] LABS: Kappa Free Light Chain 13.8 mg/dL; Lambda Free Light Chain, S 11.5 mg/dL
[2021-05-04 23:45] LABS: Albumin 1.8 g/dL (3.4-4.7); Albumin/Globulin Ratio 0.45; Gamma Globulin 1.8 g/dL (0.6-1.6); Total Protein(PEP) 5.7 g/dL (6.3 - 7.9)
[2021-05-05 05:01] LABS: ABS Basophils 0.1 10^3/ul (0-0.2); ABS Eosinophils 0.3 10^3/ul (0-0.6); ABS Lymphocytes 1.2 10^3/ul (1.0-4.8); ABS Monocytes 0.6 10^3/ul (0-0.8); ABS Neutrophils 3.3 10^3/ul (1.5-7.7); Eosinophil % 5.3 %; Hematocrit 23 % (42-52); Hemoglobin 7.5 g/dL (14.0-18.0); Lymphocyte % 21.4 %; Mean Corpuscular HGB Conc 32 g/dL (31-36); Mean Corpuscular Hemoglobin 27 pg (27-31); Mean Corpuscular Volume 83 fL (80-94); Mean Platelet Volume 6.7 fL (7.4-10.4); Platelet Count 467 10^3/uL (150-450); Red Blood Count 2.78 10^6 /uL (4.18-5.48); Red Cell Distribution Width 17 % (10-15); White Blood Count 5.5 10^3/uL (3.5-10.8)
[2021-05-05 05:19] LABS: Calcium 7.6 mg/dL (8.6-10.3); EGFR African American 42.6 (>60); EGFR Non-African American 35.2 (>60); Magnesium 1.9 mg/dL (1.9-2.7); Potassium 4.5 mmol/L (3.5-5.0)
[2021-05-05] MEDS: Insulin GLARGINE 100 un/ml 10 ml VIAL SUBCUT SCH (09:49)
[2021-05-05] MEDS: Ferric Gluconate IV 125 MG in NS 0.9% 100 ml BAG 100 ML IVPB SCH (13:05)
[2021-05-06 05:00] LABS: ABS Basophils 0.1 10^3/ul (0-0.2); ABS Eosinophils 0.3 10^3/ul (0-0.6); ABS Monocytes 0.7 10^3/ul (0-0.8); ABS Neutrophils 4.9 10^3/ul (1.5-7.7); Eosinophil % 3.7 %; Hematocrit 24 % (42-52); Hemoglobin 7.8 g/dL (14.0-18.0); Lymphocyte % 14.4 %; Mean Corpuscular HGB Conc 33 g/dL (31-36); Mean Corpuscular Hemoglobin 27 pg (27-31); Mean Corpuscular Volume 83 fL (80-94); Mean Platelet Volume 6.6 fL (7.4-10.4); Platelet Count 465 10^3/uL (150-450); Red Blood Count 2.91 10^6 /uL (4.18-5.48); Red Cell Distribution Width 18 % (10-15); White Blood Count 6.9 10^3/uL (3.5-10.8)
[2021-05-06 05:21] LABS: Calcium 7.5 mg/dL (8.6-10.3); EGFR African American 42.6 (>60); EGFR Non-African American 35.2 (>60); Potassium 4.6 mmol/L (3.5-5.0)
[2021-05-06] MEDS: Insulin GLARGINE 100 un/ml 10 ml VIAL SUBCUT SCH (09:29)
[2021-05-06] MEDS: Ferric Gluconate IV 125 MG in NS 0.9% 100 ml BAG 100 ML IVPB SCH (10:58)
[2021-05-07 05:08] LABS: ABS Basophils 0.1 10^3/ul (0-0.2); ABS Eosinophils 0.2 10^3/ul (0-0.6); ABS Monocytes 0.7 10^3/ul (0-0.8); ABS Neutrophils 5.5 10^3/ul (1.5-7.7); Hematocrit 24 % (42-52); Hemoglobin 7.8 g/dL (14.0-18.0); Lymphocyte % 12.8 %; Mean Corpuscular HGB Conc 33 g/dL (31-36); Mean Corpuscular Hemoglobin 27 pg (27-31); Mean Corpuscular Volume 83 fL (80-94); Mean Platelet Volume 6.7 fL (7.4-10.4); Nucleated Red Blood Cells % 0.1; Platelet Count 457 10^3/uL (150-450); Red Blood Count 2.87 10^6 /uL (4.18-5.48); Red Cell Distribution Width 18 % (10-15); White Blood Count 7.5 10^3/uL (3.5-10.8)
[2021-05-07 05:25] LABS: Calcium 7.5 mg/dL (8.6-10.3); EGFR African American 38.3 (>60); EGFR Non-African American 31.6 (>60); Magnesium 1.7 mg/dL (1.9-2.7); Potassium 4.8 mmol/L (3.5-5.0)
[2021-05-07] MEDS: Insulin GLARGINE 100 un/ml 10 ml VIAL SUBCUT SCH (08:55)
[2021-05-07] MEDS: Ferric Gluconate IV 125 MG in NS 0.9% 100 ml BAG 100 ML IVPB SCH (10:46)
[2021-05-07] MEDS ORDERED: Magnesium Sulfate 2 gm BAG 2 GM/50 ML BAG IVPB ONE (11:36)
[2021-05-07 20:15] VITALS: BP 140/72
== END 2021-05-07 18:00 | disposition home or self-care (01) | DRG 291 ==
LOC: ED 07:43 → MEDTELE 12:43
PROVIDERS: ADMIT Hospitalist; ATTEND Internal Medicine

== ENCOUNTER 2021-05-17 10:02 | Inpatient (IN) ==
[2021-05-17] MEDS ORDERED: Lidocaine PATCH 5% PATCH TRANSDERM ONE (10:27)
[2021-05-17 12:29] LABS: ABS Basophils 0.2 10^3/ul (0-0.2); ABS Lymphocytes 0.3 10^3/ul (1.0-4.8); ABS Monocytes 0.8 10^3/ul (0-0.8); ABS Neutrophils 16.4 10^3/ul (1.5-7.7); Eosinophil % 0.1 %; Hematocrit 34 % (42-52); Hemoglobin 10.5 g/dL (14.0-18.0); Lymphocyte % 1.7 %; Mean Corpuscular HGB Conc 31 g/dL (31-36); Mean Corpuscular Hemoglobin 26 pg (27-31); Mean Corpuscular Volume 84 fL (80-94); Mean Platelet Volume 7.2 fL (7.4-10.4); Platelet Count 530 10^3/uL (150-450); Red Blood Count 4.04 10^6 /uL (4.18-5.48); Red Cell Distribution Width 19 % (10-15); White Blood Count 17.7 10^3/uL (3.5-10.8)
[2021-05-17 12:35] LABS: Albumin 2.3 g/dL (3.2-5.2); Albumin/Globulin Ratio 0.6 (1-3); C Reactive Protein 247.1 mg/L (<8.01); Calcium 7.8 mg/dL (8.6-10.3); EGFR African American 35.4 (>60); EGFR Non-African American 29.2 (>60); Globulin 3.7 g/dL (2-4); Total Bilirubin 0.3 mg/dL (0.2-1.0)
[2021-05-17 12:36] LABS: Troponin I 0.02 ng/mL (<0.03)
[2021-05-17 12:38] LABS: Potassium 5.1 mmol/L (3.5-5.0)
[2021-05-17] MEDS ORDERED: NS 0.9% 1000 ml BAG 1,000 ML IV ONE ×2 (12:39→12:57)
[2021-05-17] MEDS ORDERED: Furosemide 40 mg/4 ml IV VIAL IV ONE (13:52)
[2021-05-17] MEDS ORDERED: Dextrose 50% Syringe 50 ml 25 GM/50 ML SYRINGE IV PUSH PRN (15:02)
[2021-05-17] MEDS ORDERED: Gadoteridol (CONTRAST) 279.3 MG/ML 10 ML IV ONE (15:32)
[2021-05-17 20:35] LABS: Urine Appearance Cloudy; Urine Bilirubin Negative (Negative); Urine Blood 2+ (Negative); Urine Color Yellow; Urine Glucose 3+(>=500 mg/dL) (Negative); Urine Ketones Negative (Negative); Urine Nitrite Negative (Negative); Urine Protein 3+(>=500 mg/dL) (Negative); Urine Specific Gravity 1.016 (1.002-1.030); Urine Urobilinogen Negative (Negative)
[2021-05-17 20:48] LABS: Urine Bacteria Absent (Absent); Urine Red Blood Cell 3+(>10/hpf) (Absent); Urine Squamous Epithelial Cell Present (Absent); Urine White Blood Cell Trace(0-5/hpf) (Absent)
[2021-05-17] MEDS: Lidocaine Patch REMOVE PATCH PATCH OFF SCH (22:52)
[2021-05-18] MEDS ORDERED: Morphine 2 MG/ML SYRINGE IV PRN (00:26)
[2021-05-18] MEDS ORDERED: Vancomycin per Pharmacy 1 EA NOTE FOLLOW UP PRN (06:30)
[2021-05-18] MEDS ORDERED: Vancomycin 1,500 MG in NS 0.9% 250 ml 250 ML IVPB ONE (06:30)
[2021-05-18] MEDS: Insulin GLARGINE 100 un/ml 10 ml VIAL SUBCUT SCH (08:49)
[2021-05-18 08:56] LABS: ABS Basophils 0.1 10^3/ul (0-0.2); ABS Lymphocytes 0.4 10^3/ul (1.0-4.8); ABS Monocytes 0.9 10^3/ul (0-0.8); ABS Neutrophils 12.9 10^3/ul (1.5-7.7); Eosinophil % 0.2 %; Hematocrit 31 % (42-52); Hemoglobin 9.8 g/dL (14.0-18.0); Mean Corpuscular HGB Conc 32 g/dL (31-36); Mean Corpuscular Hemoglobin 26 pg (27-31); Mean Corpuscular Volume 83 fL (80-94); Mean Platelet Volume 6.9 fL (7.4-10.4); Platelet Count 517 10^3/uL (150-450); Red Blood Count 3.71 10^6 /uL (4.18-5.48); Red Cell Distribution Width 18 % (10-15); White Blood Count 14.3 10^3/uL (3.5-10.8)
[2021-05-18 09:13] LABS: Calcium 7.2 mg/dL (8.6-10.3); EGFR Non-African American 26.4 (>60); Magnesium 1.5 mg/dL (1.9-2.7)
[2021-05-18 10:44] LABS: Potassium 5.1 mmol/L (3.5-5.0)
[2021-05-18] MEDS ORDERED: Magnesium Sulfate IV 3 GM in NS 0.9% 100 ml BAG 100 ML IVPB ONE (11:53)
[2021-05-18 12:54] LABS: Urine Appearance Cloudy; Urine Bilirubin Negative (Negative); Urine Blood 1+ (Negative); Urine Color Yellow; Urine Glucose 1+(50 mg/dL) (Negative); Urine Ketones Negative (Negative); Urine Nitrite Negative (Negative); Urine Protein 3+(>=500 mg/dL) (Negative); Urine Urobilinogen Negative (Negative)
[2021-05-18 12:57] LABS: Urine Bacteria Absent (Absent); Urine Red Blood Cell 1+(3-5/hpf) (Absent); Urine White Blood Cell Absent (Absent)
[2021-05-18] MEDS: Lidocaine Patch REMOVE PATCH PATCH OFF SCH (20:22)
[2021-05-19 07:50] LABS: ABS Basophils 0.1 10^3/ul (0-0.2); ABS Eosinophils 0.1 10^3/ul (0-0.6); ABS Monocytes 1.1 10^3/ul (0-0.8); ABS Neutrophils 9.9 10^3/ul (1.5-7.7); Eosinophil % 0.5 %; Hematocrit 28 % (42-52); Hemoglobin 9.1 g/dL (14.0-18.0); Lymphocyte % 7.9 %; Mean Corpuscular HGB Conc 32 g/dL (31-36); Mean Corpuscular Hemoglobin 27 pg (27-31); Mean Corpuscular Volume 82 fL (80-94); Mean Platelet Volume 6.8 fL (7.4-10.4); Platelet Count 540 10^3/uL (150-450); Red Blood Count 3.44 10^6 /uL (4.18-5.48); Red Cell Distribution Width 19 % (10-15)
[2021-05-19 08:16] LABS: Calcium 7.4 mg/dL (8.6-10.3); EGFR African American 31.7 (>60); EGFR Non-African American 26.2 (>60); Magnesium 2.2 mg/dL (1.9-2.7); Potassium 4.9 mmol/L (3.5-5.0)
[2021-05-19] MEDS ORDERED: Naloxone 0.4 mg VIAL 0.4 mg/ml 1 ml VIAL ONE (08:16)
[2021-05-19] MEDS ORDERED: Flumazenil 0.5 mg/5 ml 0.1 MG/ML 5 ml VIAL ONE (08:16)
[2021-05-19] MEDS ORDERED: fentaNYL 100 mcg/2 ml 50 MCG/ML VIAL ONE (08:16)
[2021-05-19] MEDS ORDERED: Midazolam 5 mg/5 ml VIAL 1 mg/ml 5 ml VIAL (5 mg) ONE (08:16)
[2021-05-19] MEDS: ceFAZolin VIAL 2 GM in NS 0.9% 100 ml BAG 100 ML IVPB SCH ×2 (10:36→21:12)
[2021-05-19] MEDS: Insulin GLARGINE 100 un/ml 10 ml VIAL SUBCUT SCH (10:37)
[2021-05-19] MEDS: Lidocaine Patch REMOVE PATCH PATCH OFF SCH (22:57)
[2021-05-20] MEDS: Morphine 2 MG/ML SYRINGE IV PRN ×2 (05:07→20:54)
[2021-05-20 06:46] LABS: ABS Eosinophils 0.1 10^3/ul (0-0.6); ABS Lymphocytes 0.9 10^3/ul (1.0-4.8); ABS Monocytes 0.9 10^3/ul (0-0.8); ABS Neutrophils 8.6 10^3/ul (1.5-7.7); Eosinophil % 1.2 %; Hematocrit 25 % (42-52); Hemoglobin 8.2 g/dL (14.0-18.0); Lymphocyte % 8.2 %; Mean Corpuscular HGB Conc 33 g/dL (31-36); Mean Corpuscular Hemoglobin 27 pg (27-31); Mean Corpuscular Volume 81 fL (80-94); Platelet Count 512 10^3/uL (150-450); Red Blood Count 3.02 10^6 /uL (4.18-5.48); Red Cell Distribution Width 18 % (10-15); White Blood Count 10.5 10^3/uL (3.5-10.8)
[2021-05-20 06:58] LABS: Calcium 7.1 mg/dL (8.6-10.3); EGFR African American 32.4 (>60); EGFR Non-African American 26.8 (>60)
[2021-05-20] MEDS: Insulin GLARGINE 100 un/ml 10 ml VIAL SUBCUT SCH (08:24)
[2021-05-20] MEDS: ceFAZolin VIAL 2 GM in NS 0.9% 100 ml BAG 100 ML IVPB SCH ×2 (08:27→20:50)
[2021-05-20] MEDS: Lidocaine Patch REMOVE PATCH PATCH OFF SCH (20:58)
[2021-05-21] MEDS: Morphine 2 MG/ML SYRINGE IV PRN ×2 (04:09→09:48)
[2021-05-21 05:31] LABS: ABS Eosinophils 0.2 10^3/ul (0-0.6); ABS Lymphocytes 0.9 10^3/ul (1.0-4.8); ABS Monocytes 0.9 10^3/ul (0-0.8); ABS Neutrophils 7.9 10^3/ul (1.5-7.7); Eosinophil % 1.9 %; Hematocrit 25 % (42-52); Hemoglobin 8.3 g/dL (14.0-18.0); Mean Corpuscular HGB Conc 33 g/dL (31-36); Mean Corpuscular Hemoglobin 27 pg (27-31); Mean Corpuscular Volume 82 fL (80-94); Mean Platelet Volume 6.4 fL (7.4-10.4); Platelet Count 548 10^3/uL (150-450); Red Blood Count 3.07 10^6 /uL (4.18-5.48); Red Cell Distribution Width 18 % (10-15); White Blood Count 9.9 10^3/uL (3.5-10.8)
[2021-05-21 05:45] LABS: Calcium 7.1 mg/dL (8.6-10.3); EGFR African American 36.5 (>60); EGFR Non-African American 30.2 (>60)
[2021-05-21] MEDS: Insulin GLARGINE 100 un/ml 10 ml VIAL SUBCUT SCH (08:57)
[2021-05-21] MEDS: ceFAZolin VIAL 2 GM in NS 0.9% 100 ml BAG 100 ML IVPB SCH ×2 (08:58→20:47)
[2021-05-21] MEDS: Lidocaine PATCH 5% PATCH TRANSDERM SCH (09:48)
[2021-05-21] MEDS: Lidocaine Patch REMOVE PATCH PATCH OFF SCH (23:22)
[2021-05-22 07:05] LABS: Hematocrit 26 % (42-52); Hemoglobin 8.5 g/dL (14.0-18.0); Mean Corpuscular HGB Conc 33 g/dL (31-36); Mean Corpuscular Hemoglobin 27 pg (27-31); Mean Corpuscular Volume 82 fL (80-94); Mean Platelet Volume 6.5 fL (7.4-10.4); Platelet Count 593 10^3/uL (150-450); Red Blood Count 3.13 10^6 /uL (4.18-5.48); Red Cell Distribution Width 18 % (10-15); White Blood Count 10.5 10^3/uL (3.5-10.8)
[2021-05-22 07:22] LABS: C Reactive Protein 157.28 mg/L (<8.01); Calcium 7.3 mg/dL (8.6-10.3); EGFR African American 36.7 (>60); EGFR Non-African American 30.3 (>60); Potassium 4.9 mmol/L (3.5-5.0)
[2021-05-22 08:39] LABS: ABS Basophils 0.1 10^3/ul (0-0.2); ABS Eosinophils 0.2 10^3/ul (0-0.6); ABS Lymphocytes 0.9 10^3/ul (1.0-4.8); ABS Monocytes 0.9 10^3/ul (0-0.8); ABS Neutrophils 8.5 10^3/ul (1.5-7.7); Eosinophil % 2.3 %; Lymphocyte % 8.1 %
[2021-05-22] MEDS: Insulin GLARGINE 100 un/ml 10 ml VIAL SUBCUT SCH (09:48)
[2021-05-22] MEDS: Lidocaine PATCH 5% PATCH TRANSDERM SCH (09:48)
[2021-05-22] MEDS: ceFAZolin VIAL 2 GM in NS 0.9% 100 ml BAG 100 ML IVPB SCH ×2 (09:49→21:06)
[2021-05-22] MEDS ORDERED: Buffered Lidocaine 1% SYRIN 1 ml INTRADERM ONE (12:45)
[2021-05-22] MEDS: Lidocaine Patch REMOVE PATCH PATCH OFF SCH (21:06)
[2021-05-23 06:01] LABS: Calcium 7.3 mg/dL (8.6-10.3); EGFR African American 36.5 (>60); EGFR Non-African American 30.2 (>60); Potassium 4.6 mmol/L (3.5-5.0)
[2021-05-23] MEDS: Lidocaine PATCH 5% PATCH TRANSDERM SCH (08:02)
[2021-05-23] MEDS: Insulin GLARGINE 100 un/ml 10 ml VIAL SUBCUT SCH (08:02)
[2021-05-23] MEDS: ceFAZolin VIAL 2 GM in NS 0.9% 100 ml BAG 100 ML IVPB SCH ×2 (08:07→21:11)
[2021-05-23] MEDS: Lidocaine Patch REMOVE PATCH PATCH OFF SCH (21:13)
[2021-05-24] MEDS: Lidocaine PATCH 5% PATCH TRANSDERM SCH (08:27)
[2021-05-24] MEDS: ceFAZolin VIAL 2 GM in NS 0.9% 100 ml BAG 100 ML IVPB SCH ×2 (08:30→20:45)
[2021-05-24] MEDS: Insulin GLARGINE 100 un/ml 10 ml VIAL SUBCUT SCH (09:20)
[2021-05-24 09:21] LABS: Calcium 7.5 mg/dL (8.6-10.3); EGFR African American 44.7 (>60); EGFR Non-African American 36.9 (>60); Potassium 4.5 mmol/L (3.5-5.0)
[2021-05-24] MEDS ORDERED: hydrALAZINE 20 mg/ml 1 ML Vial IV IV SLOW PU PRN (13:16)
[2021-05-24] MEDS: Lidocaine Patch REMOVE PATCH PATCH OFF SCH (20:46)
[2021-05-25 06:37] LABS: ABS Basophils 0.1 10^3/ul (0-0.2); ABS Eosinophils 0.2 10^3/ul (0-0.6); ABS Lymphocytes 0.8 10^3/ul (1.0-4.8); ABS Monocytes 0.7 10^3/ul (0-0.8); Eosinophil % 2.2 %; Hematocrit 26 % (42-52); Hemoglobin 8.3 g/dL (14.0-18.0); Lymphocyte % 10.5 %; Mean Corpuscular HGB Conc 32 g/dL (31-36); Mean Corpuscular Hemoglobin 26 pg (27-31); Mean Corpuscular Volume 82 fL (80-94); Mean Platelet Volume 6.1 fL (7.4-10.4); Platelet Count 664 10^3/uL (150-450); Red Blood Count 3.13 10^6 /uL (4.18-5.48); Red Cell Distribution Width 18 % (10-15); White Blood Count 7.9 10^3/uL (3.5-10.8)
[2021-05-25 06:51] LABS: Calcium 7.1 mg/dL (8.6-10.3); EGFR African American 48.8 (>60); EGFR Non-African American 40.4 (>60); Potassium 4.6 mmol/L (3.5-5.0)
[2021-05-25] MEDS: Insulin GLARGINE 100 un/ml 10 ml VIAL SUBCUT SCH (08:48)
[2021-05-25] MEDS: Lidocaine PATCH 5% PATCH TRANSDERM SCH (08:52)
[2021-05-25] MEDS: ceFAZolin VIAL 2 GM in NS 0.9% 100 ml BAG 100 ML IVPB SCH ×2 (10:24→20:35)
[2021-05-25] MEDS ORDERED: Polyethylene Glycol 3350 17 GM PACKET PO PRN (12:37)
[2021-05-25] MEDS ORDERED: Magnesium Hydroxide LIQ 30 ML UDC PO PRN (12:37)
[2021-05-25] MEDS: Lidocaine Patch REMOVE PATCH PATCH OFF SCH (23:00)
[2021-05-26] MEDS: ceFAZolin VIAL 2 GM in NS 0.9% 100 ml BAG 100 ML IVPB SCH (08:34)
[2021-05-26] MEDS: Insulin GLARGINE 100 un/ml 10 ml VIAL SUBCUT SCH (08:34)
[2021-05-26] MEDS: Lidocaine PATCH 5% PATCH TRANSDERM SCH (08:35)
[2021-05-26 10:23] VITALS: BP 181/81
== END 2021-05-26 11:21 | DRG 871 ==
LOC: MED 10:02 → ED 10:02 → SUATTDRO 05-18 11:00 → MED 05-18 16:39 → MEDTELE 05-20 02:52
PROVIDERS: ADMIT Internal Medicine; ATTEND Internal Medicine

== ENCOUNTER 2021-06-21 15:21 | Inpatient (IN) ==
[2021-06-21] MEDS ORDERED: HYDROcodone/ACETAMIN 5/325 mg TAB PO ONE (16:00)
[2021-06-21 22:48] LABS: ABS Basophils 0.1 10^3/ul (0-0.2); ABS Lymphocytes 0.6 10^3/ul (1.0-4.8); ABS Monocytes 0.9 10^3/ul (0-0.8); ABS Neutrophils 11.7 10^3/ul (1.5-7.7); Eosinophil % 0.1 %; Hematocrit 26 % (42-52); Hemoglobin 8.3 g/dL (14.0-18.0); Lymphocyte % 4.9 %; Mean Corpuscular HGB Conc 32 g/dL (31-36); Mean Corpuscular Hemoglobin 27 pg (27-31); Mean Corpuscular Volume 83 fL (80-94); Mean Platelet Volume 6.6 fL (7.4-10.4); Platelet Count 551 10^3/uL (150-450); Red Blood Count 3.07 10^6 /uL (4.18-5.48); Red Cell Distribution Width 19 % (10-15); White Blood Count 13.3 10^3/uL (3.5-10.8)
[2021-06-21 22:59] LABS: INR 1.57 (0.86-1.15)
[2021-06-21 23:03] LABS: Calcium 7.5 mg/dL (8.6-10.3); EGFR African American 18.4 (>60); EGFR Non-African American 15.2 (>60); Potassium 4.8 mmol/L (3.5-5.0)
[2021-06-21] MEDS ORDERED: NS 0.9% 1000 ml BAG 1,000 ML IV ONE (23:07)
[2021-06-21] MEDS ORDERED: cefTRIAXone 2 GM ADDV.VIAL 2 GM in NS 0.9% 100 ml BAG 100 ML IVPB ONE (23:35)
[2021-06-22] MEDS ORDERED: Lactated Ringers 1000 ml BAG 1,000 ML IV ONE (00:31)
[2021-06-22] MEDS ORDERED: Dextrose 50% Syringe 50 ml 25 GM/50 ML SYRINGE IV PUSH PRN (00:33)
[2021-06-22 01:17] LABS: Urine Appearance Cloudy; Urine Bilirubin Negative (Negative); Urine Blood 2+ (Negative); Urine Color Yellow; Urine Glucose 2+(150 mg/dL) (Negative); Urine Ketones Trace (Negative); Urine Nitrite Negative (Negative); Urine Protein 3+(>=500 mg/dL) (Negative); Urine Specific Gravity 1.014 (1.002-1.030); Urine Urobilinogen Negative (Negative)
[2021-06-22 01:23] LABS: Rapid COVID-19 Molecular Undetected (Undetected)
[2021-06-22 01:29] LABS: Urine Bacteria 1+ (Absent); Urine Red Blood Cell 3+(>10/hpf) (Absent); Urine Squamous Epithelial Cell Present (Absent); Urine White Blood Cell 3+(>20/hpf) (Absent)
[2021-06-22] MEDS ORDERED: Vancomycin 1,500 MG in NS 0.9% 250 ml 250 ML IVPB ONE (01:32)
[2021-06-22] MEDS: HYDROmorphone 1 MG/1 ML SYRINGE IV SLOW PU PRN (03:13)
[2021-06-22 03:23] LABS: ABS Lymphocytes 0.7 10^3/ul (1.0-4.8); ABS Monocytes 0.7 10^3/ul (0-0.8); ABS Neutrophils 10.6 10^3/ul (1.5-7.7); Eosinophil % 0.4 %; Hematocrit 28 % (42-52); Hemoglobin 9.2 g/dL (14.0-18.0); Lymphocyte % 5.5 %; Mean Corpuscular HGB Conc 32 g/dL (31-36); Mean Corpuscular Hemoglobin 27 pg (27-31); Mean Corpuscular Volume 83 fL (80-94); Mean Platelet Volume 6.7 fL (7.4-10.4); Platelet Count 621 10^3/uL (150-450); Red Blood Count 3.42 10^6 /uL (4.18-5.48); Red Cell Distribution Width 19 % (10-15); White Blood Count 12.1 10^3/uL (3.5-10.8)
[2021-06-22 03:29] LABS: INR 1.52 (0.86-1.15)
[2021-06-22 03:55] LABS: ALT < 3 U/L (7-52); AST 7 U/L (13-39); Albumin 2.6 g/dL (3.2-5.2); Albumin/Globulin Ratio 0.5 (1-3); Alkaline Phosphatase 92 U/L (35-149); Anion Gap 12 mmol/L (2-11); Blood Urea Nitrogen 67 mg/dL (6-24); CO2 Carbon Dioxide 26 mmol/L (22-32); Calcium 7.9 mg/dL (8.6-10.3); Chloride 95 mmol/L (101-111); EGFR African American 18.1 (>60); Glucose 219 mg/dL (70-100); Potassium 4.7 mmol/L (3.5-5.0); Sodium 133 mmol/L (135-145); Total Protein 7.6 g/dL (6.4-8.9)
[2021-06-22] MEDS ORDERED: Vancomycin per Pharmacy 1 EA NOTE FOLLOW UP SCH (04:00)
[2021-06-22 08:39] LABS: Magnesium 1.3 mg/dL (1.9-2.7)
[2021-06-22] MEDS ORDERED: Insulin GLARGINE 100 un/ml 10 ml VIAL SUBCUT SCH (09:00)
[2021-06-22 14:19] LABS: Urine Appearance Clear; Urine Bacteria 1+ (Absent); Urine Bilirubin Negative (Negative); Urine Blood 2+ (Negative); Urine Glucose 2+(150 mg/dL) (Negative); Urine Ketones Negative (Negative); Urine Nitrite Negative (Negative); Urine Protein 3+(>=500 mg/dL) (Negative); Urine Red Blood Cell 3+(>10/hpf) (Absent); Urine Specific Gravity 1.013 (1.002-1.030); Urine Squamous Epithelial Cell Present (Absent); Urine Urobilinogen Negative (Negative); Urine White Blood Cell 3+(>20/hpf) (Absent)
[2021-06-22] MEDS ORDERED: Heparin 5000 UNITS/ML 1 mL VIAL IV SCH (16:00)
[2021-06-22] MEDS: Heparin DRIP 25,000 UNITS BAG 25,000 UNITS/500 ML BAG IV SCH (16:35)
[2021-06-22 17:05] LABS: Urine Color Yellow
[2021-06-22] MEDS ORDERED: D5LR 1000 ml BAG 1,000 ML IV SCH (19:00)
[2021-06-22] MEDS ORDERED: Lactated Ringers 1000 ml BAG 1,000 ML IV SCH (19:00)
[2021-06-22] MEDS: ceFAZolin 2 GM in NS PREMIX 2 GM/100 ML BAG IVPB SCH (20:41)
[2021-06-23] MEDS ORDERED: cefTRIAXone 1 gm/50 mL NS BAG 1 GM/50 ML BAG IVPB SCH
[2021-06-23 04:54] LABS: ABS Eosinophils 0.1 10^3/ul (0-0.6); ABS Lymphocytes 0.8 10^3/ul (1.0-4.8); ABS Monocytes 0.7 10^3/ul (0-0.8); ABS Neutrophils 11.1 10^3/ul (1.5-7.7); Eosinophil % 0.7 %; Hematocrit 24 % (42-52); Hemoglobin 7.6 g/dL (14.0-18.0); Lymphocyte % 5.9 %; Mean Corpuscular HGB Conc 32 g/dL (31-36); Mean Corpuscular Hemoglobin 27 pg (27-31); Mean Corpuscular Volume 83 fL (80-94); Mean Platelet Volume 6.9 fL (7.4-10.4); Platelet Count 536 10^3/uL (150-450); Red Blood Count 2.87 10^6 /uL (4.18-5.48); Red Cell Distribution Width 18 % (10-15); White Blood Count 12.7 10^3/uL (3.5-10.8)
[2021-06-23 05:04] LABS: Activated Partial Thrombo Time 42.5 seconds (26.0-38.0); INR 1.53 (0.86-1.15)
[2021-06-23 05:19] LABS: Calcium 7.4 mg/dL (8.6-10.3); EGFR African American 18.1 (>60); EGFR Non-African American 14.9 (>60); Magnesium 1.1 mg/dL (1.9-2.7); Phosphorus 3.7 mg/dL (2.5-5.0); Potassium 4.1 mmol/L (3.5-5.0)
[2021-06-23] MEDS ORDERED: Magnesium Sulf 4 GM/100 ML IV 4,000 MG/100 ML BAG IVPB ONE (05:31)
[2021-06-23] MEDS ORDERED: Vancomycin Random Level NOTE FOLLOW UP ONE (06:00)
[2021-06-23] MEDS: ceFAZolin 2 GM in NS PREMIX 2 GM/100 ML BAG IVPB SCH ×2 (09:26→21:00)
[2021-06-23 09:51] LABS: C Reactive Protein 196.84 mg/L (<8.01)
[2021-06-23 09:53] LABS: C Reactive Protein 164.97 mg/L (<8.01)
[2021-06-23] MEDS ORDERED: Dextrose 50% Syringe 50 ml 25 GM/50 ML SYRINGE IV PUSH PRN (10:28)
[2021-06-23] MEDS: Heparin DRIP 25,000 UNITS BAG 25,000 UNITS/500 ML BAG IV SCH (10:50)
[2021-06-23] MEDS ORDERED: fentaNYL 100 mcg/2 ml 50 MCG/ML VIAL ONE (13:43)
[2021-06-23] MEDS: HYDROmorphone 1 MG/1 ML SYRINGE IV SLOW PU PRN (15:28)
[2021-06-23 21:35] LABS: Hematocrit 22 % (42-52); Hemoglobin 7.6 g/dL (14.0-18.0)
[2021-06-24 05:21] LABS: Hematocrit 23 % (42-52); Hemoglobin 7.4 g/dL (14.0-18.0); Mean Corpuscular HGB Conc 32 g/dL (31-36); Mean Corpuscular Hemoglobin 26 pg (27-31); Mean Corpuscular Volume 83 fL (80-94); Mean Platelet Volume 6.9 fL (7.4-10.4); Platelet Count 536 10^3/uL (150-450); Red Cell Distribution Width 18 % (10-15); White Blood Count 11.8 10^3/uL (3.5-10.8)
[2021-06-24 05:37] LABS: Calcium 7.5 mg/dL (8.6-10.3); EGFR Non-African American 15.7 (>60); Potassium 4.3 mmol/L (3.5-5.0)
[2021-06-24] MEDS: ceFAZolin 2 GM in NS PREMIX 2 GM/100 ML BAG IVPB SCH ×2 (08:01→22:22)
[2021-06-24] MEDS: Heparin DRIP 25,000 UNITS BAG 25,000 UNITS/500 ML BAG IV SCH (08:07)
[2021-06-24 08:22] LABS: Phosphorus 3.8 mg/dL (2.5-5.0)
[2021-06-24] MEDS: HYDROmorphone 1 MG/1 ML SYRINGE IV SLOW PU PRN (15:35)
[2021-06-24] MEDS: Insulin GLARGINE 100 un/ml 10 ml VIAL SUBCUT SCH (22:19)
[2021-06-25] MEDS: ceFAZolin 2 GM in NS PREMIX 2 GM/100 ML BAG IVPB SCH ×2 (08:58→23:26)
[2021-06-25 11:17] LABS: Hematocrit 24 % (42-52); Hemoglobin 7.6 g/dL (14.0-18.0); Mean Corpuscular HGB Conc 32 g/dL (31-36); Mean Corpuscular Hemoglobin 26 pg (27-31); Mean Corpuscular Volume 83 fL (80-94); Mean Platelet Volume 6.7 fL (7.4-10.4); Platelet Count 525 10^3/uL (150-450); Red Cell Distribution Width 19 % (10-15); White Blood Count 8.9 10^3/uL (3.5-10.8)
[2021-06-25 11:32] LABS: INR 1.87 (0.86-1.15)
[2021-06-25 11:35] LABS: C-ANCA Negative (Negative); P-ANCA Negative (Negative)
[2021-06-25 11:36] LABS: Calcium 7.7 mg/dL (8.6-10.3); EGFR African American 19.9 (>60); EGFR Non-African American 16.4 (>60); Potassium 4.1 mmol/L (3.5-5.0)
[2021-06-25 14:02] LABS: Complement C3 117 mg/dL (75 - 175)
[2021-06-25] MEDS: HYDROmorphone 1 MG/1 ML SYRINGE IV SLOW PU PRN (18:08)
[2021-06-25] MEDS ORDERED: Ondansetron 4 mg VIAL 2 MG/ML 2 ml VIAL IV PRN (18:13)
[2021-06-25] MEDS ORDERED: LORazepam 2 mg VIAL 1 ml IV PUSH ONE (22:37)
[2021-06-25] MEDS ORDERED: Lorazepam PYXIS KEY PRN (22:37)
[2021-06-25] MEDS: Insulin GLARGINE 100 un/ml 10 ml VIAL SUBCUT SCH (23:39)
[2021-06-26] MEDS ORDERED: Lorazepam PYXIS KEY PRN (03:44)
[2021-06-26] MEDS ORDERED: LORazepam 2 mg VIAL 1 ml IV PUSH ONE (03:44)
[2021-06-26 04:08] LABS: Urine Appearance Cloudy; Urine Bilirubin Negative (Negative); Urine Blood 2+ (Negative); Urine Color Yellow; Urine Glucose 1+(50 mg/dL) (Negative); Urine Ketones Negative (Negative); Urine Nitrite Negative (Negative); Urine Protein 2+(100 mg/dL) (Negative); Urine Specific Gravity 1.015 (1.002-1.030); Urine Urobilinogen Negative (Negative)
[2021-06-26 04:38] LABS: Urine Bacteria Absent (Absent); Urine Red Blood Cell 3+(>10/hpf) (Absent); Urine White Blood Cell 1+(6-10/hpf) (Absent)
[2021-06-26 05:28] LABS: Hematocrit 24 % (42-52); Hemoglobin 7.8 g/dL (14.0-18.0); Mean Corpuscular HGB Conc 32 g/dL (31-36); Mean Corpuscular Hemoglobin 27 pg (27-31); Mean Corpuscular Volume 83 fL (80-94); Mean Platelet Volume 6.7 fL (7.4-10.4); Platelet Count 605 10^3/uL (150-450); Red Blood Count 2.91 10^6 /uL (4.18-5.48); Red Cell Distribution Width 19 % (10-15); White Blood Count 10.6 10^3/uL (3.5-10.8)
[2021-06-26 05:37] LABS: Calcium 7.8 mg/dL (8.6-10.3); EGFR African American 21.2 (>60); EGFR Non-African American 17.5 (>60); Magnesium 1.8 mg/dL (1.9-2.7); Potassium 4.3 mmol/L (3.5-5.0)
[2021-06-26] MEDS ORDERED: Magnesium Sulfate IV 3 GM in NS 0.9% 100 ml BAG 100 ML IVPB ONE (06:55)
[2021-06-26] MEDS: ceFAZolin 2 GM in NS PREMIX 2 GM/100 ML BAG IVPB SCH ×2 (10:56→22:15)
[2021-06-27 04:32] LABS: ABS Lymphocytes 0.4 10^3/ul (1.0-4.8); ABS Monocytes 0.6 10^3/ul (0-0.8); Eosinophil % 0.1 %; Hematocrit 23 % (42-52); Hemoglobin 7.5 g/dL (14.0-18.0); Mean Corpuscular HGB Conc 32 g/dL (31-36); Mean Corpuscular Hemoglobin 27 pg (27-31); Mean Corpuscular Volume 82 fL (80-94); Mean Platelet Volume 6.5 fL (7.4-10.4); Platelet Count 592 10^3/uL (150-450); Red Blood Count 2.83 10^6 /uL (4.18-5.48); Red Cell Distribution Width 19 % (10-15)
[2021-06-27 04:51] LABS: % Iron Saturation 22 % (15-55); Iron 29 ug/dL (50-212); Total Iron Binding Capacity 130 mcg/dL (250-450); Transferrin 93 mg/dL (203-362); Unsaturated Iron Binding < 115 ug/dL
[2021-06-27] MEDS: ceFAZolin 2 GM in NS PREMIX 2 GM/100 ML BAG IVPB SCH ×2 (09:57→21:36)
[2021-06-27] MEDS ORDERED: Polyethylene Glycol 3350 17 GM PACKET PO PRN (11:15)
[2021-06-27 11:58] LABS: Anion Gap 12 mmol/L (2-11); Blood Urea Nitrogen 57 mg/dL (6-24); CO2 Carbon Dioxide 24 mmol/L (22-32); Calcium 7.7 mg/dL (8.6-10.3); Chloride 101 mmol/L (101-111); EGFR African American 24.5 (>60); EGFR Non-African American 20.3 (>60); Glucose 151 mg/dL (70-100); Potassium 4.4 mmol/L (3.5-5.0); Sodium 137 mmol/L (135-145)
[2021-06-28 06:44] LABS: Calcium 7.9 mg/dL (8.6-10.3); EGFR African American 24.4 (>60); EGFR Non-African American 20.1 (>60); Potassium 4.6 mmol/L (3.5-5.0)
[2021-06-28 09:52] LABS: C Reactive Protein 108.84 mg/L (<8.01)
[2021-06-28] MEDS: ceFAZolin 2 GM in NS PREMIX 2 GM/100 ML BAG IVPB SCH ×2 (10:35→21:23)
[2021-06-28 11:37] LABS: Magnesium 2.1 mg/dL (1.9-2.7)
[2021-06-28] MEDS: Insulin GLARGINE 100 un/ml 10 ml VIAL SUBCUT SCH (21:20)
[2021-06-29 06:06] LABS: Calcium 7.8 mg/dL (8.6-10.3); EGFR African American 25.5 (>60); Magnesium 1.9 mg/dL (1.9-2.7); Potassium 3.9 mmol/L (3.5-5.0)
[2021-06-29] MEDS: ceFAZolin 2 GM in NS PREMIX 2 GM/100 ML BAG IVPB SCH ×2 (10:28→20:52)
[2021-06-29] MEDS: Insulin GLARGINE 100 un/ml 10 ml VIAL SUBCUT SCH (20:52)
[2021-06-30] MEDS: ceFAZolin 2 GM in NS PREMIX 2 GM/100 ML BAG IVPB SCH ×2 (09:08→21:56)
[2021-06-30] MEDS: Insulin GLARGINE 100 un/ml 10 ml VIAL SUBCUT SCH (22:01)
[2021-07-01] MEDS: Aspirin EC 81 mg TAB.EC (enteric coated) PO SCH (08:34)
[2021-07-01] MEDS: ceFAZolin 2 GM in NS PREMIX 2 GM/100 ML BAG IVPB SCH ×2 (08:47→22:11)
[2021-07-01] MEDS ORDERED: NS 0.9% 500 ml BAG 500 ML IV ONE (10:31)
[2021-07-01 11:10] LABS: ABS Basophils 0.1 10^3/ul (0-0.2); ABS Eosinophils 0.1 10^3/ul (0-0.6); ABS Lymphocytes 0.8 10^3/ul (1.0-4.8); ABS Monocytes 0.6 10^3/ul (0-0.8); Eosinophil % 1.3 %; Hematocrit 24 % (42-52); Hemoglobin 7.9 g/dL (14.0-18.0); Lymphocyte % 12.3 %; Mean Corpuscular HGB Conc 33 g/dL (31-36); Mean Corpuscular Hemoglobin 27 pg (27-31); Mean Corpuscular Volume 83 fL (80-94); Mean Platelet Volume 6.5 fL (7.4-10.4); Platelet Count 541 10^3/uL (150-450); Red Blood Count 2.91 10^6 /uL (4.18-5.48); Red Cell Distribution Width 19 % (10-15); White Blood Count 6.5 10^3/uL (3.5-10.8)
[2021-07-01 11:35] LABS: Calcium 7.8 mg/dL (8.6-10.3); EGFR African American 29.5 (>60); EGFR Non-African American 24.4 (>60); Potassium 4.3 mmol/L (3.5-5.0)
[2021-07-01] MEDS: Insulin GLARGINE 100 un/ml 10 ml VIAL SUBCUT SCH (21:34)
[2021-07-02 06:01] LABS: ABS Eosinophils 0.1 10^3/ul (0-0.6); ABS Lymphocytes 0.8 10^3/ul (1.0-4.8); ABS Monocytes 0.5 10^3/ul (0-0.8); ABS Neutrophils 3.9 10^3/ul (1.5-7.7); Eosinophil % 1.7 %; Hematocrit 25 % (42-52); Hemoglobin 8.1 g/dL (14.0-18.0); Lymphocyte % 14.5 %; Mean Corpuscular HGB Conc 33 g/dL (31-36); Mean Corpuscular Hemoglobin 27 pg (27-31); Mean Corpuscular Volume 82 fL (80-94); Mean Platelet Volume 6.5 fL (7.4-10.4); Platelet Count 587 10^3/uL (150-450); Red Blood Count 2.99 10^6 /uL (4.18-5.48); Red Cell Distribution Width 19 % (10-15); White Blood Count 5.3 10^3/uL (3.5-10.8)
[2021-07-02 06:19] LABS: EGFR African American 28.2 (>60); EGFR Non-African American 23.3 (>60)
[2021-07-02] MEDS ORDERED: Phytonadione Oral Solution 5 MG/25 ML UDC PO ONE (07:41)
[2021-07-02] MEDS: Aspirin EC 81 mg TAB.EC (enteric coated) PO SCH (08:27)
[2021-07-02 08:34] VITALS: BP 127/61
[2021-07-02] MEDS: ceFAZolin 2 GM in NS PREMIX 2 GM/100 ML BAG IVPB SCH (09:46)
[2021-07-02 09:50] LABS: C Reactive Protein 58.5 mg/L (<8.01)
== END 2021-07-02 11:33 | DRG 871 ==
LOC: ED 15:21 → SUATTDRO 06-22 00:25 → ICU 06-22 00:25 → SSU 06-24 16:38
PROVIDERS: ADMIT Internal Medicine; ATTEND Internal Medicine

== ENCOUNTER 2021-07-11 11:51 | Inpatient (IN) ==
[2021-07-11 12:39] LABS: ABS Eosinophils 0.1 10^3/ul (0-0.6); ABS Lymphocytes 0.4 10^3/ul (1.0-4.8); ABS Monocytes 0.7 10^3/ul (0-0.8); ABS Neutrophils 6.4 10^3/ul (1.5-7.7); Eosinophil % 0.7 %; Hematocrit 19 % (42-52); Hemoglobin 6.2 g/dL (14.0-18.0); Mean Corpuscular HGB Conc 33 g/dL (31-36); Mean Corpuscular Hemoglobin 27 pg (27-31); Mean Corpuscular Volume 83 fL (80-94); Mean Platelet Volume 6.6 fL (7.4-10.4); Platelet Count 403 10^3/uL (150-450); Red Blood Count 2.29 10^6 /uL (4.18-5.48); Red Cell Distribution Width 20 % (10-15); White Blood Count 7.5 10^3/uL (3.5-10.8)
[2021-07-11 12:51] LABS: ALT < 3 U/L (7-52); AST 8 U/L (13-39); Albumin 2.4 g/dL (3.2-5.2); Albumin/Globulin Ratio 0.5 (1-3); Alkaline Phosphatase 79 U/L (35-149); Anion Gap 10 mmol/L (2-11); Blood Urea Nitrogen 117 mg/dL (6-24); CO2 Carbon Dioxide 21 mmol/L (22-32); Calcium 7.8 mg/dL (8.6-10.3); Chloride 107 mmol/L (101-111); Creatine Kinase 108 U/L (10-223); EGFR African American 15.2 (>60); EGFR Non-African American 12.6 (>60); Globulin 4.5 g/dL (2-4); Glucose 78 mg/dL (70-100); Magnesium 1.7 mg/dL (1.9-2.7); Potassium 4.6 mmol/L (3.5-5.0); Sodium 138 mmol/L (135-145); Total Protein 6.9 g/dL (6.4-8.9)
[2021-07-11] MEDS ORDERED: Lactated Ringers 1000 ml BAG 1,000 ML IV ONE ×2 (13:04→13:55)
[2021-07-11 13:42] LABS: Troponin I 0.02 ng/mL (<0.03)
[2021-07-11 15:54] LABS: INR 1.76 (0.86-1.15)
[2021-07-11 15:55] LABS: Activated Partial Thrombo Time 33.1 seconds (26.0-38.0)
[2021-07-11] MEDS ORDERED: Morphine 2 MG/ML SYRINGE IV PRN (17:09)
[2021-07-11 17:54] LABS: % Iron Saturation 27 % (15-55); Iron 35 ug/dL (50-212); Total Iron Binding Capacity 129 mcg/dL (250-450); Transferrin 92 mg/dL (203-362); Unsaturated Iron Binding < 114 ug/dL
[2021-07-11 18:15] LABS: Ferritin 267.5 ng/mL (24-336)
[2021-07-11 18:19] LABS: Folate 15.21 ng/mL (5.90-24.80)
[2021-07-11 18:20] LABS: Vitamin B12 > 1450 pg/mL (180-914)
[2021-07-11] MEDS ORDERED: Dextrose 50% Syringe 50 ml 25 GM/50 ML SYRINGE IV PUSH PRN (18:52)
[2021-07-11 21:34] LABS: Rapid COVID-19 Molecular Undetected (Undetected)
[2021-07-11] MEDS ORDERED: Dextrose 50% Syringe 50 ml 25 GM/50 ML SYRINGE ONE (23:56)
[2021-07-11] MEDS ORDERED: LORazepam 2 mg VIAL 1 ml ONE (23:56)
[2021-07-12] MEDS ORDERED: ceFAZolin VIAL 2 GM in NS 0.9% 100 ml BAG 100 ML IVPB SCH
[2021-07-12 01:02] LABS: ABS Lymphocytes 0.4 10^3/ul (1.0-4.8); ABS Monocytes 0.5 10^3/ul (0-0.8); ABS Neutrophils 6.3 10^3/ul (1.5-7.7); Eosinophil % 0.3 %; Hematocrit 25 % (42-52); Hemoglobin 8.4 g/dL (14.0-18.0); Lymphocyte % 5.2 %; Mean Corpuscular HGB Conc 34 g/dL (31-36); Mean Corpuscular Hemoglobin 29 pg (27-31); Mean Corpuscular Volume 84 fL (80-94); Mean Platelet Volume 6.8 fL (7.4-10.4); Platelet Count 415 10^3/uL (150-450); Red Blood Count 2.93 10^6 /uL (4.18-5.48); Red Cell Distribution Width 20 % (10-15); White Blood Count 7.2 10^3/uL (3.5-10.8)
[2021-07-12 01:24] LABS: ALT < 3 U/L (7-52); AST 9 U/L (13-39); Albumin 2.3 g/dL (3.2-5.2); Albumin/Globulin Ratio 0.5 (1-3); Alkaline Phosphatase 86 U/L (35-149); Anion Gap 11 mmol/L (2-11); Blood Urea Nitrogen 114 mg/dL (6-24); CO2 Carbon Dioxide 21 mmol/L (22-32); Calcium 8.1 mg/dL (8.6-10.3); Chloride 106 mmol/L (101-111); EGFR African American 19.2 (>60); EGFR Non-African American 15.9 (>60); Globulin 4.8 g/dL (2-4); Glucose 106 mg/dL (70-100); Potassium 4.2 mmol/L (3.5-5.0); Sodium 138 mmol/L (135-145); Total Protein 7.1 g/dL (6.4-8.9)
[2021-07-12] MEDS ORDERED: D5NS 0.9% 1000 ml BAG 1,000 ML IV SCH (02:00)
[2021-07-12] MEDS ORDERED: Morphine 2 MG/ML SYRINGE IV ONE ×2 (03:50→23:40)
[2021-07-12] MEDS ORDERED: Insulin GLARGINE 100 un/ml 10 ml VIAL SUBCUT SCH (09:00)
[2021-07-12 11:50] LABS: ABS Basophils 0.1 10^3/ul (0-0.2); ABS Lymphocytes 0.6 10^3/ul (1.0-4.8); ABS Monocytes 0.6 10^3/ul (0-0.8); ABS Neutrophils 4.9 10^3/ul (1.5-7.7); Eosinophil % 0.4 %; Hematocrit 25 % (42-52); Hemoglobin 8.2 g/dL (14.0-18.0); Mean Corpuscular HGB Conc 34 g/dL (31-36); Mean Corpuscular Hemoglobin 28 pg (27-31); Mean Corpuscular Volume 83 fL (80-94); Mean Platelet Volume 6.9 fL (7.4-10.4); Platelet Count 424 10^3/uL (150-450); Red Blood Count 2.96 10^6 /uL (4.18-5.48); Red Cell Distribution Width 19 % (10-15); White Blood Count 6.2 10^3/uL (3.5-10.8)
[2021-07-12 12:08] LABS: Anion Gap 11 mmol/L (2-11); Blood Urea Nitrogen 112 mg/dL (6-24); CO2 Carbon Dioxide 20 mmol/L (22-32); Calcium 7.9 mg/dL (8.6-10.3); Chloride 108 mmol/L (101-111); Glucose 147 mg/dL (70-100); Magnesium 1.7 mg/dL (1.9-2.7); Potassium 4.4 mmol/L (3.5-5.0); Sodium 139 mmol/L (135-145)
[2021-07-12 14:36] LABS: Urine Appearance Clear; Urine Bilirubin Negative (Negative); Urine Blood 2+ (Negative); Urine Color Yellow; Urine Glucose 1+(50 mg/dL) (Negative); Urine Ketones Negative (Negative); Urine Nitrite Negative (Negative); Urine Protein 2+(100 mg/dL) (Negative); Urine Specific Gravity 1.013 (1.002-1.030); Urine Urobilinogen Negative (Negative)
[2021-07-12 14:43] LABS: Urine Bacteria 1+ (Absent); Urine Red Blood Cell 1+(3-5/hpf) (Absent); Urine White Blood Cell Trace(0-5/hpf) (Absent)
[2021-07-12 17:02] LABS: ALT < 3 U/L (7-52); AST 8 U/L (13-39); Albumin/Globulin Ratio 0.5 (1-3); Alkaline Phosphatase 75 U/L (35-149); Anion Gap 11 mmol/L (2-11); Blood Urea Nitrogen 112 mg/dL (6-24); CO2 Carbon Dioxide 21 mmol/L (22-32); Calcium 7.8 mg/dL (8.6-10.3); Chloride 109 mmol/L (101-111); Globulin 4.4 g/dL (2-4); Glucose 170 mg/dL (70-100); Potassium 4.3 mmol/L (3.5-5.0); Sodium 141 mmol/L (135-145); Total Protein 6.4 g/dL (6.4-8.9)
[2021-07-12] MEDS ORDERED: NS 0.9% 1000 ml BAG 1,000 ML IV SCH (17:30)
[2021-07-13] MEDS ORDERED: ceFAZolin VIAL 2 GM in NS 0.9% 100 ml BAG 100 ML IVPB SCH
[2021-07-13] MEDS: Dexamethasone IV 4 MG/ML VIAL 1 ml VIAL IV SLOW PU SCH ×4 (00:04→18:31)
[2021-07-13] MEDS ORDERED: Morphine 2 MG/ML SYRINGE IV ONE (04:43)
[2021-07-13 05:24] LABS: INR 1.67 (0.86-1.15)
[2021-07-13 08:43] LABS: ABS Lymphocytes 0.3 10^3/ul (1.0-4.8); ABS Monocytes 0.1 10^3/ul (0-0.8); ABS Neutrophils 6.3 10^3/ul (1.5-7.7); Hematocrit 26 % (42-52); Hemoglobin 8.6 g/dL (14.0-18.0); Lymphocyte % 4.1 %; Mean Corpuscular HGB Conc 33 g/dL (31-36); Mean Corpuscular Hemoglobin 28 pg (27-31); Mean Corpuscular Volume 84 fL (80-94); Mean Platelet Volume 6.8 fL (7.4-10.4); Platelet Count 368 10^3/uL (150-450); Red Blood Count 3.08 10^6 /uL (4.18-5.48); Red Cell Distribution Width 20 % (10-15); White Blood Count 6.7 10^3/uL (3.5-10.8)
[2021-07-13 09:01] LABS: ALT < 3 U/L (7-52); AST 8 U/L (13-39); Albumin 2.1 g/dL (3.2-5.2); Albumin/Globulin Ratio 0.5 (1-3); Alkaline Phosphatase 80 U/L (35-149); Anion Gap 11 mmol/L (2-11); Blood Urea Nitrogen 108 mg/dL (6-24); C Reactive Protein 65.01 mg/L (<8.01); CO2 Carbon Dioxide 20 mmol/L (22-32); Calcium 7.8 mg/dL (8.6-10.3); Chloride 110 mmol/L (101-111); Globulin 4.6 g/dL (2-4); Glucose 169 mg/dL (70-100); Magnesium 1.8 mg/dL (1.9-2.7); Potassium 4.5 mmol/L (3.5-5.0); Sodium 141 mmol/L (135-145); Total Protein 6.7 g/dL (6.4-8.9)
[2021-07-13] MEDS: ceFAZolin VIAL 2 GM in NS 0.9% 100 ml BAG 100 ML IVPB SCH (14:32)
[2021-07-13] MEDS: Pantoprazole VIAL 40 MG VIAL IV SCH (20:37)
[2021-07-13] MEDS ORDERED: NS 0.9% 1000 ml BAG 1,000 ML IV SCH (22:15)
[2021-07-14] MEDS: Dexamethasone IV 4 MG/ML VIAL 1 ml VIAL IV SLOW PU SCH ×4 (00:18→18:51)
[2021-07-14] MEDS: ceFAZolin VIAL 2 GM in NS 0.9% 100 ml BAG 100 ML IVPB SCH ×2 (02:07→15:19)
[2021-07-14 06:17] LABS: Calcium 7.7 mg/dL (8.6-10.3); Magnesium 1.7 mg/dL (1.9-2.7); Phosphorus 3.9 mg/dL (2.5-5.0); Potassium 4.6 mmol/L (3.5-5.0)
[2021-07-14 06:26] LABS: INR 2.12 (0.86-1.15)
[2021-07-14 06:32] LABS: ABS Lymphocytes 0.3 10^3/ul (1.0-4.8); ABS Monocytes 0.2 10^3/ul (0-0.8); Hematocrit 25 % (42-52); Hemoglobin 8.2 g/dL (14.0-18.0); Lymphocyte % 4.8 %; Mean Corpuscular HGB Conc 33 g/dL (31-36); Mean Corpuscular Hemoglobin 29 pg (27-31); Mean Corpuscular Volume 86 fL (80-94); Mean Platelet Volume 7.3 fL (7.4-10.4); Platelet Count 358 10^3/uL (150-450); Red Blood Count 2.88 10^6 /uL (4.18-5.48); Red Cell Distribution Width 20 % (10-15); White Blood Count 6.5 10^3/uL (3.5-10.8)
[2021-07-14] MEDS ORDERED: Magnesium Sulf 4 GM/100 ML IV 4,000 MG/100 ML BAG IVPB ONE (07:56)
[2021-07-14] MEDS: Pantoprazole VIAL 40 MG VIAL IV SCH ×2 (09:05→23:14)
[2021-07-14] MEDS ORDERED: Prothrombin Complex Conc. DOSE = Units Factor IX (nine) IV SLOW PU ONE (09:15)
[2021-07-14] MEDS ORDERED: ceFAZolin 2 GM in NS PREMIX 2 GM/100 ML BAG IVPB ONE (11:32)
[2021-07-14] MEDS ORDERED: Buffered Lidocaine 1% SYRIN 1 ml INTRADERM ONE ×2 (11:32→13:19)
[2021-07-14] MEDS ORDERED: Calcium CHLORIDE 10% SYRINGE 1 GM/10 ML ONE (11:49)
[2021-07-14] MEDS ORDERED: Propofol 10 mg/ml 100 ML BTL 100 ML ONE ×2 (11:49→21:01)
[2021-07-14] MEDS ORDERED: EPHEDrine (Pressors) 50 MG/ML VIAL ONE (12:08)
[2021-07-14] MEDS ORDERED: Lidocaine 2% PF 5 ML VIAL ONE (12:08)
[2021-07-14] MEDS ORDERED: Remifentanil 2 MG VIAL ONE ×2 (12:08→17:21)
[2021-07-14] MEDS ORDERED: Succinylcholine 200 mg VIAL 20 mg/ml 10 ml VIAL (200 mg) ONE (12:08)
[2021-07-14] MEDS ORDERED: fentaNYL 100 mcg/2 ml 50 MCG/ML VIAL ONE ×3 (12:08→21:33)
[2021-07-14] MEDS ORDERED: Propofol 10 MG/ML 20 ML BTL ONE ×2 (12:08→19:19)
[2021-07-14] MEDS ORDERED: Phenylephrine IV 10 MG/ML 1 ml VIAL ONE ×2 (12:08→18:57)
[2021-07-14] MEDS ORDERED: Glycopyrrolate IV 0.2 MG/ML 1 ML VIAL ONE (12:21)
[2021-07-14] MEDS ORDERED: Albumin Human 5% 25 GM/500 ML BTL IV ONE (13:11)
[2021-07-14] MEDS ORDERED: Midazolam 2 mg/2 ml VIAL 1 mg/ml 2 ml VIAL (2 mg) ONE ×2 (13:12→16:18)
[2021-07-14] MEDS ORDERED: Dexamethasone IV 4 MG/ML VIAL 1 ml VIAL ONE (14:53)
[2021-07-14] MEDS ORDERED: Rocuronium 50 mg VIAL 10 mg/ml 5 ml VIAL (50 mg) ONE ×2 (15:12→15:57)
[2021-07-14 15:21] LABS: ABS Lymphocytes 0.4 10^3/ul (1.0-4.8); ABS Monocytes 0.3 10^3/ul (0-0.8); ABS Neutrophils 4.9 10^3/ul (1.5-7.7); Hematocrit 24 % (42-52); Lymphocyte % 6.4 %; Mean Corpuscular HGB Conc 33 g/dL (31-36); Mean Corpuscular Hemoglobin 29 pg (27-31); Mean Corpuscular Volume 85 fL (80-94); PCO2 Arterial 25 mmHg (35-45); PO2 Arterial 221 mmHg (80-100); Platelet Count 291 10^3/uL (150-450); Red Blood Count 2.83 10^6 /uL (4.18-5.48); Red Cell Distribution Width 19 % (10-15); White Blood Count 5.6 10^3/uL (3.5-10.8)
[2021-07-14 15:50] LABS: Calcium 7.3 mg/dL (8.6-10.3); Potassium 4.3 mmol/L (3.5-5.0)
[2021-07-14 16:13] LABS: INR 1.67 (0.86-1.15)
[2021-07-14] MEDS ORDERED: Acetaminophen IV 1 GM/100ML 100 ML IV ONE (17:35)
[2021-07-14 18:22] LABS: Hematocrit 25 % (42-52); Hemoglobin 8.3 g/dL (14.0-18.0); Mean Corpuscular HGB Conc 34 g/dL (31-36); Mean Corpuscular Hemoglobin 29 pg (27-31); Mean Corpuscular Volume 86 fL (80-94); Mean Platelet Volume 7.1 fL (7.4-10.4); Platelet Count 332 10^3/uL (150-450); Red Blood Count 2.87 10^6 /uL (4.18-5.48); Red Cell Distribution Width 19 % (10-15); White Blood Count 7.7 10^3/uL (3.5-10.8)
[2021-07-14 18:42] LABS: Calcium 7.9 mg/dL (8.6-10.3); Potassium 4.3 mmol/L (3.5-5.0)
[2021-07-14] MEDS ORDERED: ceFAZolin VIAL VIAL ONE (18:49)
[2021-07-14 19:25] LABS: PCO2 Arterial 38 mmHg (35-45); PO2 Arterial 325 mmHg (80-100)
[2021-07-14 19:32] LABS: INR 1.59 (0.86-1.15)
[2021-07-14 20:26] LABS: PCO2 Arterial 32 mmHg (35-45); PO2 Arterial 406 mmHg (80-100)
[2021-07-14] MEDS: fentaNYL 100 mcg/2 ml 50 MCG/ML VIAL IV SLOW PU PRN (21:27)
[2021-07-14] MEDS: Propofol 10 mg/ml 100 ML BTL 100 ML IV SCH (21:30)
[2021-07-14] MEDS ORDERED: fentaNYL INFUSION 50 mcg/mL VL 2,500 MCG/50 ML VIAL IV SCH (22:00)
[2021-07-14] MEDS ORDERED: Dextrose 50% Syringe 50 ml 25 GM/50 ML SYRINGE IV PUSH PRN (22:13)
[2021-07-14] MEDS ORDERED: NS 0.9% 1000 ml BAG 1,000 ML IV SCH (22:15)
[2021-07-14] MEDS: Chlorhexidine MOUTHWASH 0.12% 15 ML UDC TOPICAL SCH (23:14)
[2021-07-14] MEDS: hydrALAZINE 20 mg/ml 1 ML Vial IV IV SLOW PU PRN (23:14)
[2021-07-14] MEDS: Insulin GLARGINE 100 un/ml 10 ml VIAL SUBCUT SCH (23:15)
[2021-07-14] MEDS: Metoprolol Tartrate 5 mg VIAL 5 ml VIAL (1 mg/ml) IV SCH (23:16)
[2021-07-15] MEDS: Dexamethasone IV 4 MG/ML VIAL 1 ml VIAL IV SLOW PU SCH ×4 (00:48→16:55)
[2021-07-15] MEDS: Propofol 10 mg/ml 100 ML BTL 100 ML IV SCH ×4 (01:12→20:28)
[2021-07-15] MEDS: ceFAZolin VIAL 2 GM in NS 0.9% 100 ml BAG 100 ML IVPB SCH ×2 (02:25→12:04)
[2021-07-15] MEDS: Chlorhexidine MOUTHWASH 0.12% 15 ML UDC TOPICAL SCH ×6 (02:25→20:12)
[2021-07-15] MEDS: Metoprolol Tartrate 5 mg VIAL 5 ml VIAL (1 mg/ml) IV SCH ×4 (04:07→23:19)
[2021-07-15 06:16] LABS: ABS Lymphocytes 0.6 10^3/ul (1.0-4.8); ABS Monocytes 0.5 10^3/ul (0-0.8); ABS Neutrophils 6.7 10^3/ul (1.5-7.7); Hematocrit 21 % (42-52); Lymphocyte % 7.5 %; Mean Corpuscular HGB Conc 34 g/dL (31-36); Mean Corpuscular Hemoglobin 29 pg (27-31); Mean Corpuscular Volume 85 fL (80-94); Mean Platelet Volume 6.9 fL (7.4-10.4); Nucleated Red Blood Cells % 0.1; Platelet Count 265 10^3/uL (150-450); Red Blood Count 2.46 10^6 /uL (4.18-5.48); Red Cell Distribution Width 19 % (10-15); White Blood Count 7.7 10^3/uL (3.5-10.8)
[2021-07-15 06:31] LABS: Calcium 7.7 mg/dL (8.6-10.3); Potassium 4.1 mmol/L (3.5-5.0)
[2021-07-15 08:07] LABS: Magnesium 2.3 mg/dL (1.9-2.7)
[2021-07-15] MEDS: Pantoprazole VIAL 40 MG VIAL IV SCH ×2 (08:38→20:08)
[2021-07-15] MEDS: hydrALAZINE 20 mg/ml 1 ML Vial IV IV SLOW PU PRN (09:16)
[2021-07-15] MEDS: Insulin GLARGINE 100 un/ml 10 ml VIAL SUBCUT SCH (20:27)
[2021-07-16] MEDS: Dexamethasone IV 4 MG/ML VIAL 1 ml VIAL IV SLOW PU SCH ×4 (00:38→19:04)
[2021-07-16] MEDS: Chlorhexidine MOUTHWASH 0.12% 15 ML UDC TOPICAL SCH ×5 (00:38→19:59)
[2021-07-16] MEDS: Propofol 10 mg/ml 100 ML BTL 100 ML IV SCH ×2 (01:19→06:26)
[2021-07-16] MEDS: ceFAZolin VIAL 2 GM in NS 0.9% 100 ml BAG 100 ML IVPB SCH ×2 (02:42→16:00)
[2021-07-16] MEDS: Metoprolol Tartrate 5 mg VIAL 5 ml VIAL (1 mg/ml) IV SCH ×4 (05:29→21:10)
[2021-07-16 05:51] LABS: Hematocrit 24 % (42-52); Hemoglobin 7.8 g/dL (14.0-18.0); Mean Corpuscular HGB Conc 33 g/dL (31-36); Mean Corpuscular Hemoglobin 28 pg (27-31); Mean Corpuscular Volume 86 fL (80-94); Mean Platelet Volume 6.9 fL (7.4-10.4); Platelet Count 275 10^3/uL (150-450); Red Blood Count 2.78 10^6 /uL (4.18-5.48); Red Cell Distribution Width 19 % (10-15); White Blood Count 8.7 10^3/uL (3.5-10.8)
[2021-07-16 06:02] LABS: INR 1.18 (0.86-1.15)
[2021-07-16 06:08] LABS: Calcium 7.6 mg/dL (8.6-10.3); Magnesium 2.3 mg/dL (1.9-2.7); Phosphorus 4.7 mg/dL (2.5-5.0); Potassium 4.1 mmol/L (3.5-5.0)
[2021-07-16] MEDS: Pantoprazole VIAL 40 MG VIAL IV SCH ×2 (09:38→21:10)
[2021-07-16] MEDS ORDERED: Insulin GLARGINE 100 un/ml 10 ml VIAL SUBCUT SCH (21:00)
[2021-07-16] MEDS: hydrALAZINE 20 mg/ml 1 ML Vial IV IV SLOW PU PRN (23:03)
[2021-07-17] MEDS: Dexamethasone IV 4 MG/ML VIAL 1 ml VIAL IV SLOW PU SCH ×5 (00:34→21:52)
[2021-07-17] MEDS: fentaNYL 100 mcg/2 ml 50 MCG/ML VIAL IV SLOW PU PRN (01:05)
[2021-07-17] MEDS ORDERED: Metoprolol Tartrate 5 mg VIAL 5 ml VIAL (1 mg/ml) IV ONE (02:04)
[2021-07-17] MEDS: ceFAZolin VIAL 2 GM in NS 0.9% 100 ml BAG 100 ML IVPB SCH ×2 (02:12→14:24)
[2021-07-17] MEDS: Metoprolol Tartrate 5 mg VIAL 5 ml VIAL (1 mg/ml) IV SCH ×4 (04:10→21:52)
[2021-07-17 04:29] LABS: Hematocrit 24 % (42-52); Hemoglobin 8.1 g/dL (14.0-18.0); Mean Corpuscular HGB Conc 33 g/dL (31-36); Mean Corpuscular Hemoglobin 28 pg (27-31); Mean Corpuscular Volume 84 fL (80-94); Platelet Count 260 10^3/uL (150-450); Red Blood Count 2.89 10^6 /uL (4.18-5.48); Red Cell Distribution Width 19 % (10-15); White Blood Count 8.9 10^3/uL (3.5-10.8)
[2021-07-17 04:45] LABS: Calcium 7.4 mg/dL (8.6-10.3); Magnesium 2.2 mg/dL (1.9-2.7); Phosphorus 3.9 mg/dL (2.5-5.0)
[2021-07-17] MEDS: Pantoprazole VIAL 40 MG VIAL IV SCH ×2 (09:44→21:18)
[2021-07-17 10:51] LABS: Venous Bicarbonate HCO3 20.7 mmol/L (24-28)
[2021-07-17] MEDS: hydrALAZINE 20 mg/ml 1 ML Vial IV IV SLOW PU PRN (11:32)
[2021-07-17] MEDS ORDERED: Naloxone 0.4 mg VIAL 0.4 mg/ml 1 ml VIAL ONE (14:55)
[2021-07-17] MEDS ORDERED: LORazepam 2 mg VIAL 1 ml ONE ×3 (15:11→18:08)
[2021-07-17] MEDS ORDERED: Lorazepam PYXIS KEY ONE ×4 (15:11→20:05)
[2021-07-17 15:36] LABS: Activated Partial Thrombo Time 29.9 seconds (26.0-38.0); INR 1.1 (0.86-1.15)
[2021-07-17 15:42] LABS: TSH Ultra Thyroid Stim Horm 8.1 mcIU/mL (0.34-5.60)
[2021-07-17] MEDS ORDERED: Naloxone 0.4 mg VIAL 0.4 mg/ml 1 ml VIAL IV PUSH ONE (16:12)
[2021-07-17] MEDS ORDERED: levETIRAcetam 1000MG IVPREMIX 1,000 MG/100 ML BAG IVPB ONE (17:26)
[2021-07-17] MEDS ORDERED: Lorazepam PYXIS KEY PRN (17:27)
[2021-07-17] MEDS: LORazepam 2 mg VIAL 1 ml IV PUSH PRN (18:18)
[2021-07-17] MEDS: cefTRIAXone 2 GM ADDV.VIAL 2 GM in NS 0.9% 100 ml BAG 100 ML IV SCH (18:18)
[2021-07-17] MEDS ORDERED: LEVETIRACETAM IVPB ONE (18:30)
[2021-07-17] MEDS ORDERED: NS IVPB ONE (18:30)
[2021-07-17] MEDS ORDERED: Vancomycin per Pharmacy 1 EA NOTE FOLLOW UP PRN (18:33)
[2021-07-17] MEDS ORDERED: Vancomycin 1,250 MG in NS 0.9% 250 ml 250 ML IVPB ONE (19:00)
[2021-07-18] MEDS: Metoprolol Tartrate 5 mg VIAL 5 ml VIAL (1 mg/ml) IV SCH ×4 (04:28→21:40)
[2021-07-18 04:57] LABS: Hematocrit 25 % (42-52); Hemoglobin 8.3 g/dL (14.0-18.0); Mean Corpuscular HGB Conc 33 g/dL (31-36); Mean Corpuscular Hemoglobin 29 pg (27-31); Mean Corpuscular Volume 86 fL (80-94); Mean Platelet Volume 7.6 fL (7.4-10.4); Platelet Count 254 10^3/uL (150-450); Red Cell Distribution Width 20 % (10-15); White Blood Count 10.2 10^3/uL (3.5-10.8)
[2021-07-18 05:17] LABS: Calcium 6.9 mg/dL (8.6-10.3); Magnesium 2.2 mg/dL (1.9-2.7); Phosphorus 4.3 mg/dL (2.5-5.0); Potassium 4.3 mmol/L (3.5-5.0)
[2021-07-18] MEDS ORDERED: Vancomycin Random Level NOTE FOLLOW UP ONE ×2 (06:00→09:00)
[2021-07-18] MEDS: Dexamethasone IV 4 MG/ML VIAL 1 ml VIAL IV SLOW PU SCH ×3 (06:03→21:40)
[2021-07-18] MEDS: cefTRIAXone 2 GM ADDV.VIAL 2 GM in NS 0.9% 100 ml BAG 100 ML IV SCH ×2 (06:03→16:46)
[2021-07-18] MEDS: levETIRAcetam 500 MG IVPREMIX 500 MG/100 ML BAG IV SCH ×2 (06:03→17:07)
[2021-07-18] MEDS: Pantoprazole VIAL 40 MG VIAL IV SCH ×2 (09:15→21:39)
[2021-07-18 10:03] LABS: Vancomycin Random 11.5 mcg/mL
[2021-07-18] MEDS ORDERED: Vancomycin 1000 MG in NS 0.9% 250 ML IVPB ONE (12:00)
[2021-07-18] MEDS: Lidocaine PATCH 5% PATCH TRANSDERM SCH (16:45)
[2021-07-18] MEDS: Lidocaine Patch REMOVE PATCH PATCH OFF SCH (21:40)
[2021-07-19] MEDS: hydrALAZINE 20 mg/ml 1 ML Vial IV IV SLOW PU PRN ×2 (01:13→07:49)
[2021-07-19] MEDS: LORazepam 2 mg VIAL 1 ml IV PUSH PRN (02:41)
[2021-07-19] MEDS: Metoprolol Tartrate 5 mg VIAL 5 ml VIAL (1 mg/ml) IV SCH (04:33)
[2021-07-19 04:53] LABS: Hematocrit 26 % (42-52); Hemoglobin 8.3 g/dL (14.0-18.0); Mean Corpuscular HGB Conc 33 g/dL (31-36); Mean Corpuscular Hemoglobin 28 pg (27-31); Mean Corpuscular Volume 86 fL (80-94); Mean Platelet Volume 7.4 fL (7.4-10.4); Platelet Count 285 10^3/uL (150-450); Red Blood Count 2.96 10^6 /uL (4.18-5.48); Red Cell Distribution Width 20 % (10-15); White Blood Count 14.3 10^3/uL (3.5-10.8)
[2021-07-19 05:14] LABS: Calcium 7.4 mg/dL (8.6-10.3); Magnesium 2.1 mg/dL (1.9-2.7); Potassium 4.1 mmol/L (3.5-5.0)
[2021-07-19 05:16] LABS: ABS Basophils 0.2 10^3/ul (0-0.2); ABS Lymphocytes 0.4 10^3/ul (1.0-4.8); ABS Monocytes 0.7 10^3/ul (0-0.8); Lymphocyte % 2.5 %
[2021-07-19] MEDS: Dexamethasone IV 4 MG/ML VIAL 1 ml VIAL IV SLOW PU SCH ×3 (05:24→20:10)
[2021-07-19] MEDS: cefTRIAXone 2 GM ADDV.VIAL 2 GM in NS 0.9% 100 ml BAG 100 ML IV SCH (05:24)
[2021-07-19] MEDS: levETIRAcetam 500 MG IVPREMIX 500 MG/100 ML BAG IV SCH ×2 (05:24→18:37)
[2021-07-19] MEDS ORDERED: Vancomycin Random Level NOTE FOLLOW UP ONE (06:00)
[2021-07-19] MEDS: Lidocaine PATCH 5% PATCH TRANSDERM SCH (07:49)
[2021-07-19] MEDS: Pantoprazole VIAL 40 MG VIAL IV SCH ×2 (07:49→19:55)
[2021-07-19] MEDS: niCARdipine 0.1MG/ML IVPREMIX 20 MG/200 ML BAG IV SCH ×3 (07:59→17:01)
[2021-07-19] MEDS ORDERED: VALPROIC ACID IVPB ONE (12:30)
[2021-07-19] MEDS ORDERED: NS 0.9% IVPB ONE (12:30)
[2021-07-19] MEDS ORDERED: Vancomycin 500 MG in NS 0.9% 250 ML IVPB ONE (13:00)
[2021-07-19] MEDS: Oxacillin 2 GM in NS 0.9% 100 ml BAG 100 ML IVPB SCH ×2 (13:26→19:51)
[2021-07-19 15:15] LABS: C Reactive Protein 49.43 mg/L (<8.01)
[2021-07-19] MEDS: Heparin 5000 UNITS/ML 1 mL VIAL SUBCUT SCH (20:09)
[2021-07-19] MEDS: Lidocaine Patch REMOVE PATCH PATCH OFF SCH (22:03)
[2021-07-19] MEDS: Nystatin TOP POWDER 15 GM BTL TOPICAL SCH (23:30)
[2021-07-20] MEDS: Oxacillin 2 GM in NS 0.9% 100 ml BAG 100 ML IVPB SCH ×4 (01:03→19:47)
[2021-07-20] MEDS: hydrALAZINE 20 mg/ml 1 ML Vial IV IV SLOW PU PRN (02:43)
[2021-07-20] MEDS ORDERED: hydrALAZINE 20 mg/ml 1 ML Vial IV IV SLOW PU PRN (03:47)
[2021-07-20] MEDS ORDERED: hydrALAZINE 20 mg/ml 1 ML Vial IV IV SLOW PU ONE (03:47)
[2021-07-20 04:35] LABS: ABS Basophils 0.1 10^3/ul (0-0.2); ABS Lymphocytes 0.4 10^3/ul (1.0-4.8); ABS Monocytes 0.4 10^3/ul (0-0.8); ABS Neutrophils 12.7 10^3/ul (1.5-7.7); Hematocrit 25 % (42-52); Hemoglobin 7.9 g/dL (14.0-18.0); Mean Corpuscular HGB Conc 32 g/dL (31-36); Mean Corpuscular Hemoglobin 27 pg (27-31); Mean Corpuscular Volume 85 fL (80-94); Mean Platelet Volume 7.5 fL (7.4-10.4); Nucleated Red Blood Cells % 0.1; Platelet Count 297 10^3/uL (150-450); Red Blood Count 2.88 10^6 /uL (4.18-5.48); Red Cell Distribution Width 19 % (10-15); White Blood Count 13.6 10^3/uL (3.5-10.8)
[2021-07-20 04:47] LABS: Calcium 7.5 mg/dL (8.6-10.3); Phosphorus 3.8 mg/dL (2.5-5.0); Potassium 4.4 mmol/L (3.5-5.0)
[2021-07-20] MEDS: levETIRAcetam 500 MG IVPREMIX 500 MG/100 ML BAG IV SCH (06:06)
[2021-07-20] MEDS: Dexamethasone IV 4 MG/ML VIAL 1 ml VIAL IV SLOW PU SCH ×3 (06:11→22:49)
[2021-07-20] MEDS: Heparin 5000 UNITS/ML 1 mL VIAL SUBCUT SCH ×3 (06:16→22:08)
[2021-07-20] MEDS: Nystatin TOP POWDER 15 GM BTL TOPICAL SCH ×3 (07:51→19:49)
[2021-07-20] MEDS: Pantoprazole VIAL 40 MG VIAL IV SCH ×2 (07:51→19:49)
[2021-07-20] MEDS: Lidocaine PATCH 5% PATCH TRANSDERM SCH (07:53)
[2021-07-20] MEDS: LORazepam 2 mg VIAL 1 ml IV PUSH PRN (08:30)
[2021-07-20] MEDS ORDERED: Valproic Acid IV 1,000 MG in NS 0.9% 100 ml BAG 100 ML IVPB ONE (09:00)
[2021-07-20] MEDS: niCARdipine 0.1MG/ML IVPREMIX 20 MG/200 ML BAG IV SCH (11:50)
[2021-07-20] MEDS ORDERED: Vancomycin Random Level NOTE FOLLOW UP ONE (12:30)
[2021-07-20] MEDS ORDERED: niCARdipine 0.1MG/ML IVPREMIX 20 MG/200 ML BAG IV SCH (13:25)
[2021-07-20] MEDS: levETIRAcetam IV 750 MG in NS 0.9% 100 ml BAG 100 ML IVPB SCH (16:52)
[2021-07-20] MEDS: Lidocaine Patch REMOVE PATCH PATCH OFF SCH (19:49)
[2021-07-20] MEDS ORDERED: Valproic Acid IV 100 MG/ML 5 ML VIAL (500 MG) IVPB SCH (20:30)
[2021-07-20] MEDS: Valproic Acid IV 1,000 MG in NS 0.9% 100 ml BAG 100 ML IVPB SCH (21:28)
[2021-07-21] MEDS: Oxacillin 2 GM in NS 0.9% 100 ml BAG 100 ML IVPB SCH ×4 (00:55→19:24)
[2021-07-21 04:15] LABS: Hematocrit 22 % (42-52); Hemoglobin 7.3 g/dL (14.0-18.0); Mean Corpuscular HGB Conc 34 g/dL (31-36); Mean Corpuscular Hemoglobin 29 pg (27-31); Mean Corpuscular Volume 86 fL (80-94); Mean Platelet Volume 7.3 fL (7.4-10.4); Platelet Count 252 10^3/uL (150-450); Red Blood Count 2.54 10^6 /uL (4.18-5.48); Red Cell Distribution Width 20 % (10-15); White Blood Count 13.5 10^3/uL (3.5-10.8)
[2021-07-21 04:31] LABS: Calcium 7.4 mg/dL (8.6-10.3); Phosphorus 4.3 mg/dL (2.5-5.0); Potassium 4.2 mmol/L (3.5-5.0)
[2021-07-21 04:49] LABS: ABS Lymphocytes 0.3 10^3/ul (1.0-4.8); ABS Monocytes 0.5 10^3/ul (0-0.8); ABS Neutrophils 12.6 10^3/ul (1.5-7.7); Lymphocyte % 2.6 %; Nucleated Red Blood Cells % 0.1
[2021-07-21] MEDS: levETIRAcetam IV 750 MG in NS 0.9% 100 ml BAG 100 ML IVPB SCH (04:58)
[2021-07-21] MEDS: Heparin 5000 UNITS/ML 1 mL VIAL SUBCUT SCH ×3 (05:22→22:19)
[2021-07-21] MEDS ORDERED: NS 0.9% 100 ml BAG 100 ML ONE (08:22)
[2021-07-21] MEDS: Lidocaine PATCH 5% PATCH TRANSDERM SCH (08:25)
[2021-07-21] MEDS: Pantoprazole VIAL 40 MG VIAL IV SCH ×2 (08:25→19:27)
[2021-07-21] MEDS: Valproic Acid IV 1,000 MG in NS 0.9% 100 ml BAG 100 ML IVPB SCH (08:37)
[2021-07-21] MEDS: Nystatin TOP POWDER 15 GM BTL TOPICAL SCH ×3 (10:53→19:46)
[2021-07-21] MEDS: Docusate LIQ 100 MG/10 ML UDC G TUBE SCH ×2 (14:05→19:27)
[2021-07-21] MEDS: Polyethylene Glycol 3350 17 GM PACKET NG TUBE SCH (14:05)
[2021-07-21] MEDS: hydrALAZINE 20 mg/ml 1 ML Vial IV IV SLOW PU PRN ×3 (14:06→22:07)
[2021-07-21] MEDS: Senna TAB 8.6 mg TAB NG TUBE SCH ×2 (14:06→19:27)
[2021-07-21] MEDS: Valproic Acid LIQ 250 MG/5 ML UDC PO SCH (21:50)
[2021-07-21] MEDS: Lidocaine Patch REMOVE PATCH PATCH OFF SCH (22:16)
[2021-07-22] MEDS: Oxacillin 2 GM in NS 0.9% 100 ml BAG 100 ML IVPB SCH ×4 (00:54→20:55)
[2021-07-22] MEDS: hydrALAZINE 20 mg/ml 1 ML Vial IV IV SLOW PU PRN ×4 (02:23→16:33)
[2021-07-22 04:48] LABS: Hematocrit 22 % (42-52); Hemoglobin 7.2 g/dL (14.0-18.0); Mean Corpuscular HGB Conc 34 g/dL (31-36); Mean Corpuscular Hemoglobin 29 pg (27-31); Mean Corpuscular Volume 85 fL (80-94); Mean Platelet Volume 7.3 fL (7.4-10.4); Platelet Count 229 10^3/uL (150-450); Red Blood Count 2.53 10^6 /uL (4.18-5.48); Red Cell Distribution Width 20 % (10-15); White Blood Count 9.9 10^3/uL (3.5-10.8)
[2021-07-22 04:57] LABS: ABS Lymphocytes 0.4 10^3/ul (1.0-4.8); ABS Monocytes 0.5 10^3/ul (0-0.8); Eosinophil % 0.4 %; Lymphocyte % 3.5 %; Nucleated Red Blood Cells % 0.1
[2021-07-22 05:05] LABS: Calcium 6.9 mg/dL (8.6-10.3); Magnesium 1.9 mg/dL (1.9-2.7); Phosphorus 4.3 mg/dL (2.5-5.0); Potassium 3.8 mmol/L (3.5-5.0)
[2021-07-22] MEDS: Heparin 5000 UNITS/ML 1 mL VIAL SUBCUT SCH ×3 (05:16→22:23)
[2021-07-22 06:11] LABS: Anisocytosis 2+
[2021-07-22 06:12] LABS: Basophilic Stippling 1+
[2021-07-22 06:13] LABS: Acanthocytes 1+; Schistocytes 2+
[2021-07-22 06:15] LABS: Hypochromasia 1+
[2021-07-22] MEDS: Senna TAB 8.6 mg TAB NG TUBE SCH (08:25)
[2021-07-22] MEDS: Polyethylene Glycol 3350 17 GM PACKET NG TUBE SCH (08:25)
[2021-07-22] MEDS: Docusate LIQ 100 MG/10 ML UDC G TUBE SCH (08:26)
[2021-07-22] MEDS ORDERED: levETIRAcetam LIQ 500 MG/5 ML UDC PO SCH (10:00)
[2021-07-22] MEDS: Valproic Acid LIQ 250 MG/5 ML UDC PO SCH ×2 (10:23→21:08)
[2021-07-22] MEDS: Lidocaine PATCH 5% PATCH TRANSDERM SCH (10:23)
[2021-07-22] MEDS: Pantoprazole VIAL 40 MG VIAL IV SCH ×2 (10:24→21:18)
[2021-07-22] MEDS: Nystatin TOP POWDER 15 GM BTL TOPICAL SCH ×3 (10:24→21:18)
[2021-07-22] MEDS: levETIRAcetam LIQ 500 MG/5 ML UDC NG TUBE SCH ×2 (10:28→21:08)
[2021-07-22] MEDS: LORazepam 2 mg VIAL 1 ml IV PUSH PRN (12:36)
[2021-07-22] MEDS ORDERED: Valproic Acid IV 500 MG in NS 0.9% 100 ml BAG 100 ML IVPB ONE (13:27)
[2021-07-22] MEDS ORDERED: LORazepam 2 mg VIAL 1 ml IV PUSH ONE (18:00)
[2021-07-22] MEDS: Lidocaine Patch REMOVE PATCH PATCH OFF SCH (22:23)
[2021-07-23] MEDS: hydrALAZINE 20 mg/ml 1 ML Vial IV IV SLOW PU PRN ×3 (01:03→06:12)
[2021-07-23] MEDS: Oxacillin 2 GM in NS 0.9% 100 ml BAG 100 ML IVPB SCH ×4 (01:29→21:17)
[2021-07-23] MEDS: Heparin 5000 UNITS/ML 1 mL VIAL SUBCUT SCH ×3 (06:09→21:20)
[2021-07-23 06:26] LABS: Calcium 6.9 mg/dL (8.6-10.3); Magnesium 1.7 mg/dL (1.9-2.7); Phosphorus 3.9 mg/dL (2.5-5.0); Potassium 3.3 mmol/L (3.5-5.0)
[2021-07-23] MEDS ORDERED: Magnesium Sulfate IV 3 GM in NS 0.9% 100 ml BAG 100 ML IVPB ONE (06:36)
[2021-07-23] MEDS ORDERED: Potassium Chloride LIQUID 20 MEQ/15 ML LIQUID PO ONE (06:38)
[2021-07-23 06:39] LABS: Hematocrit 24 % (42-52); Hemoglobin 7.9 g/dL (14.0-18.0); Mean Corpuscular HGB Conc 33 g/dL (31-36); Mean Corpuscular Hemoglobin 28 pg (27-31); Mean Corpuscular Volume 85 fL (80-94); Mean Platelet Volume 7.5 fL (7.4-10.4); Platelet Count 194 10^3/uL (150-450); Red Blood Count 2.79 10^6 /uL (4.18-5.48); Red Cell Distribution Width 20 % (10-15); White Blood Count 7.5 10^3/uL (3.5-10.8)
[2021-07-23 08:33] LABS: ABS Eosinophils 0.1 10^3/ul (0-0.6); ABS Lymphocytes 0.3 10^3/ul (1.0-4.8); ABS Monocytes 0.4 10^3/ul (0-0.8); ABS Neutrophils 6.7 10^3/ul (1.5-7.7); Eosinophil % 0.7 %; Lymphocyte % 4.1 %; Nucleated Red Blood Cells % 0.1
[2021-07-23] MEDS: Pantoprazole VIAL 40 MG VIAL IV SCH ×2 (09:00→21:20)
[2021-07-23] MEDS: levETIRAcetam LIQ 500 MG/5 ML UDC NG TUBE SCH ×2 (09:01→21:21)
[2021-07-23] MEDS: Valproic Acid LIQ 250 MG/5 ML UDC PO SCH (09:01)
[2021-07-23] MEDS: Lidocaine PATCH 5% PATCH TRANSDERM SCH (09:11)
[2021-07-23] MEDS: Nystatin TOP POWDER 15 GM BTL TOPICAL SCH ×3 (10:24→21:19)
[2021-07-23] MEDS: Valproic Acid LIQ 250 MG/5 ML UDC NG TUBE SCH ×2 (14:20→21:21)
[2021-07-23] MEDS: Lidocaine Patch REMOVE PATCH PATCH OFF SCH (21:21)
[2021-07-24] MEDS: Oxacillin 2 GM in NS 0.9% 100 ml BAG 100 ML IVPB SCH ×4 (01:13→20:36)
[2021-07-24] MEDS: hydrALAZINE 20 mg/ml 1 ML Vial IV IV SLOW PU PRN ×3 (01:13→20:50)
[2021-07-24] MEDS: Heparin 5000 UNITS/ML 1 mL VIAL SUBCUT SCH ×3 (06:07→21:02)
[2021-07-24 06:52] LABS: Calcium 6.9 mg/dL (8.6-10.3); Magnesium 2.1 mg/dL (1.9-2.7); Phosphorus 3.3 mg/dL (2.5-5.0); Potassium 3.7 mmol/L (3.5-5.0)
[2021-07-24] MEDS: levETIRAcetam LIQ 500 MG/5 ML UDC NG TUBE SCH ×2 (09:06→20:40)
[2021-07-24] MEDS: Valproic Acid LIQ 250 MG/5 ML UDC NG TUBE SCH ×3 (09:06→20:47)
[2021-07-24] MEDS: Nystatin TOP POWDER 15 GM BTL TOPICAL SCH ×3 (09:07→21:03)
[2021-07-24] MEDS: Lidocaine PATCH 5% PATCH TRANSDERM SCH (09:07)
[2021-07-24] MEDS: Pantoprazole VIAL 40 MG VIAL IV SCH ×2 (09:08→20:38)
[2021-07-24] MEDS: Lidocaine Patch REMOVE PATCH PATCH OFF SCH (21:04)
[2021-07-25] MEDS: Oxacillin 2 GM in NS 0.9% 100 ml BAG 100 ML IVPB SCH ×4 (01:34→20:06)
[2021-07-25 05:38] LABS: Phosphorus 3.2 mg/dL (2.5-5.0); Potassium 3.7 mmol/L (3.5-5.0)
[2021-07-25] MEDS: Heparin 5000 UNITS/ML 1 mL VIAL SUBCUT SCH ×3 (05:50→21:47)
[2021-07-25] MEDS: hydrALAZINE 20 mg/ml 1 ML Vial IV IV SLOW PU PRN ×4 (06:27→18:38)
[2021-07-25] MEDS: Lidocaine PATCH 5% PATCH TRANSDERM SCH (09:36)
[2021-07-25] MEDS: Nystatin TOP POWDER 15 GM BTL TOPICAL SCH ×3 (09:37→21:47)
[2021-07-25] MEDS: Valproic Acid LIQ 250 MG/5 ML UDC NG TUBE SCH ×3 (09:37→21:35)
[2021-07-25] MEDS: Pantoprazole VIAL 40 MG VIAL IV SCH ×2 (09:37→21:16)
[2021-07-25] MEDS: levETIRAcetam LIQ 500 MG/5 ML UDC NG TUBE SCH ×2 (09:37→21:16)
[2021-07-25] MEDS: Insulin GLARGINE 100 un/ml 10 ml VIAL SUBCUT SCH (21:15)
[2021-07-25] MEDS: Lidocaine Patch REMOVE PATCH PATCH OFF SCH (21:17)
[2021-07-26] MEDS: Oxacillin 2 GM in NS 0.9% 100 ml BAG 100 ML IVPB SCH ×4 (01:21→20:03)
[2021-07-26] MEDS: Heparin 5000 UNITS/ML 1 mL VIAL SUBCUT SCH ×3 (05:38→23:00)
[2021-07-26 06:34] LABS: Calcium 7.2 mg/dL (8.6-10.3); Magnesium 1.9 mg/dL (1.9-2.7); Potassium 3.8 mmol/L (3.5-5.0)
[2021-07-26] MEDS: Nystatin TOP POWDER 15 GM BTL TOPICAL SCH ×3 (09:33→23:00)
[2021-07-26] MEDS: Pantoprazole VIAL 40 MG VIAL IV SCH ×2 (10:17→23:00)
[2021-07-26] MEDS: Valproic Acid LIQ 250 MG/5 ML UDC NG TUBE SCH ×3 (10:18→23:00)
[2021-07-26] MEDS: levETIRAcetam LIQ 500 MG/5 ML UDC NG TUBE SCH ×2 (10:19→23:00)
[2021-07-26] MEDS: Lidocaine PATCH 5% PATCH TRANSDERM SCH (10:33)
[2021-07-26] MEDS: Loperamide LIQ 2 MG/15 ML UDC PO SCH ×2 (14:33→23:00)
[2021-07-26] MEDS: Lidocaine Patch REMOVE PATCH PATCH OFF SCH (23:00)
[2021-07-26] MEDS: Insulin GLARGINE 100 un/ml 10 ml VIAL SUBCUT SCH (23:00)
[2021-07-27] MEDS: Oxacillin 2 GM in NS 0.9% 100 ml BAG 100 ML IVPB SCH ×4 (01:08→19:39)
[2021-07-27] MEDS: Heparin 5000 UNITS/ML 1 mL VIAL SUBCUT SCH ×3 (05:35→20:40)
[2021-07-27 06:55] LABS: Hematocrit 24 % (42-52); Hemoglobin 7.9 g/dL (14.0-18.0); Mean Corpuscular HGB Conc 34 g/dL (31-36); Mean Corpuscular Hemoglobin 28 pg (27-31); Mean Corpuscular Volume 84 fL (80-94); Mean Platelet Volume 8.3 fL (7.4-10.4); Platelet Count 176 10^3/uL (150-450); Red Cell Distribution Width 20 % (10-15); White Blood Count 8.9 10^3/uL (3.5-10.8)
[2021-07-27 07:00] LABS: ALT < 3 U/L (7-52); AST 8 U/L (13-39); Albumin/Globulin Ratio 0.6 (1-3); Alkaline Phosphatase 108 U/L (35-149); Blood Urea Nitrogen 79 mg/dL (6-24); CO2 Carbon Dioxide 19 mmol/L (22-32); Calcium 7.1 mg/dL (8.6-10.3); Globulin 3.3 g/dL (2-4); Glucose 209 mg/dL (70-100); Magnesium 1.9 mg/dL (1.9-2.7); Potassium 4.2 mmol/L (3.5-5.0); Sodium 141 mmol/L (135-145); Total Protein 5.3 g/dL (6.4-8.9)
[2021-07-27 07:03] LABS: Anion Gap 9 mmol/L (2-11); Chloride 113 mmol/L (101-111)
[2021-07-27 07:54] LABS: ABS Lymphocytes 0.3 10^3/ul (1.0-4.8); ABS Monocytes 0.5 10^3/ul (0-0.8); ABS Neutrophils 8.1 10^3/ul (1.5-7.7); Eosinophil % 0.5 %; Lymphocyte % 3.2 %; Nucleated Red Blood Cells % 0.1
[2021-07-27] MEDS: Lidocaine PATCH 5% PATCH TRANSDERM SCH (08:57)
[2021-07-27] MEDS: levETIRAcetam LIQ 500 MG/5 ML UDC NG TUBE SCH ×2 (09:04→20:38)
[2021-07-27] MEDS: Pantoprazole VIAL 40 MG VIAL IV SCH ×2 (09:06→20:40)
[2021-07-27] MEDS: Valproic Acid LIQ 250 MG/5 ML UDC NG TUBE SCH ×3 (09:06→20:37)
[2021-07-27] MEDS: Loperamide LIQ 2 MG/15 ML UDC PO SCH ×2 (09:06→20:39)
[2021-07-27] MEDS: Nystatin TOP POWDER 15 GM BTL TOPICAL SCH ×3 (09:07→20:39)
[2021-07-27] MEDS: Insulin GLARGINE 100 un/ml 10 ml VIAL SUBCUT SCH (20:39)
[2021-07-27] MEDS: Lidocaine Patch REMOVE PATCH PATCH OFF SCH (22:46)
[2021-07-28] MEDS: Oxacillin 2 GM in NS 0.9% 100 ml BAG 100 ML IVPB SCH ×4 (01:13→20:35)
[2021-07-28] MEDS: Heparin 5000 UNITS/ML 1 mL VIAL SUBCUT SCH ×3 (06:00→22:24)
[2021-07-28] MEDS: levETIRAcetam LIQ 500 MG/5 ML UDC NG TUBE SCH ×2 (08:21→22:26)
[2021-07-28] MEDS: Valproic Acid LIQ 250 MG/5 ML UDC NG TUBE SCH ×3 (08:21→22:26)
[2021-07-28] MEDS: Loperamide LIQ 2 MG/15 ML UDC PO SCH ×2 (08:21→22:26)
[2021-07-28] MEDS: Pantoprazole VIAL 40 MG VIAL IV SCH ×2 (08:22→22:24)
[2021-07-28 08:31] LABS: C Reactive Protein 118.89 mg/L (<8.01)
[2021-07-28] MEDS: Lidocaine PATCH 5% PATCH TRANSDERM SCH (08:31)
[2021-07-28] MEDS: Nystatin TOP POWDER 15 GM BTL TOPICAL SCH ×3 (08:31→22:25)
[2021-07-28] MEDS: Insulin GLARGINE 100 un/ml 10 ml VIAL SUBCUT SCH (22:26)
[2021-07-28] MEDS: Lidocaine Patch REMOVE PATCH PATCH OFF SCH (22:59)
[2021-07-29] MEDS: Oxacillin 2 GM in NS 0.9% 100 ml BAG 100 ML IVPB SCH ×3 (01:53→13:06)
[2021-07-29] MEDS: Heparin 5000 UNITS/ML 1 mL VIAL SUBCUT SCH ×2 (05:52→13:06)
[2021-07-29] MEDS: Pantoprazole VIAL 40 MG VIAL IV SCH (07:34)
[2021-07-29] MEDS: levETIRAcetam LIQ 500 MG/5 ML UDC NG TUBE SCH (09:13)
[2021-07-29] MEDS: Nystatin TOP POWDER 15 GM BTL TOPICAL SCH ×3 (09:13→22:51)
[2021-07-29] MEDS: Loperamide LIQ 2 MG/15 ML UDC PO SCH ×2 (09:13→22:51)
[2021-07-29] MEDS: Valproic Acid LIQ 250 MG/5 ML UDC NG TUBE SCH ×2 (09:13→13:06)
[2021-07-29] MEDS: Lidocaine PATCH 5% PATCH TRANSDERM SCH (09:14)
[2021-07-29 15:58] VITALS: BP 107/45
[2021-07-29] MEDS ORDERED: LORazepam 2 mg VIAL 1 ml IV PUSH PRN (18:04)
[2021-07-29] MEDS ORDERED: Lorazepam PYXIS KEY PRN (18:04)
[2021-07-29] MEDS: Valproic Acid IV 750 MG in NS 0.9% 100 ml BAG 100 ML IVPB SCH (19:23)
[2021-07-29] MEDS: levETIRAcetam 500 MG/100 ML IV SCH (20:57)
[2021-07-29] MEDS: Lidocaine Patch REMOVE PATCH PATCH OFF SCH (22:50)
[2021-07-30] MEDS: Morphine 2 MG/ML SYRINGE IV PRN ×3 (01:00→20:51)
[2021-07-30] MEDS: Valproic Acid IV 750 MG in NS 0.9% 100 ml BAG 100 ML IVPB SCH ×4 (01:00→20:52)
[2021-07-30] MEDS: LORazepam 2 mg VIAL 1 ml IV PUSH PRN ×3 (01:01→20:52)
[2021-07-30] MEDS: Loperamide LIQ 2 MG/15 ML UDC PO SCH ×2 (09:49→22:20)
[2021-07-30] MEDS: levETIRAcetam 500 MG/100 ML IV SCH ×2 (09:56→22:55)
[2021-07-30] MEDS: Lidocaine PATCH 5% PATCH TRANSDERM SCH (09:56)
[2021-07-30] MEDS: Nystatin TOP POWDER 15 GM BTL TOPICAL SCH ×3 (09:57→21:00)
[2021-07-30] MEDS: Lidocaine Patch REMOVE PATCH PATCH OFF SCH (22:20)
[2021-07-31] MEDS: Valproic Acid IV 750 MG in NS 0.9% 100 ml BAG 100 ML IVPB SCH ×2 (02:47→08:24)
[2021-07-31] MEDS: Morphine 2 MG/ML SYRINGE IV PRN ×2 (02:47→05:56)
[2021-07-31] MEDS: LORazepam 2 mg VIAL 1 ml IV PUSH PRN ×2 (02:48→05:55)
[2021-07-31] MEDS: Nystatin TOP POWDER 15 GM BTL TOPICAL SCH (12:23)
[2021-07-31] MEDS: Lidocaine PATCH 5% PATCH TRANSDERM SCH (12:23)
[2021-07-31] MEDS: levETIRAcetam 500 MG/100 ML IV SCH (12:23)
[2021-07-31] MEDS: Loperamide LIQ 2 MG/15 ML UDC PO SCH (12:23)
== END 2021-07-31 08:42 | disposition expired | DRG 981 ==
LOC: ED 11:51 → SSU 16:19 → SUATTDRO 16:19 → SSU 07-13 17:09 → ICU 07-14 21:02 → MEDTELE 07-25 20:17
PROVIDERS: ADMIT Internal Medicine; ATTEND Hospitalist